=== PATIENT | male | born 1935 | race Caucasian/White ===

== ENCOUNTER 2017-06-28 09:20 | Observation (INO) | payer OTHER, MEDICARE ==
[2017-06-28 10:11] LABS: Glucose,Whole Blood 101 mg/dL (75-99)
[2017-06-28 10:19] LABS: Basophils % (A) 0 %; Eosinophils # (A) 0.2 k/uL (0-0.7); Eosinophils % (A) 2 %; HCT 40.3 % (39.0-53.0); HGB 14.2 gm/dL (13.0-17.5); Lymphocytes # (A) 2.5 k/uL (1.0-4.8); Lymphocytes % (A) 29 %; MCHC 35.2 g/dL (31.0-37.0); MCV 88.1 fL (80.0-100.0); Mean Platelet Volume 6.4; Monocytes # (A) 0.8 k/uL (0-1.0); Monocytes % (A) 9 %; Neutrophils # (A) 4.9 k/uL (1.3-7.7); Neutrophils % (A) 57 %; Platelet Count 316 k/uL (150-450); RBC 4.58 m/uL (4.30-5.90); WBC 8.7 k/uL (3.8-10.6)
[2017-06-28 10:30] LABS: Albumin 3.7 g/dL (3.5-5.0); Calcium 9.3 mg/dL (8.4-10.2); Potassium 3.4 mmol/L (3.5-5.1); Total Bilirubin 0.5 mg/dL (0.2-1.3); Total Protein 6.2 g/dL (6.3-8.2)
[2017-06-28 10:38] LABS: INR 1.1 (<1.2); Partial Thromboplastin Time 22.3 sec (22.0-30.0); Prothrombin Time 10.7 sec (9.0-12.0)
[2017-06-28 10:51] LABS: Creatine Kinase MB 1.4 ng/mL (0.0-2.4); Troponin I 0.013 ng/mL (0.000-0.034)
--- NOTE | 2017-06-28 10:56 | ED ---
General Adult HPI - General Chief complaint: Back Pain/Injury Stated complaint: Lower back pain, leg twitching Time Seen by Provider: 06/28/17 09:33 Source: patient, EMS, RN notes reviewed, old records reviewed Mode of arrival: EMS - History of Present Illness Initial comments: Patient 82-year-old male who presents emergency room today with a chief complaint of "shaking". Patient and family members at bedside providing history. They state that noticed that yesterday during the day his legs at random tremors. States the difficult time with ambulation due to shaking in his legs and his arms. States he usually walks with a walker. Patient also admits to increased lower back pain. Does admit to history. States he had a fall approximately one week ago getting into the bathtub when he slipped and did not fall the entire way was able to catch himself. States had a difficult time getting up after that time. States had increased pain on the left side posterior ribs over just the last 2 days. Patient denies any other complaints currently. Patient denies any recent fever, chills, shortness of breath, chest pain, abdominal pain, nausea or vomiting, numbness or tingling, dysuria or hematuria, headaches or visual changes, or any other complaints. - Related Data Home Medications Medication Instructions Recorded Confirmed Cetirizine HCl [Zyrtec] 10 mg PO DAILY 06/14/14 06/28/17 Citalopram Hydrobromide [CeleXA] 20 mg PO HS 06/14/14 06/28/17 Clopidogrel [Plavix] 75 mg PO QAM 06/14/14 06/28/17 Fenofibrate Nanocrystallized 145 mg PO W/SUPPER 06/14/14 06/28/17 [Tricor] Insulin Detemir [Levemir Flextouch] 35 units SQ HS 06/14/14 06/28/17 Vit A/Vit C/Vit E/Zinc/Copper 1 cap PO BID 06/14/14 06/28/17 [ICAPS SOFTGEL] Cholecalciferol [Vitamin D3] 1,000 unit PO DAILY 10/06/14 06/28/17 Aspirin EC [Ecotrin Low Dose] 81 mg PO W/SUPPER 06/28/17 06/28/17 Doxazosin [Cardura] 2 mg PO HS 06/28/17 06/28/17 Insulin Lispro [humaLOG Kwikpen] 26 unit SQ AC-TID 06/28/17 06/28/17 Losartan/Hydrochlorothiazide 1 tab PO HS 06/28/17 06/28/17 [Losartan-Hctz 100-25 mg Tab] Morphine Sulfate ER [Ms Contin] 15 mg PO TID 06/28/17 06/28/17 Rosuvastatin [Crestor] 20 mg PO W/SUPPER 06/28/17 06/28/17 amLODIPine [Norvasc] 10 mg PO DAILY 06/28/17 06/28/17 cloNIDine HCL [Catapres] 0.1 mg PO W/SUPPER 06/28/17 06/28/17 Allergies Allergy/AdvReac Type Severity Reaction Status Date / Time celecoxib [From Celebrex] Allergy Rash/Hives Verified 06/28/17 10:39 gabapentin [From Neurontin] Allergy Swelling Verified 06/28/17 10:39 levofloxacin [From Levaquin] Allergy Unknown Verified 06/28/17 10:39 sulfamethoxazole Allergy Unknown Verified 06/28/17 10:39 [From Bactrim] trimethoprim [From Bactrim] Allergy Unknown Verified 06/28/17 10:39 hydrocodone AdvReac Trouble Verified 06/28/17 10:39 Sleeping Review of Systems ROS Statement: Those systems with pertinent positive or pertinent negative responses have been documented in the HPI. ROS Other: All systems not noted in ROS Statement are negative. Past Medical History Past Medical History: Coronary Artery Disease (CAD), CVA/TIA, Hyperlipidemia, Hypertension Additional Past Medical History / Comment(s): CVA with right sided weakness History of Any Multi-Drug Resistant Organisms: None Reported Past Surgical History: Back Surgery, Heart Catheterization With Stent, Hernia Repair, Orthopedic Surgery Additional Past Surgical History / Comment(s): back surg x7, L knee, Yared. shoulders, nose surgery, hiatal hernia, stent 1997, CABG. Past Anesthesia/Blood Transfusion Reactions: No Reported Reaction Additional Past Anesthesia/Blood Transfusion Reaction / Comment(s): experienced stroke during last back surgery Date of Last Stent Placement:: june 1997 Past Psychological History: Anxiety Smoking Status: Never smoker Past Alcohol Use History: None Reported Past Drug Use History: None Reported - Past Family History Father Family Medical History: Coronary Artery Disease (CAD) General Exam - General Exam Comments Initial Comments: General: The patient is awake and alert, in no distress, and does not appear acutely ill. Eye: Pupils are equal, round and reactive to light, extra-ocular movements are intact. No nystagmus. There is normal conjunctiva bilaterally. No signs of icterus. Ears, nose, mouth and throat: There are moist mucous membranes and no oral lesions. Neck: The neck is supple, there is no tenderness or JVD. Cardiovascular: There is a regular rate and rhythm. No murmur, rub or gallop is appreciated. Respiratory: Lungs are clear to auscultation, respirations are non-labored, breath sounds are equal. No wheezes, stridor, rales, or rhonchi. Gastrointestinal: Soft, non-distended, non-tender abdomen without masses or organomegaly noted. There is no rebound or guarding present. No CVA tenderness. Musculoskeletal: Normal ROM, no tenderness. Strength 5/5. Sensation intact. Pulses equal bilaterally 2+. Neurological: A&O x 3. CN II-XII intact, There are no obvious motor or sensory deficits. Coordination appears grossly intact. Speech is normal. Skin: Skin is warm and dry and no rashes or lesions are noted. Psychiatric: Cooperative, appropriate mood & affect, normal judgment. Course Vital Signs 06/28/17 06/28/17 06/28/17 09:24 11:30 12:45 Temperature 98.7 F 98.8 F Pulse Rate 87 69 65 Respiratory 18 18 18 Rate Blood Pressure 121/65 124/60 138/63 O2 Sat by Pulse 94 L 93 L 94 L Oximetry Medical Decision Making - Medical Decision Making Patient reexamined at this time shows no signs of distress resting comfortably in the stretcher. Patient's x-rays and been reviewed and does show a fracture of the fifth rib on the left side. Remaining x-rays and CAT scan are unremarkable. Patient's labs been reviewed. Patient did take trazodone for 2 days beginning 3 days ago. Patient had some tremors sounds. Patient was ambulated here in the emergency room and will time standing up at bedside unable to ablate with walker patient will be admitted to the hospital. Patient family aware the plan states understanding. - Lab Data Result diagrams: 06/28/17 10:07 06/28/17 10:07 Lab Results 06/28/17 06/28/17 06/28/17 Range/Units 10:04 10:07 10:07 WBC (3.8-10.6) k/uL RBC (4.30-5.90) m/uL Hgb (13.0-17.5) gm/dL Hct (39.0-53.0) % MCV (80.0-100.0) fL MCH (25.0-35.0) pg MCHC (31.0-37.0) g/dL RDW (11.5-15.5) % Plt Count (150-450) k/uL Neutrophils % % Lymphocytes % % Monocytes % % Eosinophils % % Basophils % % Neutrophils # (1.3-7.7) k/uL Lymphocytes # (1.0-4.8) k/uL Monocytes # (0-1.0) k/uL Eosinophils # (0-0.7) k/uL Basophils # (0-0.2) k/uL PT (9.0-12.0) sec INR (<1.2) APTT (22.0-30.0) sec Sodium 141 (137-145) mmol/L Potassium 3.4 L (3.5-5.1) mmol/L Chloride 104 (98-107) mmol/L Carbon Dioxide 29 (22-30) mmol/L Anion Gap 8 mmol/L BUN 29 H (9-20) mg/dL Creatinine 1.20 (0.66-1.25) mg/dL Est GFR (CKD-EPI)AfAm 64 (>60 ml/min/1.73 sqM) Est GFR (CKD-EPI)NonAf 55 (>60 ml/min/1.73 sqM) Glucose 94 (74-99) mg/dL POC Glucose (mg/dL) 101 H (75-99) mg/dL POC Glu [employer] Demonstrator ID Karyna Granados Calcium 9.3 (8.4-10.2) mg/dL Total Bilirubin 0.5 (0.2-1.3) mg/dL AST 24 (17-59) U/L ALT 25 (21-72) U/L Alkaline Phosphatase 34 L (38-126) U/L Total Creatine Kinase 182 H (55-170) U/L CK-MB (CK-2) 1.4 (0.0-2.4) ng/mL CK-MB (CK-2) Rel Index 0.8 Troponin I 0.013 (0.000-0.034) ng/mL Total Protein 6.2 L (6.3-8.2) g/dL Albumin 3.7 (3.5-5.0) g/dL Amylase 68 (30-110) U/L Lipase 22 L (23-300) U/L Urine Color Urine Appearance (Clear) Urine pH (5.0-8.0) Ur Specific Orma (1.001-1.035) Urine Protein (Negative) Urine Glucose (UA) (Negative) Urine Ketones (Negative) Urine Blood (Negative) Urine Nitrite (Negative) Urine Bilirubin (Negative) Urine Urobilinogen (<2.0) mg/dL Ur Leukocyte Esterase (Negative) 06/28/17 06/28/17 06/28/17 Range/Units 10:07 10:07 11:00 WBC 8.7 (3.8-10.6) k/uL RBC 4.58 (4.30-5.90) m/uL Hgb 14.2 (13.0-17.5) gm/dL Hct 40.3 (39.0-53.0) % MCV 88.1 (80.0-100.0) fL MCH 31.0 (25.0-35.0) pg MCHC 35.2 (31.0-37.0) g/dL RDW 13.0 (11.5-15.5) % Plt Count 316 (150-450) k/uL Neutrophils % 57 % Lymphocytes % 29 % Monocytes % 9 % Eosinophils % 2 % Basophils % 0 % Neutrophils # 4.9 (1.3-7.7) k/uL Lymphocytes # 2.5 (1.0-4.8) k/uL Monocytes # 0.8 (0-1.0) k/uL Eosinophils # 0.2 (0-0.7) k/uL Basophils # 0.0 (0-0.2) k/uL PT 10.7 (9.0-12.0) sec INR 1.1 (<1.2) APTT 22.3 (22.0-30.0) sec Sodium (137-145) mmol/L Potassium (3.5-5.1) mmol/L Chloride (98-107) mmol/L Carbon Dioxide (22-30) mmol/L Anion Gap mmol/L BUN (9-20) mg/dL Creatinine (0.66-1.25) mg/dL Est GFR (CKD-EPI)AfAm (>60 ml/min/1.73 sqM) Est GFR (CKD-EPI)NonAf (>60 ml/min/1.73 sqM) Glucose (74-99) mg/dL POC Glucose (mg/dL) (75-99) mg/dL POC Glu Farm Demonstrator ID Calcium (8.4-10.2) mg/dL Total Bilirubin (0.2-1.3) mg/dL AST (17-59) U/L ALT (21-72) U/L Alkaline Phosphatase (38-126) U/L Total Creatine Kinase (55-170) U/L CK-MB (CK-2) (0.0-2.4) ng/mL CK-MB (CK-2) Rel Index Troponin I (0.000-0.034) ng/mL Total Protein (6.3-8.2) g/dL Albumin (3.5-5.0) g/dL Amylase (30-110) U/L Lipase (23-300) U/L Urine Color Yellow Urine Appearance Clear (Clear) Urine pH 7.0 (5.0-8.0) Ur Specific Orma 1.018 (1.001-1.035) Urine Protein Negative (Negative) Urine Glucose (UA) Negative (Negative) Urine Ketones Negative (Negative) Urine Blood Negative (Negative) Urine Nitrite Negative (Negative) Urine Bilirubin Negative (Negative) Urine Urobilinogen 4.0 (<2.0) mg/dL Ur Leukocyte Esterase Negative (Negative) Disposition Clinical Impression: Rib fracture, Tremor, Chronic back pain Disposition: ADMITTED IP TO THIS HOSP Condition: Stable Referrals: Alycia Cook DO [Primary Care Provider] - 1-2 days Time of Disposition: 13:42
--- NOTE | 2017-06-28 11:07 | XR ---
EXAMINATION TYPE: XR chest 2V DATE OF EXAM: 06/28/2017 COMPARISON: Prior chest x-ray 01/10/2016 HISTORY: Back pain, fall 2 days prior TECHNIQUE: Frontal and lateral views of the chest are obtained. FINDINGS: There is no focal air space opacity, pleural effusion, or pneumothorax seen. The cardiac silhouette size is stable. Patient is rotated. Posterior rib fracture at the sixth rib on the left w as present on prior exam and is healed. High riding shoulder may be indicative of chronic rotator cuf f tear. Patient is post median sternotomy. IMPRESSION: No acute cardiopulmonary process.
--- NOTE | 2017-06-28 11:08 | XR ---
Lumbar spine HISTORY: Pain, fall 3 views of the lumbar spine correlated to prior exam 10/30/2015, chest x-ray same date No interval change is evident. Postop changes, spinal curvature again seen. Lumbar vertebral bodies s how preserved height, stable alignment. Bone mineralization is unchanged. Flowing anterior osteophyte s along the vertebral bodies may be indicative of diffuse idiopathic skeletal hyperostosis. IMPRESSION: No acute fracture or subluxation.
--- NOTE | 2017-06-28 11:10 | XR ---
EXAMINATION TYPE: Left rib series DATE OF EXAM: 06/28/2017 COMPARISON: 01/10/2016 and chest radiograph same day HISTORY: 82-year-old male pain after fall 2 days ago TECHNIQUE: 4 views FINDINGS: Chronic healed fracture deformity sixth posterior rib. There a subtle cortical lucency seen along the fifth anterolateral rib on one image suspicious for a subtle nondisplaced fracture. IMPRESSION: Suspicion for a subtle nondisplaced fracture of the left fifth anterolateral rib. Correlate for focal pain here.
--- NOTE | 2017-06-28 11:10 | XR ---
Thoracic spine HISTORY: Pain, fall 4 views of the thoracic spine correlated to prior exam 03/18/2015 There is no significant interval change. There is a spinal curvature. Postop changes are again noted. Thoracic vertebral bodies show stable height, alignment, and bone mineralization. Flowing anterior o steophytes along the thoracic vertebral bodies compatible with underlying diffuse idiopathic skeletal hyperostosis. Disc spaces are preserved. IMPRESSION: No fracture or subluxation.
[2017-06-28 11:45] LABS: Appearance,Urine Clear (Clear); Bilirubin,Urine Negative (Negative); Blood,Urine Negative (Negative); Color,Urine Yellow; Glucose,Urine (UA) Negative (Negative); Ketones,Urine Negative (Negative); Leukocyte Esterase,Urine Negative (Negative); Nitrite,Urine Negative (Negative); Protein,Urine Negative (Negative); Specific Gravity,Urine 1.018 (1.001-1.035)
--- NOTE | 2017-06-28 12:37 | CT ---
EXAMINATION TYPE: CT brain wo con DATE OF EXAM: 06/28/2017 COMPARISON: 01/10/2016 HISTORY: Lower back pain, leg twitching CT DLP: 1153 mGycm Automated exposure control for dose reduction was used. FINDINGS: There is diffuse atrophy compatible severe degenerative change. The base of the skull is limited due to streak artifact from extensive dental artifact. Remaining portion of the visualized brain demonstr ates no acute intracranial hemorrhage or mass effect. Extensive periventricular low attenuation is nonspecific but most typical remote microvascular ischem ia. The calvarium is intact. Atherosclerotic change of the left vertebral artery. IMPRESSION: 1. DEGENERATIVE AND NONSPECIFIC WHITE MATTER CHANGES MOST TYPICAL REMOTE MICROVASCULAR ISCHEMIA. 2. NO ACUTE INTRACRANIAL HEMORRHAGE OR MASS EFFECT.
[2017-06-28] MEDS ORDERED: LORazepam 2 MG/ML INJ IV PRN (13:42)
[2017-06-28] MEDS ORDERED: NALOXONE 0.4 MG/ML 1 ML VIAL IV PRN (13:42)
[2017-06-28 13:57] LABS: Glucose,Whole Blood 120 mg/dL (75-99)
[2017-06-28 16:49] LABS: Glucose,Whole Blood 192 mg/dL (75-99)
[2017-06-28 17:24] VITALS: BMI 30.4
[2017-06-28] MEDS: MORPHINE SULFATE ER 15 MG TABLET PO SCH ×2 (17:38→23:16)
[2017-06-28] MEDS: ATORVASTATIN 40 MG TAB PO SCH (17:39)
[2017-06-28] MEDS: cloNIDine HCL 0.1 MG TAB PO SCH (17:39)
[2017-06-28] MEDS: ASPIRIN 81 MG PO SCH (17:39)
[2017-06-28] MEDS: INSULIN ASPART 100 UNIT/ML 1 ML 10 ML VIAL SQ SCH ×2 (17:47→23:16)
[2017-06-28 20:20] LABS: Glucose,Whole Blood 178 mg/dL (75-99)
[2017-06-28 21:16] LABS: Hemoglobin A1C 6.1 % (4.0-6.0)
[2017-06-28] MEDS: CITALOPRAM HYDROBROMIDE 20 MG TAB PO SCH (23:16)
--- NOTE | 2017-06-29 05:12 | HP ---
DOS: 06/28/17 HISTORY AND PHYSICAL CHIEF COMPLAINT: Weakness and tremors. HISTORY OF PRESENT ILLNESS: This 82-year-old gentleman with a past medical history of multiple medical problems including CAD, CABG, history of CVA, TIA, history of hypertension, hyperlipidemia, history of back surgery, history of CAD stent being followed by Dr. Cerrato in the outpatient setting was noted to have tremors by the family. The patient apparently had some dementia too. The tremors are random like reactions and shaking. The patient was usually walking with a walker. Patient also has increasing back pain. Patient also apparently had a fall about 1 week ago getting into the bathtub also and because of multiple complex medical issues, patient taken to [facility] and was admitted for further evaluation and treatment. Currently patient is confused. Patient received some Ativan. Unable to obtain a clear cut history. Most of the history is taken my discussion with staff and review of chart and discussion with the ER physician at this time. PAST MEDICAL HISTORY: CAD, CVA, TIA, hypertension, hyperlipidemia, history of CAD stent, history of back pain, history of fall, anxiety. MEDICATIONS: Prior to admission include home medications are: 1. Cardura 2 mg p.o. q.h.s. 2. Ecotrin 81 mg with supper. 3. Norvasc 10 mg p.o. daily. 4. Losartan 1 tab p.o. q.h.s. 5. Levemir 35 units subcu q.h.s. 6. Catapres 0.1 supper. 7. Humalog 26 units subcu a.c. t.i.d. 8. Tricor 140 mg supper. 9. Crestor 20 mg supper. 10.MS Contin 50 mg p.o. t.i.d. 11.Plavix 75 mg p.o. q.i.d. 12.I-Caps one cap p.o. b.i.d. 13.Vitamin D3 1000 daily. 14.Celexa 20 mg. ALLERGIES: CELEBREX, NEURONTIN, LEVAQUIN, BACTRIM, AND HYDROCODONE. FAMILY HISTORY: Of coronary artery disease in the family. SOCIAL HISTORY: No history of smoking. No history of alcohol intake. Per chart. REVIEW OF THE SYSTEMS: Could not be taken because of change in mental status. PHYSICAL EXAM: Pulse is 71, blood pressure 140/46, respiration 18, temperature 98 degrees, pulse ox 98% on 2 L. HEENT is conjunctivae normal. Oral mucosa moist. Neck is no jugular venous distention. No lymph nodes enlargement. Cardiovascular system: S1, S2 muffled. No S3, no S4. Respirations: Breath sounds diminished the bases. A few rhonchi and no crackles. ABDOMEN: Soft, nontender. No mass palpable. Legs no edema. No swelling. Central nervous system: Higher functions as mentioned earlier: Tone appears to be increasing diffuse tremors also present. Some parkinsonian features are present. Otherwise skin no ulcer, rash or bleeding. Lymphatics: No lymph nodes palpable in the neck, axillae or groin. Joints: No active deforming arthropathy. LAB: Investigations at this time shows CBC within normal limits, sodium 140, potassium 3.4, glucose 101, 120. ASSESSMENT: 1. Tremors and weakness and gait dysfunction. Rule out a acute transient ischemic attack or stroke. 2. Rule out parkinsonism. 3. Gait dysfunction. 4. Dementia. 5. Hypokalemia. 6. History of coronary artery disease, stent. 7. History of cerebrovascular accident, transient ischemic attack. 8. Hypertension. 9. Hyperlipidemia. 11.History of back surgery. 12.History of recent fall. 13.Gait dysfunction. 14.History of hernia surgery. 15.History of anxiety. RECOMMENDATIONS AND DISCUSSION: In this 82-year-old gentleman who presented with multiple complex medical issues , we will monitor the patient closely, continue the current medications, management and symptomatic treatment. The spine x-rays showed the lumbar and thoracic spine x- rays are showing no fracture, dislocation. I would also recommend a pelvic x-ray with hip and otherwise, PT/OT evaluation. Neurology consultation. The guarded prognosis because of multiple complex medical issues. Copy of dictation being forwarded to Dr. Cook who is the primary physician. See orders. DVT prophylaxis. Prognosis guarded. Further recommendations to follow. MMODL / IJN: [id number] / MTDD
[2017-06-29 07:43] LABS: Glucose,Whole Blood 177 mg/dL (75-99)
[2017-06-29] MEDS: PANTOPRAZOLE 40 MG TABLET PO SCH (08:03)
[2017-06-29] MEDS: CHOLECALCIFEROL 1,000 UNIT TAB PO SCH (08:04)
[2017-06-29] MEDS: LORATADINE 10 MG TAB PO SCH (08:05)
[2017-06-29] MEDS: HEPARIN SODIUM,PORCINE 5,000 UNIT/ML 1 ML VIAL SQ SCH ×2 (08:05→21:43)
[2017-06-29] MEDS: VIT A,C & E-LUTEIN-MINERALS 1 EACH TAB PO SCH ×2 (08:06→21:44)
[2017-06-29] MEDS: MORPHINE SULFATE ER 15 MG TABLET PO SCH ×3 (08:06→21:44)
[2017-06-29] MEDS: INSULIN ASPART 100 UNIT/ML 1 ML 10 ML VIAL SQ SCH ×7 (08:12→21:32)
--- NOTE | 2017-06-29 08:17 | XR ---
EXAMINATION TYPE: XR pelvis AP view DATE OF EXAM: 06/29/2017 COMPARISON: NONE HISTORY: 82-year-old male with fall and pain FINDINGS: Posterior and interbody fusion changes seen in the lower lumbar spine with corresponding laminectomy. Degenerative subarticular sclerosis at the SI joints. Mild degenerative change at the hips. There is excessive external rotation at the left hip obscuring the lower femoral neck. No displaced fracture is seen. Phlebolith left hemipelvis. Penile prosthesis. 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 IMPRESSION: Mild bilateral hip osteoarthrosis. Some exam limitations due to patient positioning. No displaced fra cture seen. Follow-up if the patient is newly nonweightbearing.
[2017-06-29] MEDS: CLOPIDOGREL 75 MG TAB PO SCH (08:46)
[2017-06-29] MEDS: amLODIPine 10 MG TAB PO SCH (08:46)
[2017-06-29 08:54] LABS: Basophils % (A) 0 %; Eosinophils # (A) 0.2 k/uL (0-0.7); Eosinophils % (A) 2 %; HCT 42.5 % (39.0-53.0); HGB 14.3 gm/dL (13.0-17.5); Lymphocytes # (A) 2.6 k/uL (1.0-4.8); Lymphocytes % (A) 30 %; MCH 30.4 pg (25.0-35.0); MCHC 33.8 g/dL (31.0-37.0); Mean Platelet Volume 6.8; Monocytes # (A) 0.7 k/uL (0-1.0); Monocytes % (A) 8 %; Neutrophils # (A) 4.8 k/uL (1.3-7.7); Neutrophils % (A) 57 %; Platelet Count 307 k/uL (150-450); RBC 4.71 m/uL (4.30-5.90); RDW 12.8 % (11.5-15.5); WBC 8.4 k/uL (3.8-10.6)
[2017-06-29 09:20] LABS: Albumin 3.8 g/dL (3.5-5.0); Calcium 9.2 mg/dL (8.4-10.2); Potassium 3.6 mmol/L (3.5-5.1); Total Bilirubin 0.7 mg/dL (0.2-1.3); Total Protein 6.3 g/dL (6.3-8.2)
[2017-06-29 12:10] LABS: Glucose,Whole Blood 181 mg/dL (75-99)
[2017-06-29] MEDS: ASPIRIN 81 MG PO SCH (16:27)
[2017-06-29] MEDS: ATORVASTATIN 40 MG TAB PO SCH (16:28)
[2017-06-29] MEDS: cloNIDine HCL 0.1 MG TAB PO SCH (16:28)
[2017-06-29] MEDS: FENOFIBRATE 160 MG TAB PO SCH (16:28)
[2017-06-29 17:21] LABS: Glucose,Whole Blood 232 mg/dL (75-99)
--- NOTE | 2017-06-29 19:56 | P.CNNES ---
History of Present Illness Consult date: 06/29/17 Reason for Consult: Patient admitted with generalized weakness and tremors. History of Present Illness: This patient is a 82-year-old right-handed white female who apparently recently has been noticed by his is having increasing tremors. Previously about a week ago he had taken a fall in the bathroom due to weakness. He had been having greater tremors mostly in his legs. They would come on and off at different times of the day. He was having greater difficulty ambulating from place to place at home. He does use a walker and his stated that he was having more difficulty even with the use of a walker to get from room to room at home. Patient does have a history of having had multiple back surgery over the years. According to his he is undergone 7 back surgeries with instrumentation to the lumbar spine. According to the patient all 7 back surgeries were done by Dr. Porter. According to the he was taking Xanax at low dose and this was discontinued about a week ago. There was some concern that he may have had some of the tremors due to withdrawal from Xanax. He was also placed on trazodone but only took 2 tablets for 2 consecutive days and discontinued this as well due to side effects. According to the she has noted tremors involving not only the legs but also the arms and upper body as well. She has not seen him go into any type of generalized seizure. He does not have any loss of consciousness with these spells. Due to the tremors there was also some thought as to whether he may have underlying Parkinson's disease. Patient denies any rigidity in his upper or lower extremities. He does not have a shuffling gait but does have some degree of gait instability due to multiple back surgeries. He does not experience any rest tremor. He denies any symptoms to suggest bradykinesia. Clinically he does not appear to be parkinsonian in features. He was brought into the emergency room yesterday for further evaluation. He was seen in the ER by Josue Messina yesterday evening. He was sent for computed tomography scan of the brain yesterday which revealed degenerative and nonspecific white matter changes. No acute intracranial hemorrhage or mass effect was noted. He also had multiple x-rays of the spine including thoracic and lumbar. No fracture subluxation was noted. X-ray of the hip was also performed which revealed mild bilateral hip osteoarthrosis. No displaced fracture was noted. As noted the patient has undergone multiple back surgeries over the years. There was no evidence of any disc herniation on his plain x-ray of the lumbar spine. His spine hardware all seems to be intact. The patient apparently had no previous symptoms of severe tremors prior to a week ago. He does use MS Contin for treatment of his back pain symptoms. He is also on Plavix 75 mg daily for secondary stroke prevention. He is a known diabetic and apparently his last hemoglobin A1c was in the range of 7.2. The patient was admitted to hospital for further evaluation. On further questioning he has some symptoms of deconditioning as he is not very active at home. We have recommended that he be fully evaluated from physical therapy and possibly be considered for a spent in subacute rehab at the time of discharge. His neurological examination does not reveal significant findings for parkinsonism or Parkinson's disease at this time. We would recommend aggressive outpatient physical therapy or subacute rehab which may help him increase his mobility. Neurology is now been consulted for further evaluation and recommendations. Review of Systems Constitutional: Denies chills, Denies fever Eyes: denies blurred vision, denies pain Ears, nose, mouth and throat: Denies headache, Denies sore throat Cardiovascular: Denies chest pain, Denies shortness of breath Respiratory: Denies cough Gastrointestinal: Denies abdominal pain, Denies diarrhea, Denies nausea, Denies vomiting Musculoskeletal: Denies myalgias Integumentary: Denies pruritus, Denies rash Neurological: Reports balance difficulties, Reports gait dysfunction, Reports hearing difficulties, Reports tremors, Denies numbness, Denies weakness Psychiatric: Denies anxiety, Denies depression Endocrine: Denies fatigue, Denies weight change Past Medical History Past Medical History: Coronary Artery Disease (CAD), CVA/TIA, Hyperlipidemia, Hypertension Additional Past Medical History / Comment(s): CVA with right sided weakness History of Any Multi-Drug Resistant Organisms: None Reported Past Surgical History: Back Surgery, Heart Catheterization With Stent, Hernia Repair, Orthopedic Surgery Additional Past Surgical History / Comment(s): back surg x7, L knee, Yared. shoulders, nose surgery, hiatal hernia, stent 1997, CABG. Past Anesthesia/Blood Transfusion Reactions: No Reported Reaction Additional Past Anesthesia/Blood Transfusion Reaction / Comment(s): experienced stroke during last back surgery Date of Last Stent Placement:: june 1997 Past Psychological History: Anxiety Additional Psychological History / Comment(s): xanax, Smoking Status: Never smoker Past Alcohol Use History: None Reported Past Drug Use History: None Reported - Past Family History Father Family Medical History: Coronary Artery Disease (CAD) Medications and Allergies Home Medications Medication Instructions Recorded Confirmed Type Cetirizine HCl [Zyrtec] 10 mg PO DAILY 06/14/14 06/28/17 History Citalopram Hydrobromide [CeleXA] 20 mg PO HS 06/14/14 06/28/17 History Clopidogrel [Plavix] 75 mg PO QAM 06/14/14 06/28/17 History Fenofibrate Nanocrystallized 145 mg PO W/SUPPER 06/14/14 06/28/17 History [Tricor] Insulin Detemir [Levemir Flextouch] 35 units SQ HS 06/14/14 06/28/17 History Vit A/Vit C/Vit E/Zinc/Copper 1 cap PO BID 06/14/14 06/28/17 History [ICAPS SOFTGEL] Cholecalciferol [Vitamin D3] 1,000 unit PO DAILY 10/06/14 06/28/17 History Aspirin EC [Ecotrin Low Dose] 81 mg PO W/SUPPER 06/28/17 06/28/17 History Doxazosin [Cardura] 2 mg PO HS 06/28/17 06/28/17 History Insulin Lispro [humaLOG Kwikpen] 26 unit SQ AC-TID 06/28/17 06/28/17 History Losartan/Hydrochlorothiazide 1 tab PO HS 06/28/17 06/28/17 History [Losartan-Hctz 100-25 mg Tab] Morphine Sulfate ER [Ms Contin] 15 mg PO TID 06/28/17 06/28/17 History Rosuvastatin [Crestor] 20 mg PO W/SUPPER 06/28/17 06/28/17 History amLODIPine [Norvasc] 10 mg PO DAILY 06/28/17 06/28/17 History cloNIDine HCL [Catapres] 0.1 mg PO W/SUPPER 06/28/17 06/28/17 History Allergies Allergy/AdvReac Type Severity Reaction Status Date / Time celecoxib [From Celebrex] Allergy Rash/Hives Verified 06/28/17 10:39 gabapentin [From Neurontin] Allergy Swelling Verified 06/28/17 10:39 levofloxacin [From Levaquin] Allergy Unknown Verified 06/28/17 10:39 sulfamethoxazole Allergy Unknown Verified 06/28/17 10:39 [From Bactrim] trimethoprim [From Bactrim] Allergy Unknown Verified 06/28/17 10:39 hydrocodone AdvReac Trouble Verified 06/28/17 10:39 Sleeping Physical Examination - Vital Signs Vital Signs: Vital Signs Temp Pulse Resp BP Pulse Ox 06/29/17 15:00 98 F 68 16 138/63 93 L 06/29/17 07:00 98.2 F 52 L 16 156/71 96 06/28/17 22:23 98.0 F 71 18 141/65 99 Intake and Output 06/29/17 06/29/17 06/29/17 06:59 14:59 22:59 Intake Total 110 Balance 110 Intake: Oral 110 Other: Voiding Method Diaper Diaper Bedside Commode Incontinent Diaper Incontinent # Voids 2 5 5 # Bowel Movements 2 3 3 Weight 90.718 kg Patient Weight 06/30/17 06:59 Weight 90.718 kg - Constitutional General appearance: average body habitus, cooperative - EENT EENT: PERRL, mucous membranes moist - Respiratory Respiratory: lungs clear, normal breath sounds - Cardiovascular Cardiovascular: regular rate, normal S1, normal S2 Extremities: no peripheral edema bilaterally - Gastrointestinal Gastrointestinal: normoactive bowel sounds - Integumentary Integumentary: normal - Neurologic Cranial nerve examination: PERRL, EOMI, VFF, V1/V2/V3 grossly intact, face symmetric, intact gag reflex, intact corneal reflex, normal palatal elevation Speech examination: intact Sensorimotor examination: intact Motor examination - right side: 4/5: biceps, triceps, wrist flexion, wrist extension, stroboroma operator, hip flexors, knee extensors, dorsiflexion, toe extension (EHL) , plantarflexion Motor examination - left side: 4/5: biceps, triceps, wrist flexion, wrist extension, stroboroma operator, hip flexors, knee extensors, dorsiflexion, toe extension (EHL) , plantarflexion Detailed sensory examination: intact Reflex and gait examination: intact Reflexes: 1+: ankle, bicep, knee, tricep - Musculoskeletal Musculoskeletal: no pain - Psychiatric Psychiatric: mood/affect appropriate, cooperative Results - Laboratory Findings CBC and BMP: 06/29/17 08:18 06/29/17 08:18 Abnormal Lab Findings: Abnormal Labs 06/28/17 06/28/17 06/28/17 10:04 10:07 10:07 Potassium 3.4 L BUN 29 H Glucose POC Glucose (mg/dL) 101 H Hemoglobin A1c Alkaline Phosphatase 34 L Total Creatine Kinase 182 H Total Protein 6.2 L Lipase 22 L 06/28/17 06/28/17 06/28/17 10:07 13:19 16:47 Potassium BUN Glucose POC Glucose (mg/dL) 120 H 192 H Hemoglobin A1c 6.1 H Alkaline Phosphatase Total Creatine Kinase Total Protein Lipase 06/28/17 06/29/17 06/29/17 20:08 07:35 08:18 Potassium BUN 26 H Glucose 180 H POC Glucose (mg/dL) 178 H 177 H Hemoglobin A1c Alkaline Phosphatase Total Creatine Kinase Total Protein Lipase 06/29/17 06/29/17 12:08 17:20 Potassium BUN Glucose POC Glucose (mg/dL) 181 H 232 H Hemoglobin A1c Alkaline Phosphatase Total Creatine Kinase Total Protein Lipase Assessment and Plan (1) Tremor Current Visit: Yes Status: Acute Code(s): R25.1 - TREMOR, UNSPECIFIED SNOMED Code(s): 70107017 (2) Withdrawal from benzodiazepine Current Visit: Yes Status: Acute Code(s): F13.239 - SEDATV/HYP/ANXIOLYTC DEPENDENCE W WITHDRAWAL, UNSP SNOMED Code(s): 930136419 (3) Chronic back pain Current Visit: Yes Status: Acute Code(s): M54.9 - DORSALGIA, UNSPECIFIED; G89.29 - OTHER CHRONIC PAIN SNOMED Code(s): 203355801 (4) Debility Current Visit: No Status: Acute Code(s): R53.81 - OTHER MALAISE SNOMED Code(s): 10459015 (5) Encephalopathy Current Visit: No Status: Acute Code(s): G93.40 - ENCEPHALOPATHY, UNSPECIFIED SNOMED Code(s): 31548702 Plan: This patient is a 82-year-old right-handed white male who was admitted to Hospital through the emergency room due to increase in tremors. According to the who provided the medical history for the patient the symptoms only began about a week ago. According to the he was taken off of Xanax recently and switched to trazodone. A few days after stopping the Xanax he began having full body tremors. There was concern for possibility of Parkinson' s disease given the tremor-type symptoms. Apparently he had no previous history of these types of tremors prior to 2 week ago. He was brought into the emergency room where he was further evaluated. He underwent a computed tomography scan of the brain which revealed no acute intracranial hemorrhage or mass effect. There was degenerative nonspecific white matter changes noted. He underwent a series of x-rays of the spine all of which came back normal with no evidence of fracture or subluxation. His neurological examination does not reveal evidence of parkinsonism or Parkinson's disease at this time. Most likely he may have had mild withdrawal symptoms from the Xanax. We would recommend physical therapy to evaluate and to increase his mobility with the use of his walker. He has a history of having had 7 back surgeries over the years. He does use a walker at home for ambulation. Some of his weakness may be due to general medical debility. Would recommend to consider inpatient rehab for this patient pending physical therapy's assessment as well. Doubt that he is having seizures but we will further evaluate with a routine EEG. We will continue close neurological follow-up for the patient during this admission. His overall prognosis remains guarded. Time with Patient: Greater than 30
[2017-06-29 20:43] LABS: Glucose,Whole Blood 281 mg/dL (75-99)
--- NOTE | 2017-06-29 20:52 | PN ---
PROGRESS NOTE DATE OF SERVICE: 06/29/2017 This 82-year-old gentleman admitted with weakness and tremors has some difficulty walking, also. The patient also has significant diffuse tremors and pain. After sedation and after pain medications, the patient is currently rather drowsy, unable to give a coherent history at this time. Past medical history reviewed. Review of systems could not be taken; the patient is sedated at this time. CURRENT MEDICATIONS: Current medications are reviewed and include: 1. Norvasc 10 mg p.o. daily. 2. Aspirin 81 mg p.o. daily. 3. Lipitor 40 mg with supper. 4. Vitamin D3 1000 daily. 5. Celexa 20 mg at bedtime. 6. Catapres 0.1 mg with supper. 7. Plavix 75 mg daily. 8. Cardura 2 mg at bedtime. 9. Lofibra. 10.Heparin subcutaneously b.i.d. 11.Levemir 35 units subcutaneously at bedtime. 12.Claritin 10 mg daily. 13.Ativan 0.5 mg at bedtime. 14.MS Contin 15 mg p.o. t.i.d. 15.Ivite. 16.Narcan. 17.Protonix. PHYSICAL EXAMINATION: Patient is drowsy. The pulse is 52, blood pressure 156/71, respiration 16, temperature 98.2, pulse ox 96% on room air. HEENT: Conjunctivae normal. Oral mucosa moist. NECK: No jugular venous distention. No carotid bruit. No lymph node enlargement. CARDIOVASCULAR SYSTEM: S1, S2 muffled. No S3. No S4. RESPIRATORY SYSTEM: Breath sounds diminished at the bases. Scattered rhonchi and crackles. ABDOMEN: Soft, nontender. No mass palpable. LEGS: No edema. No swelling. NERVOUS SYSTEM: Higher functions as mentioned earlier. Movements are noted in all 4 limbs and some tremors also noted. Full neurologic examination not possible at this time. SKIN: No ulcer, rash, bleeding. LYMPHATICS: No lymph node palpable in neck, axillae or groin. LABS: CBC within normal limits. Glucose 180. ASSESSMENT: 1. Tremors and weakness and gait dysfunction. Rule out acute transient ischemic attack or stroke. 2. Rule out acute parkinsonian syndrome. 3. Possible rib fractures. 4. Rule out degenerative joint disease of the back. 5. Gait dysfunction. 6. Dementia. 7. Hypokalemia. 8. History of coronary artery disease, stent. 9. History of cerebrovascular accident, transient ischemic attack. 10.Hypertension. 11.Hyperlipidemia. 12.History of back surgery. 13.Recent fall. 14.History of hernia surgery. 15.History of anxiety. RECOMMENDATIONS AND DISCUSSION: I recommend to continue current medications, continue symptomatic treatment. Otherwise at this time I would recommend closely follow with Neurology for further evaluation and consideration of any antiparkinsonian medications. Otherwise we will also consult closely with Orthopedic Surgery for the back pain. Rib fracture has been suspected. We will follow the patient closely. As mentioned, Neurology has been already consulted. Further recommendations to follow. MMODL / IJN: [id number] /
[2017-06-29] MEDS: CITALOPRAM HYDROBROMIDE 20 MG TAB PO SCH (21:43)
[2017-06-29] MEDS: INSULIN DETEMIR 100 UNIT/ML 10 ML VIAL SQ SCH (21:43)
[2017-06-29] MEDS: DOXAZOSIN 2 MG TAB PO SCH (21:43)
[2017-06-29] MEDS: LOSARTAN-HCTZ 50-12.5 MG 1 EACH TAB PO SCH (21:44)
[2017-06-30 06:48] LABS: Glucose,Whole Blood 171 mg/dL (75-99)
[2017-06-30 08:13] LABS: Basophils % (A) 0 %; Eosinophils # (A) 0.2 k/uL (0-0.7); Eosinophils % (A) 2 %; HCT 39.6 % (39.0-53.0); HGB 13.1 gm/dL (13.0-17.5); Lymphocytes # (A) 2.3 k/uL (1.0-4.8); Lymphocytes % (A) 35 %; MCH 29.6 pg (25.0-35.0); MCV 89.6 fL (80.0-100.0); Mean Platelet Volume 6.8; Monocytes # (A) 0.6 k/uL (0-1.0); Monocytes % (A) 8 %; Neutrophils # (A) 3.5 k/uL (1.3-7.7); Neutrophils % (A) 52 %; Platelet Count 273 k/uL (150-450); RBC 4.42 m/uL (4.30-5.90); RDW 12.7 % (11.5-15.5); WBC 6.7 k/uL (3.8-10.6)
[2017-06-30 08:29] LABS: Calcium 9.3 mg/dL (8.4-10.2); Potassium 3.6 mmol/L (3.5-5.1)
[2017-06-30] MEDS: VIT A,C & E-LUTEIN-MINERALS 1 EACH TAB PO SCH ×2 (09:10→21:07)
[2017-06-30] MEDS: LORATADINE 10 MG TAB PO SCH (09:10)
[2017-06-30] MEDS: CHOLECALCIFEROL 1,000 UNIT TAB PO SCH (09:10)
[2017-06-30] MEDS: amLODIPine 10 MG TAB PO SCH (09:10)
[2017-06-30] MEDS: PANTOPRAZOLE 40 MG TABLET PO SCH (09:10)
[2017-06-30] MEDS: CLOPIDOGREL 75 MG TAB PO SCH (09:10)
[2017-06-30] MEDS: MORPHINE SULFATE ER 15 MG TABLET PO SCH ×4 (09:11→21:09)
[2017-06-30] MEDS: INSULIN ASPART 100 UNIT/ML 1 ML 10 ML VIAL SQ SCH ×7 (09:11→21:07)
[2017-06-30] MEDS: HEPARIN SODIUM,PORCINE 5,000 UNIT/ML 1 ML VIAL SQ SCH ×2 (09:11→21:06)
--- NOTE | 2017-06-30 09:22 | P.CNOR ---
History of Present Illness - [facility] Consult date: 06/30/17 Consult reason: low back pain History of present illness: Patient is a pleasant 82 year old gentleman who has multiple medical issues in a long history of chronic low back pain. He presented to the emergency room 2 days ago in regards to increasing tremors difficulty ambulation and low back pain. He did not have any specific injury or trauma. He denies any headaches loss of consciousness. He says his back pain has been chronic for him and he has been through multiple surgeries approximately [address] Cao in [place] in the past. He did not have any new changes in his lower extremities in terms of weakness or sensation. He says he was having some increased tremors and was having difficulty with his mobilization due to this. He has been seen here with internal medicine as well as with neurology and I appreciate the neurology notes from Dr. Narvaez history evening. He feels his back pain flareup is improving since yesterday and is feeling more like his regular chronic pain today. And he is becoming more mobile and steady on his feet today. Review of Systems He denies any changes in his lower extremity. Denies any changes in bowel bladder function. He does have long standing history of chronic low back pain with 7 surgeries in the past with done with Dr. Cao. He does not have any acute changes in his low back but has occasional flareups in his back pain and was having some increased pain over the past 2 days which appears to be resolving this point. Past Medical History Past Medical History: Coronary Artery Disease (CAD), CVA/TIA, Hyperlipidemia, Hypertension Additional Past Medical History / Comment(s): CVA with right sided weakness History of Any Multi-Drug Resistant Organisms: None Reported Past Surgical History: Back Surgery, Heart Catheterization With Stent, Hernia Repair, Orthopedic Surgery Additional Past Surgical History / Comment(s): back surg x7, L knee, Yared. shoulders, nose surgery, hiatal hernia, stent 1997, CABG. Past Anesthesia/Blood Transfusion Reactions: No Reported Reaction Additional Past Anesthesia/Blood Transfusion Reaction / Comm: experienced stroke during last back surgery Date of Last Stent Placement:: june 1997 Past Psychological History: Anxiety Additional Psychological History / Comment(s): xanax, Smoking Status: Never smoker Past Alcohol Use History: None Reported Past Drug Use History: None Reported - Past Family History Father Family Medical History: Coronary Artery Disease (CAD) Medications and Allergies Home Medications Medication Instructions Recorded Confirmed Type Cetirizine HCl [Zyrtec] 10 mg PO DAILY 06/14/14 06/28/17 History Citalopram Hydrobromide [CeleXA] 20 mg PO HS 06/14/14 06/28/17 History Clopidogrel [Plavix] 75 mg PO QAM 06/14/14 06/28/17 History Fenofibrate Nanocrystallized 145 mg PO W/SUPPER 06/14/14 06/28/17 History [Tricor] Insulin Detemir [Levemir Flextouch] 35 units SQ HS 06/14/14 06/28/17 History Vit A/Vit C/Vit E/Zinc/Copper 1 cap PO BID 06/14/14 06/28/17 History [ICAPS SOFTGEL] Cholecalciferol [Vitamin D3] 1,000 unit PO DAILY 10/06/14 06/28/17 History Aspirin EC [Ecotrin Low Dose] 81 mg PO W/SUPPER 06/28/17 06/28/17 History Doxazosin [Cardura] 2 mg PO HS 06/28/17 06/28/17 History Insulin Lispro [humaLOG Kwikpen] 26 unit SQ AC-TID 06/28/17 06/28/17 History Losartan/Hydrochlorothiazide 1 tab PO HS 06/28/17 06/28/17 History [Losartan-Hctz 100-25 mg Tab] Morphine Sulfate ER [Ms Contin] 15 mg PO TID 06/28/17 06/28/17 History Rosuvastatin [Crestor] 20 mg PO W/SUPPER 06/28/17 06/28/17 History amLODIPine [Norvasc] 10 mg PO DAILY 06/28/17 06/28/17 History cloNIDine HCL [Catapres] 0.1 mg PO W/SUPPER 06/28/17 06/28/17 History Allergies Allergy/AdvReac Type Severity Reaction Status Date / Time celecoxib [From Celebrex] Allergy Rash/Hives Verified 06/28/17 10:39 gabapentin [From Neurontin] Allergy Swelling Verified 06/28/17 10:39 levofloxacin [From Levaquin] Allergy Unknown Verified 06/28/17 10:39 sulfamethoxazole Allergy Unknown Verified 06/28/17 10:39 [From Bactrim] trimethoprim [From Bactrim] Allergy Unknown Verified 06/28/17 10:39 hydrocodone AdvReac Trouble Verified 06/28/17 10:39 Sleeping Physical Examination Osteopathic Statement: *. No significant issues noted on an osteopathic structural exam other than those noted in the History and Physical/Consult. - L Spine: dermatomal strength & reflexes bilateral Strength: hip flexion: 5/5 (At his back he has well-healed incisions from his prior surgeries. There is no erythema there is no open wounds lacerations or abrasions. He has some global weakness in his bilateral lower extremities. His appropriate overall for him there is no focal loss. He has sustained dorsal to plantar flexion and EHL. There is no pain control x-ray rotation. At his back is nontender to palpation over the midline and no focal point tenderness.) Results - Labs Labs: Abnormal Lab Results - Last 24 Hours (Table) 06/29/17 06/29/17 06/29/17 Range/Units 08:18 12:08 17:20 BUN 26 H (9-20) mg/dL Glucose 180 H (74-99) mg/dL POC Glucose (mg/dL) 181 H 232 H (75-99) mg/dL 06/29/17 06/30/17 06/30/17 Range/Units 20:41 06:46 07:41 BUN 23 H (9-20) mg/dL Glucose 143 H (74-99) mg/dL POC Glucose (mg/dL) 281 H 171 H (75-99) mg/dL H & H 06/28/17 06/29/17 06/30/17 Range/Units 10:07 08:18 07:41 Hgb 14.2 14.3 13.1 (13.0-17.5) gm/dL Hct 40.3 42.5 39.6 (39.0-53.0) % Coagulation 06/28/17 Range/Units 10:07 INR 1.1 (<1.2) Result Diagrams: 06/30/17 07:41 06/30/17 07:41 - Diagnostic results Lumbar AP/lateral x-ray: report reviewed, image reviewed (Images of the thoracic and lumbar spine are reviewed. There is evidence of prior fusion at his lumbar spine with interbody fusion at L2-3 L3 4 L4 5 and L5-S1. There is anterior a left fusion at L4 5 and posterior pedicle screws L5-S1 with interbody graft at L2-3 and L3 4. There is no evidence of acute fracture or dislocation and lumbar spine. There is no acute fracture or dislocation at the thoracic spine. There are no acute changes at had the changes appear to be chronic.) Assessment and Plan Assessment: Acute exacerbation of low back pain with long history of chronic low back pain and multiple surgeries [address] Ca[address] Upper and lower body tremors which seem to be seizure in nature Chronic low back pain with acute exacerbation which appears to be resolving appropriately The patient does not have any new fractures or evidence of instability at his thoracic or lumbar spine. He has had multiple surgeries with Dr. Cao in the past and has chronic low back pain with this. He had acute exacerbation and has had some increasing tremors which seem to be resolving to some degree. His pain seems to be returning to its baseline and I would not plan any further imaging for lumbar spine or specific treatment for her lumbar spine at this point other than continued conservative care and his regular medication regimen. He has had multiple surgeries with Dr. Cao in the past and should continue evaluation and management for his lumbar spine with Dr. Cao as an outpatient. From an orthopedic spine standpoint is okay for him to be discharged home today with continued follow-up with Dr. Cao as needed. He is going to continue with management and follow up with neurology as outpatient and I think that is appropriate.
[2017-06-30 11:31] LABS: Glucose,Whole Blood 76 mg/dL (75-99)
[2017-06-30 13:06] LABS: Glucose,Whole Blood 78 mg/dL (75-99)
--- NOTE | 2017-06-30 16:34 | PN ---
PROGRESS NOTE DATE OF SERVICE: 06/30/2017 This 82-year-old gentleman who was admitted with tremors and weakness extremely complicated medical surgical history. The patient almost had 6 to 7 back surgeries, being followed by Dr. Porter in [place]. The patient presented with diffuse tremors and gait ataxia and as well as difficulty in ambulation. The patient also had change in mental status also. The patient is slightly more alert today with complaints of generalized weakness, complaints of back pain also. Neurology is following the patient closely. Benzodiazepine withdrawal is also considered a possibility. PAST MEDICAL HISTORY: Reviewed. REVIEW OF SYSTEMS: CARDIOVASCULAR: S1, S2. Respiratory: As mentioned earlier. GI: As mentioned earlier. : No dysuria. Nervous system: No numbness, weakness. CURRENT MEDICATIONS: Reviewed and include: 1. Norvasc 10 mg p.o. daily. 2. Aspirin 81 mg daily. 3. Lipitor 40 mg daily. 4. Vitamin D3 1000. 5. Celexa 20 mg daily. 6. Catapres 0.1 p.o. with supper. 7. Plavix 75 mg q.a.m. 8. Cardura 2 mg q.h.s. 9. Lofibra 160 mg supplements. 11.Heparin 5000 subcu b.i.d. 12.NovoLog scale. 13.Levemir 35 units subcu q.h.s. 14.Claritin daily. 15.Ativan 0.5 mg q.6h p.r.n. 16.MS Contin 15 mg p.o. t.i.d. 17.Narcan. 18.Protonix. PHYSICAL EXAM: Patient is alert, oriented x3. Pulse is 56, blood pressure 150/60, respirations 16, temp 97.9, pulse ox 94% on room air. HEENT is conjunctivae normal. Oral mucosa moist. Neck is no jugular venous distention. No carotid bruit. No lymph node enlargement. Cardiovascular: S1, S1 muffled. No S3, no S4. Respiratory: Breath sounds diminished in the bases. A few scattered rhonchi. No crackles. ABDOMEN: Soft, obese, nontender. No mass palpable. Legs: No edema and no swelling. NERVOUS SYSTEM: Higher functions as mentioned earlier. Moves all 4 limbs. Diffusely weak. Diffuse tremors also present. Gait ataxia present. Lymphatics: No lymph nodes palpable in the neck, axillae or groin. SKIN: No ulcer, rash or bleeding. Joints: No active deforming arthropathy. LABS: At this time CBC within normal limits and glucose 143. Other labs are noted. ASSESSMENT: 1. Tremors and weakness and gait dysfunction, possible acute transient ischemic attack. 2. Rule out benzodiazepine withdrawal. 3. Change in mental status acute metabolic encephalopathy multifactorial. 4. Acute Parkinson's syndrome unlikely per Neurology. 5. Possible rib fractures history. 6. Degenerative joint disease of the back. 7. Gait dysfunction. 8. Dementia. 9. Hypokalemia. 10.History of coronary artery disease/stent. 11.History of cerebrovascular accident/transient ischemic attack. 12.Hypertension. 13.Hyperlipidemia. 14.History of back surgery. 15.History of recent falls. 16.History of hernia surgery. 17.History of anxiety. RECOMMENDATIONS AND DISCUSSION: In this 82-year-old gentleman who presented with multiple complex medical issues , we will monitor the patient closely, continue the current medications, management and symptomatic treatment. Otherwise, at this time I recommend PT/OT evaluation. Symptomatic treatment for the pain. Increase ambulation. Possible ECF rehab. I would resume the trazodone as at home. Avoid benzodiazepines. The prognosis is extremely guarded which I discussed at length with the family. At this time it seems like the patient will require more than 2 nights of hospital inpatient stay for evaluation and treatment of the above mentioned medical problems to ensure patient safety especially at home. Discussed with the family. Understands and agrees. LONG / FERNANDO: [id number] / JAROCHO
[2017-06-30 17:00] LABS: Glucose,Whole Blood 267 mg/dL (75-99)
[2017-06-30] MEDS: cloNIDine HCL 0.1 MG TAB PO SCH (18:18)
[2017-06-30] MEDS: ASPIRIN 81 MG PO SCH (18:18)
[2017-06-30] MEDS: ATORVASTATIN 40 MG TAB PO SCH (18:18)
[2017-06-30] MEDS: FENOFIBRATE 160 MG TAB PO SCH (18:18)
[2017-06-30 20:41] LABS: Glucose,Whole Blood 150 mg/dL (75-99)
[2017-06-30] MEDS ORDERED: traZODone HCL 50 MG TAB PO SCH (21:00)
[2017-06-30] MEDS: INSULIN DETEMIR 100 UNIT/ML 10 ML VIAL SQ SCH (21:05)
[2017-06-30] MEDS: CITALOPRAM HYDROBROMIDE 20 MG TAB PO SCH (21:06)
[2017-06-30] MEDS: DOXAZOSIN 2 MG TAB PO SCH (21:06)
[2017-06-30] MEDS: LOSARTAN-HCTZ 50-12.5 MG 1 EACH TAB PO SCH (21:07)
--- NOTE | 2017-06-30 22:13 | P.PN ---
Subjective Progress Note Date: 06/30/17 This patient is a 82-year-old male who is being evaluated for question of tremors and parkinsonism. Patient was seen yesterday on neurological examination. He did not manifest findings to suggest underlying Parkinson's disease at this time. It was felt he may have had mild withdrawal syndrome to benzodiazepines. He is doing much better today and continues to be quite responsive. He was able to work with physical therapy. Patient was seen in consultation with Dr. Pastrana today regarding his 7 back surgeries. At this time no further surgical intervention is recommended. He is to follow-up with Dr. Cao in the outpatient clinic. Patient denies any tremors today in the extremities or in the legs. Would continue to increase activity with physical therapy. We will continue close neurological follow-up for the patient. Objective - Vital Signs Vital signs: Vital Signs Temp 97.9 F 06/30/17 15:00 Pulse 60 06/30/17 21:04 Resp 16 06/30/17 16:00 BP 123/57 06/30/17 21:04 Pulse Ox 97 06/30/17 15:00 Intake & Output 06/30/17 06/30/17 07/01/17 06:59 18:59 06:59 Output Total 300 308 Balance -300 -308 Output: Urine 300 300 Stool 8 Other: Voiding Method Bedside Commode Bedside Commode Diaper Diaper Incontinent Incontinent # Voids 1 3 - Exam Physical examination: PHYSICAL EXAMINATION: Patient is resting comfortably in bed. VITAL SIGNS: Blood pressure is [123/57]. Heart rate is [60]. Respiration is [16] . Temperature is [97.9]. HEENT: Head is atraumatic, neck is supple, there were no carotid bruits. CHEST: Lungs are clear to auscultation and percussion. CARDIAC: S1, S2 normal rate and rhythm. There is no murmur. ABDOMEN: Soft and nontender. Bowel sounds are present. EXTREMITIES: There is no pedal edema. Peripheral pulses are present. Neurological examination: Patient's neurological examination is unchanged from yesterday. - Labs CBC & Chem 7: 06/30/17 07:41 06/30/17 07:41 Labs: Abnormal Lab Results - Last 24 Hours (Table) 06/30/17 06/30/17 06/30/17 Range/Units 06:46 07:41 16:59 BUN 23 H (9-20) mg/dL Glucose 143 H (74-99) mg/dL POC Glucose (mg/dL) 171 H 267 H (75-99) mg/dL 06/30/17 Range/Units 20:30 BUN (9-20) mg/dL Glucose (74-99) mg/dL POC Glucose (mg/dL) 150 H (75-99) mg/dL Assessment and Plan (1) Tremor Current Visit: Yes Status: Acute Code(s): R25.1 - TREMOR, UNSPECIFIED SNOMED Code(s): 98349795 (2) Withdrawal from benzodiazepine Current Visit: Yes Status: Acute Code(s): F13.239 - SEDATV/HYP/ANXIOLYTC DEPENDENCE W WITHDRAWAL, UNSP SNOMED Code(s): 772869395 (3) Chronic back pain Current Visit: Yes Status: Acute Code(s): M54.9 - DORSALGIA, UNSPECIFIED; G89.29 - OTHER CHRONIC PAIN SNOMED Code(s): 439525057 (4) Debility Current Visit: No Status: Acute Code(s): R53.81 - OTHER MALAISE SNOMED Code(s): 73015196 (5) Encephalopathy Current Visit: No Status: Acute Code(s): G93.40 - ENCEPHALOPATHY, UNSPECIFIED SNOMED Code(s): 05019111 Plan: This patient is a 82-year-old right-handed white male who was admitted to Hospital through the emergency room due to increase in tremors. According to the who provided the medical history for the patient the symptoms only began about a week ago. According to the he was taken off of Xanax recently and switched to trazodone. A few days after stopping the Xanax he began having full body tremors. There was concern for possibility of Parkinson' s disease given the tremor-type symptoms. Apparently he had no previous history of these types of tremors prior to 2 week ago. He was brought into the emergency room where he was further evaluated. He underwent a computed tomography scan of the brain which revealed no acute intracranial hemorrhage or mass effect. There was degenerative nonspecific white matter changes noted. He underwent a series of x-rays of the spine all of which came back normal with no evidence of fracture or subluxation. His neurological examination does not reveal evidence of parkinsonism or Parkinson's disease at this time. Most likely he may have had mild withdrawal symptoms from the Xanax. We would recommend physical therapy to evaluate and to increase his mobility with the use of his walker. He has a history of having had 7 back surgeries over the years. He does use a walker at home for ambulation. Some of his weakness may be due to general medical debility. Would recommend to consider inpatient rehab for this patient pending physical therapy's assessment as well. Patient was seen today by Dr. Pastrana and his recommendations are as noted above. Doubt that he is having seizures but we will further evaluate with a routine EEG. We will review his EEG later today. We will continue close neurological follow-up for the patient during this admission. His overall prognosis remains guarded.
--- NOTE | 2017-06-30 23:23 | EEG ---
ELECTROENCEPHALOGRAM REPORT DATE OF EE06/30/2017 ELECTROENCEPHALOGRAPHIC EXAMINATION REPORT: INDICATION FOR EXAMINATION: This patient is an 82-year-old male being evaluated for tremors and parkinsonism. AGE: 82. EEG FINDINGS: A routine 21-channel awake digital EEG recording was accomplished utilizing the 10-20 international system with bipolar and referential montages. The background activity in the most alert resting state consists of a low to medium amplitude, poorly developed and poorly sustained 5-6 Hz activity over the posterior head regions. This posterior rhythm attenuates to eye opening. There is a small amount of low amplitude 18-20 Hz beta activity seen maximally over the anterior head regions. Muscle and movement artifact was observed on several occasions during the tracing. Hyperventilation was not performed. Photic stimulation at flash frequencies of 2-30 Hz produced a good symmetrical occipital driving response. No epileptiform discharges were seen. IMPRESSION: This EEG is moderately abnormal in a diffuse fashion due to slowing of the EEG background. The EEG failed to reveal any focal, lateralized, or epileptiform abnormalities. Clinical correlation is recommended. MMNEW / IJN: [id number] /
[2017-07-01 07:31] VITALS: BP 153/70; PULSE 56; RESP 17; TEMP 98.2
[2017-07-01 07:32] LABS: Glucose,Whole Blood 307 mg/dL (75-99)
[2017-07-01 07:51] LABS: Basophils % (A) 0 %; Eosinophils # (A) 0.1 k/uL (0-0.7); Eosinophils % (A) 1 %; HCT 40.7 % (39.0-53.0); HGB 14.3 gm/dL (13.0-17.5); Lymphocytes % (A) 29 %; MCH 31.4 pg (25.0-35.0); MCHC 35.1 g/dL (31.0-37.0); MCV 89.5 fL (80.0-100.0); Mean Platelet Volume 6.5; Monocytes # (A) 0.5 k/uL (0-1.0); Monocytes % (A) 7 %; Neutrophils # (A) 4.1 k/uL (1.3-7.7); Neutrophils % (A) 61 %; Platelet Count 305 k/uL (150-450); RBC 4.55 m/uL (4.30-5.90); RDW 12.7 % (11.5-15.5); WBC 6.8 k/uL (3.8-10.6)
[2017-07-01] MEDS: PANTOPRAZOLE 40 MG TABLET PO SCH (07:52)
[2017-07-01] MEDS: VIT A,C & E-LUTEIN-MINERALS 1 EACH TAB PO SCH (07:52)
[2017-07-01] MEDS: CLOPIDOGREL 75 MG TAB PO SCH (07:53)
[2017-07-01] MEDS: LORATADINE 10 MG TAB PO SCH (07:53)
[2017-07-01] MEDS: CHOLECALCIFEROL 1,000 UNIT TAB PO SCH (07:53)
[2017-07-01] MEDS: HEPARIN SODIUM,PORCINE 5,000 UNIT/ML 1 ML VIAL SQ SCH (07:53)
[2017-07-01] MEDS: INSULIN ASPART 100 UNIT/ML 1 ML 10 ML VIAL SQ SCH ×4 (07:53→12:10)
[2017-07-01] MEDS: MORPHINE SULFATE ER 15 MG TABLET PO SCH (07:54)
[2017-07-01] MEDS: amLODIPine 10 MG TAB PO SCH (07:55)
[2017-07-01 08:31] LABS: Calcium 9.5 mg/dL (8.4-10.2); Potassium 4.1 mmol/L (3.5-5.1)
[2017-07-01 12:02] LABS: Glucose,Whole Blood 113 mg/dL (75-99)
--- NOTE | 2017-07-01 19:56 | P.PN ---
Subjective Progress Note Date: 07/01/17 This patient is a 82-year-old male who is being evaluated for question of tremors and parkinsonism. Patient was seen yesterday on neurological examination. He did not manifest findings to suggest underlying Parkinson's disease at this time. It was felt he may have had mild withdrawal syndrome to benzodiazepines. He is doing much better today and continues to be quite responsive. He was able to work with physical therapy. Patient was seen in consultation with Dr. Pastrana today regarding his 7 back surgeries. At this time no further surgical intervention is recommended. He is to follow-up with Dr. Cao in the outpatient clinic. Patient denies any tremors today in the extremities or in the legs. Would continue to increase activity with physical therapy. The patient states he was able to get up and uses walker today with only minimal assistance from physical therapy. He does have a history of chronic low back pain and is undergone 7 surgeries. As noted by Dr. Pastrana the patient should follow-up with Dr. Cao for further management. We will continue close neurological follow-up for the patient. Objective - Vital Signs Vital signs: Vital Signs Temp 98.2 F 07/01/17 07:20 Pulse 56 L 07/01/17 07:20 Resp 17 07/01/17 07:20 BP 153/70 07/01/17 07:20 Pulse Ox 94 L 07/01/17 07:20 Intake & Output 06/30/17 07/01/17 07/01/17 18:59 06:59 18:59 Intake Total 960 500 Output Total 308 300 250 Balance -308 660 250 Weight 90.718 kg Intake: Oral 960 500 Output: Urine 300 300 250 Stool 8 Other: Voiding Method Bedside Commode Bedside Commode Bedside Commode Diaper Urinal Urinal Incontinent Diaper Diaper Incontinent Incontinent # Voids 3 2 1 - Exam Physical examination: PHYSICAL EXAMINATION: Patient is resting comfortably in bed. VITAL SIGNS: Blood pressure is [153/70]. Heart rate is [56]. Respiration is [17] . Temperature is [98.2]. HEENT: Head is atraumatic, neck is supple, there were no carotid bruits. CHEST: Lungs are clear to auscultation and percussion. CARDIAC: S1, S2 normal rate and rhythm. There is no murmur. ABDOMEN: Soft and nontender. Bowel sounds are present. EXTREMITIES: There is no pedal edema. Peripheral pulses are present. Neurological examination: Patient's neurological examination is unchanged from yesterday. - Labs CBC & Chem 7: 07/01/17 07:32 07/01/17 07:32 Labs: Abnormal Lab Results - Last 24 Hours (Table) 06/30/17 06/30/17 07/01/17 Range/Units 16:59 20:30 07:30 Carbon Dioxide (22-30) mmol/L Glucose (74-99) mg/dL POC Glucose (mg/dL) 267 H 150 H 307 H (75-99) mg/dL 07/01/17 07/01/17 Range/Units 07:32 11:57 Carbon Dioxide 32 H (22-30) mmol/L Glucose 300 H (74-99) mg/dL POC Glucose (mg/dL) 113 H (75-99) mg/dL Assessment and Plan (1) Tremor Status: Acute Code(s): R25.1 - TREMOR, UNSPECIFIED SNOMED Code(s): 37908796 (2) Withdrawal from benzodiazepine Status: Acute Code(s): F13.239 - SEDATV/HYP/ANXIOLYTC DEPENDENCE W WITHDRAWAL , UNSP SNOMED Code(s): 772053137 (3) Chronic back pain Status: Acute Code(s): M54.9 - DORSALGIA, UNSPECIFIED; G89.29 - OTHER CHRONIC PAIN SNOMED Code(s): 359161172 (4) Debility Status: Acute Code(s): R53.81 - OTHER MALAISE SNOMED Code(s): 83697826 (5) Encephalopathy Status: Acute Code(s): G93.40 - ENCEPHALOPATHY, UNSPECIFIED SNOMED Code(s): 37529430 Plan: This patient is a 82-year-old right-handed white male who was admitted to Hospital through the emergency room due to increase in tremors. According to the who provided the medical history for the patient the symptoms only began about a week ago. According to the he was taken off of Xanax recently and switched to trazodone. A few days after stopping the Xanax he began having full body tremors. There was concern for possibility of Parkinson' s disease given the tremor-type symptoms. Apparently he had no previous history of these types of tremors prior to 2 week ago. He was brought into the emergency room where he was further evaluated. He underwent a computed tomography scan of the brain which revealed no acute intracranial hemorrhage or mass effect. There was degenerative nonspecific white matter changes noted. He underwent a series of x-rays of the spine all of which came back normal with no evidence of fracture or subluxation. His neurological examination does not reveal evidence of parkinsonism or Parkinson's disease at this time. Most likely he may have had mild withdrawal symptoms from the Xanax. We would recommend physical therapy to evaluate and to increase his mobility with the use of his walker. He has a history of having had 7 back surgeries over the years. He does use a walker at home for ambulation. Some of his weakness may be due to general medical debility. Would recommend to consider inpatient rehab for this patient pending physical therapy's assessment as well. Patient was seen today by Dr. Pastrana and his recommendations are as noted above. patient should follow up with Dr. Whitfield who has performed his previous back surgeries. Patient is being considered for discharge home today. We will continue close neurological follow-up for the patient during this admission. His overall prognosis remains guarded.
== END 2017-07-01 16:55 | disposition home health service (06) ==
LOC: EC 09:20 → 5MS5E 14:26
PROVIDERS: ADMIT Hospitalist; ATTEND Hospitalist
DX: R25.1 Tremor, unspecified (principal); R53.1 Weakness; F13.239 Sedative, hypnotic or anxiolytic dependence with withdrawal, unspecified; G93.41 Metabolic encephalopathy; R26.0 Ataxic gait; R53.81 Other malaise; G89.29 Other chronic pain; M54.5 Low back pain; I69.351 Hemiplegia and hemiparesis following cerebral infarction affecting right dominant side; I25.10 Atherosclerotic heart disease of native coronary artery without angina pectoris; I10 Essential (primary) hypertension; E78.5 Hyperlipidemia, unspecified; E11.9 Type 2 diabetes mellitus without complications; F41.9 Anxiety disorder, unspecified; F03.90 Unspecified dementia, unspecified severity, without behavioral disturbance, psychotic disturbance, mood disturbance, and anxiety; E87.6 Hypokalemia; M16.0 Bilateral primary osteoarthritis of hip; M47.9 Spondylosis, unspecified; R07.81 Pleurodynia; Z98.1 Arthrodesis status; Z91.81 History of falling; Z87.81 Personal history of (healed) traumatic fracture; Z95.1 Presence of aortocoronary bypass graft; Z95.5 Presence of coronary angioplasty implant and graft; Z79.02 Long term (current) use of antithrombotics/antiplatelets; Z79.4 Long term (current) use of insulin; Z79.899 Other long term (current) drug therapy; Z79.82 Long term (current) use of aspirin; Z79.891 Long term (current) use of opiate analgesic; Z88.1 Allergy status to other antibiotic agents; Z88.2 Allergy status to sulfonamides; Z88.5 Allergy status to narcotic agent; Z88.8 Allergy status to other drugs, medicaments and biological substances; Z82.49 Family history of ischemic heart disease and other diseases of the circulatory system
CPT/HCPCS: 99285 ×2; 96372 ×3; 96374; 36415; 95816; 93005; 97116 ×2; 97162; 97535; 97166; 80053 ×2; 80048 ×2; 82150; 82550; 82553; 83690; 84484; 85025 ×4; 85610; 85730; 81003; 83036; 72072; 72100; 72170; 71100; 71046; 70450; G0378 ×4; J2060; J1644 ×3

== ENCOUNTER 2017-07-23 13:08 | Emergency (ER) | payer MEDICARE, OTHER ==
[2017-07-23 13:14] VITALS: BP 108/55; PULSE 73; RESP 20; TEMP 98.3
[2017-07-23 13:26] LABS: Appearance,Urine Clear (Clear); Bilirubin,Urine Negative (Negative); Blood,Urine Negative (Negative); Color,Urine Light Yellow; Glucose,Urine (UA) Negative (Negative); Ketones,Urine Negative (Negative); Leukocyte Esterase,Urine Negative (Negative); Nitrite,Urine Negative (Negative); Protein,Urine Negative (Negative); Specific Gravity,Urine 1.011 (1.001-1.035); Urobilinogen,Urine <2.0 mg/dL (<2.0)
--- NOTE | 2017-07-23 14:17 | ED ---
General Adult HPI - General Chief complaint: Abdominal Pain Stated complaint: UTI Time Seen by Provider: 07/23/17 13:29 Source: patient Mode of arrival: wheelchair Limitations: no limitations - History of Present Illness Initial comments: Is a 2-year-old male presents emergency department for dysuria and urgency. The patient states that it started last night. He states that it seemed like when he laid down he was having some leakage and urinary incontinence. When he got up to go to the restroom however he stated that he had difficulty going and had a weak stream and some dribbling. He also admits to feeling bloated and having decreased amount bowel movements. He did have a normal bowel movement last night however. Denies any nausea or vomiting. No abdominal pain. No fevers or chills. No other acute complaints. - Related Data Home Medications Medication Instructions Recorded Confirmed Cetirizine HCl [Zyrtec] 10 mg PO DAILY 06/14/14 07/23/17 Citalopram Hydrobromide [CeleXA] 20 mg PO HS 06/14/14 07/23/17 Clopidogrel [Plavix] 75 mg PO QAM 06/14/14 07/23/17 Fenofibrate Nanocrystallized 145 mg PO W/SUPPER 06/14/14 07/23/17 [Tricor] Insulin Detemir [Levemir Flextouch] 35 units SQ HS 06/14/14 07/23/17 Vit A/Vit C/Vit E/Zinc/Copper 1 cap PO BID 06/14/14 07/23/17 [ICAPS SOFTGEL] Cholecalciferol [Vitamin D3] 1,000 unit PO DAILY 10/06/14 07/23/17 Aspirin EC [Ecotrin Low Dose] 81 mg PO W/SUPPER 06/28/17 07/23/17 Doxazosin [Cardura] 2 mg PO HS 06/28/17 07/23/17 Insulin Lispro [humaLOG Kwikpen] 26 unit SQ AC-TID 06/28/17 07/23/17 Losartan/Hydrochlorothiazide 1 tab PO DAILY 06/28/17 07/23/17 [Losartan-Hctz 100-25 mg Tab] Morphine Sulfate ER [Ms Contin] 15 mg PO TID 06/28/17 07/23/17 Rosuvastatin [Crestor] 20 mg PO W/SUPPER 06/28/17 07/23/17 amLODIPine [Norvasc] 10 mg PO DAILY 06/28/17 07/23/17 cloNIDine HCL [Catapres] 0.1 mg PO W/SUPPER 06/28/17 07/23/17 Carboxymethylcellulose Sodium 1 drop BOTH EYES DAILY PRN 07/23/17 07/23/17 [Refresh Tears] Pantoprazole [Protonix] 40 mg PO DAILY 07/23/17 07/23/17 Polyethylene Glycol 3350 [Miralax] 17 gm PO DAILY PRN 07/23/17 07/23/17 Previous Rx's Medication Instructions Recorded traZODone HCL [Desyrel] 50 mg PO HS #30 tab 07/01/17 Allergies Allergy/AdvReac Type Severity Reaction Status Date / Time celecoxib [From Celebrex] Allergy Rash/Hives Verified 07/23/17 13:37 gabapentin [From Neurontin] Allergy Swelling Verified 07/23/17 13:37 levofloxacin [From Levaquin] Allergy Unknown Verified 07/23/17 13:13 sulfamethoxazole Allergy Unknown Verified 07/23/17 13:37 [From Bactrim] trimethoprim [From Bactrim] Allergy Unknown Verified 07/23/17 13:37 hydrocodone AdvReac Trouble Verified 07/23/17 13:37 Sleeping Review of Systems ROS Statement: Those systems with pertinent positive or pertinent negative responses have been documented in the HPI. ROS Other: All systems not noted in ROS Statement are negative. Past Medical History Past Medical History: Coronary Artery Disease (CAD), CVA/TIA, Hyperlipidemia, Hypertension Additional Past Medical History / Comment(s): CVA with right sided weakness History of Any Multi-Drug Resistant Organisms: None Reported Past Surgical History: Back Surgery, Heart Catheterization With Stent, Hernia Repair, Orthopedic Surgery Additional Past Surgical History / Comment(s): back surg x7, L knee, Yared. shoulders, nose surgery, hiatal hernia, stent 1997, CABG. Past Anesthesia/Blood Transfusion Reactions: No Reported Reaction Additional Past Anesthesia/Blood Transfusion Reaction / Comment(s): experienced stroke during last back surgery Date of Last Stent Placement:: june 1997 Past Psychological History: Anxiety Smoking Status: Never smoker Past Alcohol Use History: None Reported Past Drug Use History: None Reported - Past Family History Father Family Medical History: Coronary Artery Disease (CAD) General Exam - General Exam Comments Initial Comments: Constitutional: Awake alert Appears comfortable Head: Normocephalic atraumatic Eyes: no conjunctival injection No scleral icterus EOMI Neck: No JVD Supple Heart: Regular rate rhythm normal S1-S2 no murmurs Lungs: Clear to auscultation bilaterally No wheezing No rales Abdomen: Soft mild abdominal distention nontender, bladder scan for 33 mL Extremities: Non edematous DP pulses intact Radial pulses intact Neuro: A&Ox3 No focal neurologic deficits Psych: Appropriate mood and affect Limitations: no limitations Course Vital Signs 07/23/17 13:11 Temperature 98.3 F Pulse Rate 73 Respiratory 20 Rate Blood Pressure 108/55 O2 Sat by Pulse 97 Oximetry Medical Decision Making - Medical Decision Making Is an 82-year-old who came in for urinary frequency and difficulty with urination. Bladder scan did not show any retention. UA was negative. Abdominal x-ray was done at patient's request because of abdominal bloating. No obstruction. Was instructed to take MiraLAX. Follow-up with his primary doctor for further examination of prostate. May require urology evaluation if he continues to have issues. He can return if he has worsening or changing symptoms. All questions were answered. - Lab Data Lab Results 07/23/17 Range/Units 13:15 Urine Color Light Yellow Urine Appearance Clear (Clear) Urine pH 8.0 (5.0-8.0) Ur Specific [place] 1.011 (1.001-1.035) Urine Protein Negative (Negative) Urine Glucose (UA) Negative (Negative) Urine Ketones Negative (Negative) Urine Blood Negative (Negative) Urine Nitrite Negative (Negative) Urine Bilirubin Negative (Negative) Urine Urobilinogen <2.0 (<2.0) mg/dL Ur Leukocyte Esterase Negative (Negative) Disposition Clinical Impression: Urinary frequency Disposition: HOME SELF-CARE Condition: Stable Instructions: Benign Prostatic Hypertrophy (ED) Referrals: Alycia Cook DO [Primary Care Provider] - 1-2 days
--- NOTE | 2017-07-23 14:30 | XR ---
EXAMINATION TYPE: XR abdomen acute w cxr, 4 views DATE OF EXAM: 07/23/2017 COMPARISON: NONE HISTORY: Pain after fall 2 days TECHNIQUE: 4 views FINDINGS: The chest show sternal sutures and mediastinal clips. Cardiomediastinal silhouette is unre markable. Lungs are clear and the pleural spaces are negative. One shaft width displaced left postero lateral sixth rib fracture noted. The abdomen pelvic radiographs including 2 supine views and one upright view. There is no pneumoperit oneum. The bowel gas pattern is normal. No pneumatosis. The soft tissues and skeletal structures are negative for acute findings. IMPRESSION: 1. Chest: One shaft width displaced left posterolateral sixth rib fracture. 2. Abdomen and pelvis: Negative examination.
== END 2017-07-23 14:58 | disposition home or self-care (01) ==
LOC: EC 13:08
DX: R35.0 Frequency of micturition (principal); R30.0 Dysuria; R39.15 Urgency of urination; I25.10 Atherosclerotic heart disease of native coronary artery without angina pectoris; E78.5 Hyperlipidemia, unspecified; I10 Essential (primary) hypertension; F41.9 Anxiety disorder, unspecified; Z86.73 Personal history of transient ischemic attack (TIA), and cerebral infarction without residual deficits; Z79.01 Long term (current) use of anticoagulants; Z79.82 Long term (current) use of aspirin; Z79.4 Long term (current) use of insulin; Z79.891 Long term (current) use of opiate analgesic; Z79.899 Other long term (current) drug therapy; Z88.2 Allergy status to sulfonamides; Z88.1 Allergy status to other antibiotic agents; Z88.5 Allergy status to narcotic agent; Z88.8 Allergy status to other drugs, medicaments and biological substances
CPT/HCPCS: 74022; 81003; 87077; 87086; 87186; 99284

== ENCOUNTER 2017-08-10 12:11 | Emergency (ER) | payer MEDICARE, OTHER ==
[2017-08-10] MEDS ORDERED: SODIUM CHLORIDE 0.9% 500 ML IV STA (12:49)
--- NOTE | 2017-08-10 12:54 | ED ---
General Adult HPI - General Chief complaint: Recheck/Abnormal Lab/Rx Stated complaint: tremors Time Seen by Provider: 08/10/17 12:40 Source: patient, family, RN notes reviewed Mode of arrival: wheelchair Limitations: no limitations - History of Present Illness Initial comments: Patient's an 82-year-old male presenting to the emergency room today with chief complaint of a tremor. Seventh of both upper and lower some respiratory symptoms began again last night. He states he had symptoms similar to this one month ago he was admitted to the hospital. Patient states he was seen by neurology. He states the symptoms eventually did go away on their own. He states he was onset x-ray thought it may be due to medication change when he was switched to trazodone. Patient states that he was doing well until last night began having mild tremor to his legs and upper arms. Patient states that he continues to have these involuntary movements. He states it difficult time sleeping because of this last night. He denies any other complaints at this time. Patient denies any recent fever, chills, shortness of breath, chest pain, abdominal pain, nausea or vomiting, dysuria or hematuria, constipation or diarrhea, headaches or visual changes, or any other complaints. - Related Data Home Medications Medication Instructions Recorded Confirmed RX: Cetirizine HCl [Zyrtec] 10 mg PO DAILY 06/14/14 07/23/17 RX: Citalopram Hydrobromide 20 mg PO HS 06/14/14 07/23/17 [CeleXA] RX: Clopidogrel [Plavix] 75 mg PO QAM 06/14/14 07/23/17 RX: Fenofibrate Nanocrystallized 145 mg PO W/SUPPER 06/14/14 07/23/17 [Tricor] RX: Insulin Detemir [Levemir 35 units SQ HS 06/14/14 07/23/17 Flextouch] RX: Vit A/Vit C/Vit E/Zinc/Copper 1 cap PO BID 06/14/14 07/23/17 [ICAPS SOFTGEL] RX: Cholecalciferol [Vitamin D3] 1,000 unit PO DAILY 10/06/14 07/23/17 RX: Aspirin EC [Ecotrin Low Dose] 81 mg PO W/SUPPER 06/28/17 07/23/17 RX: Doxazosin [Cardura] 2 mg PO HS 06/28/17 07/23/17 RX: Insulin Lispro [humaLOG 26 unit SQ AC-TID 06/28/17 07/23/17 Kwikpen] RX: Losartan/Hydrochlorothiazide 1 tab PO DAILY 06/28/17 07/23/17 [Losartan-Hctz 100-25 mg Tab] RX: Morphine Sulfate ER [Ms Contin] 15 mg PO TID 06/28/17 07/23/17 RX: Rosuvastatin [Crestor] 20 mg PO W/SUPPER 06/28/17 07/23/17 RX: amLODIPine [Norvasc] 10 mg PO DAILY 06/28/17 07/23/17 RX: cloNIDine HCL [Catapres] 0.1 mg PO W/SUPPER 06/28/17 07/23/17 Carboxymethylcellulose Sodium 1 drop BOTH EYES DAILY PRN 07/23/17 07/23/17 [Refresh Tears] Polyethylene Glycol 3350 [Miralax] 17 gm PO DAILY PRN 07/23/17 07/23/17 RX: Pantoprazole [Protonix] 40 mg PO DAILY 07/23/17 07/23/17 Previous Rx's Medication Instructions Recorded RX: traZODone HCL [Desyrel] 50 mg PO HS #30 tab 07/01/17 ALPRAZolam [Xanax] 0.5 mg PO BID #10 tablet 08/10/17 Allergies Allergy/AdvReac Type Severity Reaction Status Date / Time celecoxib [From Celebrex] Allergy Rash/Hives Verified 08/10/17 12:20 gabapentin [From Neurontin] Allergy Swelling Verified 08/10/17 12:20 levofloxacin [From Levaquin] Allergy Unknown Verified 08/10/17 12:20 sulfamethoxazole Allergy Unknown Verified 08/10/17 12:20 [From Bactrim] trimethoprim [From Bactrim] Allergy Unknown Verified 08/10/17 12:20 hydrocodone AdvReac Trouble Verified 08/10/17 12:20 Sleeping Review of Systems ROS Statement: Those systems with pertinent positive or pertinent negative responses have been documented in the HPI. ROS Other: All systems not noted in ROS Statement are negative. Past Medical History Past Medical History: Coronary Artery Disease (CAD), CVA/TIA, Hyperlipidemia, Hypertension Additional Past Medical History / Comment(s): CVA with right sided weakness History of Any Multi-Drug Resistant Organisms: None Reported Past Surgical History: Back Surgery, Heart Catheterization With Stent, Hernia Repair, Orthopedic Surgery Additional Past Surgical History / Comment(s): back surg x7, L knee, Yared. shoulders, nose surgery, hiatal hernia, stent 1997, CABG. Past Anesthesia/Blood Transfusion Reactions: No Reported Reaction Additional Past Anesthesia/Blood Transfusion Reaction / Comment(s): experienced stroke during last back surgery Date of Last Stent Placement:: june 1997 Past Psychological History: Anxiety Smoking Status: Never smoker Past Alcohol Use History: None Reported Past Drug Use History: None Reported - Past Family History Father Family Medical History: Coronary Artery Disease (CAD) General Exam - General Exam Comments Initial Comments: General: The patient is awake and alert, in no distress, and does not appear acutely ill. Eye: Pupils are equal, round and reactive to light, extra-ocular movements are intact. No nystagmus. There is normal conjunctiva bilaterally. No signs of icterus. Ears, nose, mouth and throat: There are moist mucous membranes and no oral lesions. Neck: The neck is supple, there is no tenderness or JVD. Cardiovascular: There is a regular rate and rhythm. No murmur, rub or gallop is appreciated. Respiratory: Lungs are clear to auscultation, respirations are non-labored, breath sounds are equal. No wheezes, stridor, rales, or rhonchi. Gastrointestinal: Soft, non-distended, non-tender abdomen without masses or organomegaly noted. There is no rebound or guarding present. No CVA tenderness. Musculoskeletal: Normal ROM, no tenderness. Strength 5/5. Sensation intact. Pulses equal bilaterally 2+. Neurological: A&O x 3. CN II-XII intact, There are no obvious motor or sensory deficits. Coordination appears grossly intact. Speech is normal. Skin: Skin is warm and dry and no rashes or lesions are noted. Psychiatric: Cooperative, appropriate mood & affect, normal judgment. Limitations: no limitations Course Vital Signs 08/10/17 08/10/17 12:18 13:17 Temperature 98.9 F Pulse Rate 71 64 Respiratory 20 18 Rate Blood Pressure 140/63 138/63 O2 Sat by Pulse 96 93 L Oximetry Medical Decision Making - Medical Decision Making Case discussed in detail with attending physician Patient reexamined at this time shows no signs of distress resting comfortably. Patient labs been reviewed. Patient doing well at this time. Patient will be given a short prescription of Xanax to go home with for his symptoms. He is advised to follow -up with his neurologist. He is advised to return to emergency room symptoms increase or worsen. Patient family members at bedside state understanding and agreement with the plan. - Lab Data Result diagrams: 08/10/17 13:10 08/10/17 13:10 Lab Results 08/10/17 08/10/17 08/10/17 Range/Units 13:10 13:10 13:20 WBC 8.1 (3.8-10.6) k/uL RBC 4.67 (4.30-5.90) m/uL Hgb 14.3 (13.0-17.5) gm/dL Hct 41.8 (39.0-53.0) % MCV 89.4 (80.0-100.0) fL MCH 30.6 (25.0-35.0) pg MCHC 34.3 (31.0-37.0) g/dL RDW 13.2 (11.5-15.5) % Plt Count 315 (150-450) k/uL Neutrophils % 55 % Lymphocytes % 32 % Monocytes % 9 % Eosinophils % 2 % Basophils % 0 % Neutrophils # 4.4 (1.3-7.7) k/uL Lymphocytes # 2.6 (1.0-4.8) k/uL Monocytes # 0.7 (0-1.0) k/uL Eosinophils # 0.2 (0-0.7) k/uL Basophils # 0.0 (0-0.2) k/uL Sodium 140 (137-145) mmol/L Potassium 3.4 L (3.5-5.1) mmol/L Chloride 103 (98-107) mmol/L Carbon Dioxide 27 (22-30) mmol/L Anion Gap 10 mmol/L BUN 19 (9-20) mg/dL Creatinine 1.09 (0.66-1.25) mg/dL Est GFR (CKD-EPI)AfAm 72 (>60 ml/min/1.73 sqM) Est GFR (CKD-EPI)NonAf 62 (>60 ml/min/1.73 sqM) Glucose 131 H (74-99) mg/dL Calcium 9.3 (8.4-10.2) mg/dL Total Bilirubin 0.3 (0.2-1.3) mg/dL AST 18 (17-59) U/L ALT 23 (21-72) U/L Alkaline Phosphatase 41 (38-126) U/L Total Protein 5.9 L (6.3-8.2) g/dL Albumin 3.5 (3.5-5.0) g/dL Urine Color Yellow Urine Appearance Clear (Clear) Urine pH 5.5 (5.0-8.0) Ur Specific [place] 1.016 (1.001-1.035) Urine Protein Negative (Negative) Urine Glucose (UA) Trace H (Negative) Urine Ketones Negative (Negative) Urine Blood Negative (Negative) Urine Nitrite Negative (Negative) Urine Bilirubin Negative (Negative) Urine Urobilinogen <2.0 (<2.0) mg/dL Ur Leukocyte Esterase Negative (Negative) Disposition Clinical Impression: Tremor Disposition: HOME SELF-CARE Condition: Good Instructions: Tremors (ED) Additional Instructions: Please use medication as discussed. Please follow-up with neurologist, family doctor in the next 2 days of symptoms have not improved. Please return to emergency room if the symptoms increase or worsen or for any other concerns. Prescriptions: ALPRAZolam [Xanax] 0.5 mg PO BID #10 tablet Is patient prescribed a controlled substance at discharge?: Yes If prescribed controlled substance>3 days was MAPS reviewed?: Yes When asked, does pt state using other controlled substances?: Yes Referrals: Alycia Cook DO [Primary Care Provider] - 1-2 days Jose Franco MD [STAFF PHYSICIAN] - 1-2 days Time of Disposition: 14:52
[2017-08-10 13:25] LABS: Basophils % (A) 0 %; Eosinophils # (A) 0.2 k/uL (0-0.7); Eosinophils % (A) 2 %; HCT 41.8 % (39.0-53.0); HGB 14.3 gm/dL (13.0-17.5); Lymphocytes # (A) 2.6 k/uL (1.0-4.8); Lymphocytes % (A) 32 %; MCH 30.6 pg (25.0-35.0); MCHC 34.3 g/dL (31.0-37.0); MCV 89.4 fL (80.0-100.0); Mean Platelet Volume 6.8; Monocytes # (A) 0.7 k/uL (0-1.0); Monocytes % (A) 9 %; Neutrophils # (A) 4.4 k/uL (1.3-7.7); Neutrophils % (A) 55 %; Platelet Count 315 k/uL (150-450); RBC 4.67 m/uL (4.30-5.90); RDW 13.2 % (11.5-15.5); WBC 8.1 k/uL (3.8-10.6)
[2017-08-10 13:36] LABS: Albumin 3.5 g/dL (3.5-5.0); Calcium 9.3 mg/dL (8.4-10.2); Potassium 3.4 mmol/L (3.5-5.1); Total Bilirubin 0.3 mg/dL (0.2-1.3); Total Protein 5.9 g/dL (6.3-8.2)
[2017-08-10 13:40] LABS: Appearance,Urine Clear (Clear); Bilirubin,Urine Negative (Negative); Blood,Urine Negative (Negative); Color,Urine Yellow; Glucose,Urine (UA) Trace (Negative); Ketones,Urine Negative (Negative); Leukocyte Esterase,Urine Negative (Negative); Nitrite,Urine Negative (Negative); PH, Urine 5.5 (5.0-8.0); Protein,Urine Negative (Negative); Specific Gravity,Urine 1.016 (1.001-1.035); Urobilinogen,Urine <2.0 mg/dL (<2.0)
[2017-08-10 15:03] VITALS: BP 143/72; PULSE 59; RESP 16; TEMP 97.4
== END 2017-08-10 15:03 | disposition home or self-care (01) ==
LOC: EC 12:11
DX: R25.1 Tremor, unspecified (principal); I25.10 Atherosclerotic heart disease of native coronary artery without angina pectoris; E78.5 Hyperlipidemia, unspecified; I10 Essential (primary) hypertension; Z86.73 Personal history of transient ischemic attack (TIA), and cerebral infarction without residual deficits; Z95.5 Presence of coronary angioplasty implant and graft; Z95.1 Presence of aortocoronary bypass graft; Z79.02 Long term (current) use of antithrombotics/antiplatelets; Z79.4 Long term (current) use of insulin; Z79.82 Long term (current) use of aspirin; Z79.891 Long term (current) use of opiate analgesic; Z79.899 Other long term (current) drug therapy; Z88.6 Allergy status to analgesic agent; Z88.8 Allergy status to other drugs, medicaments and biological substances; Z88.1 Allergy status to other antibiotic agents; Z88.2 Allergy status to sulfonamides; Z88.5 Allergy status to narcotic agent
CPT/HCPCS: 36415; 80053; 81003; 85025; 87086; 96360; 99283

== ENCOUNTER 2017-10-21 06:13 | Emergency (ER) | payer MEDICARE, OTHER ==
--- NOTE | 2017-10-21 07:11 | XR ---
EXAMINATION TYPE: XR KUB DATE OF EXAM: 10/21/2017 CLINICAL DATA: 82-year-old male difficulty urinating, constipation, pain, PHH COMPARISON: 07/23/2017 FINDINGS: Lung bases are clear. Cholecystectomy clips. Surgical clips in the lower left hemithorax. Posterior lumbar fusion hardware. No evidence for free intraperitoneal air. No dilated small bowel or air-fluid levels. Scattered air and stool seen throughout the colon. There is moderate stool burden. No suspicious calcifications identified. IMPRESSION: Moderate stool burden. No evidence of bowel obstruction or free intraperitoneal air.
[2017-10-21] MEDS ORDERED: NA PHOS,M-B/NA PHOS,DI-BA 133 ML ENEMA RECTAL STA (07:15)
[2017-10-21] MEDS ORDERED: MAGNESIUM CITRATE 296 ML BOTTLE PO ONE (07:16)
--- NOTE | 2017-10-21 07:22 | ED ---
General Adult HPI <Pranav Lofton - Last Filed: 10/21/17 10:47> - General Source: patient, EMS, RN notes reviewed, old records reviewed Mode of arrival: EMS Limitations: physical limitation <Talon Hoang - Last Filed: 10/22/17 01:53> - General Chief complaint: Abdominal Pain Stated complaint: Male Time Seen by Provider: 10/21/17 06:31 - History of Present Illness Initial comments: 82-year-old male presenting for evaluation of constipation and abdominal distention. Patient states that he deals with constipation secondary to prescription morphine which she takes for chronic back pain. His last bowel movement was 4-5 days ago. Over the past 24 hours patient has had increasing difficulty urinating as well as passing stool. He complains of distention but no significant pain. No fever or chills. No chest pain or shortness of breath. Patient has taken MiraLAX, milk of magnesia, and Metamucil with no relief. (Talon Hoang) - Related Data Home Medications Medication Instructions Recorded Confirmed Cetirizine HCl [Zyrtec] 10 mg PO DAILY 06/14/14 10/21/17 Citalopram Hydrobromide [CeleXA] 20 mg PO HS 06/14/14 10/21/17 Clopidogrel [Plavix] 75 mg PO QAM 06/14/14 10/21/17 Fenofibrate Nanocrystallized 145 mg PO W/SUPPER 06/14/14 10/21/17 [Tricor] Insulin Detemir [Levemir Flextouch] 35 units SQ HS 06/14/14 10/21/17 Vit A/Vit C/Vit E/Zinc/Copper 1 cap PO BID 06/14/14 10/21/17 [ICAPS SOFTGEL] Cholecalciferol [Vitamin D3] 1,000 unit PO DAILY 10/06/14 10/21/17 Aspirin EC [Ecotrin Low Dose] 81 mg PO W/SUPPER 06/28/17 10/21/17 Insulin Lispro [humaLOG Kwikpen] 25 unit SQ AC-TID 06/28/17 10/21/17 Losartan/Hydrochlorothiazide 1 tab PO DAILY 06/28/17 10/21/17 [Losartan-Hctz 100-25 mg Tab] Morphine Sulfate ER [Ms Contin] 15 mg PO TID 06/28/17 10/21/17 Rosuvastatin [Crestor] 20 mg PO W/SUPPER 06/28/17 10/21/17 amLODIPine [Norvasc] 10 mg PO DAILY 06/28/17 10/21/17 Carboxymethylcellulose Sodium 1 drop BOTH EYES DAILY PRN 07/23/17 10/21/17 [Refresh Tears] Pantoprazole [Protonix] 40 mg PO DAILY 07/23/17 10/21/17 Polyethylene Glycol 3350 [Miralax] 17 gm PO DAILY PRN 07/23/17 10/21/17 ALPRAZolam [Xanax] 0.5 mg PO DAILY 10/21/17 10/21/17 Tamsulosin [Flomax] 0.4 mg PO DAILY 10/21/17 10/21/17 Allergies Allergy/AdvReac Type Severity Reaction Status Date / Time celecoxib [From Celebrex] Allergy Rash/Hives Verified 10/21/17 08:18 gabapentin [From Neurontin] Allergy Swelling Verified 10/21/17 08:18 levofloxacin [From Levaquin] Allergy Unknown Verified 10/21/17 08:18 sulfamethoxazole Allergy Unknown Verified 10/21/17 08:18 [From Bactrim] trimethoprim [From Bactrim] Allergy Unknown Verified 10/21/17 08:18 hydrocodone AdvReac Trouble Verified 10/21/17 08:18 Sleeping Review of Systems ROS Other: All systems not noted in ROS Statement are negative. <Pranav Loftno - Last Filed: 10/21/17 10:47> ROS Other: All systems not noted in ROS Statement are negative. <Talon Hoang - Last Filed: 10/22/17 01:53> ROS Statement: Those systems with pertinent positive or pertinent negative responses have been documented in the HPI. Past Medical History Past Medical History: Coronary Artery Disease (CAD), CVA/TIA, Hyperlipidemia, Hypertension Additional Past Medical History / Comment(s): CVA with right sided weakness History of Any Multi-Drug Resistant Organisms: None Reported Past Surgical History: Back Surgery, Heart Catheterization With Stent, Hernia Repair, Orthopedic Surgery Additional Past Surgical History / Comment(s): back surg x7, L knee, Yared. shoulders, nose surgery, hiatal hernia, stent 1998, CABG. Past Anesthesia/Blood Transfusion Reactions: No Reported Reaction Additional Past Anesthesia/Blood Transfusion Reaction / Comment(s): experienced stroke during last back surgery Date of Last Stent Placement:: june 1997 Past Psychological History: Anxiety Smoking Status: Never smoker Past Alcohol Use History: None Reported Past Drug Use History: None Reported - Past Family History Father Family Medical History: Coronary Artery Disease (CAD) <Talon Hoang - Last Filed: 10/22/17 01:53> General Exam Limitations: physical limitation General appearance: alert, in no apparent distress Head exam: Present: atraumatic, normocephalic Eye exam: Present: normal appearance, PERRL, EOMI ENT exam: Present: normal exam Neck exam: Present: normal inspection. Absent: tenderness, meningismus Respiratory exam: Present: normal lung sounds bilaterally. Absent: respiratory distress, wheezes Cardiovascular Exam: Present: regular rate, normal rhythm GI/Abdominal exam: Present: soft, distended. Absent: tenderness, guarding, rebound Extremities exam: Present: normal inspection, normal capillary refill. Absent: pedal edema Neurological exam: Present: alert, oriented X3 Psychiatric exam: Present: normal affect, normal mood Skin exam: Present: warm, dry, intact. Absent: cyanosis, diaphoretic <Talon Hoang - Last Filed: 10/22/17 01:53> Vital Signs 10/21/17 10/21/17 10/21/17 06:24 09:06 09:59 Temperature 98.9 F 98.2 F Pulse Rate 87 91 77 Respiratory 17 20 18 Rate Blood Pressure 144/68 133/64 128/60 O2 Sat by Pulse 95 95 91 L Oximetry Medical Decision Making <Pranav Lofton - Last Filed: 10/21/17 10:47> <Talon Hoang - Last Filed: 10/22/17 01:53> - Medical Decision Making Patient's KUB showed moderate constipation. Patient had multiple enemas in the ER with great results and the patient felt considerably better and wanted to be discharged home. (Pranav Lofton) - Lab Data Lab Results 10/21/17 10/21/17 Range/Units 09:08 09:40 POC Glucose (mg/dL) 255 H (75-99) mg/dL POC Glu [employer] ID Rodger Zarate Urine Color Yellow Urine Appearance Clear (Clear) Urine pH 6.0 (5.0-8.0) Ur Specific [place] 1.017 (1.001-1.035) Urine Protein Trace H (Negative) Urine Glucose (UA) 3+ H (Negative) Urine Ketones Negative (Negative) Urine Blood Moderate H (Negative) Urine Nitrite Negative (Negative) Urine Bilirubin Negative (Negative) Urine Urobilinogen 2.0 (<2.0) mg/dL Ur Leukocyte Esterase Trace H (Negative) Urine RBC 181 H (0-5) /hpf Urine WBC 7 H (0-5) /hpf Ur Squamous Epith Cells 1 (0-4) /hpf Urine Bacteria Rare H (None) /hpf Hyaline Casts 25 H (0-2) /lpf Urine Mucus Rare H (None) /hpf Disposition Time of Disposition: 10:47 <Pranav Lofton - Last Filed: 10/21/17 10:47> Is patient prescribed a controlled substance at d/c from ED?: No <Talon Hoang - Last Filed: 10/22/17 01:53> Clinical Impression: Constipation Disposition: HOME SELF-CARE Instructions: Constipation (ED), High Fiber Diet (ED) Referrals: Alycia Cook DO [Primary Care Provider] - 1-2 days
[2017-10-21 09:24] LABS: Glucose,Whole Blood 255 mg/dL (75-99)
[2017-10-21 10:00] VITALS: BP 128/60; PULSE 77; RESP 18; TEMP 98.2
[2017-10-21 10:04] LABS: Appearance,Urine Clear (Clear); Bacteria,Urine Rare /hpf; Bilirubin,Urine Negative (Negative); Blood,Urine Moderate (Negative); Color,Urine Yellow; Glucose,Urine (UA) 3+ (Negative); Hyaline Casts,Urine 25 /lpf (0-2); Ketones,Urine Negative (Negative); Leukocyte Esterase,Urine Trace (Negative); Mucus,Urine Rare /hpf; Nitrite,Urine Negative (Negative); Protein,Urine Trace (Negative); RBC,Urine 181 /hpf (0-5); Specific Gravity,Urine 1.017 (1.001-1.035); Squamous Epithelial Cell,Urine 1 /hpf (0-4); WBC,Urine 7 /hpf (0-5)
== END 2017-10-21 11:20 | disposition home or self-care (01) ==
LOC: EC 06:13
DX: K59.03 Drug induced constipation (principal); T40.2X5A Adverse effect of other opioids, initial encounter; R14.0 Abdominal distension (gaseous); G89.29 Other chronic pain; M54.9 Dorsalgia, unspecified; R39.198 Other difficulties with micturition; E78.5 Hyperlipidemia, unspecified; I10 Essential (primary) hypertension; I69.351 Hemiplegia and hemiparesis following cerebral infarction affecting right dominant side; I25.10 Atherosclerotic heart disease of native coronary artery without angina pectoris; F41.9 Anxiety disorder, unspecified; Z79.02 Long term (current) use of antithrombotics/antiplatelets; Z79.4 Long term (current) use of insulin; Z79.82 Long term (current) use of aspirin; Z79.891 Long term (current) use of opiate analgesic; Z79.899 Other long term (current) drug therapy; Z88.1 Allergy status to other antibiotic agents; Z88.5 Allergy status to narcotic agent; Z88.6 Allergy status to analgesic agent; Z88.8 Allergy status to other drugs, medicaments and biological substances; Z98.890 Other specified postprocedural states
CPT/HCPCS: 36415; 51798; 74018; 81001; 99285

== ENCOUNTER 2018-01-14 16:10 | Inpatient (IN) | payer MEDICARE, OTHER ==
[2018-01-14] MEDS ORDERED: SODIUM CHLORIDE 0.9% 1,000 ML IV STA ×2 (16:20)
--- NOTE | 2018-01-14 16:35 | ED ---
Altered Mental Status HPI - General Chief Complaint: Altered Mental Status Stated Complaint: Altered Mental Time Seen by Provider: 01/14/18 16:10 Source: EMS Mode of arrival: EMS Limitations: physical limitation - History of Present Illness Initial Comments: This 82-year-old male with a history of CAD, diabetes, left heel decubitus ulcer who is currently awake and alert oriented 2-3 who is brought in for evaluation of decreased level of consciousness a be oriented times one to self only no trauma no fevers chills nausea vomiting sweats reported no other modifying factors. He is being treated for his foot wound by a visiting nurse. He was found upon arrival here to have a elevated temperature. He is on morphine and benzodiazepine per paramedics. No other modifying factors reported at this time patient himself is a poor historian MD Complaint: altered mental status, confusion - Related Data Home Medications Medication Instructions Recorded Confirmed Cetirizine HCl [Zyrtec] 10 mg PO DAILY 06/14/14 01/14/18 Citalopram Hydrobromide [CeleXA] 20 mg PO HS 06/14/14 01/14/18 Clopidogrel [Plavix] 75 mg PO DAILY 06/14/14 01/14/18 Fenofibrate Nanocrystallized 145 mg PO W/SUPPER 06/14/14 01/14/18 [Tricor] Insulin Detemir [Levemir Flextouch] 35 units SQ HS 06/14/14 01/14/18 Vit A/Vit C/Vit E/Zinc/Copper 1 cap PO BID 06/14/14 01/14/18 [ICAPS SOFTGEL] Cholecalciferol [Vitamin D3] 1,000 unit PO DAILY 10/06/14 01/14/18 Aspirin EC [Ecotrin Low Dose] 81 mg PO W/SUPPER 06/28/17 01/14/18 Insulin Lispro [humaLOG Kwikpen] 30 unit SQ AC-TID 06/28/17 01/14/18 Rosuvastatin [Crestor] 20 mg PO HS 06/28/17 01/14/18 Carboxymethylcellulose Sodium 1 drop BOTH EYES BID PRN 07/23/17 01/14/18 [Refresh Tears] Pantoprazole [Protonix] 40 mg PO DAILY 07/23/17 01/14/18 Polyethylene Glycol 3350 [Miralax] 17 gm PO HS PRN 07/23/17 01/14/18 ALPRAZolam [Xanax] 0.5 mg PO HS 10/21/17 01/14/18 Tamsulosin [Flomax] 0.4 mg PO HS 10/21/17 01/14/18 Losartan/Hydrochlorothiazide 1 tab PO DAILY 01/14/18 01/14/18 [Losartan-Hctz 100-12.5 mg Tab] Morphine Sulfate ER [Ms Contin] 30 mg PO Q12HR PRN 01/14/18 01/14/18 amLODIPine [Norvasc] 5 mg PO DAILY 01/14/18 01/14/18 Allergies Allergy/AdvReac Type Severity Reaction Status Date / Time celecoxib [From Celebrex] Allergy Rash/Hives Verified 01/14/18 16:40 gabapentin [From Neurontin] Allergy Swelling Verified 01/14/18 16:40 levofloxacin [From Levaquin] Allergy Unknown Verified 01/14/18 16:40 sulfamethoxazole Allergy Unknown Verified 01/14/18 16:40 [From Bactrim] trimethoprim [From Bactrim] Allergy Unknown Verified 01/14/18 16:40 hydrocodone AdvReac Trouble Verified 01/14/18 16:40 Sleeping Review of Systems ROS Statement: Those systems with pertinent positive or pertinent negative responses have been documented in the HPI. ROS Other: All systems not noted in ROS Statement are negative. Limitations: ROS unobtainable due to patients medical condition Past Medical History Past Medical History: Coronary Artery Disease (CAD), CVA/TIA, Hyperlipidemia, Hypertension Additional Past Medical History / Comment(s): CVA with right sided weakness History of Any Multi-Drug Resistant Organisms: None Reported Past Surgical History: Back Surgery, Heart Catheterization With Stent, Hernia Repair, Orthopedic Surgery Additional Past Surgical History / Comment(s): back surg x7, L knee, Yared. shoulders, nose surgery, hiatal hernia, stent 1997, CABG. Past Anesthesia/Blood Transfusion Reactions: No Reported Reaction Additional Past Anesthesia/Blood Transfusion Reaction / Comment(s): experienced stroke during last back surgery Date of Last Stent Placement:: june 1997 Past Psychological History: Anxiety Smoking Status: Never smoker Past Alcohol Use History: None Reported Past Drug Use History: None Reported - Past Family History Father Family Medical History: Coronary Artery Disease (CAD) General Exam - General Exam Comments Initial Comments: This is a well-developed well-nourished awake alert somewhat lethargic male Limitations: physical limitation General appearance: alert, in no apparent distress Head exam: Present: atraumatic, normocephalic, normal inspection Eye exam: Present: normal appearance, PERRL, EOMI. Absent: scleral icterus, conjunctival injection, periorbital swelling ENT exam: Present: mucous membranes dry Neck exam: Present: normal inspection. Absent: tenderness, meningismus, lymphadenopathy Respiratory exam: Present: normal lung sounds bilaterally. Absent: respiratory distress, wheezes, rales, rhonchi, stridor Cardiovascular Exam: Present: regular rate, normal rhythm, normal heart sounds. Absent: systolic murmur, diastolic murmur, rubs, gallop, clicks GI/Abdominal exam: Present: soft, normal bowel sounds. Absent: distended, tenderness, guarding, rebound, rigid Extremities exam: Present: full ROM, normal capillary refill, other (A stage I to 2 pressure sores seen in the left heel no drainage no increased localized temperature). Absent: tenderness, pedal edema, joint swelling, calf tenderness Back exam: Present: normal inspection Neurological exam: Present: alert, oriented X3, CN II-XII intact Psychiatric exam: Present: normal affect, normal mood Skin exam: Present: warm, dry, intact, normal color. Absent: rash Course Vital Signs 01/14/18 01/14/18 16:12 17:09 Temperature 100.8 F H Pulse Rate 92 91 Respiratory 16 16 Rate Blood Pressure 142/68 160/72 O2 Sat by Pulse 97 99 Oximetry - Reevaluation(s) Reevaluation #1: 01/14/18 17:35 Reevaluation patient reveals he is a little more alert. I did discuss [employer] the patient family members patient will be admitted I did discuss the case with Dr. Hart Medical Decision Making - Medical Decision Making I again did discuss findings the patient family patient will be admitted for IV fluids and antibiotics. Also note there is a initial draft of the initial H&P was I was unable to deleted from the system this also is included - Lab Data Result diagrams: 01/14/18 16:24 01/14/18 16:24 Lab Results 01/14/18 01/14/18 01/14/18 Range/Units 16:24 16:24 16:24 WBC 18.1 H (3.8-10.6) k/uL RBC 4.96 (4.30-5.90) m/uL Hgb 15.0 (13.0-17.5) gm/dL Hct 46.3 (39.0-53.0) % MCV 93.4 (80.0-100.0) fL MCH 30.2 (25.0-35.0) pg MCHC 32.4 (31.0-37.0) g/dL RDW 13.3 (11.5-15.5) % Plt Count 288 (150-450) k/uL Neutrophils % 82 % Lymphocytes % 10 % Monocytes % 6 % Eosinophils % 1 % Basophils % 0 % Neutrophils # 14.8 H (1.3-7.7) k/uL Lymphocytes # 1.9 (1.0-4.8) k/uL Monocytes # 1.1 H (0-1.0) k/uL Eosinophils # 0.1 (0-0.7) k/uL Basophils # 0.0 (0-0.2) k/uL Sodium 137 (137-145) mmol/L Potassium 4.0 (3.5-5.1) mmol/L Chloride 102 (98-107) mmol/L Carbon Dioxide 25 (22-30) mmol/L Anion Gap 10 mmol/L BUN 18 (9-20) mg/dL Creatinine 1.18 (0.66-1.25) mg/dL Est GFR (CKD-EPI)AfAm 65 (>60 ml/min/1.73 sqM) Est GFR (CKD-EPI)NonAf 56 (>60 ml/min/1.73 sqM) Glucose 192 H (74-99) mg/dL Plasma Lactic Acid Stone (0.7-2.0) mmol/L Calcium 9.1 (8.4-10.2) mg/dL Magnesium 1.8 (1.6-2.3) mg/dL Total Bilirubin 0.8 (0.2-1.3) mg/dL AST 21 (17-59) U/L ALT 26 (21-72) U/L Alkaline Phosphatase 36 L (38-126) U/L Ammonia (<30) umol/L Total Creatine Kinase 63 (55-170) U/L CK-MB (CK-2) 1.3 (0.0-2.4) ng/mL CK-MB (CK-2) Rel Index 2.1 Total Protein 6.4 (6.3-8.2) g/dL Albumin 3.6 (3.5-5.0) g/dL Urine Color Urine Appearance (Clear) Urine pH (5.0-8.0) Ur Specific [place] (1.001-1.035) Urine Protein (Negative) Urine Glucose (UA) (Negative) Urine Ketones (Negative) Urine Blood (Negative) Urine Nitrite (Negative) Urine Bilirubin (Negative) Urine Urobilinogen (<2.0) mg/dL Ur Leukocyte Esterase (Negative) Urine RBC (0-5) /hpf Urine WBC (0-5) /hpf Urine Bacteria (None) /hpf Urine Mucus (None) /hpf 01/14/18 01/14/18 Range/Units 16:24 16:33 WBC (3.8-10.6) k/uL RBC (4.30-5.90) m/uL Hgb (13.0-17.5) gm/dL Hct (39.0-53.0) % MCV (80.0-100.0) fL MCH (25.0-35.0) pg MCHC (31.0-37.0) g/dL RDW (11.5-15.5) % Plt Count (150-450) k/uL Neutrophils % % Lymphocytes % % Monocytes % % Eosinophils % % Basophils % % Neutrophils # (1.3-7.7) k/uL Lymphocytes # (1.0-4.8) k/uL Monocytes # (0-1.0) k/uL Eosinophils # (0-0.7) k/uL Basophils # (0-0.2) k/uL Sodium (137-145) mmol/L Potassium (3.5-5.1) mmol/L Chloride (98-107) mmol/L Carbon Dioxide (22-30) mmol/L Anion Gap mmol/L BUN (9-20) mg/dL Creatinine (0.66-1.25) mg/dL Est GFR (CKD-EPI)AfAm (>60 ml/min/1.73 sqM) Est GFR (CKD-EPI)NonAf (>60 ml/min/1.73 sqM) Glucose (74-99) mg/dL Plasma Lactic Acid Stone 1.5 (0.7-2.0) mmol/L Calcium (8.4-10.2) mg/dL Magnesium (1.6-2.3) mg/dL Total Bilirubin (0.2-1.3) mg/dL AST (17-59) U/L ALT (21-72) U/L Alkaline Phosphatase (38-126) U/L Ammonia 13 (<30) umol/L Total Creatine Kinase (55-170) U/L CK-MB (CK-2) (0.0-2.4) ng/mL CK-MB (CK-2) Rel Index Total Protein (6.3-8.2) g/dL Albumin (3.5-5.0) g/dL Urine Color Yellow Urine Appearance Cloudy (Clear) Urine pH 6.5 (5.0-8.0) Ur Specific [place] 1.015 (1.001-1.035) Urine Protein Trace H (Negative) Urine Glucose (UA) 3+ H (Negative) Urine Ketones Negative (Negative) Urine Blood Negative (Negative) Urine Nitrite Positive (Negative) Urine Bilirubin Negative (Negative) Urine Urobilinogen 2.0 (<2.0) mg/dL Ur Leukocyte Esterase Large H (Negative) Urine RBC 1 (0-5) /hpf Urine WBC 19 H (0-5) /hpf Urine Bacteria Occasional H (None) /hpf Urine Mucus Rare H (None) /hpf - EKG Data -: EKG Interpreted by Me (Sinus rhythm pressure ventricular contractions rate was 92 HI interval 02/0) - Radiology Data Radiology results: report reviewed (I did review the imaging and reports small bilateral pleural effusions old sixth rib fracture on the left no other findings ), image reviewed Disposition Clinical Impression: Delirium due to general medical condition, Urinary tract infection, Dehydration Disposition: ADMITTED IP TO THIS [facility] Condition: Stable Referrals: Alycia Cook DO [Primary Care Provider] - 1-2 days
[2018-01-14 16:40] LABS: Basophils % (A) 0 %; Eosinophils # (A) 0.1 k/uL (0-0.7); Eosinophils % (A) 1 %; HCT 46.3 % (39.0-53.0); Lymphocytes # (A) 1.9 k/uL (1.0-4.8); Lymphocytes % (A) 10 %; MCH 30.2 pg (25.0-35.0); MCHC 32.4 g/dL (31.0-37.0); MCV 93.4 fL (80.0-100.0); Mean Platelet Volume 6.2; Monocytes # (A) 1.1 k/uL (0-1.0); Monocytes % (A) 6 %; Neutrophils # (A) 14.8 k/uL (1.3-7.7); Neutrophils % (A) 82 %; Platelet Count 288 k/uL (150-450); RBC 4.96 m/uL (4.30-5.90); RDW 13.3 % (11.5-15.5); WBC 18.1 k/uL (3.8-10.6)
--- NOTE | 2018-01-14 16:40 | ED ---
Altered Mental Status HPI - General Chief Complaint: Altered Mental Status Stated Complaint: Altered Mental Time Seen by Provider: 01/14/18 16:11 Source: patient, EMS, RN notes reviewed Mode of arrival: EMS Limitations: physical limitation - History of Present Illness Initial Comments: This is a 82-year-old male who was brought in for evaluation of decreased mental status that history diabetes heart disease a wound on his left heel is being treated at home he was lethargic and oh times one is normally a 2-3 with respect to be an alert and oriented. No trauma no nausea vomiting diarrhea no other symptoms he is found upon admission here to have an elevated temperature. No other modifying factors at this time MD Complaint: altered mental status, confusion - Related Data Home Medications Medication Instructions Recorded Confirmed Cetirizine HCl [Zyrtec] 10 mg PO DAILY 06/14/14 01/14/18 Citalopram Hydrobromide [CeleXA] 20 mg PO HS 06/14/14 01/14/18 Clopidogrel [Plavix] 75 mg PO DAILY 06/14/14 01/14/18 Fenofibrate Nanocrystallized 145 mg PO W/SUPPER 06/14/14 01/14/18 [Tricor] Insulin Detemir [Levemir Flextouch] 35 units SQ HS 06/14/14 01/14/18 Vit A/Vit C/Vit E/Zinc/Copper 1 cap PO BID 06/14/14 01/14/18 [ICAPS SOFTGEL] Cholecalciferol [Vitamin D3] 1,000 unit PO DAILY 10/06/14 01/14/18 Aspirin EC [Ecotrin Low Dose] 81 mg PO W/SUPPER 06/28/17 01/14/18 Insulin Lispro [humaLOG Kwikpen] 30 unit SQ AC-TID 06/28/17 01/14/18 Rosuvastatin [Crestor] 20 mg PO HS 06/28/17 01/14/18 Carboxymethylcellulose Sodium 1 drop BOTH EYES BID PRN 07/23/17 01/14/18 [Refresh Tears] Pantoprazole [Protonix] 40 mg PO DAILY 07/23/17 01/14/18 Polyethylene Glycol 3350 [Miralax] 17 gm PO HS PRN 07/23/17 01/14/18 ALPRAZolam [Xanax] 0.5 mg PO HS 10/21/17 01/14/18 Tamsulosin [Flomax] 0.4 mg PO HS 10/21/17 01/14/18 Losartan/Hydrochlorothiazide 1 tab PO DAILY 01/14/18 01/14/18 [Losartan-Hctz 100-12.5 mg Tab] Morphine Sulfate ER [Ms Contin] 30 mg PO Q12HR PRN 01/14/18 01/14/18 amLODIPine [Norvasc] 5 mg PO DAILY 01/14/18 01/14/18 Allergies Allergy/AdvReac Type Severity Reaction Status Date / Time celecoxib [From Celebrex] Allergy Rash/Hives Verified 01/14/18 16:40 gabapentin [From Neurontin] Allergy Swelling Verified 01/14/18 16:40 levofloxacin [From Levaquin] Allergy Unknown Verified 01/14/18 16:40 sulfamethoxazole Allergy Unknown Verified 01/14/18 16:40 [From Bactrim] trimethoprim [From Bactrim] Allergy Unknown Verified 01/14/18 16:40 hydrocodone AdvReac Trouble Verified 01/14/18 16:40 Sleeping Review of Systems ROS Statement: Those systems with pertinent positive or pertinent negative responses have been documented in the HPI. ROS Other: All systems not noted in ROS Statement are negative. Limitations: ROS unobtainable due to patients medical condition Past Medical History Past Medical History: Coronary Artery Disease (CAD), CVA/TIA, Hyperlipidemia, Hypertension Additional Past Medical History / Comment(s): CVA with right sided weakness History of Any Multi-Drug Resistant Organisms: None Reported Past Surgical History: Back Surgery, Heart Catheterization With Stent, Hernia Repair, Orthopedic Surgery Additional Past Surgical History / Comment(s): back surg x7, L knee, Yared. shoulders, nose surgery, hiatal hernia, stent 1997, CABG. Past Anesthesia/Blood Transfusion Reactions: No Reported Reaction Additional Past Anesthesia/Blood Transfusion Reaction / Comment(s): experienced stroke during last back surgery Date of Last Stent Placement:: june 1997 Past Psychological History: Anxiety Smoking Status: Never smoker Past Alcohol Use History: None Reported Past Drug Use History: None Reported - Past Family History Father Family Medical History: Coronary Artery Disease (CAD) General Exam - General Exam Comments Initial Comments: This a well-developed well-nourished awake alert male who is slightly lethargic Limitations: physical limitation General appearance: alert, in no apparent distress Head exam: Present: atraumatic, normocephalic, normal inspection Eye exam: Present: normal appearance, PERRL, EOMI. Absent: scleral icterus, conjunctival injection, periorbital swelling ENT exam: Present: mucous membranes dry Neck exam: Present: normal inspection. Absent: tenderness, meningismus, lymphadenopathy Respiratory exam: Present: normal lung sounds bilaterally. Absent: respiratory distress, wheezes, rales, rhonchi, stridor Cardiovascular Exam: Present: regular rate, normal rhythm, normal heart sounds. Absent: systolic murmur, diastolic murmur, rubs, gallop, clicks GI/Abdominal exam: Present: soft, normal bowel sounds. Absent: distended, tenderness, guarding, rebound, rigid Extremities exam: Present: full ROM, normal capillary refill, other (There is a decubitus ulcer seen in the left heel stage I to 2. No drainage no discharge no formed by seen). Absent: tenderness, pedal edema, joint swelling, calf tenderness Back exam: Present: normal inspection Neurological exam: Present: alert, oriented X3, CN II-XII intact Psychiatric exam: Present: normal affect, normal mood Skin exam: Present: warm, dry, intact. Absent: normal color, rash Course Vital Signs 01/14/18 01/14/18 16:12 17:09 Temperature 100.8 F H Pulse Rate 92 91 Respiratory 16 16 Rate Blood Pressure 142/68 160/72 O2 Sat by Pulse 97 99 Oximetry Medical Decision Making - Lab Data Result diagrams: 01/14/18 16:24 01/14/18 16:24 Lab Results 01/14/18 01/14/18 01/14/18 Range/Units 16:24 16:24 16:24 WBC 18.1 H (3.8-10.6) k/uL RBC 4.96 (4.30-5.90) m/uL Hgb 15.0 (13.0-17.5) gm/dL Hct 46.3 (39.0-53.0) % MCV 93.4 (80.0-100.0) fL MCH 30.2 (25.0-35.0) pg MCHC 32.4 (31.0-37.0) g/dL RDW 13.3 (11.5-15.5) % Plt Count 288 (150-450) k/uL Neutrophils % 82 % Lymphocytes % 10 % Monocytes % 6 % Eosinophils % 1 % Basophils % 0 % Neutrophils # 14.8 H (1.3-7.7) k/uL Lymphocytes # 1.9 (1.0-4.8) k/uL Monocytes # 1.1 H (0-1.0) k/uL Eosinophils # 0.1 (0-0.7) k/uL Basophils # 0.0 (0-0.2) k/uL Sodium 137 (137-145) mmol/L Potassium 4.0 (3.5-5.1) mmol/L Chloride 102 (98-107) mmol/L Carbon Dioxide 25 (22-30) mmol/L Anion Gap 10 mmol/L BUN 18 (9-20) mg/dL Creatinine 1.18 (0.66-1.25) mg/dL Est GFR (CKD-EPI)AfAm 65 (>60 ml/min/1.73 sqM) Est GFR (CKD-EPI)NonAf 56 (>60 ml/min/1.73 sqM) Glucose 192 H (74-99) mg/dL Plasma Lactic Acid Stone (0.7-2.0) mmol/L Calcium 9.1 (8.4-10.2) mg/dL Magnesium 1.8 (1.6-2.3) mg/dL Total Bilirubin 0.8 (0.2-1.3) mg/dL AST 21 (17-59) U/L ALT 26 (21-72) U/L Alkaline Phosphatase 36 L (38-126) U/L Ammonia (<30) umol/L Total Creatine Kinase 63 (55-170) U/L CK-MB (CK-2) 1.3 (0.0-2.4) ng/mL CK-MB (CK-2) Rel Index 2.1 Total Protein 6.4 (6.3-8.2) g/dL Albumin 3.6 (3.5-5.0) g/dL Urine Color Urine Appearance (Clear) Urine pH (5.0-8.0) Ur Specific [place] (1.001-1.035) Urine Protein (Negative) Urine Glucose (UA) (Negative) Urine Ketones (Negative) Urine Blood (Negative) Urine Nitrite (Negative) Urine Bilirubin (Negative) Urine Urobilinogen (<2.0) mg/dL Ur Leukocyte Esterase (Negative) Urine RBC (0-5) /hpf Urine WBC (0-5) /hpf Urine Bacteria (None) /hpf Urine Mucus (None) /hpf 01/14/18 01/14/18 Range/Units 16:24 16:33 WBC (3.8-10.6) k/uL RBC (4.30-5.90) m/uL Hgb (13.0-17.5) gm/dL Hct (39.0-53.0) % MCV (80.0-100.0) fL MCH (25.0-35.0) pg MCHC (31.0-37.0) g/dL RDW (11.5-15.5) % Plt Count (150-450) k/uL Neutrophils % % Lymphocytes % % Monocytes % % Eosinophils % % Basophils % % Neutrophils # (1.3-7.7) k/uL Lymphocytes # (1.0-4.8) k/uL Monocytes # (0-1.0) k/uL Eosinophils # (0-0.7) k/uL Basophils # (0-0.2) k/uL Sodium (137-145) mmol/L Potassium (3.5-5.1) mmol/L Chloride (98-107) mmol/L Carbon Dioxide (22-30) mmol/L Anion Gap mmol/L BUN (9-20) mg/dL Creatinine (0.66-1.25) mg/dL Est GFR (CKD-EPI)AfAm (>60 ml/min/1.73 sqM) Est GFR (CKD-EPI)NonAf (>60 ml/min/1.73 sqM) Glucose (74-99) mg/dL Plasma Lactic Acid Stone 1.5 (0.7-2.0) mmol/L Calcium (8.4-10.2) mg/dL Magnesium (1.6-2.3) mg/dL Total Bilirubin (0.2-1.3) mg/dL AST (17-59) U/L ALT (21-72) U/L Alkaline Phosphatase (38-126) U/L Ammonia 13 (<30) umol/L Total Creatine Kinase (55-170) U/L CK-MB (CK-2) (0.0-2.4) ng/mL CK-MB (CK-2) Rel Index Total Protein (6.3-8.2) g/dL Albumin (3.5-5.0) g/dL Urine Color Yellow Urine Appearance Cloudy (Clear) Urine pH 6.5 (5.0-8.0) Ur Specific [place] 1.015 (1.001-1.035) Urine Protein Trace H (Negative) Urine Glucose (UA) 3+ H (Negative) Urine Ketones Negative (Negative) Urine Blood Negative (Negative) Urine Nitrite Positive (Negative) Urine Bilirubin Negative (Negative) Urine Urobilinogen 2.0 (<2.0) mg/dL Ur Leukocyte Esterase Large H (Negative) Urine RBC 1 (0-5) /hpf Urine WBC 19 H (0-5) /hpf Urine Bacteria Occasional H (None) /hpf Urine Mucus Rare H (None) /hpf Disposition Clinical Impression: Delirium due to general medical condition, Urinary tract infection, Dehydration Disposition: ADMITTED IP TO THIS [facility] Condition: Stable Referrals: Alycia Cook DO [Primary Care Provider] - 1-2 days
[2018-01-14 16:47] LABS: Appearance,Urine Cloudy (Clear); Bacteria,Urine Occasional /hpf; Bilirubin,Urine Negative (Negative); Blood,Urine Negative (Negative); Color,Urine Yellow; Glucose,Urine (UA) 3+ (Negative); Ketones,Urine Negative (Negative); Leukocyte Esterase,Urine Large (Negative); Mucus,Urine Rare /hpf; Nitrite,Urine Positive (Negative); PH, Urine 6.5 (5.0-8.0); Protein,Urine Trace (Negative); RBC,Urine 1 /hpf (0-5); Specific Gravity,Urine 1.015 (1.001-1.035); WBC,Urine 19 /hpf (0-5)
--- NOTE | 2018-01-14 16:49 | XR ---
EXAMINATION TYPE: XR chest 2V DATE OF EXAM: 01/14/2018 COMPARISON: Chest radiograph 07/23/2017 HISTORY: Cough TECHNIQUE: Frontal and lateral views of the chest are obtained. FINDINGS: Small bilateral pleural effusions with associated bibasilar atelectasis. No pneumothorax o r focal consolidation. Sternotomy wires and postsurgical changes of the mediastinum are evident. Pierce te left sixth rib fracture is present. Limits evaluation of the upper abdomen is unremarkable. Verteb ral body heights are maintained. IMPRESSION: 1. Small bilateral pleural effusions. 2. Postsurgical changes. 3. Remote left sixth rib fracture.
[2018-01-14 16:55] LABS: Lactic Acid, Venous 1.5 mmol/L (0.7-2.0)
[2018-01-14 16:57] LABS: Albumin 3.6 g/dL (3.5-5.0); Calcium 9.1 mg/dL (8.4-10.2); Magnesium 1.8 mg/dL (1.6-2.3); Total Bilirubin 0.8 mg/dL (0.2-1.3); Total Protein 6.4 g/dL (6.3-8.2)
[2018-01-14 17:04] LABS: Creatine Kinase MB 1.3 ng/mL (0.0-2.4)
[2018-01-14] MEDS ORDERED: NALOXONE 0.4 MG/ML 1 ML VIAL IV PRN (17:38)
[2018-01-14] MEDS ORDERED: POLYETHYLENE GLYCOL 3350 17 GM POWD.PACK PO PRN (17:41)
[2018-01-14] MEDS ORDERED: ARTIFICIAL TEARS-HYPROMELLOSE DROPS 15 ML BTL BOTH EYES PRN (17:41)
[2018-01-14] MEDS ORDERED: MORPHINE SULFATE ER 30 MG TABLET PO PRN (17:41)
[2018-01-14] MEDS ORDERED: MORPHINE SULFATE 4 MG/ML SYRINGE IVP STA (17:54)
[2018-01-14 20:08] LABS: Glucose,Whole Blood 182 mg/dL (75-99)
[2018-01-14] MEDS: TAMSULOSIN 0.4 MG CAP.ER.24H PO SCH (20:38)
[2018-01-14] MEDS: ALPRAZolam 0.5 MG TAB PO SCH (20:38)
[2018-01-14] MEDS: CITALOPRAM HYDROBROMIDE 20 MG TAB PO SCH (20:38)
[2018-01-14] MEDS: ATORVASTATIN 40 MG TAB PO SCH (20:38)
[2018-01-14] MEDS: MORPHINE SULFATE ER 30 MG TABLET PO SCH (20:39)
[2018-01-14] MEDS: INSULIN DETEMIR 100 UNIT/ML 10 ML VIAL SQ SCH (21:46)
[2018-01-14] MEDS: INSULIN ASPART 100 UNIT/ML 1 ML 10 ML VIAL SQ SCH (21:46)
[2018-01-15] MEDS ORDERED: ACETAMINOPHEN TAB 325 MG TAB PO PRN (06:51)
[2018-01-15 07:44] LABS: Glucose,Whole Blood 205 mg/dL (75-99)
[2018-01-15] MEDS: MORPHINE SULFATE ER 30 MG TABLET PO SCH ×2 (08:22→20:15)
[2018-01-15] MEDS: CLOPIDOGREL 75 MG TAB PO SCH (08:22)
[2018-01-15] MEDS: INSULIN ASPART 100 UNIT/ML 1 ML 10 ML VIAL SQ SCH ×7 (08:22→21:13)
[2018-01-15] MEDS: CITALOPRAM HYDROBROMIDE 20 MG TAB PO SCH (08:23)
[2018-01-15] MEDS: LORATADINE 10 MG TAB PO SCH (08:23)
[2018-01-15] MEDS: PANTOPRAZOLE 40 MG TABLET PO SCH (08:23)
[2018-01-15] MEDS: amLODIPine 5 MG TAB PO SCH (08:23)
[2018-01-15] MEDS: LOSARTAN 50 MG TAB PO SCH (08:23)
[2018-01-15] MEDS: HYDROCHLOROTHIAZIDE 12.5 MG CAP PO SCH (08:24)
[2018-01-15 09:45] LABS: Basophils % (A) 0 %; Eosinophils # (A) 0.1 k/uL (0-0.7); Eosinophils % (A) 0 %; HCT 41.1 % (39.0-53.0); HGB 13.7 gm/dL (13.0-17.5); Lymphocytes # (A) 1.6 k/uL (1.0-4.8); Lymphocytes % (A) 9 %; MCHC 33.2 g/dL (31.0-37.0); MCV 90.3 fL (80.0-100.0); Mean Platelet Volume 6.4; Monocytes # (A) 0.7 k/uL (0-1.0); Monocytes % (A) 4 %; Neutrophils % (A) 86 %; Platelet Count 266 k/uL (150-450); RBC 4.56 m/uL (4.30-5.90); RDW 13.3 % (11.5-15.5); WBC 17.5 k/uL (3.8-10.6)
[2018-01-15 10:03] LABS: Calcium 8.8 mg/dL (8.4-10.2); Potassium 3.3 mmol/L (3.5-5.1)
[2018-01-15] MEDS ORDERED: Potassium Replacement Protocol 1 EACH MISC MISCELLANE PRN ×2 (10:40→15:37)
--- NOTE | 2018-01-15 10:46 | P.HPIM ---
History of Present Illness 82 years old male with past medical history of CVA/TIA with residual right hemiplegia, coronary artery disease is status post cardiac Stenting., hyperlipidemia, hypertension, insulin-dependent diabetes mellitus, possible dementia. Who presents because of altered mental status. Patient looks confused to time place and person when I saw him. Most of the information take it from the staff and medical records. However when asked the patient he did not complain from any pain or discomfort. However on examination he complained from suprapubic tenderness and he has looks like chronic left pressure ulcer which is superficial with nonblanching erythema In the emergency room patient had fever off 100.8. With a leukocytosis at 18.1 K. urinalysis was suggestive for infection. In the Emergency room, patient received ceftriaxone and IV fluids. And admitted to the general medical floor for further management. Review of Systems CONSTITUTIONAL: No fever, no malaise, no fatigue. HEENT: No recent visual problems or hearing problems. Denied any sore throat. CARDIOVASCULAR: No orthopnea, PND, no palpitations, no syncope. PULMONARY: No shortness of breath, no cough, no hemoptysis. GASTROINTESTINAL: No diarrhea, no nausea, no vomiting, no abdominal pain. Normoactive bowel sounds. NEUROLOGICAL: No headaches, no weakness, no numbness. HEMATOLOGICAL: Denies any bleeding or petechiae. GENITOURINARY: Denies any burning micturition, frequency, or urgency. MUSCULOSKELETAL/RHEUMATOLOGICAL: Denies any joint pain, swelling, or any muscle pain. ENDOCRINE: Denies any polyuria or polydipsia. . Past Medical History Past Medical History: Coronary Artery Disease (CAD), CVA/TIA, Hyperlipidemia, Hypertension Additional Past Medical History / Comment(s): CVA with right leg weakness History of Any Multi-Drug Resistant Organisms: None Reported Past Surgical History: Back Surgery, Heart Catheterization With Stent, Hernia Repair, Orthopedic Surgery Additional Past Surgical History / Comment(s): back surg x7, L knee, Yared. shoulders, nose surgery, hiatal hernia, stent 1997, CABG. Past Anesthesia/Blood Transfusion Reactions: No Reported Reaction Additional Past Anesthesia/Blood Transfusion Reaction / Comment(s): experienced stroke during last back surgery Date of Last Stent Placement:: june 1997 Past Psychological History: Anxiety Smoking Status: Never smoker Past Alcohol Use History: None Reported Past Drug Use History: None Reported - Past Family History Father Family Medical History: Coronary Artery Disease (CAD) Medications and Allergies Home Medications Medication Instructions Recorded Confirmed Type Cetirizine HCl [Zyrtec] 10 mg PO DAILY 06/14/14 01/14/18 History Citalopram Hydrobromide [CeleXA] 20 mg PO HS 06/14/14 01/14/18 History Clopidogrel [Plavix] 75 mg PO DAILY 06/14/14 01/14/18 History Fenofibrate Nanocrystallized 145 mg PO W/SUPPER 06/14/14 01/14/18 History [Tricor] Insulin Detemir [Levemir Flextouch] 35 units SQ HS 06/14/14 01/14/18 History Vit A/Vit C/Vit E/Zinc/Copper 1 cap PO BID 06/14/14 01/14/18 History [ICAPS SOFTGEL] Cholecalciferol [Vitamin D3] 1,000 unit PO DAILY 10/06/14 01/14/18 History Aspirin EC [Ecotrin Low Dose] 81 mg PO W/SUPPER 06/28/17 01/14/18 History Insulin Lispro [humaLOG Kwikpen] 30 unit SQ AC-TID 06/28/17 01/14/18 History Rosuvastatin [Crestor] 20 mg PO HS 06/28/17 01/14/18 History Carboxymethylcellulose Sodium 1 drop BOTH EYES BID PRN 07/23/17 01/14/18 History [Refresh Tears] Pantoprazole [Protonix] 40 mg PO DAILY 07/23/17 01/14/18 History Polyethylene Glycol 3350 [Miralax] 17 gm PO HS PRN 07/23/17 01/14/18 History ALPRAZolam [Xanax] 0.5 mg PO HS 10/21/17 01/14/18 History Tamsulosin [Flomax] 0.4 mg PO HS 10/21/17 01/14/18 History Losartan/Hydrochlorothiazide 1 tab PO DAILY 01/14/18 01/14/18 History [Losartan-Hctz 100-12.5 mg Tab] Morphine Sulfate ER [Ms Contin] 30 mg PO Q12HR PRN 01/14/18 01/14/18 History amLODIPine [Norvasc] 5 mg PO DAILY 01/14/18 01/14/18 History Allergies Allergy/AdvReac Type Severity Reaction Status Date / Time celecoxib [From Celebrex] Allergy Rash/Hives Verified 01/14/18 16:40 gabapentin [From Neurontin] Allergy Swelling Verified 01/14/18 16:40 levofloxacin [From Levaquin] Allergy Unknown Verified 01/14/18 16:40 sulfamethoxazole Allergy Unknown Verified 01/14/18 16:40 [From Bactrim] trimethoprim [From Bactrim] Allergy Unknown Verified 01/14/18 16:40 hydrocodone AdvReac Trouble Verified 01/14/18 16:40 Sleeping Physical Exam Vitals: Vital Signs Temp Pulse Pulse Resp BP BP BP 01/15/18 06:30 99.8 F H 69 20 169/63 01/14/18 23:45 99.4 F 73 20 150/65 01/14/18 18:40 99.9 F H 71 16 133/63 01/14/18 18:04 99.4 F 74 18 165/69 01/14/18 17:09 91 16 160/72 01/14/18 16:12 100.8 F H 92 16 142/68 Pulse Ox 01/15/18 06:30 96 01/14/18 23:45 98 01/14/18 18:40 98 01/14/18 18:04 97 01/14/18 17:09 99 01/14/18 16:12 97 Intake and Output 01/14/18 01/15/18 01/15/18 22:59 06:59 14:59 Intake Total 200 100 Balance 200 100 Intake: Oral 200 100 Other: Voiding Method Urinal Diaper Incontinent # Voids 1 2 Weight 88.451 kg GENERAL: The patient is alert and oriented x3, not in any acute distress. Well developed, well nourished. HEENT: Pupils are round and equally reacting to light. EOMI. No scleral icterus. No conjunctival pallor. Normocephalic, atraumatic. No pharyngeal erythema. No thyromegaly. CARDIOVASCULAR: S1 and S2 present. No murmurs, rubs, or gallops. PULMONARY: Chest is clear to auscultation, no wheezing or crackles. ABDOMEN: Soft, nontender, nondistended, normoactive bowel sounds. No palpable organomegaly. MUSCULOSKELETAL: No joint swelling or deformity. EXTREMITIES: No cyanosis, clubbing, or pedal edema. NEUROLOGICAL: Gross neurological examination did not reveal any focal deficits. SKIN: No rashes Results CBC & Chem 7: 01/15/18 09:30 01/15/18 09:30 Labs: Abnormal Lab Results - Last 24 Hours (Table) 01/14/18 01/14/18 01/14/18 Range/Units 16:24 16:24 16:33 WBC 18.1 H (3.8-10.6) k/uL Neutrophils # 14.8 H (1.3-7.7) k/uL Monocytes # 1.1 H (0-1.0) k/uL Potassium (3.5-5.1) mmol/L Glucose 192 H (74-99) mg/dL POC Glucose (mg/dL) (75-99) mg/dL Alkaline Phosphatase 36 L (38-126) U/L Urine Protein Trace H (Negative) Urine Glucose (UA) 3+ H (Negative) Ur Leukocyte Esterase Large H (Negative) Urine WBC 19 H (0-5) /hpf Urine Bacteria Occasional H (None) /hpf Urine Mucus Rare H (None) /hpf 01/14/1818 01/15/18 Range/Units 20:04 07:16 09:30 WBC 17.5 H (3.8-10.6) k/uL Neutrophils # 15.0 H (1.3-7.7) k/uL Monocytes # (0-1.0) k/uL Potassium (3.5-5.1) mmol/L Glucose (74-99) mg/dL POC Glucose (mg/dL) 182 H 205 H (75-99) mg/dL Alkaline Phosphatase (38-126) U/L Urine Protein (Negative) Urine Glucose (UA) (Negative) Ur Leukocyte Esterase (Negative) Urine WBC (0-5) /hpf Urine Bacteria (None) /hpf Urine Mucus (None) /hpf 01/15/18 Range/Units 09:30 WBC (3.8-10.6) k/uL Neutrophils # (1.3-7.7) k/uL Monocytes # (0-1.0) k/uL Potassium 3.3 L (3.5-5.1) mmol/L Glucose 149 H (74-99) mg/dL POC Glucose (mg/dL) (75-99) mg/dL Alkaline Phosphatase (38-126) U/L Urine Protein (Negative) Urine Glucose (UA) (Negative) Ur Leukocyte Esterase (Negative) Urine WBC (0-5) /hpf Urine Bacteria (None) /hpf Urine Mucus (None) /hpf Thrombosis Risk Factor Assmnt - Choose All That Apply Any of the Below Risk Factors Present?: Yes Each Factor Represents 1 point: Obesity (BMI >25) Other Risk Factors: Yes Each Risk Factor Represents 3 Points: Age 75 years or older Other congenital or acquired thrombophilia - If yes, enter type in comment: No Thrombosis Risk Factor Assessment Total Risk Factor Score: 4 Thrombosis Risk Factor Assessment Level: Moderate Risk Assessment and Plan Assessment: Systemic inflammatory response with leukocytosis, fever Sepsis secondary to UTI, present on admission Metabolic encephalopathy secondary to above Possible dementia Left heel pressure ulcer, present on admission CVA/TIA with residual right hemiplegia History of coronary artery disease is status post cardiac Stenting hyperlipidemia hypertension insulin-dependent diabetes mellitus Plan: This is a pleasant 52 years old male comes with sepsis secondary to foot infection. Continue with antibiotics. Continue with fluid management. Resume home medications. Continue symptomatic treatment. Will call infectious disease consult. Monitor lytes and vitals. Check x-ray of the left foot. CT of the head Continue with insulin Pain management. Follow-up culture results when sent. Continue with IV fluids Follow-up hemoglobin A1c DVT and GI prophylaxis. Further recommendation based on the clinical course of the patient DVT prophylaxis: Subcutaneous heparin GI prophylaxis: Protonix PT/OT: Pending Prognosis guarded
[2018-01-15] MEDS: SODIUM CHLORIDE 0.9% 1,000 ML IV SCH ×2 (11:28→23:16)
[2018-01-15] MEDS: POTASSIUM CHLORIDE ER 20 MEQ TAB.ER PO SCH ×2 (11:28→17:00)
--- NOTE | 2018-01-15 11:29 | XR ---
EXAMINATION TYPE: XR ankle complete LT , 3 VIEWS DATE OF EXAM ORDERED: 01/15/2018 HISTORY: pressure ulcer. COMPARISON: None. FINDINGS: There has been previous vascular surgery performed. There is vascular calcification presen t. No fracture, dislocation or bony destructive lesion is seen. IMPRESSION: NO ACUTE OSSEOUS LESION.
--- NOTE | 2018-01-15 11:45 | P.CRDCN ---
History of Present Illness Consult date: 01/15/18 History of present illness: A 82-year-old gentleman with history of a previous ischemic heart disease and bypass surgery, hyperlipidemia, hypertension and also previous CVA who was admitted to the hospital now with complaints of altered mental status. Patient was also having fevers. He was diagnosed to have UTI. Routine blood work showed mildly elevated troponin. We're asked to see the patient for further evaluation. According to the . Patient did not complain of any chest pain. He has chronic mild shortness of breath. At the time of my exam she patient is alert. Doesn't appear to be in acute distress. His EKG did not reveal any acute changes. We will get another troponin value to see if is it present. As long as patient is clinically stable, no further cardiac workup at this time. Continue treatment for UTI Review of Systems Not obtained Past Medical History Past Medical History: Coronary Artery Disease (CAD), CVA/TIA, Hyperlipidemia, Hypertension Additional Past Medical History / Comment(s): CVA with right leg weakness History of Any Multi-Drug Resistant Organisms: None Reported Past Surgical History: Back Surgery, Heart Catheterization With Stent, Hernia Repair, Orthopedic Surgery Additional Past Surgical History / Comment(s): back surg x7, L knee, Yared. shoulders, nose surgery, hiatal hernia, stent 1997, CABG. Past Anesthesia/Blood Transfusion Reactions: No Reported Reaction Additional Past Anesthesia/Blood Transfusion Reaction / Comment(s): experienced stroke during last back surgery Date of Last Stent Placement:: june 1997 Past Psychological History: Anxiety Smoking Status: Never smoker Past Alcohol Use History: None Reported Past Drug Use History: None Reported - Past Family History Father Family Medical History: Coronary Artery Disease (CAD) Medications and Allergies Home Medications Medication Instructions Recorded Confirmed Type Cetirizine HCl [Zyrtec] 10 mg PO DAILY 06/14/14 01/14/18 History Citalopram Hydrobromide [CeleXA] 20 mg PO HS 06/14/14 01/14/18 History Clopidogrel [Plavix] 75 mg PO DAILY 06/14/14 01/14/18 History Fenofibrate Nanocrystallized 145 mg PO W/SUPPER 06/14/14 01/14/18 History [Tricor] Insulin Detemir [Levemir Flextouch] 35 units SQ HS 06/14/14 01/14/18 History Vit A/Vit C/Vit E/Zinc/Copper 1 cap PO BID 06/14/14 01/14/18 History [ICAPS SOFTGEL] Cholecalciferol [Vitamin D3] 1,000 unit PO DAILY 10/06/14 01/14/18 History Aspirin EC [Ecotrin Low Dose] 81 mg PO W/SUPPER 06/28/17 01/14/18 History Insulin Lispro [humaLOG Kwikpen] 30 unit SQ AC-TID 06/28/17 01/14/18 History Rosuvastatin [Crestor] 20 mg PO HS 06/28/17 01/14/18 History Carboxymethylcellulose Sodium 1 drop BOTH EYES BID PRN 07/23/17 01/14/18 History [Refresh Tears] Pantoprazole [Protonix] 40 mg PO DAILY 07/23/17 01/14/18 History Polyethylene Glycol 3350 [Miralax] 17 gm PO HS PRN 07/23/17 01/14/18 History ALPRAZolam [Xanax] 0.5 mg PO HS 10/21/17 01/14/18 History Tamsulosin [Flomax] 0.4 mg PO HS 10/21/17 01/14/18 History Losartan/Hydrochlorothiazide 1 tab PO DAILY 01/14/18 01/14/18 History [Losartan-Hctz 100-12.5 mg Tab] Morphine Sulfate ER [Ms Contin] 30 mg PO Q12HR PRN 01/14/18 01/14/18 History amLODIPine [Norvasc] 5 mg PO DAILY 01/14/18 01/14/18 History Allergies Allergy/AdvReac Type Severity Reaction Status Date / Time celecoxib [From Celebrex] Allergy Rash/Hives Verified 01/14/18 16:40 gabapentin [From Neurontin] Allergy Swelling Verified 01/14/18 16:40 levofloxacin [From Levaquin] Allergy Unknown Verified 01/14/18 16:40 sulfamethoxazole Allergy Unknown Verified 01/14/18 16:40 [From Bactrim] trimethoprim [From Bactrim] Allergy Unknown Verified 01/14/18 16:40 hydrocodone AdvReac Trouble Verified 01/14/18 16:40 Sleeping Physical Exam Vitals: Vital Signs Temp Pulse Pulse Resp BP BP BP 01/15/18 06:30 99.8 F H 69 20 169/63 01/14/18 23:45 99.4 F 73 20 150/65 01/14/18 18:40 99.9 F H 71 16 133/63 01/14/18 18:04 99.4 F 74 18 165/69 01/14/18 17:09 91 16 160/72 01/14/18 16:12 100.8 F H 92 16 142/68 Pulse Ox 01/15/18 06:30 96 01/14/18 23:45 98 01/14/18 18:40 98 01/14/18 18:04 97 01/14/18 17:09 99 01/14/18 16:12 97 Intake and Output 01/14/18 01/15/18 01/15/18 22:59 06:59 14:59 Intake Total 200 100 Balance 200 100 Intake: Oral 200 100 Other: Voiding Method Urinal Diaper Incontinent # Voids 1 2 Weight 88.451 kg GENERAL EXAM: Patient is alert doesn't appear to be in any acute distress HEENT: Normocephalic. Normal reaction of pupils, equal size, normal range of extraocular motion. No erythema or exudates in the throat. NECK: No masses, no nuchal rigidity. CHEST: No chest wall deformity. LUNGS: Equal air entry with no crackles or wheeze. HEART: S1 and S2 normal with no audible mumurs or gallops. Regular rhythm, femorals equal on both sides.. ABDOMEN: No hepatosplenomegaly, normal bowel sounds, no guarding or rigidity. SKIN: No rashes CENTRAL NERVOUS SYSTEM: No focal deficits. EXTREMITIES: No cyanosis, clubbing or edema. Results 01/15/18 09:30 01/15/18 09:30 Cardiac Enzymes 01/14/18 01/14/18 01/15/18 Range/Units 16:24 16:24 09:30 AST 21 (17-59) U/L CK-MB (CK-2) 1.3 (0.0-2.4) ng/mL Troponin I 0.044 H* (0.000-0.034) ng/mL CBC 01/14/18 01/15/18 Range/Units 16:24 09:30 WBC 18.1 H 17.5 H (3.8-10.6) k/uL RBC 4.96 4.56 (4.30-5.90) m/uL Hgb 15.0 13.7 (13.0-17.5) gm/dL Hct 46.3 41.1 (39.0-53.0) % Plt Count 288 266 (150-450) k/uL Comprehensive Metabolic Panel 01/14/18 01/15/18 Range/Units 16:24 09:30 Sodium 137 140 (137-145) mmol/L Potassium 4.0 3.3 L (3.5-5.1) mmol/L Chloride 102 106 (98-107) mmol/L Carbon Dioxide 25 29 (22-30) mmol/L BUN 18 15 (9-20) mg/dL Creatinine 1.18 0.94 (0.66-1.25) mg/dL Glucose 192 H 149 H (74-99) mg/dL Calcium 9.1 8.8 (8.4-10.2) mg/dL AST 21 (17-59) U/L ALT 26 (21-72) U/L Alkaline Phosphatase 36 L (38-126) U/L Total Protein 6.4 (6.3-8.2) g/dL Albumin 3.6 (3.5-5.0) g/dL Current Medications Generic Name Dose Route Start Last Admin Trade Name Freq PRN Reason Stop Dose Admin Acetaminophen 650 mg 01/15/18 06:51 Tylenol Tab PO Q6HR PRN Fever and/ or Pain Alprazolam 0.5 mg 01/14/18 21:00 01/14/18 20:38 Xanax PO 0.5 mg HS EVELYN Administration Amlodipine Besylate 5 mg 01/15/18 09:00 01/15/18 08:23 Norvasc PO 5 mg DAILY EVELYN Administration Artificial Tears 1 drops 01/14/18 17:41 Artificial Tear Drops BOTH EYES BID PRN Dry Eye(s) Aspirin 81 mg 01/15/18 17:30 Aspirin PO W/SUPPER EVELYN Atorvastatin Calcium 40 mg 01/14/18 21:00 01/14/18 20:38 Lipitor PO 40 mg HS EVELYN Administration Citalopram Hydrobromide 20 mg 01/14/18 21:00 01/15/18 08:23 Celexa PO 20 mg HS EVELYN Administration Clopidogrel Bisulfate 75 mg 01/15/18 09:00 01/15/18 08:22 Plavix PO 75 mg DAILY EVELYN Administration Fenofibrate 160 mg 01/15/18 17:30 Lofibra PO W/SUPPER EVELYN Heparin Sodium (Porcine) 5,000 unit 01/15/18 21:00 Heparin SQ Q12HR EVELYN Hydrochlorothiazide 12.5 mg 01/15/18 09:00 01/15/18 08:24 Hydrodiuril PO 12.5 mg DAILY EVELYN Administration Ceftriaxone Sodium 1,000 mg/ 50 mls @ 100 mls/hr 01/15/18 10:45 01/15/18 11: 27 Sodium Chloride IVPB 100 mls/hr Q24HR EVELYN Administration Sodium Chloride 1,000 mls @ 75 mls/hr 01/15/18 10:45 01/15/18 11:28 Saline 0.9% IV 75 mls/hr .[id number] EVELYN Administration Insulin Aspart 30 unit 01/15/18 07:30 01/15/18 08:22 Novolog SQ 30 unit AC-TID EVELYN Administration Insulin Aspart 0 unit 01/14/18 21:00 01/15/18 08:23 Novolog SQ 2 unit ACHS EVELYN Administration Protocol Insulin Detemir 35 unit 01/14/18 21:00 01/14/18 21:46 Levemir SQ 35 unit HS EVELYN Administration Loratadine 10 mg 01/15/18 09:00 01/15/18 08:23 Claritin PO 10 mg DAILY EVELYN Administration Losartan Potassium 100 mg 01/15/18 09:00 01/15/18 08:23 Cozaar PO 100 mg DAILY EVELYN Administration Miscellaneous Information 1 each 01/15/18 10:40 Potassium Per Protocol MISCELLANE DAILY PRN Per Protocol Protocol Morphine Sulfate 30 mg 01/14/18 21:00 01/15/18 08:22 Ms Contin PO 30 mg Q12HR EVELYN Administration Naloxone HCl 0.2 mg 01/14/18 17:38 Narcan IV Q2M PRN Opioid Reversal Pantoprazole Sodium 40 mg 01/15/18 07:30 01/15/18 08:23 Protonix PO 40 mg [id number] EVELYN Administration Polyethylene Glycol 17 gm 01/14/18 17:41 Miralax PO HS PRN Constipation Potassium Chloride 20 meq 01/15/18 11:00 01/15/18 11:28 K-Dur 20 PO 01/15/18 12:01 20 meq Q1HR EVELYN Administration Protocol Tamsulosin HCl 0.4 mg 01/14/18 21:00 01/14/18 20:38 Flomax PO 0.4 mg HS EVELYN Administration Intake and Output 01/14/18 01/15/18 01/15/18 22:59 06:59 14:59 Intake Total 200 100 Balance 200 100 Intake: Oral 200 100 Other: Voiding Method Urinal Diaper Incontinent # Voids 1 2 Weight 88.451 kg 01/15/18 09:30 01/15/18 09:30 EKG Interpretations (text) Sinus rhythm Assessment and Plan (1) Elevated troponin Current Visit: Yes Status: Acute Code(s): R74.8 - ABNORMAL LEVELS OF OTHER SERUM ENZYMES SNOMED Code(s): 781313749 (2) Delirium due to general medical condition Current Visit: Yes Status: Acute Code(s): F05 - DELIRIUM DUE TO KNOWN PHYSIOLOGICAL CONDITION SNOMED Code(s): 0230685 (3) Urinary tract infection Current Visit: Yes Status: Acute Code(s): N39.0 - URINARY TRACT INFECTION, SITE NOT SPECIFIED SNOMED Code(s): 21514096 (4) Hx of CABG Current Visit: No Status: Acute Code(s): Z95.1 - PRESENCE OF AORTOCORONARY BYPASS GRAFT SNOMED Code(s): 253707158 (5) Hyperlipidemia Current Visit: No Status: Acute Code(s): E78.5 - HYPERLIPIDEMIA, UNSPECIFIED SNOMED Code(s): 77643050 (6) Left acute arterial ischemic stroke, MCA (middle cerebral artery) Current Visit: No Status: Acute Code(s): I63.512 - CEREB INFRC D/T UNSP OCCLS OR STENOS OF LEFT MID CEREB ART SNOMED Code(s): 674065664 Plan: Continue current management. I'll obtain another troponin value. He doesn't show any significant trend suggestive of unstable angina, no further cardiac workup at this time. Thank you
[2018-01-15 12:11] LABS: Glucose,Whole Blood 87 mg/dL (75-99)
--- NOTE | 2018-01-15 12:54 | P.CNPUL ---
History of Present Illness Consult date: 01/15/18 Requesting physician: Jamal E Sheet Reason for consult: other Chief complaint: Altered mental status, fever History of present illness: This is a 82-year-old white male patient with past medical history of CVA/TIA with the right hemiplegia, artery disease with prior stenting, hypertension, hyperlipidemia, insulin-dependent diabetes mellitus, anxiety, chronic pain syndrome, general medical debility, chronic left heel ulcer, who is a poor historian, with the possibility of underlying dementia, who was brought to the emergency department via ambulance, on 01/14/2018 at 1600 for evaluation of altered mental status, fevers at home. Patient was noted to be more lethargic than usual. No other symptoms, no trauma, no nausea, vomiting or diarrhea. Per family patient is normally alert and oriented 2. In the emergency department patient was noted to be febrile with a temp of 100.8F, heart rate was within normal range, non-tachycardic, nonhypotensive. Initial chest x-ray showed small bilateral pleural effusions, and a remote left sixth rib fracture. EKG showed sinus rhythm, evidence of inferior and anterior infarct of undetermined age. She blood work showed leukocytosis, WBC of 18.1, hemoglobin is 15.0, electrolytes and renal profile were normal, asthma lactic acid is within normal limits at 1.5, troponin was slightly elevated at 0.044, and proBNP is within normal limits at 1540. Urinalysis was positive for leuks, white blood cells, and bacteria. This morning preliminary blood cultures showed gram-positive cocci. Patient was seen in evaluation, he is awake, and alert, he only verbalizes minimally, but he is able to follow command. Does not seem to be in any distress. Was given a liter bolus of 0.9 normal saline in the emergency department, and his maintenance IV fluids were ordered at 75 ML per hour. Repeat lactic acid this morning remains within normal range at 1.5 , potassium is 3.3, white count is 17.5. Patient has low-grade fevers with the T-max of 99.8F. His respirations are even and nonlabored, lung sounds are diminished, with minimal rales at posterior bases. She is in sinus rhythm. No peripheral edema, there is a superficial ulcer on his left heel, and the wound bed is clean dry, and pink, without any evidence of slough. Review of Systems All systems: negative Constitutional: Denies chills, Denies fever Eyes: denies blurred vision, denies pain Ears, nose, mouth and throat: Denies headache, Denies sore throat Cardiovascular: Denies chest pain, Denies shortness of breath Respiratory: Denies cough Gastrointestinal: Denies abdominal pain, Denies diarrhea, Denies nausea, Denies vomiting Musculoskeletal: Denies myalgias Integumentary: Denies pruritus, Denies rash Neurological: Reports balance difficulties, Reports gait dysfunction, Denies numbness, Denies weakness Psychiatric: Denies anxiety, Denies depression Endocrine: Denies fatigue, Denies weight change Past Medical History Past Medical History: Coronary Artery Disease (CAD), CVA/TIA, Hyperlipidemia, Hypertension Additional Past Medical History / Comment(s): CVA with right leg weakness History of Any Multi-Drug Resistant Organisms: None Reported Past Surgical History: Back Surgery, Heart Catheterization With Stent, Hernia Repair, Orthopedic Surgery Additional Past Surgical History / Comment(s): back surg x7, L knee, Yared. shoulders, nose surgery, hiatal hernia, stent 1997, CABG. Past Anesthesia/Blood Transfusion Reactions: No Reported Reaction Additional Past Anesthesia/Blood Transfusion Reaction / Comment(s): experienced stroke during last back surgery Date of Last Stent Placement:: june 1997 Past Psychological History: Anxiety Smoking Status: Never smoker Past Alcohol Use History: None Reported Past Drug Use History: None Reported - Past Family History Father Family Medical History: Coronary Artery Disease (CAD) Medications and Allergies Home Medications Medication Instructions Recorded Confirmed Type Cetirizine HCl [Zyrtec] 10 mg PO DAILY 06/14/14 01/14/18 History Citalopram Hydrobromide [CeleXA] 20 mg PO HS 06/14/14 01/14/18 History Clopidogrel [Plavix] 75 mg PO DAILY 06/14/14 01/14/18 History Fenofibrate Nanocrystallized 145 mg PO W/SUPPER 06/14/14 01/14/18 History [Tricor] Insulin Detemir [Levemir Flextouch] 35 units SQ HS 06/14/14 01/14/18 History Vit A/Vit C/Vit E/Zinc/Copper 1 cap PO BID 06/14/14 01/14/18 History [ICAPS SOFTGEL] Cholecalciferol [Vitamin D3] 1,000 unit PO DAILY 10/06/14 01/14/18 History Aspirin EC [Ecotrin Low Dose] 81 mg PO W/SUPPER 06/28/17 01/14/18 History Insulin Lispro [humaLOG Kwikpen] 30 unit SQ AC-TID 06/28/17 01/14/18 History Rosuvastatin [Crestor] 20 mg PO HS 06/28/17 01/14/18 History Carboxymethylcellulose Sodium 1 drop BOTH EYES BID PRN 07/23/17 01/14/18 History [Refresh Tears] Pantoprazole [Protonix] 40 mg PO DAILY 07/23/17 01/14/18 History Polyethylene Glycol 3350 [Miralax] 17 gm PO HS PRN 07/23/17 01/14/18 History ALPRAZolam [Xanax] 0.5 mg PO HS 10/21/17 01/14/18 History Tamsulosin [Flomax] 0.4 mg PO HS 10/21/17 01/14/18 History Losartan/Hydrochlorothiazide 1 tab PO DAILY 01/14/18 01/14/18 History [Losartan-Hctz 100-12.5 mg Tab] Morphine Sulfate ER [Ms Contin] 30 mg PO Q12HR PRN 01/14/18 01/14/18 History amLODIPine [Norvasc] 5 mg PO DAILY 01/14/18 01/14/18 History Allergies Allergy/AdvReac Type Severity Reaction Status Date / Time celecoxib [From Celebrex] Allergy Rash/Hives Verified 01/14/18 16:40 gabapentin [From Neurontin] Allergy Swelling Verified 01/14/18 16:40 levofloxacin [From Levaquin] Allergy Unknown Verified 01/14/18 16:40 sulfamethoxazole Allergy Unknown Verified 01/14/18 16:40 [From Bactrim] trimethoprim [From Bactrim] Allergy Unknown Verified 01/14/18 16:40 hydrocodone AdvReac Trouble Verified 01/14/18 16:40 Sleeping Physical Exam Vitals: Vital Signs Temp Pulse Pulse Resp BP BP BP 01/15/18 06:30 99.8 F H 69 20 169/63 01/14/18 23:45 99.4 F 73 20 150/65 01/14/18 18:40 99.9 F H 71 16 133/63 01/14/18 18:04 99.4 F 74 18 165/69 01/14/18 17:09 91 16 160/72 01/14/18 16:12 100.8 F H 92 16 142/68 Pulse Ox 01/15/18 06:30 96 01/14/18 23:45 98 01/14/18 18:40 98 01/14/18 18:04 97 01/14/18 17:09 99 01/14/18 16:12 97 Intake and Output 01/14/18 01/15/18 01/15/18 22:59 06:59 14:59 Intake Total 200 100 Output Total 200 Balance 200 100 -200 Intake: Oral 200 100 Output: Urine 200 Other: Voiding Method Urinal Diaper Incontinent # Voids 1 2 1 # Bowel Movements 1 Weight 88.451 kg GENERAL EXAM: Alert, minimally verbal, 82-year-old white male with right-sided weakness comfortable in no apparent distress. HEAD: Normocephalic/atraumatic. EYES: Normal reaction of pupils, equal size. Conjunctiva pink, sclera white. NOSE: Clear with pink turbinates. THROAT: No erythema or exudates. NECK: No masses, no JVD, no thyroid enlargement, no adenopathy. CHEST: No chest wall deformity. Symmetrical expansion. LUNGS: Diminished breath sounds bilaterally, with minimal crackles at the posterior bases CVS: Regular rate and rhythm, normal S1 and S2, no gallops, no murmurs, no rubs ABDOMEN: Soft, nontender. No hepatosplenomegaly, normal bowel sounds, no guarding or rigidity. EXTREMITIES: No clubbing, no edema, no cyanosis, 2+ pulses and upper and lower extremities. He has a superficial ulcer on his left heel, wound bed is pink, without slough MUSCULOSKELETAL: Muscle strength and tone normal. SPINE: No scoliosis or deformity SKIN: No rashes CENTRAL NERVOUS SYSTEM: Alert and oriented -1. Right-sided weakness noted, she verbalizes minimally, but is able to follow command PSYCHIATRIC: Unable to assess, he only provides limited amount of verbal responses Results - Laboratory Findings CBC and BMP: 01/15/18 09:30 01/15/18 09:30 Abnormal lab findings: Abnormal Labs 01/14/18 01/14/18 01/14/18 16:24 16:24 16:33 WBC 18.1 H Neutrophils # 14.8 H Monocytes # 1.1 H Potassium Glucose 192 H POC Glucose (mg/dL) Alkaline Phosphatase 36 L Troponin I Urine Protein Trace H Urine Glucose (UA) 3+ H Ur Leukocyte Esterase Large H Urine WBC 19 H Urine Bacteria Occasional H Urine Mucus Rare H 01/14/18 01/15/18 01/15/18 20:04 07:16 09:30 WBC 17.5 H Neutrophils # 15.0 H Monocytes # Potassium Glucose POC Glucose (mg/dL) 182 H 205 H Alkaline Phosphatase Troponin I Urine Protein Urine Glucose (UA) Ur Leukocyte Esterase Urine WBC Urine Bacteria Urine Mucus 01/15/18 01/15/18 09:30 09:30 WBC Neutrophils # Monocytes # Potassium 3.3 L Glucose 149 H POC Glucose (mg/dL) Alkaline Phosphatase Troponin I 0.044 H* Urine Protein Urine Glucose (UA) Ur Leukocyte Esterase Urine WBC Urine Bacteria Urine Mucus - Diagnostic Findings Chest x-ray: report reviewed, image reviewed Additional studies: EKGreviewed Assessment and Plan Plan: Assessment: #1. Altered mentation, leukocytosis, febrile illness likely related to sepsis, the source of which could be related to an underlying urinary tract infection, or the left heel wound #2. Positive blood cultures for gram-positive cocci, I'll culture is pending #3. Acute urinary tract infection, urine culture is pending #4. Chronic left heel ulcer #5. Leukocytosis #6. Positive troponin, could be related to sepsis, rule out cardiac etiology, cardiology has been consulted #7. History of coronary artery disease with previous bypass grafting #8. History of CVA with residual right-sided weakness #9. Hypertension, hyperlipidemia #10. Insulin-dependent diabetes mellitus #11. medical debility #12. Small bilateral pleural effusions Plan: Continue current medical treatment, antibiotics per ID service recommendations, obtain culture of the left heel wound, urine culture is pending. The fluids have been cut back to KVO, maintain aspiration precautions. GI and DVT prophylaxis. We'll continue to follow I performed a history & physical examination of the patient and discussed their management with my nurse practitioner, Marianne Bean. I reviewed the nurse practitioner's note and agree with the documented findings and plan of care. Lung sounds are diminished, with bibasilar crackles. The findings and the impression was discussed with the patient. I attest to the documentation by the nurse practitioner. Time with Patient: Greater than 30
--- NOTE | 2018-01-15 14:04 | CT ---
EXAMINATION TYPE: CT brain wo con DATE OF EXAM: 01/15/2018 COMPARISON: Previous study dated 06/28/2017 HISTORY: Confusion CT DLP: 1046 mGycm Automated exposure control for dose reduction was used. FINDINGS: There are generalized changes of sulcal prominence and ventriculomegaly, compatible with atrophic cher nge. There is diffuse periventricular white matter lucency, compatible with small vessel ischemic cher nge. There is no acute focal lesion, mass effect or midline shift identified. I do not see evidence o f intracranial blood. Visualized portions of the paranasal sinuses and mastoids are clear. The bony calvarium is intact. IMPRESSION: 1. NO ACUTE INTRACRANIAL ABNORMALITY. 2. DEGENERATIVE CHANGE.
[2018-01-15] MEDS ORDERED: DEXTROSE 50%-WATER 50 ML SYRINGE IVP STA (16:55)
[2018-01-15 17:00] LABS: Glucose,Whole Blood 52 mg/dL (75-99)
[2018-01-15 17:21] LABS: Glucose,Whole Blood 156 mg/dL (75-99)
[2018-01-15] MEDS: FENOFIBRATE 160 MG TAB PO SCH (17:38)
[2018-01-15] MEDS: ASPIRIN 81 MG PO SCH (17:38)
[2018-01-15] MEDS: ATORVASTATIN 40 MG TAB PO SCH (20:15)
[2018-01-15] MEDS: TAMSULOSIN 0.4 MG CAP.ER.24H PO SCH (20:15)
[2018-01-15] MEDS: ALPRAZolam 0.5 MG TAB PO SCH (20:15)
[2018-01-15] MEDS: HEPARIN SODIUM,PORCINE 5,000 UNIT/ML 1 ML VIAL SQ SCH (20:17)
[2018-01-15 20:41] LABS: Glucose,Whole Blood 193 mg/dL (75-99)
[2018-01-15] MEDS: INSULIN DETEMIR 100 UNIT/ML 10 ML VIAL SQ SCH (21:12)
[2018-01-16 07:49] LABS: Glucose,Whole Blood 136 mg/dL (75-99)
[2018-01-16] MEDS: LOSARTAN 50 MG TAB PO SCH (08:19)
[2018-01-16] MEDS: HYDROCHLOROTHIAZIDE 12.5 MG CAP PO SCH (08:19)
[2018-01-16] MEDS: PANTOPRAZOLE 40 MG TABLET PO SCH (08:19)
[2018-01-16] MEDS: LORATADINE 10 MG TAB PO SCH (08:19)
[2018-01-16] MEDS: amLODIPine 5 MG TAB PO SCH (08:19)
[2018-01-16] MEDS: HEPARIN SODIUM,PORCINE 5,000 UNIT/ML 1 ML VIAL SQ SCH ×2 (08:19→21:39)
[2018-01-16] MEDS: MORPHINE SULFATE ER 30 MG TABLET PO SCH ×2 (08:19→21:40)
[2018-01-16] MEDS: CLOPIDOGREL 75 MG TAB PO SCH (08:19)
[2018-01-16] MEDS: INSULIN ASPART 100 UNIT/ML 1 ML 10 ML VIAL SQ SCH ×7 (08:20→20:58)
[2018-01-16 08:27] LABS: Anion Gap 4 mmol/L; Blood Urea Nitrogen 12 mg/dL (9-20); Calcium 8.9 mg/dL (8.4-10.2); Carbon Dioxide 27 mmol/L (22-30); Chloride 107 mmol/L (98-107); Glucose 141 mg/dL (74-99); Sodium 138 mmol/L (137-145)
[2018-01-16 08:32] LABS: Basophils % (A) 0 %; Eosinophils # (A) 0.1 k/uL (0-0.7); Eosinophils % (A) 1 %; HCT 39.2 % (39.0-53.0); HGB 12.6 gm/dL (13.0-17.5); Lymphocytes # (A) 1.6 k/uL (1.0-4.8); Lymphocytes % (A) 12 %; MCH 29.9 pg (25.0-35.0); MCHC 32.2 g/dL (31.0-37.0); MCV 92.9 fL (80.0-100.0); Mean Platelet Volume 6.6; Monocytes # (A) 0.7 k/uL (0-1.0); Monocytes % (A) 5 %; Neutrophils # (A) 11.1 k/uL (1.3-7.7); Neutrophils % (A) 81 %; Platelet Count 259 k/uL (150-450); RBC 4.22 m/uL (4.30-5.90); RDW 13.4 % (11.5-15.5); WBC 13.8 k/uL (3.8-10.6)
[2018-01-16 11:38] LABS: Glucose,Whole Blood 112 mg/dL (75-99)
--- NOTE | 2018-01-16 12:51 | P.PN ---
Subjective Progress Note Date: 01/16/18 Principal diagnosis: Altered mental status, fever, sepsis This is a 82-year-old white male patient with past medical history of CVA/TIA with the right hemiplegia, artery disease with prior stenting, hypertension, hyperlipidemia, insulin-dependent diabetes mellitus, anxiety, chronic pain syndrome, general medical debility, chronic left heel ulcer, who is a poor historian, with the possibility of underlying dementia, who was brought to the emergency department via ambulance, on 01/14/2018 at 1600 for evaluation of altered mental status, fevers at home. Patient was noted to be more lethargic than usual. No other symptoms, no trauma, no nausea, vomiting or diarrhea. Per family patient is normally alert and oriented 2. In the emergency department patient was noted to be febrile with a temp of 100.8F, heart rate was within normal range, non-tachycardic, nonhypotensive. Initial chest x-ray showed small bilateral pleural effusions, and a remote left sixth rib fracture. EKG showed sinus rhythm, evidence of inferior and anterior infarct of undetermined age. She blood work showed leukocytosis, WBC of 18.1, hemoglobin is 15.0, electrolytes and renal profile were normal, asthma lactic acid is within normal limits at 1.5, troponin was slightly elevated at 0.044, and proBNP is within normal limits at 1540. Urinalysis was positive for leuks, white blood cells, and bacteria. This morning preliminary blood cultures showed gram-positive cocci. Patient was seen in evaluation, he is awake, and alert, he only verbalizes minimally, but he is able to follow command. Does not seem to be in any distress. Was given a liter bolus of 0.9 normal saline in the emergency department, and his maintenance IV fluids were ordered at 75 ML per hour. Repeat lactic acid this morning remains within normal range at 1.5 , potassium is 3.3, white count is 17.5. Patient has low-grade fevers with the T-max of 99.8F. His respirations are even and nonlabored, lung sounds are diminished, with minimal rales at posterior bases. She is in sinus rhythm. No peripheral edema, there is a superficial ulcer on his left heel, and the wound bed is clean dry, and pink, without any evidence of slough. On 01/16/2018 patient seen in follow-up on medical surgical floor. Much more awake, and conversant, his responding appropriately, he is oriented to place, and person. Pulse ox on 2 L per nasal cannula is 95%, T-max in the last 24 hours was 100.6F which was yesterday at 1400. Blood culture is positive for coagulase negative staph urine culture is pending. No chest pain, no shortness of breath, brain CT showed no acute intracranial abnormality. Days labs showed WBC of 13.8, hemoglobin 12.6, leukocytosis is improving, trending down, electrolytes and renal profile are all within normal limits. Objective - Vital Signs Vital signs: Vital Signs Temp 97.2 F L 01/16/18 07:00 Pulse 65 01/16/18 07:00 Resp 16 01/16/18 07:00 BP 142/65 01/16/18 07:00 Pulse Ox 95 01/16/18 07:00 Intake & Output 01/15/18 01/16/18 01/16/18 18:59 06:59 18:59 Intake Total 118 Output Total 200 200 Balance -82 -200 Intake: Oral 118 Output: Urine 200 200 Other: Voiding Method Urinal Diaper Incontinent # Voids 3 4 # Bowel Movements 0 - Exam GENERAL EXAM: Alert, pleasant, upbeat 82-year-old white male with right-sided weakness comfortable in no apparent distress. Much more awake, and interactive on today's exam. HEAD: Normocephalic/atraumatic. EYES: Normal reaction of pupils, equal size. Conjunctiva pink, sclera white. NOSE: Clear with pink turbinates. THROAT: No erythema or exudates. NECK: No masses, no JVD, no thyroid enlargement, no adenopathy. CHEST: No chest wall deformity. Symmetrical expansion. LUNGS: Diminished breath sounds bilaterally, with minimal crackles at the posterior bases CVS: Regular rate and rhythm, normal S1 and S2, no gallops, no murmurs, no rubs ABDOMEN: Soft, nontender. No hepatosplenomegaly, normal bowel sounds, no guarding or rigidity. EXTREMITIES: No clubbing, no edema, no cyanosis, 2+ pulses and upper and lower extremities. He has a superficial ulcer on his left heel, wound bed is pink, without slough MUSCULOSKELETAL: Muscle strength and tone normal. SPINE: No scoliosis or deformity SKIN: No rashes CENTRAL NERVOUS SYSTEM: Alert and oriented -2. Right-sided weakness noted. - Labs CBC & Chem 7: 01/16/18 07:28 01/16/18 07:28 Labs: Abnormal Lab Results - Last 24 Hours (Table) 01/15/18 01/15/18 01/15/18 Range/Units 14:48 14:48 16:46 WBC (3.8-10.6) k/uL RBC (4.30-5.90) m/uL Hgb (13.0-17.5) gm/dL Neutrophils # (1.3-7.7) k/uL Potassium 3.4 L (3.5-5.1) mmol/L Glucose (74-99) mg/dL POC Glucose (mg/dL) 52 L (75-99) mg/dL Troponin I 0.039 H* (0.000-0.034) ng/mL 01/15/18 01/15/18 01/16/18 Range/Units 17:18 20:39 07:28 WBC 13.8 H (3.8-10.6) k/uL RBC 4.22 L (4.30-5.90) m/uL Hgb 12.6 L (13.0-17.5) gm/dL Neutrophils # 11.1 H (1.3-7.7) k/uL Potassium (3.5-5.1) mmol/L Glucose (74-99) mg/dL POC Glucose (mg/dL) 156 H 193 H (75-99) mg/dL Troponin I (0.000-0.034) ng/mL 01/16/18 01/16/18 01/16/18 Range/Units 07:28 07:39 11:36 WBC (3.8-10.6) k/uL RBC (4.30-5.90) m/uL Hgb (13.0-17.5) gm/dL Neutrophils # (1.3-7.7) k/uL Potassium (3.5-5.1) mmol/L Glucose 141 H (74-99) mg/dL POC Glucose (mg/dL) 136 H 112 H (75-99) mg/dL Troponin I (0.000-0.034) ng/mL Microbiology - Last 24 Hours (Table) 01/14/18 16:24 Blood Culture Gram Stain - Preliminary Blood Blood Culture - Preliminary Coagulase Negative Staph 01/14/18 16:33 Urine Culture - Preliminary Urine,Voided 01/14/18 16:24 Blood Culture - Final Blood Assessment and Plan Plan: Assessment: #1. Altered mentation, leukocytosis, febrile illness likely related to sepsis, the source of which could be related to an underlying urinary tract infection, or the left heel wound #2. Positive blood cultures for gram-positive cocci, final culture was positive for coagulase-negative staph. #3. Acute urinary tract infection, urine culture is pending #4. Chronic left heel ulcer #5. Leukocytosis #6. Positive troponin, could be related to sepsis, rule out cardiac etiology, cardiology has been consulted #7. History of coronary artery disease with previous bypass grafting #8. History of CVA with residual right-sided weakness #9. Hypertension, hyperlipidemia #10. Insulin-dependent diabetes mellitus #11. medical debility #12. Small bilateral pleural effusions Plan: Patient is much more awake, and conversant today. Vital signs are stable, no ongoing fever. Awaiting formal report on the urine culture, blood cultures were positive for coagulase-negative staph, continue current in medical coverage. No shortness, no chest pain. I performed a history & physical examination of the patient and discussed their management with my nurse practitioner, Marianne Bean. I reviewed the nurse practitioner's note and agree with the documented findings and plan of care. Lung sounds are diminished, with bibasilar crackles. The findings and the impression was discussed with the patient. I attest to the documentation by the nurse practitioner. Time with Patient: Less than 30
--- NOTE | 2018-01-16 13:41 | P.PN ---
Subjective 82 years old male with past medical history of CVA/TIA with residual right hemiplegia, coronary artery disease is status post cardiac Stenting., hyperlipidemia, hypertension, insulin-dependent diabetes mellitus, possible dementia. Who presents because of altered mental status. Patient looks confused to time place and person when I saw him. Most of the information take it from the staff and medical records. However when asked the patient he did not complain from any pain or discomfort. However on examination he complained from suprapubic tenderness and he has looks like chronic left pressure ulcer which is superficial with nonblanching erythema In the emergency room patient had fever off 100.8. With a leukocytosis at 18.1 K. urinalysis was suggestive for infection. In the Emergency room, patient received ceftriaxone and IV fluids. And admitted to the general medical floor for further management. 01/16/2018 Patient is oriented to place he knows in [facility], however his disoriented to place and person. Patient looks holding logic conversation. He had fever yesterday of 100.6. Infectious disease are consulted. Patient is still on antibiotics Objective - Vital Signs Vital signs: Vital Signs Temp 97.2 F L 01/16/18 07:00 Pulse 65 01/16/18 07:00 Resp 16 01/16/18 07:00 BP 142/65 01/16/18 07:00 Pulse Ox 95 01/16/18 07:00 Intake & Output 01/15/18 01/16/18 01/16/18 18:59 06:59 18:59 Intake Total 118 Output Total 200 200 Balance -82 -200 Intake: Oral 118 Output: Urine 200 200 Other: Voiding Method Urinal Diaper Incontinent # Voids 3 4 # Bowel Movements 0 - Exam GENERAL: The patient is alert and oriented x3, not in any acute distress. Well developed, well nourished. HEENT: Pupils are round and equally reacting to light. EOMI. No scleral icterus. No conjunctival pallor. Normocephalic, atraumatic. No pharyngeal erythema. No thyromegaly. CARDIOVASCULAR: S1 and S2 present. No murmurs, rubs, or gallops. PULMONARY: Chest is clear to auscultation, no wheezing or crackles. ABDOMEN: Soft, nontender, nondistended, normoactive bowel sounds. No palpable organomegaly. MUSCULOSKELETAL: No joint swelling or deformity. EXTREMITIES: No cyanosis, clubbing, or pedal edema. NEUROLOGICAL: Gross neurological examination did not reveal any focal deficits. SKIN: No rashes - Labs CBC & Chem 7: 01/16/18 07:28 01/16/18 07:28 Labs: Abnormal Lab Results - Last 24 Hours (Table) 01/15/18 01/15/18 01/15/18 Range/Units 14:48 14:48 16:46 WBC (3.8-10.6) k/uL RBC (4.30-5.90) m/uL Hgb (13.0-17.5) gm/dL Neutrophils # (1.3-7.7) k/uL Potassium 3.4 L (3.5-5.1) mmol/L Glucose (74-99) mg/dL POC Glucose (mg/dL) 52 L (75-99) mg/dL Troponin I 0.039 H* (0.000-0.034) ng/mL 01/15/18 01/15/18 01/16/18 Range/Units 17:18 20:39 07:28 WBC 13.8 H (3.8-10.6) k/uL RBC 4.22 L (4.30-5.90) m/uL Hgb 12.6 L (13.0-17.5) gm/dL Neutrophils # 11.1 H (1.3-7.7) k/uL Potassium (3.5-5.1) mmol/L Glucose (74-99) mg/dL POC Glucose (mg/dL) 156 H 193 H (75-99) mg/dL Troponin I (0.000-0.034) ng/mL 01/16/18 01/16/18 01/16/18 Range/Units 07:28 07:39 11:36 WBC (3.8-10.6) k/uL RBC (4.30-5.90) m/uL Hgb (13.0-17.5) gm/dL Neutrophils # (1.3-7.7) k/uL Potassium (3.5-5.1) mmol/L Glucose 141 H (74-99) mg/dL POC Glucose (mg/dL) 136 H 112 H (75-99) mg/dL Troponin I (0.000-0.034) ng/mL Microbiology - Last 24 Hours (Table) 01/14/18 16:24 Blood Culture Gram Stain - Preliminary Blood Blood Culture - Preliminary Coagulase Negative Staph 01/14/18 16:33 Urine Culture - Preliminary Urine,Voided 01/14/18 16:24 Blood Culture - Final Blood Assessment and Plan Assessment: Systemic inflammatory response with leukocytosis, fever Sepsis secondary to UTI, present on admission Metabolic encephalopathy secondary to above Possible dementia Left heel pressure ulcer, present on admission CVA/TIA with residual right hemiplegia History of coronary artery disease is status post cardiac Stenting hyperlipidemia hypertension insulin-dependent diabetes mellitus Plan: This is a pleasant 52 years old male comes with sepsis secondary to foot infection. Continue with antibiotics. Continue with fluid management. Resume home medications. Continue symptomatic treatment. Will call infectious disease consult. Monitor lytes and vitals. Check x-ray of the left foot. CT of the head Continue with insulin Pain management. Follow-up culture results when sent. Continue with IV fluids Follow-up hemoglobin A1c DVT and GI prophylaxis. Further recommendation based on the clinical course of the patient DVT prophylaxis: Subcutaneous heparin GI prophylaxis: Protonix PT/OT: Pending Prognosis guarded
[2018-01-16 14:12] VITALS: BMI 29.6
[2018-01-16] MEDS: SODIUM CHLORIDE 0.9% 1,000 ML IV SCH (15:26)
[2018-01-16] MEDS ORDERED: ALPRAZolam 0.5 MG TAB PO PRN (15:52)
[2018-01-16] MEDS: FENOFIBRATE 160 MG TAB PO SCH (16:18)
[2018-01-16] MEDS: ASPIRIN 81 MG PO SCH (16:18)
[2018-01-16 17:18] LABS: Glucose,Whole Blood 119 mg/dL (75-99)
[2018-01-16 20:47] LABS: Glucose,Whole Blood 134 mg/dL (75-99)
[2018-01-16] MEDS: ATORVASTATIN 40 MG TAB PO SCH (21:40)
[2018-01-16] MEDS: ALPRAZolam 0.5 MG TAB PO SCH (21:40)
[2018-01-16] MEDS: CITALOPRAM HYDROBROMIDE 20 MG TAB PO SCH (21:41)
[2018-01-16] MEDS: TAMSULOSIN 0.4 MG CAP.ER.24H PO SCH (21:41)
[2018-01-16] MEDS: INSULIN DETEMIR 100 UNIT/ML 10 ML VIAL SQ SCH (21:41)
--- NOTE | 2018-01-16 23:28 | P.CONS ---
History of Present Illness - Reason for Consult Consult date: 01/16/18 - History of Present Illness 82-year-old male presents from extended care with some altered mental status there was concerns to underlying infection. The patient has a long- standing history of multiple medical problems that include stroke, dementia, coronary disease and debility. There is a noted history of prior urinary tract infections. The patient is not able to give any significant history. Review of Systems ROS unobtainable: due to mental status Past Medical History Past Medical History: Coronary Artery Disease (CAD), CVA/TIA, Hyperlipidemia, Hypertension Additional Past Medical History / Comment(s): CVA with right leg weakness History of Any Multi-Drug Resistant Organisms: None Reported Past Surgical History: Back Surgery, Heart Catheterization With Stent, Hernia Repair, Orthopedic Surgery Additional Past Surgical History / Comment(s): back surg x7, L knee, Yared. shoulders, nose surgery, hiatal hernia, stent 1997, CABG. Past Anesthesia/Blood Transfusion Reactions: No Reported Reaction Additional Past Anesthesia/Blood Transfusion Reaction / Comm: experienced stroke during last back surgery Date of Last Stent Placement:: june 1997 Past Psychological History: Anxiety Smoking Status: Never smoker Past Alcohol Use History: None Reported Past Drug Use History: None Reported - Past Family History Father Family Medical History: Coronary Artery Disease (CAD) Medications and Allergies Home Medications and Allergies Comment(s): Current Medications Acetaminophen (Tylenol Tab) 650 mg PO Q6HR PRN PRN Reason: Fever and/ or Pain Last Admin: 01/15/18 13:48 Dose: 650 mg Alprazolam (Xanax) 0.5 mg PO [facility] Last Admin: 01/16/18 21:40 Dose: 0.5 mg Alprazolam (Xanax) 0.5 mg PO ONCE PRN PRN Reason: Anxiety Last Admin: 01/16/18 16:18 Dose: 0.5 mg Amlodipine Besylate (Norvasc) 5 mg PO DAILY [facility] Last Admin: 01/16/18 08:19 Dose: 5 mg Artificial Tears (Artificial Tear Drops) 1 drops BOTH EYES BID PRN PRN Reason: Dry Eye(s) Aspirin (Aspirin) 81 mg PO W/SUPPER [facility] Last Admin: 01/16/18 16:18 Dose: 81 mg Atorvastatin Calcium (Lipitor) 40 mg PO [facility] Last Admin: 01/16/18 21:40 Dose: 40 mg Citalopram Hydrobromide (Celexa) 20 mg PO HS [facility] Last Admin: 01/16/18 21:41 Dose: 20 mg Clopidogrel Bisulfate (Plavix) 75 mg PO DAILY [facility] Last Admin: 01/16/18 08:19 Dose: 75 mg Fenofibrate (Lofibra) 160 mg PO W/SUPPER [facility] Last Admin: 01/16/18 16:18 Dose: 160 mg Heparin Sodium (Porcine) (Heparin) 5,000 unit SQ Q12HR [facility] Last Admin: 01/16/18 21:39 Dose: 5,000 unit Hydrochlorothiazide (Hydrodiuril) 12.5 mg PO DAILY [facility] Last Admin: 01/16/18 08:19 Dose: 12.5 mg Ceftriaxone Sodium 1,000 mg/ (Sodium Chloride) 50 mls @ 100 mls/hr IVPB Q24HR [facility] Last Admin: 01/16/18 08:20 Dose: 100 mls/hr Sodium Chloride (Saline 0.9%) 1,000 mls @ 50 mls/hr IV .Q20H [facility] Last Admin: 01/16/18 15:26 Dose: 50 mls/hr Insulin Aspart (Novolog) 0 unit SQ ACHS [facility]; Protocol Last Admin: 01/16/18 20:58 Dose: Not Given Insulin Aspart (Novolog) 20 unit SQ AC-TID [facility] Last Admin: 01/16/18 18:19 Dose: 20 unit Insulin Detemir (Levemir) 35 unit SQ HS [facility] Last Admin: 01/16/18 21:41 Dose: 35 unit Loratadine (Claritin) 10 mg PO DAILY [facility] Last Admin: 01/16/18 08:19 Dose: 10 mg Losartan Potassium (Cozaar) 100 mg PO DAILY [facility] Last Admin: 01/16/18 08:19 Dose: 100 mg Miscellaneous Information (Potassium Per Protocol) 1 each MISCELLANE DAILY PRN ; Protocol PRN Reason: Per Protocol Miscellaneous Information (Potassium Per Protocol) 1 each MISCELLANE DAILY PRN ; Protocol PRN Reason: Per Protocol Morphine Sulfate (Ms Contin) 30 mg PO Q12HR [facility] Last Admin: 01/16/18 21:40 Dose: Not Given Naloxone HCl (Narcan) 0.2 mg IV Q2M PRN PRN Reason: Opioid Reversal Pantoprazole Sodium (Protonix) 40 mg PO AC-BRKFST [facility] Last Admin: 01/16/18 08:19 Dose: 40 mg Polyethylene Glycol (Miralax) 17 gm PO HS PRN PRN Reason: Constipation Tamsulosin HCl (Flomax) 0.4 mg PO HS [facility] Last Admin: 01/16/18 21:41 Dose: 0.4 mg Home Medications Medication Instructions Recorded Confirmed Type Cetirizine HCl [Zyrtec] 10 mg PO DAILY 06/14/14 01/14/18 History Citalopram Hydrobromide [CeleXA] 20 mg PO HS 06/14/14 01/14/18 History Clopidogrel [Plavix] 75 mg PO DAILY 06/14/14 01/14/18 History Fenofibrate Nanocrystallized 145 mg PO W/SUPPER 06/14/14 01/14/18 History [Tricor] Insulin Detemir [Levemir Flextouch] 35 units SQ HS 06/14/14 01/14/18 History Vit A/Vit C/Vit E/Zinc/Copper 1 cap PO BID 06/14/14 01/14/18 History [ICAPS SOFTGEL] Cholecalciferol [Vitamin D3] 1,000 unit PO DAILY 10/06/14 01/14/18 History Aspirin EC [Ecotrin Low Dose] 81 mg PO W/SUPPER 06/28/17 01/14/18 History Insulin Lispro [humaLOG Kwikpen] 30 unit SQ AC-TID 06/28/17 01/14/18 History Rosuvastatin [Crestor] 20 mg PO HS 06/28/17 01/14/18 History Carboxymethylcellulose Sodium 1 drop BOTH EYES BID PRN 07/23/17 01/14/18 History [Refresh Tears] Pantoprazole [Protonix] 40 mg PO DAILY 07/23/17 01/14/18 History Polyethylene Glycol 3350 [Miralax] 17 gm PO HS PRN 07/23/17 01/14/18 History ALPRAZolam [Xanax] 0.5 mg PO HS 10/21/17 01/14/18 History Tamsulosin [Flomax] 0.4 mg PO HS 10/21/17 01/14/18 History Losartan/Hydrochlorothiazide 1 tab PO DAILY 01/14/18 01/14/18 History [Losartan-Hctz 100-12.5 mg Tab] Morphine Sulfate ER [Ms Contin] 30 mg PO Q12HR PRN 01/14/18 01/14/18 History amLODIPine [Norvasc] 5 mg PO DAILY 01/14/18 01/14/18 History Allergies Allergy/AdvReac Type Severity Reaction Status Date / Time celecoxib [From Celebrex] Allergy Rash/Hives Verified 01/14/18 16:40 gabapentin [From Neurontin] Allergy Swelling Verified 01/14/18 16:40 levofloxacin [From Levaquin] Allergy Unknown Verified 01/14/18 16:40 sulfamethoxazole Allergy Unknown Verified 01/14/18 16:40 [From Bactrim] trimethoprim [From Bactrim] Allergy Unknown Verified 01/14/18 16:40 hydrocodone AdvReac Trouble Verified 01/14/18 16:40 Sleeping Physical Exam Vitals: Vital Signs Temp Pulse Resp BP Pulse Ox 01/16/18 15:00 97.8 F 95 18 139/65 95 01/16/18 07:00 97.2 F L 65 16 142/65 95 Intake and Output 01/16/18 01/16/18 01/17/18 14:59 22:59 06:59 Other: # Voids 4 # Bowel Movements 1 Weight 88.451 kg .HEENT: Anicteric conjunctiva are pink and moist nasal mucosa grossly intact without significant lesions, there is no thrush. Neck: The neck is supple without significant lymphadenopathy or thyromegaly. Lungs: Good bilateral air entry without significant crackles or wheezing. There is no significant bronchial sounds. There is no egophony or dullness. Heart: Regular rate and rhythm with an audible S1-S2, no S3 no S4. There is no significant murmur click or rub, PMI was nondisplaced. Abdomen: Positive bowel sounds soft and nontender without palpable masses or organomegaly. There was no guarding or rebound. Extremities: The upper extremities have excellent pulses they are symmetric, no significant petechiae or telangiectasia. No splinter hemorrhages were noted. The lower extremities are free from significant edema. The peripheral pulses were 2+ and symmetric. Neuro: Patient is awake and arousable poor historian not following commands Results Results: Laboratory Results WBC 13.8 k/uL (3.8-10.6) H 01/16/18 07:28 RBC 4.22 m/uL (4.30-5.90) L 01/16/18 07:28 Hgb 12.6 gm/dL (13.0-17.5) L 01/16/18 07:28 Hct 39.2 % (39.0-53.0) 01/16/18 07:28 MCV 92.9 fL (80.0-100.0) 01/16/18 07:28 MCH 29.9 pg (25.0-35.0) 01/16/18 07: MCHC 32.2 g/dL (31.0-37.0) 01/16/18 07:28 RDW 13.4 % (11.5-15.5) 01/16/18 07:28 Plt Count 259 k/uL (150-450) 01/16/18 07:28 Neutrophils % 81 % 01/16/18 07:28 Lymphocytes % 12 % 01/16/18 07:28 Monocytes % 5 % 01/16/18 07:28 Eosinophils % 1 % 01/16/18 07:28 Basophils % 0 % 01/16/18 07:28 Neutrophils # 11.1 k/uL (1.3-7.7) H 01/16/18 07:28 Lymphocytes # 1.6 k/uL (1.0-4.8) 01/16/18 07:28 Monocytes # 0.7 k/uL (0-1.0) 01/16/18 07:28 Eosinophils # 0.1 k/uL (0-0.7) 01/16/18 07:28 Basophils # 0.0 k/uL (0-0.2) 01/16/18 07:28 Sodium 138 mmol/L (137-145) 01/16/18 07:28 Potassium 4.0 mmol/L (3.5-5.1) 01/16/18 07:28 Chloride 107 mmol/L (98-107) 01/16/18 07:28 Carbon Dioxide 27 mmol/L (22-30) 01/16/18 07:28 Anion Gap 4 mmol/L 01/16/18 07:28 BUN 12 mg/dL (9-20) 01/16/18 07:28 Creatinine 0.86 mg/dL (0.66-1.25) 01/16/18 07:28 Est GFR (CKD-EPI)AfAm >90 (>60 ml/min/1.73 sqM) 01/16/18 07:28 Est GFR (CKD-EPI)NonAf 80 (>60 ml/min/1.73 sqM) 01/16/18 07:28 Glucose 141 mg/dL (74-99) H 01/16/18 07:28 POC Glucose (mg/dL) 134 mg/dL (75-99) H 01/16/18 20:45 POC Glu Chief Meter Reader ID Roselyn Messina 01/16/18 20:[address] Glu mg/dL 126 01/14/18 16:24 Hemoglobin A1c 6.0 % (4.0-6.0) 01/14/18 16:24 Plasma Lactic Acid Stone 1.5 mmol/L (0.7-2.0) 01/15/18 09:30 Calcium 8.9 mg/dL (8.4-10.2) 01/16/18 07:28 Magnesium 1.8 mg/dL (1.6-2.3) 01/14/18 16:24 Total Bilirubin 0.8 mg/dL (0.2-1.3) 01/14/18 16:24 AST 21 U/L (17-59) 01/14/18 16:24 ALT 26 U/L (21-72) 01/14/18 16:24 Alkaline Phosphatase 36 U/L (38-126) L 01/14/18 16:24 Ammonia 13 umol/L (<30) 01/14/18 16:24 Total Creatine Kinase 63 U/L (55-170) 01/14/18 16:24 CK-MB (CK-2) 1.3 ng/mL (0.0-2.4) 01/14/18 16:24 CK-MB (CK-2) Rel Index 2.1 01/14/18 16:24 Troponin I 0.039 ng/mL (0.000-0.034) H* 01/15/18 14:48 NT-Pro-B Natriuret Pep 1540 pg/mL 01/15/18 09:30 Total Protein 6.4 g/dL (6.3-8.2) 01/14/18 16:24 Albumin 3.6 g/dL (3.5-5.0) 01/14/18 16:24 Urine Color Yellow 01/14/18 16:33 Urine Appearance Cloudy (Clear) 01/14/18 16:33 Urine pH 6.5 (5.0-8.0) 01/14/18 16:[address] 1.015 (1.001-1.035) 01/14/18 16:33 Urine Protein Trace (Negative) H 01/14/18 16:33 Urine Glucose (UA) 3+ (Negative) H 01/14/18 16:33 Urine Ketones Negative (Negative) 01/14/18 16:33 Urine Blood Negative (Negative) 01/14/18 16:33 Urine Nitrite Positive (Negative) 01/14/18 16:33 Urine Bilirubin Negative (Negative) 01/14/18 16:33 Urine Urobilinogen 2.0 mg/dL (<2.0) 01/14/18 16:33 Ur Leukocyte Esterase Large (Negative) H 01/14/18 16:33 Urine RBC 1 /hpf (0-5) 01/14/18 16:33 Urine WBC 19 /hpf (0-5) H 01/14/18 16:33 Urine Bacteria Occasional /hpf (None) H 01/14/18 16:33 Urine Mucus Rare /hpf (None) H 01/14/18 16:33 CBC & Chem 7: 01/16/18 07:28 01/16/18 07:28 Labs: Abnormal Lab Results - Last 24 Hours (Table) 01/16/18 01/16/18 01/16/18 Range/Units 07:28 07:28 07:39 WBC 13.8 H (3.8-10.6) k/uL RBC 4.22 L (4.30-5.90) m/uL Hgb 12.6 L (13.0-17.5) gm/dL Neutrophils # 11.1 H (1.3-7.7) k/uL Glucose 141 H (74-99) mg/dL POC Glucose (mg/dL) 136 H (75-99) mg/dL 01/16/18 01/16/18 01/16/18 Range/Units 11:36 17:11 20:45 WBC (3.8-10.6) k/uL RBC (4.30-5.90) m/uL Hgb (13.0-17.5) gm/dL Neutrophils # (1.3-7.7) k/uL Glucose (74-99) mg/dL POC Glucose (mg/dL) 112 H 119 H 134 H (75-99) mg/dL Microbiology - Last 24 Hours (Table) 01/14/18 16:24 Blood Culture Gram Stain - Final Blood Blood Culture - Final Staphylococcus epidermidis 01/14/18 16:33 Urine Culture - Preliminary Urine,Voided Gram Neg Bacilli Assessment and Plan (1) Urinary tract infection Current Visit: Yes Status: Acute Code(s): N39.0 - URINARY TRACT INFECTION, SITE NOT SPECIFIED SNOMED Code(s): 19600294 (2) Altered mental status Narrative/Plan: 82-year-old presents to hospital with altered mental status. Was found to have evidence of a urinary tract infection the patient is a been initiated to fluid resuscitation and antibiotic therapy. With evidence of a possible cultured the infectious diseases consultation was requested. The patient has a history of E. coli urinary tract infections and Rocephin has been added vancomycin also and is until the cultures of the blood are available. The patient is comfortable continue maneuvers to have adequate protein intake and that he is comfortable and he is concerned about his bills. Antibiotic therapy continues for now with Rocephin and vancomycin therapy until the blood culture has been finalized. Continue supportive care before his transfer back to [facility]. Current Visit: Yes Status: Acute Code(s): R41.82 - ALTERED MENTAL STATUS, UNSPECIFIED SNOMED Code(s): 634635659
[2018-01-17 02:34] LABS: Glucose,Whole Blood 128 mg/dL (75-99)
[2018-01-17] MEDS: SODIUM CHLORIDE 0.9% 1,000 ML IV SCH (05:48)
[2018-01-17 07:26] LABS: Glucose,Whole Blood 116 mg/dL (75-99)
[2018-01-17] MEDS: INSULIN ASPART 100 UNIT/ML 1 ML 10 ML VIAL SQ SCH ×4 (08:01→12:57)
[2018-01-17] MEDS: MORPHINE SULFATE ER 30 MG TABLET PO SCH (08:04)
[2018-01-17] MEDS: HEPARIN SODIUM,PORCINE 5,000 UNIT/ML 1 ML VIAL SQ SCH (08:05)
[2018-01-17] MEDS: CLOPIDOGREL 75 MG TAB PO SCH (08:05)
[2018-01-17] MEDS: amLODIPine 5 MG TAB PO SCH (08:05)
[2018-01-17] MEDS: PANTOPRAZOLE 40 MG TABLET PO SCH (08:05)
[2018-01-17] MEDS: HYDROCHLOROTHIAZIDE 12.5 MG CAP PO SCH (08:05)
[2018-01-17] MEDS: LORATADINE 10 MG TAB PO SCH (08:05)
[2018-01-17] MEDS: LOSARTAN 50 MG TAB PO SCH (08:05)
[2018-01-17 09:18] LABS: Basophils % (A) 0 %; Eosinophils # (A) 0.1 k/uL (0-0.7); Eosinophils % (A) 2 %; HCT 42.1 % (39.0-53.0); HGB 13.5 gm/dL (13.0-17.5); Lymphocytes # (A) 2.2 k/uL (1.0-4.8); Lymphocytes % (A) 26 %; MCH 29.8 pg (25.0-35.0); MCHC 32.1 g/dL (31.0-37.0); MCV 92.9 fL (80.0-100.0); Mean Platelet Volume 6.8; Monocytes # (A) 0.6 k/uL (0-1.0); Monocytes % (A) 8 %; Neutrophils # (A) 5.1 k/uL (1.3-7.7); Neutrophils % (A) 62 %; Platelet Count 294 k/uL (150-450); RBC 4.54 m/uL (4.30-5.90); RDW 13.3 % (11.5-15.5); WBC 8.3 k/uL (3.8-10.6)
[2018-01-17 09:26] LABS: Anion Gap 7 mmol/L; Blood Urea Nitrogen 11 mg/dL (9-20); Calcium 9.1 mg/dL (8.4-10.2); Carbon Dioxide 26 mmol/L (22-30); Chloride 108 mmol/L (98-107); Glucose 106 mg/dL (74-99); Potassium 3.8 mmol/L (3.5-5.1); Sodium 141 mmol/L (137-145)
--- NOTE | 2018-01-17 11:10 | P.PN ---
Subjective Progress Note Date: 01/17/18 Principal diagnosis: Altered mental status, fever, sepsis This is a 82-year-old white male patient with past medical history of CVA/TIA with the right hemiplegia, artery disease with prior stenting, hypertension, hyperlipidemia, insulin-dependent diabetes mellitus, anxiety, chronic pain syndrome, general medical debility, chronic left heel ulcer, who is a poor historian, with the possibility of underlying dementia, who was brought to the emergency department via ambulance, on 01/14/2018 at 1600 for evaluation of altered mental status, fevers at home. Patient was noted to be more lethargic than usual. No other symptoms, no trauma, no nausea, vomiting or diarrhea. Per family patient is normally alert and oriented 2. In the emergency department patient was noted to be febrile with a temp of 100.8F, heart rate was within normal range, non-tachycardic, nonhypotensive. Initial chest x-ray showed small bilateral pleural effusions, and a remote left sixth rib fracture. EKG showed sinus rhythm, evidence of inferior and anterior infarct of undetermined age. She blood work showed leukocytosis, WBC of 18.1, hemoglobin is 15.0, electrolytes and renal profile were normal, asthma lactic acid is within normal limits at 1.5, troponin was slightly elevated at 0.044, and proBNP is within normal limits at 1540. Urinalysis was positive for leuks, white blood cells, and bacteria. This morning preliminary blood cultures showed gram-positive cocci. Patient was seen in evaluation, he is awake, and alert, he only verbalizes minimally, but he is able to follow command. Does not seem to be in any distress. Was given a liter bolus of 0.9 normal saline in the emergency department, and his maintenance IV fluids were ordered at 75 ML per hour. Repeat lactic acid this morning remains within normal range at 1.5 , potassium is 3.3, white count is 17.5. Patient has low-grade fevers with the T-max of 99.8F. His respirations are even and nonlabored, lung sounds are diminished, with minimal rales at posterior bases. She is in sinus rhythm. No peripheral edema, there is a superficial ulcer on his left heel, and the wound bed is clean dry, and pink, without any evidence of slough. On 01/16/2018 patient seen in follow-up on medical surgical floor. Much more awake, and conversant, his responding appropriately, he is oriented to place, and person. Pulse ox on 2 L per nasal cannula is 95%, T-max in the last 24 hours was 100.6F which was yesterday at 1400. Blood culture is positive for coagulase negative staph urine culture is pending. No chest pain, no shortness of breath, brain CT showed no acute intracranial abnormality. Days labs showed WBC of 13.8, hemoglobin 12.6, leukocytosis is improving, trending down, electrolytes and renal profile are all within normal limits. On 01/17/2018 patient seen in follow-up on medical surgical floor. He is awake and alert, oriented 3. He is back to baseline. No acute complaints, he is on room air, denies any shortness of breath, no chest pain, room air pulse ox is 96 %, afebrile. Lung sounds are clear to auscultation. Urine culture was positive for E. coli, and blood cultures were positive for staph epidermidis. No ongoing fevers, he continues on antibiotic coverage in the form of Rocephin and vancomycin, ID service is following. Continue Supportive care, from pulmonary perspective patient is stable. Objective - Vital Signs Vital signs: Vital Signs Temp 98.4 F 01/17/18 05:53 Pulse 68 01/17/18 05:53 Resp 14 01/17/18 05:53 BP 141/63 01/17/18 05:53 Pulse Ox 96 01/17/18 05:53 Intake & Output 01/16/18 01/17/18 01/17/18 18:59 06:59 18:59 Weight 88.451 kg Other: Voiding Method Urinal Urinal Diaper Diaper Incontinent Incontinent # Voids 4 3 # Bowel Movements 1 - Exam GENERAL EXAM: Alert, pleasant, upbeat 82-year-old white male with right-sided weakness comfortable in no apparent distress. Much more awake, and interactive on today's exam. HEAD: Normocephalic/atraumatic. EYES: Normal reaction of pupils, equal size. Conjunctiva pink, sclera white. NOSE: Clear with pink turbinates. THROAT: No erythema or exudates. NECK: No masses, no JVD, no thyroid enlargement, no adenopathy. CHEST: No chest wall deformity. Symmetrical expansion. LUNGS: Diminished breath sounds bilaterally, with minimal crackles at the posterior bases CVS: Regular rate and rhythm, normal S1 and S2, no gallops, no murmurs, no rubs ABDOMEN: Soft, nontender. No hepatosplenomegaly, normal bowel sounds, no guarding or rigidity. EXTREMITIES: No clubbing, no edema, no cyanosis, 2+ pulses and upper and lower extremities. He has a superficial ulcer on his left heel, wound bed is pink, without slough MUSCULOSKELETAL: Muscle strength and tone normal. SPINE: No scoliosis or deformity SKIN: No rashes CENTRAL NERVOUS SYSTEM: Alert and oriented -2. Right-sided weakness noted. - Labs CBC & Chem 7: 01/17/18 08:24 01/17/18 08:24 Labs: Abnormal Lab Results - Last 24 Hours (Table) 01/16/18 01/16/18 01/16/18 Range/Units 11:36 17:11 20:45 Chloride (98-107) mmol/L Glucose (74-99) mg/dL POC Glucose (mg/dL) 112 H 119 H 134 H (75-99) mg/dL 01/17/18 01/17/18 01/17/18 Range/Units 02:32 07:23 08:24 Chloride 108 H (98-107) mmol/L Glucose 106 H (74-99) mg/dL POC Glucose (mg/dL) 128 H 116 H (75-99) mg/dL Microbiology - Last 24 Hours (Table) 01/14/18 16:33 Urine Culture - Final Urine,Voided Escherichia coli 01/14/18 16:24 Blood Culture Gram Stain - Final Blood Blood Culture - Final Staphylococcus epidermidis Assessment and Plan Plan: Assessment: #1. Altered mentation, leukocytosis, febrile illness likely related to sepsis, the source of which could be related to an underlying urinary tract infection, or the left heel wound. #2. Positive blood cultures for gram-positive cocci, final culture was positive for staph epidermidis #3. Acute urinary tract infection, cultures positive for E. coli #4. Chronic left heel ulcer #5. Leukocytosis #6. Positive troponin, could be related to sepsis, rule out cardiac etiology, cardiology has been consulted #7. History of coronary artery disease with previous bypass grafting #8. History of CVA with residual right-sided weakness #9. Hypertension, hyperlipidemia #10. Insulin-dependent diabetes mellitus #11. medical debility #12. Small bilateral pleural effusions Plan: Patient remains stable, his mentation is back to baseline, no ongoing fevers, no acute complaints. ID service is managing the IV antibiotics, used pulmonary or could look care issues at this time, we will follow with the patient on as- needed basis. I performed a history & physical examination of the patient and discussed their management with my nurse practitioner, Marianne Bean. I reviewed the nurse practitioner's note and agree with the documented findings and plan of care. Lung sounds are diminished, with bibasilar crackles. The findings and the impression was discussed with the patient. I attest to the documentation by the nurse practitioner. Time with Patient: Less than 30
--- NOTE | 2018-01-17 11:28 | P.PN ---
Subjective 82 years old male with past medical history of CVA/TIA with residual right hemiplegia, coronary artery disease is status post cardiac Stenting., hyperlipidemia, hypertension, insulin-dependent diabetes mellitus, possible dementia. Who presents because of altered mental status. Patient looks confused to time place and person when I saw him. Most of the information take it from the staff and medical records. However when asked the patient he did not complain from any pain or discomfort. However on examination he complained from suprapubic tenderness and he has looks like chronic left pressure ulcer which is superficial with nonblanching erythema In the emergency room patient had fever off 100.8. With a leukocytosis at 18.1 K. urinalysis was suggestive for infection. In the Emergency room, patient received ceftriaxone and IV fluids. And admitted to the general medical floor for further management. 01/16/2018 Patient is oriented to place he knows in [facility], however his disoriented to place and person. Patient looks holding logic conversation. He had fever yesterday of 100.6. Infectious disease are consulted. Patient is still on antibiotics 01/17/2018 Bedside clinical evaluation looks the same. Patient is awake and oriented to place only not to person at times. No new complaints. No chest pain or dyspnea. No change in urine or bowel habits. No fever. Last fever was on at 2 PM with 100.6. His leukocytosis is resolved today from 13.8 K to 8.3 BMP was unremarkable and sugar controlled. UC: E coli susceptible to many antibiotics. Blood culture is positive for staph epidermidis which was susceptible to tetracycline. We will add doxycycline pending further recommendation from the infectious disease team Objective - Vital Signs Vital signs: Vital Signs Temp 98.4 F 01/17/18 05:53 Pulse 68 01/17/18 05:53 Resp 14 01/17/18 05:53 BP 141/63 01/17/18 05:53 Pulse Ox 96 01/17/18 05:53 Intake & Output 01/16/18 01/17/18 01/17/18 18:59 06:59 18:59 Weight 88.451 kg Other: Voiding Method Urinal Urinal Diaper Diaper Incontinent Incontinent # Voids 4 3 # Bowel Movements 1 - Exam GENERAL: The patient is alert and oriented x3, not in any acute distress. Well developed, well nourished. HEENT: Pupils are round and equally reacting to light. EOMI. No scleral icterus. No conjunctival pallor. Normocephalic, atraumatic. No pharyngeal erythema. No thyromegaly. CARDIOVASCULAR: S1 and S2 present. No murmurs, rubs, or gallops. PULMONARY: Chest is clear to auscultation, no wheezing or crackles. ABDOMEN: Soft, nontender, nondistended, normoactive bowel sounds. No palpable organomegaly. MUSCULOSKELETAL: No joint swelling or deformity. EXTREMITIES: No cyanosis, clubbing, or pedal edema. NEUROLOGICAL: Gross neurological examination did not reveal any focal deficits. SKIN: No rashes - Labs CBC & Chem 7: 01/17/18 08:24 01/17/18 08:24 Labs: Abnormal Lab Results - Last 24 Hours (Table) 01/16/18 01/16/18 01/16/18 Range/Units 11:36 17:11 20:45 Chloride (98-107) mmol/L Glucose (74-99) mg/dL POC Glucose (mg/dL) 112 H 119 H 134 H (75-99) mg/dL 01/17/18 01/17/18 01/17/18 Range/Units 02:32 07:23 08:24 Chloride 108 H (98-107) mmol/L Glucose 106 H (74-99) mg/dL POC Glucose (mg/dL) 128 H 116 H (75-99) mg/dL Microbiology - Last 24 Hours (Table) 01/14/18 16:33 Urine Culture - Final Urine,Voided Escherichia coli 01/14/18 16:24 Blood Culture Gram Stain - Final Blood Blood Culture - Final Staphylococcus epidermidis Assessment and Plan Assessment: Systemic inflammatory response with leukocytosis, fever Sepsis secondary to UTI, present on admission, UC: E coli Staph epidermidis bacteremia/septicemia Metabolic encephalopathy secondary to above Possible dementia Left heel pressure ulcer, present on admission CVA/TIA with residual right hemiplegia History of coronary artery disease is status post cardiac Stenting hyperlipidemia hypertension insulin-dependent diabetes mellitus Plan: This is a pleasant 52 years old male comes with sepsis secondary to foot infection. Continue with antibiotics. Continue with fluid management. Resume home medications. Continue symptomatic treatment. Will call infectious disease consult. Monitor lytes and vitals. Check x-ray of the left foot. CT of the head Continue with insulin Pain management. Follow-up culture results when sent. Continue with IV fluids Follow-up hemoglobin A1c DVT and GI prophylaxis. Further recommendation based on the clinical course of the patient DVT prophylaxis: Subcutaneous heparin GI prophylaxis: Protonix PT/OT: Pending Prognosis guarded
[2018-01-17] MEDS ORDERED: DOXYCYCLINE 100 MG in SODIUM CHLORIDE 0.9% 100 ML IVPB SCH (11:30)
[2018-01-17 13:15] LABS: Glucose,Whole Blood 169 mg/dL (75-99)
--- NOTE | 2018-01-17 15:24 | P.DS ---
Providers Date of admission: 01/14/18 17:38 Attending physician: Eagle Hart Consults: 01/15/18 10:54 Consult Physician Routine Consulting Provider: Anais Denise Consult Reason/Comments: elevated troponin Do you want consulting provider notified?: Yes 01/15/18 11:06 Consult Physician Routine Consulting Provider: Yonas Morris Consult Reason/Comments: positive blood cultures Do you want consulting provider notified?: Yes Primary care physician: Alycia Cook [facility] Course: 82 years old male with past medical history of CVA/TIA with residual right hemiplegia, coronary artery disease is status post cardiac Stenting., hyperlipidemia, hypertension, insulin-dependent diabetes mellitus, possible dementia. Who presents because of altered mental status. Patient looks confused to time place and person when I saw him. Most of the information take it from the staff and medical records. However when asked the patient he did not complain from any pain or discomfort. However on examination he complained from suprapubic tenderness and he has looks like chronic left heel pressure ulcer which is superficial with nonblanching erythema In the emergency room patient had fever off 100.8. With a leukocytosis at 18.1 K. urinalysis was suggestive for infection. patient received ceftriaxone and IV fluids. UC came back positive with E.Coli sensitive for many abx. also pt has positive blood culture with staph epidermidis , pt has been evaluated by ID team. pt mental status came back to baseline. Patient has fever subsided over the last 2 days. With blood cell count came back to normal at 8.3K on the day of discharge his suprapubic tenderness has been resolving. Patient has been cleared by ID team for discharge on Ceftin for 7 more days and prescription was provided by them. Because of comorbidities and advanced age with possible elements of dementia patient is going to be discharged to subacute rehab for further strengthening for his generalized weakness. Problems and management plan was discussed with the patient and he verbalized understanding and acceptance. Patient was found stable and can be discharged home however he needs follow-up as an outpatient physical exam Gen.: Patient alert awake and oriented X1, NOT IN DISTRESS CVS: s1-s2, RRR, no murmur CHEST:bilateral CTA, no wheezing or crepitation Abdomen: Soft, no tenderness, no distention, positive bowel sounds Extremities: No leg edema or induration Time spent more than 55 minutes Patient Condition at Discharge: Good Plan - Discharge Summary Discharge Rx Participant: No New Discharge Prescriptions: New Cefuroxime Axetil [Ceftin] 500 mg PO BID 7 Days #14 tab Acetaminophen Tab [Tylenol] 650 mg PO Q6HR PRN tab PRN Reason: Fever And/ Or Pain Insulin Aspart [NovoLOG (formulary)] 20 unit SQ AC-TID vial Continue Insulin Detemir [Levemir Flextouch] 35 units SQ HS Cetirizine HCl [Zyrtec] 10 mg PO DAILY Vit A/Vit C/Vit E/Zinc/Copper [ICAPS SOFTGEL] 1 cap PO BID Citalopram Hydrobromide [CeleXA] 20 mg PO HS Clopidogrel [Plavix] 75 mg PO DAILY Fenofibrate Nanocrystallized [Tricor] 145 mg PO W/SUPPER Cholecalciferol [Vitamin D3] 1,000 unit PO DAILY Rosuvastatin [Crestor] 20 mg PO HS Aspirin EC [Ecotrin Low Dose] 81 mg PO W/SUPPER Polyethylene Glycol 3350 [Miralax] 17 gm PO HS PRN PRN Reason: Constipation Carboxymethylcellulose Sodium [Refresh Tears] 1 drop BOTH EYES BID PRN PRN Reason: Dry Eye(S) Pantoprazole [Protonix] 40 mg PO DAILY Tamsulosin [Flomax] 0.4 mg PO HS ALPRAZolam [Xanax] 0.5 mg PO HS amLODIPine [Norvasc] 5 mg PO DAILY Morphine Sulfate ER [Ms Contin] 30 mg PO Q12HR PRN PRN Reason: Pain Losartan/Hydrochlorothiazide [Losartan-Hctz 100-12.5 mg Tab] 1 tab PO DAILY Discontinued Insulin Lispro [humaLOG Kwikpen] 30 unit SQ AC-TID Discharge Medication List Cetirizine HCl [Zyrtec] 10 mg PO DAILY 06/14/14 [History] Citalopram Hydrobromide [CeleXA] 20 mg PO HS 06/14/14 [History] Clopidogrel [Plavix] 75 mg PO DAILY 06/14/14 [History] Fenofibrate Nanocrystallized [Tricor] 145 mg PO W/SUPPER 06/14/14 [History] Insulin Detemir [Levemir Flextouch] 35 units SQ HS 06/14/14 [History] Vit A/Vit C/Vit E/Zinc/Copper [ICAPS SOFTGEL] 1 cap PO BID 06/14/14 [History] Cholecalciferol [Vitamin D3] 1,000 unit PO DAILY 10/06/14 [History] Aspirin EC [Ecotrin Low Dose] 81 mg PO W/SUPPER 06/28/17 [History] Rosuvastatin [Crestor] 20 mg PO HS 06/28/17 [History] Carboxymethylcellulose Sodium [Refresh Tears] 1 drop BOTH EYES BID PRN 07/23/17 [History] Pantoprazole [Protonix] 40 mg PO DAILY 07/23/17 [History] Polyethylene Glycol 3350 [Miralax] 17 gm PO HS PRN 07/23/17 [History] ALPRAZolam [Xanax] 0.5 mg PO HS 10/21/17 [History] Tamsulosin [Flomax] 0.4 mg PO HS 10/21/17 [History] Losartan/Hydrochlorothiazide [Losartan-Hctz 100-12.5 mg Tab] 1 tab PO DAILY [History] Morphine Sulfate ER [Ms Contin] 30 mg PO Q12HR PRN 01/14/18 [History] amLODIPine [Norvasc] 5 mg PO DAILY 01/14/18 [History] Acetaminophen Tab [Tylenol] 650 mg PO Q6HR PRN tab 01/17/18 [Rx] Cefuroxime Axetil [Ceftin] 500 mg PO BID 7 Days #14 tab 01/17/18 [Rx] Insulin Aspart [NovoLOG (formulary)] 20 unit SQ AC-TID vial 01/17/18 [Rx] Follow up Appointment(s)/Referral(s): Alycia Cook DO [Primary Care Provider] - 1-2 days Patient Instructions/Handouts: Dehydration (DC), Urinary Tract Infection in Men (DC), Acute Delirium (DC) Activity/Diet/Wound Care/Special Instructions: Residential Home care- resumption of care- [phone]. Home care will call you to set up a schedule. If yo u do not hear from them or have questions; please contact agency.
[2018-01-17 15:41] VITALS: BP 133/68; PULSE 69; RESP 16; TEMP 98.6
== END 2018-01-17 16:53 | DRG 871 ==
LOC: EC 16:10 → 4MS4W 17:38
PROVIDERS: ADMIT Internal Medicine; ATTEND Internal Medicine
DX: A41.1 Sepsis due to other specified staphylococcus (principal); G93.41 Metabolic encephalopathy; I69.351 Hemiplegia and hemiparesis following cerebral infarction affecting right dominant side; N39.0 Urinary tract infection, site not specified; F05 Delirium due to known physiological condition; J90 Pleural effusion, not elsewhere classified; E11.621 Type 2 diabetes mellitus with foot ulcer; E86.0 Dehydration; L89.622 Pressure ulcer of left heel, stage 2; F03.90 Unspecified dementia, unspecified severity, without behavioral disturbance, psychotic disturbance, mood disturbance, and anxiety; R40.2362 Coma scale, best motor response, obeys commands, at arrival to emergency department; R40.2142 Coma scale, eyes open, spontaneous, at arrival to emergency department; R40.2242 Coma scale, best verbal response, confused conversation, at arrival to emergency department; I10 Essential (primary) hypertension; L08.9 Local infection of the skin and subcutaneous tissue, unspecified; G89.4 Chronic pain syndrome; B96.20 Unspecified Escherichia coli [E. coli] as the cause of diseases classified elsewhere; E78.5 Hyperlipidemia, unspecified; I25.10 Atherosclerotic heart disease of native coronary artery without angina pectoris; R77.9 Abnormality of plasma protein, unspecified; F41.9 Anxiety disorder, unspecified; Z79.02 Long term (current) use of antithrombotics/antiplatelets; Z79.82 Long term (current) use of aspirin; Z79.4 Long term (current) use of insulin; Z79.899 Other long term (current) drug therapy; Z95.1 Presence of aortocoronary bypass graft; Z95.5 Presence of coronary angioplasty implant and graft; Z88.1 Allergy status to other antibiotic agents; Z88.5 Allergy status to narcotic agent; Z88.2 Allergy status to sulfonamides; Z88.8 Allergy status to other drugs, medicaments and biological substances; Z82.49 Family history of ischemic heart disease and other diseases of the circulatory system; Z87.440 Personal history of urinary (tract) infections
CPT/HCPCS: 36415; 70450; 71046; 80048; 80053; 81001; 82140; 82550; 82553; 83036; 83605; 83735; 83880; 84132; 84484; 85025; 87040; 87077; 87086; 87186; 93005; 96360; 96361; 96365; 96375; 99285

== ENCOUNTER 2018-02-17 19:25 | Inpatient (IN) | payer MEDICARE, OTHER ==
[2018-02-17] MEDS ORDERED: SODIUM CHLORIDE 0.9% 1,000 ML IV ONE (19:56)
--- NOTE | 2018-02-17 20:03 | ED ---
Altered Mental Status HPI - General Chief Complaint: Altered Mental Status Stated Complaint: Altered Mental Status Time Seen by Provider: 02/17/18 19:44 Source: patient, EMS Mode of arrival: EMS - History of Present Illness Initial Comments: Patient is an 82 year old male who presents with a CC of AMS. his accompanies him to the ED today and states that last month he was hospitalized with a UTI and subsequent sepsis. patient was discharged to a detention and is now at home. his states that he has been confused and combative since coming home. she states that he has not been himself lately. the patient denies any complaints except chronic back pain, but he is noted to be very verbally abusive toward his and he does not want her to be with him in the exam room. the states this is not like him. no further complaints today. - Related Data Home Medications Medication Instructions Recorded Confirmed Cetirizine HCl [Zyrtec] 10 mg PO DAILY 06/14/14 02/17/18 Citalopram Hydrobromide [CeleXA] 20 mg PO HS 06/14/14 02/17/18 Clopidogrel [Plavix] 75 mg PO DAILY 06/14/14 02/17/18 Fenofibrate Nanocrystallized 145 mg PO AC-SUPPER 06/14/14 02/17/18 [Tricor] Insulin Detemir [Levemir Flextouch] 35 units SQ HS 06/14/14 02/17/18 Vit A/Vit C/Vit E/Zinc/Copper 1 cap PO BID 06/14/14 02/17/18 [ICAPS SOFTGEL] Cholecalciferol [Vitamin D3] 1,000 unit PO DAILY 10/06/14 02/17/18 Aspirin EC [Ecotrin Low Dose] 81 mg PO AC-SUPPER 06/28/17 02/17/18 Rosuvastatin [Crestor] 20 mg PO HS 06/28/17 02/17/18 Carboxymethylcellulose Sodium 1 drop BOTH EYES BID 07/23/17 02/17/18 [Refresh Tears] Pantoprazole [Protonix] 40 mg PO AC-SUPPER 07/23/17 02/17/18 Polyethylene Glycol 3350 [Miralax] 17 gm PO HS 07/23/17 02/17/18 ALPRAZolam [Xanax] 0.5 mg PO HS 10/21/17 02/17/18 Tamsulosin [Flomax] 0.8 mg PO HS 10/21/17 02/17/18 Losartan/Hydrochlorothiazide 1 tab PO AC-SUPPER 01/14/18 02/17/18 [Losartan-Hctz 100-12.5 mg Tab] Morphine Sulfate ER [Ms Contin] 30 mg PO Q12H 01/14/18 02/17/18 Insulin Lispro [humaLOG Kwikpen] 30 unit SQ AC-BRKFST 02/17/18 02/17/18 Insulin Lispro [humaLOG Kwikpen] 35 unit SQ AC-SUPPER 02/17/18 02/17/18 Allergies Allergy/AdvReac Type Severity Reaction Status Date / Time celecoxib [From Celebrex] Allergy Rash/Hives Verified 02/17/18 19:34 gabapentin [From Neurontin] Allergy Swelling Verified 02/17/18 19:34 levofloxacin [From Levaquin] Allergy Unknown Verified 02/17/18 19:34 sulfamethoxazole Allergy Unknown Verified 02/17/18 19:34 [From Bactrim] trimethoprim [From Bactrim] Allergy Unknown Verified 02/17/18 19:34 hydrocodone AdvReac Trouble Verified 02/17/18 19:34 Sleeping Review of Systems ROS Statement: Those systems with pertinent positive or pertinent negative responses have been documented in the HPI. ROS Other: All systems not noted in ROS Statement are negative. Past Medical History Past Medical History: Coronary Artery Disease (CAD), CVA/TIA, Hyperlipidemia, Hypertension Additional Past Medical History / Comment(s): CVA with right leg weakness History of Any Multi-Drug Resistant Organisms: None Reported Past Surgical History: Back Surgery, Heart Catheterization With Stent, Hernia Repair, Orthopedic Surgery Additional Past Surgical History / Comment(s): back surg x7, L knee, Yared. shoulders, nose surgery, hiatal hernia, stent 1997, CABG. Past Anesthesia/Blood Transfusion Reactions: No Reported Reaction Additional Past Anesthesia/Blood Transfusion Reaction / Comment(s): experienced stroke during last back surgery Date of Last Stent Placement:: june 1997 Past Psychological History: Anxiety Smoking Status: Never smoker Past Alcohol Use History: None Reported Past Drug Use History: None Reported - Past Family History Father Family Medical History: Coronary Artery Disease (CAD) General Exam Limitations: no limitations General appearance: alert, in no apparent distress Head exam: Present: atraumatic, normocephalic Eye exam: Present: normal appearance, PERRL ENT exam: Present: normal exam Neck exam: Present: normal inspection Respiratory exam: Present: normal lung sounds bilaterally. Absent: respiratory distress Cardiovascular Exam: Present: regular rate, normal rhythm GI/Abdominal exam: Present: soft, distended. Absent: tenderness, guarding Rectal exam: Present: deferred Extremities exam: Present: normal inspection Back exam: Present: normal inspection Neurological exam: Present: alert Psychiatric exam: Present: normal affect, normal mood Skin exam: Present: warm, dry, intact Course Vital Signs 02/17/18 19:26 Temperature 98.1 F Pulse Rate 80 Respiratory 13 Rate Blood Pressure 180/83 O2 Sat by Pulse 100 Oximetry Medical Decision Making - Medical Decision Making Patient presents with a chief complaint altered mental status. His is in the waiting room, history was given mostly for his and D LYLA. She states that patient is recently returned home from a nursing facility after a urinary tract infection and hospitalization for sepsis. She states that the patient has been combative and confused. The patient is noted to be verbally abusive toward his and is now on the exam room. The patient denies any complaints except for chronic back pain. He performed in 1936 shows normal sinus rhythm with left axis deviation. Ventricular 70 bpm. Segments appear to be Within normal limits. There are no acute signs of ischemia. 10:53PM lab evaluation of this patient is unremarkable. no evidence of acute infection. on re-evaluation, the patient is aggitated, verbally combative and does not appear to be comprehending the questions asked of him. he is AO x 1-2 and gets offended very easily with questioning. patient states that the limehouse worker are here, and there are no police present in the ED. case discussed with Dr. Cruz who accepts admission with psychiatric consult. patient given ativan for agitation. patient likely has an aspect of dimentia, deconditioning from previous admission and sun downing. - Lab Data Result diagrams: 02/17/18 19:45 02/17/18 19:45 Lab Results 02/17/18 02/17/18 02/17/18 Range/Units 19:45 19:45 19:45 WBC 9.7 (3.8-10.6) k/uL RBC 4.74 (4.30-5.90) m/uL Hgb 14.5 (13.0-17.5) gm/dL Hct 43.7 (39.0-53.0) % MCV 92.2 (80.0-100.0) fL MCH 30.6 (25.0-35.0) pg MCHC 33.2 (31.0-37.0) g/dL RDW 14.2 (11.5-15.5) % Plt Count 362 (150-450) k/uL Neutrophils % 81 % Lymphocytes % 11 % Monocytes % 6 % Eosinophils % 0 % Basophils % 0 % Neutrophils # 7.9 H (1.3-7.7) k/uL Lymphocytes # 1.1 (1.0-4.8) k/uL Monocytes # 0.5 (0-1.0) k/uL Eosinophils # 0.0 (0-0.7) k/uL Basophils # 0.0 (0-0.2) k/uL PT 10.7 (9.0-12.0) sec INR 1.1 (<1.2) APTT 23.0 (22.0-30.0) sec Sodium 138 (137-145) mmol/L Potassium 3.8 (3.5-5.1) mmol/L Chloride 102 (98-107) mmol/L Carbon Dioxide 27 (22-30) mmol/L Anion Gap 9 mmol/L BUN 21 H (9-20) mg/dL Creatinine 1.15 (0.66-1.25) mg/dL Est GFR (CKD-EPI)AfAm 68 (>60 ml/min/1.73 sqM) Est GFR (CKD-EPI)NonAf 59 (>60 ml/min/1.73 sqM) Glucose 99 (74-99) mg/dL POC Glucose (mg/dL) (75-99) mg/dL POC Glu Blocker And Sewer ID Calcium 9.6 (8.4-10.2) mg/dL Total Bilirubin 0.6 (0.2-1.3) mg/dL AST 27 (17-59) U/L ALT 30 (21-72) U/L Alkaline Phosphatase 44 (38-126) U/L Troponin I (0.000-0.034) ng/mL Total Protein 6.8 (6.3-8.2) g/dL Albumin 3.8 (3.5-5.0) g/dL Urine Color Urine Appearance (Clear) Urine pH (5.0-8.0) Ur Specific [place] (1.001-1.035) Urine Protein (Negative) Urine Glucose (UA) (Negative) Urine Ketones (Negative) Urine Blood (Negative) Urine Nitrite (Negative) Urine Bilirubin (Negative) Urine Urobilinogen (<2.0) mg/dL Ur Leukocyte Esterase (Negative) 02/17/18 02/17/18 02/17/18 Range/Units 19:45 21:15 Unknown WBC (3.8-10.6) k/uL RBC (4.30-5.90) m/uL Hgb (13.0-17.5) gm/dL Hct (39.0-53.0) % MCV (80.0-100.0) fL MCH (25.0-35.0) pg MCHC (31.0-37.0) g/dL RDW (11.5-15.5) % Plt Count (150-450) k/uL Neutrophils % % Lymphocytes % % Monocytes % % Eosinophils % % Basophils % % Neutrophils # (1.3-7.7) k/uL Lymphocytes # (1.0-4.8) k/uL Monocytes # (0-1.0) k/uL Eosinophils # (0-0.7) k/uL Basophils # (0-0.2) k/uL PT (9.0-12.0) sec INR (<1.2) APTT (22.0-30.0) sec Sodium (137-145) mmol/L Potassium (3.5-5.1) mmol/L Chloride (98-107) mmol/L Carbon Dioxide (22-30) mmol/L Anion Gap mmol/L BUN (9-20) mg/dL Creatinine (0.66-1.25) mg/dL Est GFR (CKD-EPI)AfAm (>60 ml/min/1.73 sqM) Est GFR (CKD-EPI)NonAf (>60 ml/min/1.73 sqM) Glucose (74-99) mg/dL POC Glucose (mg/dL) 117 H (75-99) mg/dL POC Glu Blocker And Sewer ID David Maharaj Calcium (8.4-10.2) mg/dL Total Bilirubin (0.2-1.3) mg/dL AST (17-59) U/L ALT (21-72) U/L Alkaline Phosphatase (38-126) U/L Troponin I 0.020 (0.000-0.034) ng/mL Total Protein (6.3-8.2) g/dL Albumin (3.5-5.0) g/dL Urine Color Yellow Urine Appearance Clear (Clear) Urine pH 6.5 (5.0-8.0) Ur Specific [place] 1.016 (1.001-1.035) Urine Protein Trace H (Negative) Urine Glucose (UA) Negative (Negative) Urine Ketones Negative (Negative) Urine Blood Negative (Negative) Urine Nitrite Negative (Negative) Urine Bilirubin Negative (Negative) Urine Urobilinogen 2.0 (<2.0) mg/dL Ur Leukocyte Esterase Negative (Negative) Disposition Clinical Impression: Dementia, Agitation, Mental status alteration Disposition: ADMITTED IP TO THIS [facility] Condition: Good Referrals: Alycia Cook DO [Primary Care Provider] - 1-2 days Decision to Admit Reason: Admit from EC - Out of Hospital Transfer - Req. Specs Out of Hospital Transfer - Requested Specifics: Other Non-Acute
[2018-02-17 20:25] LABS: Basophils % (A) 0 %; Eosinophils % (A) 0 %; HCT 43.7 % (39.0-53.0); HGB 14.5 gm/dL (13.0-17.5); Lymphocytes # (A) 1.1 k/uL (1.0-4.8); Lymphocytes % (A) 11 %; MCH 30.6 pg (25.0-35.0); MCHC 33.2 g/dL (31.0-37.0); MCV 92.2 fL (80.0-100.0); Mean Platelet Volume 6.6; Monocytes # (A) 0.5 k/uL (0-1.0); Monocytes % (A) 6 %; Neutrophils # (A) 7.9 k/uL (1.3-7.7); Neutrophils % (A) 81 %; Platelet Count 362 k/uL (150-450); RBC 4.74 m/uL (4.30-5.90); RDW 14.2 % (11.5-15.5); WBC 9.7 k/uL (3.8-10.6)
[2018-02-17 20:37] LABS: INR 1.1 (<1.2); Prothrombin Time 10.7 sec (9.0-12.0)
[2018-02-17 20:41] LABS: Albumin 3.8 g/dL (3.5-5.0); Calcium 9.6 mg/dL (8.4-10.2); Potassium 3.8 mmol/L (3.5-5.1); Total Bilirubin 0.6 mg/dL (0.2-1.3); Total Protein 6.8 g/dL (6.3-8.2)
[2018-02-17 21:16] LABS: Glucose,Whole Blood 117 mg/dL (75-99)
[2018-02-17 21:33] LABS: Appearance,Urine Clear (Clear); Bilirubin,Urine Negative (Negative); Blood,Urine Negative (Negative); Color,Urine Yellow; Glucose,Urine (UA) Negative (Negative); Ketones,Urine Negative (Negative); Leukocyte Esterase,Urine Negative (Negative); Nitrite,Urine Negative (Negative); PH, Urine 6.5 (5.0-8.0); Protein,Urine Trace (Negative); Specific Gravity,Urine 1.016 (1.001-1.035)
--- NOTE | 2018-02-17 21:37 | XR ---
EXAMINATION TYPE: XR chest 2V DATE OF EXAM: 02/17/2018 COMPARISON: 01/14/2018 HISTORY: Altered mental status TECHNIQUE: Frontal and lateral views of the chest are obtained. FINDINGS: There is no heart failure nor confluent pneumonic infiltrate. Costophrenic angles are tima r. There is poor inspiration. There are sternal wires. IMPRESSION: No active cardiopulmonary disease. No change.
--- NOTE | 2018-02-17 22:04 | CT ---
EXAMINATION TYPE: CT brain wo con DATE OF EXAM: 02/17/2018 COMPARISON: 01/15/2018 HISTORY: ams CT DLP: 967.8 mGycm Automated exposure control for dose reduction was used. FINDINGS: There is cerebral cortical atrophy. There is no mass effect nor midline shift. There is no sign of in tracranial hemorrhage. The calvarium is intact. There is mild hypodensity in the periventricular whit e matter. IMPRESSION: CEREBRAL ATROPHY AND CHRONIC SMALL VESSEL ISCHEMIA. NO ACUTE INTRACRANIAL ABNORMALITY. NO CHANGE.
[2018-02-17] MEDS ORDERED: LORazepam 1 MG TAB PO STA (22:21)
[2018-02-17] MEDS ORDERED: NALOXONE 0.4 MG/ML 1 ML VIAL IV PRN (22:56)
[2018-02-18] MEDS ORDERED: risperiDONE 0.25 MG TAB PO PRN (04:08)
[2018-02-18] MEDS: MORPHINE SULFATE ER 30 MG TABLET PO SCH ×2 (04:53→20:56)
[2018-02-18 07:55] LABS: Basophils % (A) 0 %; Eosinophils % (A) 0 %; HCT 41.9 % (39.0-53.0); HGB 13.4 gm/dL (13.0-17.5); Lymphocytes # (A) 1.5 k/uL (1.0-4.8); Lymphocytes % (A) 19 %; MCH 29.8 pg (25.0-35.0); Mean Platelet Volume 6.5; Monocytes # (A) 0.5 k/uL (0-1.0); Monocytes % (A) 7 %; Neutrophils # (A) 5.6 k/uL (1.3-7.7); Neutrophils % (A) 73 %; Platelet Count 334 k/uL (150-450); RBC 4.51 m/uL (4.30-5.90); RDW 14.1 % (11.5-15.5); WBC 7.7 k/uL (3.8-10.6)
[2018-02-18 08:18] LABS: Calcium 9.2 mg/dL (8.4-10.2); Potassium 3.7 mmol/L (3.5-5.1)
[2018-02-18] MEDS: INSULIN ASPART 100 UNIT/ML 1 ML 10 ML VIAL SQ SCH ×4 (10:46→20:55)
[2018-02-18 12:27] LABS: Hemoglobin A1C 5.8 % (4.0-6.0)
[2018-02-18 13:12] LABS: Glucose,Whole Blood 215 mg/dL (75-99)
[2018-02-18] MEDS ORDERED: POLYETHYLENE GLYCOL 3350 17 GM POWD.PACK PO PRN (17:33)
[2018-02-18 18:00] LABS: Glucose,Whole Blood 190 mg/dL (75-99)
--- NOTE | 2018-02-18 18:50 | P.HPIM ---
History of Present Illness H&P Date: 02/18/18 Chief Complaint: Aggressive behavior Patient is a 82-year-old male with a known history of coronary artery disease and stent placement, CVA/TIA with leg weakness, hypertension, diabetes, hyperlipidemia was brought to the hospital by his due to aggressiveness and combative at home. Patient is a poor historian and is paranoid about hitting someone. History was taken from the medical records and ER note and from the family. Patient's accompanies him to the ED last night and states that last month he was hospitalized with a UTI and subsequent sepsis. patient was discharged to a longterm and is now at home. his states that he has been confused and combative since coming home. she states that he has not been himself lately. the patient denies any complaints except chronic back pain, but he is noted to be very verbally abusive toward his and he does not want her to be with him in the exam room. the states this is not like him. no further complaints. Patient denied any chest pain or shortness of breath. No fever no chills. No abdominal pain nausea or vomiting. CT head showed cerebral atrophy and chronic small bowel ischemia. No acute intracranial abnormality. No change. Chest x-ray showed no acute cardiopulmonary process. EKG showed normal sinus rhythm. UA negative No electrolyte abnormalities. Review of Systems Complete review of systems could not be obtained from the patient Past Medical History Past Medical History: Coronary Artery Disease (CAD), CVA/TIA, Diabetes Mellitus , Hyperlipidemia, Hypertension Additional Past Medical History / Comment(s): CVA with right leg weakness History of Any Multi-Drug Resistant Organisms: None Reported Past Surgical History: Back Surgery, Heart Catheterization With Stent, Hernia Repair, Orthopedic Surgery Additional Past Surgical History / Comment(s): back surg x7, L knee, Yared. shoulders, nose surgery, hiatal hernia, stent 1997, CABG. Past Anesthesia/Blood Transfusion Reactions: No Reported Reaction Additional Past Anesthesia/Blood Transfusion Reaction / Comment(s): experienced stroke during last back surgery Date of Last Stent Placement:: june 1997 Past Psychological History: Anxiety Additional Psychological History / Comment(s): xanax, Smoking Status: Never smoker Past Alcohol Use History: None Reported Past Drug Use History: None Reported - Past Family History Father Family Medical History: Coronary Artery Disease (CAD) Medications and Allergies Home Medications Medication Instructions Recorded Confirmed Type Cetirizine HCl [Zyrtec] 10 mg PO DAILY 06/14/14 02/17/18 History Citalopram Hydrobromide [CeleXA] 20 mg PO HS 06/14/14 02/17/18 History Clopidogrel [Plavix] 75 mg PO DAILY 06/14/14 02/17/18 History Fenofibrate Nanocrystallized 145 mg PO AC-SUPPER 06/14/14 02/17/18 History [Tricor] Insulin Detemir [Levemir Flextouch] 35 units SQ HS 06/14/14 02/17/18 History Vit A/Vit C/Vit E/Zinc/Copper 1 cap PO BID 06/14/14 02/17/18 History [ICAPS SOFTGEL] Cholecalciferol [Vitamin D3] 1,000 unit PO DAILY 10/06/14 02/17/18 History Aspirin EC [Ecotrin Low Dose] 81 mg PO AC-SUPPER 06/28/17 02/17/18 History Rosuvastatin [Crestor] 20 mg PO HS 06/28/17 02/17/18 History Carboxymethylcellulose Sodium 1 drop BOTH EYES BID 07/23/17 02/17/18 History [Refresh Tears] Pantoprazole [Protonix] 40 mg PO AC-SUPPER 07/23/17 02/17/18 History Polyethylene Glycol 3350 [Miralax] 17 gm PO HS 07/23/17 02/17/18 History ALPRAZolam [Xanax] 0.5 mg PO HS 10/21/17 02/17/18 History Tamsulosin [Flomax] 0.8 mg PO HS 10/21/17 02/17/18 History Losartan/Hydrochlorothiazide 1 tab PO AC-SUPPER 01/14/18 02/17/18 History [Losartan-Hctz 100-12.5 mg Tab] Morphine Sulfate ER [Ms Contin] 30 mg PO Q12H 01/14/18 02/17/18 History Insulin Lispro [humaLOG Kwikpen] 30 unit SQ AC-BRKFST 02/17/18 02/17/18 History Insulin Lispro [humaLOG Kwikpen] 35 unit SQ AC-SUPPER 02/17/18 02/17/18 History Allergies Allergy/AdvReac Type Severity Reaction Status Date / Time celecoxib [From Celebrex] Allergy Rash/Hives Verified 02/17/18 19:34 gabapentin [From Neurontin] Allergy Swelling Verified 02/17/18 19:34 levofloxacin [From Levaquin] Allergy Unknown Verified 02/17/18 19:34 sulfamethoxazole Allergy Unknown Verified 02/17/18 19:34 [From Bactrim] trimethoprim [From Bactrim] Allergy Unknown Verified 02/17/18 19:34 hydrocodone AdvReac Trouble Verified 02/17/18 19:34 Sleeping Physical Exam Vitals: Vital Signs Temp Pulse Pulse Resp BP BP Pulse Ox 02/18/18 03:58 18 02/17/18 23:54 97.6 F 70 18 145/83 98 02/17/18 22:52 86 16 170/90 98 02/17/18 19:26 98.1 F 80 13 180/83 100 Intake and Output 02/17/18 02/18/18 02/18/18 22:59 06:59 14:59 Intake Total 180 Output Total 200 Balance -20 Intake: Oral 180 Output: Urine 200 Other: Voiding Method Incontinent # Voids 1 Weight 77.111 kg PHYSICAL EXAMINATION: Patient is lying in the bed comfortably, no acute distress, awake alert and oriented but confused.. HEENT: Normocephalic. Neck is supple. Pupils reactive. Nostrils clear. Oral cavity is moist. Ears reveal no drainage. Neck reveals no JVD, carotid bruits, or thyromegaly. CHEST EXAMINATION: Trachea is central. Symmetrical expansion. Lung jordan clear to auscultation and percussion. CARDIAC: Normal S1, S2 with no gallops. No murmurs ABDOMEN: Soft. Bowel sounds normal. No organomegaly. No abdominal bruits. Extremities: reveal no edema. No clubbing or cyanosis Neurologically awake, alert, confused and paranoid with well-coordinated movements. No focal deficits noted Skin: No rash or skin lesions. Psychiatric: Not cooperative. Paranoid Musculoskeletal: No joint swelling or deformity. Normal range of motion. Results CBC & Chem 7: 02/18/18 06:52 02/18/18 06:52 Labs: Abnormal Lab Results - Last 24 Hours (Table) 02/17/18 02/17/18 02/17/18 Range/Units 19:45 19:45 21:15 Neutrophils # 7.9 H (1.3-7.7) k/uL BUN 21 H (9-20) mg/dL Glucose (74-99) mg/dL POC Glucose (mg/dL) 117 H (75-99) mg/dL Urine Protein (Negative) 02/17/18 02/18/18 Range/Units Unknown 06:52 Neutrophils # (1.3-7.7) k/uL BUN (9-20) mg/dL Glucose 191 H (74-99) mg/dL POC Glucose (mg/dL) (75-99) mg/dL Urine Protein Trace H (Negative) Microbiology - Last 24 Hours (Table) 02/17/18 Unknown Urine Culture - Preliminary Urine,Voided Thrombosis Risk Factor Assmnt - DVT/VTE Prophylaxis DVT/VTE Prophylaxis: Pharmacologic Prophylaxis ordered - Choose All That Apply Any of the Below Risk Factors Present?: Yes Other Risk Factors: Yes Each Risk Factor Represents 3 Points: Age 75 years or older Thrombosis Risk Factor Assessment Total Risk Factor Score: 3 Thrombosis Risk Factor Assessment Level: Moderate Risk Assessment and Plan Assessment: Acute psychosis with paranoid ideation Possible dementia and behavioral changes Recent urinary tract infection and rehab. 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 Patient will be continued on home medications including pain medications in the form of long-acting morphine and insulin dosing. Continue the home medications and psychiatry was consulted for further evaluation. Sitter at bedside. Further recommendations based on the clinical course. Will discuss with with the family at bedside when available. Time with Patient: Greater than 30
[2018-02-18] MEDS: LOSARTAN 50 MG TAB PO SCH (19:09)
[2018-02-18] MEDS: FENOFIBRATE 160 MG TAB PO SCH (19:10)
[2018-02-18] MEDS ORDERED: hydrALAZINE HCL 25 MG TAB PO SCH (20:15)
[2018-02-18 20:29] LABS: Glucose,Whole Blood 243 mg/dL (75-99)
[2018-02-18] MEDS: CITALOPRAM HYDROBROMIDE 20 MG TAB PO SCH (20:54)
[2018-02-18] MEDS: ALPRAZolam 0.5 MG TAB PO SCH (20:54)
[2018-02-18] MEDS: ATORVASTATIN 40 MG TAB PO SCH (20:54)
[2018-02-18] MEDS: INSULIN DETEMIR 100 UNIT/ML 10 ML VIAL SQ SCH (20:55)
[2018-02-18] MEDS: ARTIFICIAL TEARS-HYPROMELLOSE DROPS 15 ML BTL BOTH EYES SCH (20:55)
[2018-02-18] MEDS: TAMSULOSIN 0.4 MG CAP.ER.24H PO SCH (22:31)
[2018-02-18] MEDS: VIT A,C & E-LUTEIN-MINERALS 1 EACH TAB PO SCH (22:57)
[2018-02-19] MEDS: MORPHINE SULFATE ER 30 MG TABLET PO SCH ×2 (03:40→23:23)
[2018-02-19] MEDS: INSULIN ASPART 100 UNIT/ML 1 ML 10 ML VIAL SQ SCH ×6 (07:39→21:13)
[2018-02-19 07:44] LABS: Glucose,Whole Blood 97 mg/dL (75-99)
[2018-02-19] MEDS ORDERED: hydrOXYzine HCL 25 MG TAB PO SCH (09:00)
[2018-02-19] MEDS ORDERED: hydrALAZINE HCL 25 MG TAB PO STA (09:33)
[2018-02-19] MEDS: VIT A,C & E-LUTEIN-MINERALS 1 EACH TAB PO SCH ×2 (10:38→22:55)
[2018-02-19] MEDS: CHOLECALCIFEROL 1,000 UNIT TAB PO SCH (10:39)
[2018-02-19] MEDS: CLOPIDOGREL 75 MG TAB PO SCH (10:39)
[2018-02-19] MEDS: ARTIFICIAL TEARS-HYPROMELLOSE DROPS 15 ML BTL BOTH EYES SCH ×2 (10:40→21:12)
[2018-02-19 12:41] LABS: Glucose,Whole Blood 272 mg/dL (75-99)
[2018-02-19 14:12] LABS: Glucose,Whole Blood 339 mg/dL (75-99)
[2018-02-19] MEDS ORDERED: INSULIN ASPART 100 UNIT/ML 1 ML 10 ML VIAL SQ ONE (14:15)
--- NOTE | 2018-02-19 14:27 | P.CN ---
Psychiatric Consult - . Consult date: 02/19/18 Consult:: 02/19/18 14:25 Identifying Information Patient was admitted to medicine with Altered mental status. Psychiatry was consulted to evaluate the patient . Chief complaint Patient does not know why he is in the hospital. History of presenting illness Patient was sitting comfortably in the chair next to his bed. He knows he is in [facility]. Patient was able to identify his daughter and his grandson who were in the room with him. Patient was unable to tell his age but was able to tell his date of as 31. He was unable to tell the date, month or the season. 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 He stated he likes watching foot ball game. His grandson states he also likes [employer] race but patient had difficulty repeating [place]. Per patients daughter patient was very coherent and not confused a week ago when she visited him at home. Per patients daughter patient gets home health care and visits by a nurse and social services counselor. According to the daughter patients pain medication mscontin dose has been doubled recently and believes that patient might have received more xanax than prescribed with in the last few days as patient was not making sense and becoming more vocal . Per daughter patients confusion might be more of medication induced than anything else. Patient stated sometimes him and his doesnt get along well but denies getting physically aggressive with her. He says he likes to do what he likes and she likes to do what she likes. Per patients daughter, patients Radha is concerned about patients safety and does not want him to be walking around due to fear of falls and likes him to stay medicated. Patients daughter says patient gets celexa and xanax from his primary care physician. Patient denies history of depression and denies current suicidal or homicidal ideations. He says he likes k[employer]ie [place] raw hamburger. He denies auditory or visual hallucinations. Per hospital staff patient hasnt been physically aggressive but does get verbally nasty at times. Per staff patient gets confused and incoherent at times and at other times he is more coherent and pleasant. Per medical records patients states that he has been confused and combative since coming home two weeks ago. Past psychiatric history Denies psychiatric hospitalizations. He gets celexa and xanax from primary care physician. Substance use history Patient denies use of illicit drugs. Legal problems Unknown Family psychiatric treatment history unknown Medical history Per medical records last month he was hospitalized with a UTI and subsequent sepsis. patient was discharged to a skilled nursing and has been home since two weeks. Coronary Artery Disease , CVA/TIA, Hyperlipidemia, Hypertension Mental status exam 82 year old male, dressed in hospital gown, appeared his stated age. The patient is alert and oriented to self and place only. Not in apparent distress. Speech is slow, low in volume and rate. He struggles to find words to explain. His thought process is delayed. No abnormal movements noted. Mood is "okay" and affect is reactive. Denies suicidal or homicidal ideations. Diagnosis Cognitive disorder NOS Altered mental status and confusion could be related to excessive use of pain medications and xanax. Plan 82 -year-old male admitted through emergency department with altered mental status. Obtain collateral information from No psychiatric interventions required at this time. Once the patient is more coherent and less confused psychiatry can be consulted again if needed. Thank you for allowing us to participate in the care of this interesting patient. 02/19/18 14:28
[2018-02-19 17:47] LABS: Glucose,Whole Blood 137 mg/dL (75-99)
[2018-02-19] MEDS: ASPIRIN 81 MG PO SCH (18:04)
[2018-02-19] MEDS: LOSARTAN-HCTZ 50-12.5 MG 1 EACH TAB PO SCH (18:04)
[2018-02-19] MEDS: FENOFIBRATE 160 MG TAB PO SCH (18:04)
[2018-02-19] MEDS: PANTOPRAZOLE 40 MG TABLET PO SCH (18:04)
[2018-02-19] MEDS: LOSARTAN 50 MG TAB PO SCH (18:04)
[2018-02-19 20:24] LABS: Glucose,Whole Blood 114 mg/dL (75-99)
[2018-02-19] MEDS: CITALOPRAM HYDROBROMIDE 20 MG TAB PO SCH (21:12)
[2018-02-19] MEDS: ATORVASTATIN 40 MG TAB PO SCH (21:12)
[2018-02-19] MEDS: INSULIN DETEMIR 100 UNIT/ML 10 ML VIAL SQ SCH (21:13)
[2018-02-19] MEDS: hydrALAZINE HCL 25 MG TAB PO SCH (21:13)
[2018-02-19] MEDS: TAMSULOSIN 0.4 MG CAP.ER.24H PO SCH (21:21)
--- NOTE | 2018-02-19 22:04 | P.PN ---
Subjective Progress Note Date: 02/19/18 Principal diagnosis: Acute psychosis with paranoid ideation Cognitive disorder Patient is a 82-year-old male with a known history of coronary artery disease and stent placement, CVA/TIA with leg weakness, hypertension, diabetes, hyperlipidemia was brought to the hospital by his due to aggressiveness and combative at home. Patient is a poor historian and is paranoid about hitting someone. History was taken from the medical records and ER note and from the family. Patient's accompanies him to the ED last night and states that last month he was hospitalized with a UTI and subsequent sepsis. patient was discharged to a longterm and is now at home. his states that he has been confused and combative since coming home. she states that he has not been himself lately. the patient denies any complaints except chronic back pain, but he is noted to be very verbally abusive toward his and he does not want her to be with him in the exam room. the states this is not like him. no further complaints. Patient denied any chest pain or shortness of breath. No fever no chills. No abdominal pain nausea or vomiting. CT head showed cerebral atrophy and chronic small bowel ischemia. No acute intracranial abnormality. No change. Chest x-ray showed no acute cardiopulmonary process. EKG showed normal sinus rhythm. UA negative No electrolyte abnormalities. 02/19/2018 Patient is still confused but less paranoid than yesterday. Acute confusion could be secondary to narcotic pain medications. Oxycodone dose has been decreased to twice daily compared to 3 times daily at home. Xanax and Restoril were discontinued. Patient was seen by psychiatric and recommended to reconsult once confusion improves. No fever no chills. Denied any chest pain or shortness of breath. Discussed with family members at bedside in detail. Current medications reviewed Objective - Vital Signs Vital signs: Vital Signs Temp 98.6 F 02/19/18 07:20 Pulse 70 02/19/18 07:20 Resp 16 02/19/18 07:20 BP 173/79 02/19/18 07:20 Pulse Ox 94 L 02/19/18 07:20 Intake & Output 02/18/18 02/19/18 02/19/18 18:59 06:59 18:59 Intake Total 298 800 Output Total 200 800 700 Balance 98 -800 100 Intake: Oral 298 800 Output: Urine 200 800 700 Other: Voiding Method Incontinent # Voids 1 3 # Bowel Movements 1 - Exam PHYSICAL EXAMINATION: Patient is lying in the bed comfortably, no acute distress, awake alert and oriented but confused.. HEENT: Normocephalic. Neck is supple. Pupils reactive. Nostrils clear. Oral cavity is moist. Ears reveal no drainage. Neck reveals no JVD, carotid bruits, or thyromegaly. CHEST EXAMINATION: Trachea is central. Symmetrical expansion. Lung jordan clear to auscultation and percussion. CARDIAC: Normal S1, S2 with no gallops. No murmurs ABDOMEN: Soft. Bowel sounds normal. No organomegaly. No abdominal bruits. Extremities: reveal no edema. No clubbing or cyanosis Neurologically awake, alert, oriented x2-3 with well-coordinated movements. No focal deficits noted Skin: No rash or skin lesions. Psychiatric: Coperative. Nonsuicidal Musculoskeletal: No joint swelling or deformity. Normal range of motion. - Labs CBC & Chem 7: 02/18/18 06:52 02/18/18 06:52 Labs: Abnormal Lab Results - Last 24 Hours (Table) 02/18/18 02/18/18 02/19/18 Range/Units 17:45 20:18 12:28 POC Glucose (mg/dL) 190 H 243 H 272 H (75-99) mg/dL 02/19/18 Range/Units 14:00 POC Glucose (mg/dL) 339 H (75-99) mg/dL Microbiology - Last 24 Hours (Table) 02/17/18 Unknown Urine Culture - Final Urine,Voided Assessment and Plan Assessment: Acute psychosis with paranoid ideation. Possible dementia and behavioral changes No cortical pain medication use/withdrawal Recent urinary tract infection and rehab. 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 Patient will be continued on home medications including pain medications in the form of long-acting morphine and insulin dosing. Continue with morphine 30 mg every 12. Continue the home medications and psychiatry was consulted for further evaluation. Sitter at bedside. Further recommendations based on the clinical course. Discussed with with the family at bedside when available.
[2018-02-19] MEDS: ALPRAZolam 0.5 MG TAB PO SCH (23:20)
[2018-02-20] MEDS: MORPHINE SULFATE ER 30 MG TABLET PO SCH ×4 (06:20→20:37)
[2018-02-20 07:13] LABS: Glucose,Whole Blood 169 mg/dL (75-99)
[2018-02-20] MEDS: INSULIN ASPART 100 UNIT/ML 1 ML 10 ML VIAL SQ SCH ×6 (09:06→20:41)
[2018-02-20] MEDS: hydrALAZINE HCL 25 MG TAB PO SCH ×2 (09:36→20:38)
[2018-02-20] MEDS: CHOLECALCIFEROL 1,000 UNIT TAB PO SCH (09:36)
[2018-02-20] MEDS: VIT A,C & E-LUTEIN-MINERALS 1 EACH TAB PO SCH ×2 (09:36→21:15)
[2018-02-20] MEDS: CLOPIDOGREL 75 MG TAB PO SCH (09:36)
[2018-02-20 11:17] LABS: Glucose,Whole Blood 124 mg/dL (75-99)
[2018-02-20] MEDS: ARTIFICIAL TEARS-HYPROMELLOSE DROPS 15 ML BTL BOTH EYES SCH ×2 (17:03→21:15)
[2018-02-20 17:13] LABS: Glucose,Whole Blood 292 mg/dL (75-99)
[2018-02-20] MEDS: FENOFIBRATE 160 MG TAB PO SCH (18:03)
[2018-02-20] MEDS: LOSARTAN 50 MG TAB PO SCH (18:03)
[2018-02-20] MEDS: ASPIRIN 81 MG PO SCH (18:03)
[2018-02-20] MEDS: LOSARTAN-HCTZ 50-12.5 MG 1 EACH TAB PO SCH (18:03)
[2018-02-20] MEDS: PANTOPRAZOLE 40 MG TABLET PO SCH (18:03)
[2018-02-20] MEDS: ALPRAZolam 0.5 MG TAB PO SCH (20:37)
[2018-02-20] MEDS: ATORVASTATIN 40 MG TAB PO SCH (20:38)
[2018-02-20] MEDS: CITALOPRAM HYDROBROMIDE 20 MG TAB PO SCH (20:38)
[2018-02-20] MEDS: TAMSULOSIN 0.4 MG CAP.ER.24H PO SCH (20:38)
[2018-02-20 20:39] LABS: Glucose,Whole Blood 97 mg/dL (75-99)
[2018-02-20] MEDS: INSULIN DETEMIR 100 UNIT/ML 10 ML VIAL SQ SCH (21:15)
--- NOTE | 2018-02-20 23:25 | P.PN ---
Subjective Progress Note Date: 02/20/18 Principal diagnosis: Acute psychosis with paranoid ideation Cognitive disorder Patient is a 82-year-old male with a known history of coronary artery disease and stent placement, CVA/TIA with leg weakness, hypertension, diabetes, hyperlipidemia was brought to the hospital by his due to aggressiveness and combative at home. Patient is a poor historian and is paranoid about hitting someone. History was taken from the medical records and ER note and from the family. Patient's accompanies him to the ED last night and states that last month he was hospitalized with a UTI and subsequent sepsis. patient was discharged to a alf and is now at home. his states that he has been confused and combative since coming home. she states that he has not been himself lately. the patient denies any complaints except chronic back pain, but he is noted to be very verbally abusive toward his and he does not want her to be with him in the exam room. the states this is not like him. no further complaints. Patient denied any chest pain or shortness of breath. No fever no chills. No abdominal pain nausea or vomiting. CT head showed cerebral atrophy and chronic small bowel ischemia. No acute intracranial abnormality. No change. Chest x-ray showed no acute cardiopulmonary process. EKG showed normal sinus rhythm. UA negative No electrolyte abnormalities. 02/19/2018 Patient is still confused but less paranoid than yesterday. Acute confusion could be secondary to narcotic pain medications. Oxycodone dose has been decreased to twice daily compared to 3 times daily at home. Xanax and Restoril were discontinued. Patient was seen by psychiatric and recommended to reconsult once confusion improves. No fever no chills. Denied any chest pain or shortness of breath. Discussed with family members at bedside in detail. 02/20/2018 Patient is still confused today. Much more oriented otherwise. No complaints of chest pain or shortness of breath. No fever no chills. No other acute overnight issues. [facility] is following for rehab placement. Current medications reviewed Objective - Vital Signs Vital signs: Vital Signs Temp 98.5 F 02/20/18 15:00 Pulse 62 02/20/18 15:00 Resp 18 02/20/18 15:00 BP 188/67 02/20/18 15:00 Pulse Ox 97 10/29/18 15:00 Intake & Output 02/19/18 02/20/18 02/20/18 18:59 06:59 18:59 Intake Total 1060 200 Output Total 700 Balance 360 200 Intake: Oral 1060 200 Output: Urine 700 Other: Voiding Method Incontinent Incontinent # Voids 3 2 2 # Bowel Movements 1 1 - Exam PHYSICAL EXAMINATION: Patient is lying in the bed comfortably, no acute distress, awake alert and oriented but confused.. HEENT: Normocephalic. Neck is supple. Pupils reactive. Nostrils clear. Oral cavity is moist. Ears reveal no drainage. Neck reveals no JVD, carotid bruits, or thyromegaly. CHEST EXAMINATION: Trachea is central. Symmetrical expansion. Lung jordan clear to auscultation and percussion. CARDIAC: Normal S1, S2 with no gallops. No murmurs ABDOMEN: Soft. Bowel sounds normal. No organomegaly. No abdominal bruits. Extremities: reveal no edema. No clubbing or cyanosis Neurologically awake, alert, oriented x2-3 with well-coordinated movements. No focal deficits noted Skin: No rash or skin lesions. Psychiatric: Coperative. Nonsuicidal Musculoskeletal: No joint swelling or deformity. Normal range of motion. - Labs CBC & Chem 7: 02/18/18 06:52 02/18/18 06:52 Labs: Abnormal Lab Results - Last 24 Hours (Table) 02/19/18 02/19/18 02/20/18 Range/Units 17:35 20:12 07:02 POC Glucose (mg/dL) 137 H 114 H 169 H (75-99) mg/dL 02/20/18 Range/Units 11:06 POC Glucose (mg/dL) 124 H (75-99) mg/dL Assessment and Plan Assessment: Acute psychosis with paranoid ideation. Possible dementia and behavioral changes No cortical pain medication use/withdrawal Recent urinary tract infection and rehab. 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 Patient will be continued on home medications including pain medications in the form of long-acting morphine and insulin dosing. Continue with morphine 30 mg every 12. Continue the home medications and psychiatry was consulted for further evaluation. Sitter at bedside. Further recommendations based on the clinical course. Discussed with with the family at bedside when available.
[2018-02-21 07:03] LABS: Glucose,Whole Blood 123 mg/dL (75-99)
[2018-02-21] MEDS: INSULIN ASPART 100 UNIT/ML 1 ML 10 ML VIAL SQ SCH ×6 (07:05→20:08)
[2018-02-21] MEDS: hydrALAZINE HCL 25 MG TAB PO SCH ×2 (08:02→20:07)
[2018-02-21] MEDS: MORPHINE SULFATE ER 30 MG TABLET PO SCH (08:02)
[2018-02-21] MEDS: CLOPIDOGREL 75 MG TAB PO SCH (08:02)
[2018-02-21] MEDS: CHOLECALCIFEROL 1,000 UNIT TAB PO SCH (08:03)
[2018-02-21] MEDS: VIT A,C & E-LUTEIN-MINERALS 1 EACH TAB PO SCH ×2 (08:03→20:08)
[2018-02-21] MEDS: ARTIFICIAL TEARS-HYPROMELLOSE DROPS 15 ML BTL BOTH EYES SCH ×2 (08:03→20:07)
[2018-02-21 11:21] LABS: Glucose,Whole Blood 131 mg/dL (75-99)
[2018-02-21] MEDS ORDERED: ALPRAZolam 0.5 MG TAB PO PRN (11:46)
--- NOTE | 2018-02-21 15:13 | P.PN ---
Subjective Progress Note Date: 02/21/18 Progress note being dictated for Dr. Hart. Acute psychosis with paranoid ideation Cognitive disorder Interval history:Patient is a 82-year-old male with a known history of coronary artery disease and stent placement, CVA/TIA with leg weakness, hypertension, diabetes, hyperlipidemia was brought to the hospital by his due to aggressiveness and combative at home. Patient is a poor historian and is paranoid about hitting someone. History was taken from the medical records and ER note and from the family. Patient's accompanies him to the ED last night and states that last month he was hospitalized with a UTI and subsequent sepsis. patient was [facility] a jail and is now at home. his states that he has been confused and combative since coming home. she states that he has not been himself lately. the patient denies any complaints except chronic back pain, but he is noted to be very verbally abusive toward his and he does not want her to be with him in the exam room. the states this is not like him. no further complaints. Patient denied any chest pain or shortness of breath. No fever no chills. No abdominal pain nausea or vomiting. CT head showed cerebral atrophy and chronic small bowel ischemia. No acute intracranial abnormality. No change. Chest x-ray showed no acute cardiopulmonary process. EKG showed normal sinus rhythm. UA negative No electrolyte abnormalities. 02/19/2018 Patient is still confused but less paranoid than yesterday. Acute confusion could be secondary to narcotic pain medications. Oxycodone dose has been decreased to twice daily compared to 3 times daily at home. Xanax and Restoril were discontinued. Patient was seen by psychiatric and recommended to reconsult once confusion improves. No fever no chills. Denied any chest pain or shortness of breath. Discussed with family members at bedside in detail. 02/20/2018 Patient is still confused today. Much more oriented otherwise. No complaints of chest pain or shortness of breath. No fever no chills. No other acute overnight issues. [facility] is following for rehab placement. Current medications reviewed 02/21/2018 evaluated by psychiatry with recommendations noted. Arousable, but sleepy this morning .Requires a 2 person assist. PT/OT. Potential subacute rehab discussed with family at bedside. Denies chest pain, palpitations or increased shortness of breath. Objective - Vital Signs Vital signs: Vital Signs Temp 98.4 F 02/21/18 09:11 Pulse 53 L 02/21/18 09:11 Resp 18 02/21/18 09:11 BP 172/63 02/21/18 09:11 Pulse Ox 95 02/21/18 09:11 Intake & Output 02/20/18 02/21/18 02/21/18 18:59 06:59 18:59 Intake Total 350 Balance 350 Intake: Oral 350 Other: Voiding Method Incontinent Incontinent Incontinent # Voids 2 1 # Bowel Movements 1 - Exam PHYSICAL EXAMINATION: Patient is lying in the bed comfortably, no acute distress, sleepy, arousable .oriented but confused.. HEENT: Normocephalic. Neck is supple. Pupils reactive. Nostrils clear. Oral cavity is moist. Ears reveal no drainage. Neck reveals no JVD, carotid bruits, or thyromegaly. CHEST EXAMINATION: Trachea is central. Symmetrical expansion. Lung jordan clear to auscultation and percussion. CARDIAC: Normal S1, S2 with no gallops. No murmurs ABDOMEN: Soft. Bowel sounds normal. No organomegaly. No abdominal bruits. Extremities: reveal no edema. No clubbing or cyanosis Neurologically awake, alert, oriented x2 with well-coordinated movements. No focal deficits noted Skin: No rash or skin lesions. Psychiatric: Coperative. Nonsuicidal Musculoskeletal: No joint swelling or deformity. Normal range of motion. - Labs CBC & Chem 7: 02/18/18 06:52 02/18/18 06:52 Labs: Abnormal Lab Results - Last 24 Hours (Table) 02/20/18 02/21/18 02/21/18 Range/Units 17:01 06:52 11:10 POC Glucose (mg/dL) 292 H 123 H 131 H (75-99) mg/dL Assessment and Plan Assessment: Acute psychosis with paranoid ideation. Possible dementia and behavioral changes No cortical pain medication use/withdrawal Recent urinary tract infection and rehab. 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 Xanax changed to when necessary. Scheduled Morphine dose decreased , given patient's sleepy. PT/OT. Potential subacute rehab at discharge. Further recommendations to follow. Prognosis guarded given multiple complex medical issues. The impression and plan of care has been dictated as directed. : I performed a history and examination of this patient, discussed the same with the dictator. I agree with the dictator's note ,documented as a scribe. Any additional findings or plans will be noted.
[2018-02-21 16:00] LABS: Basophils % (A) 0 %; Eosinophils # (A) 0.1 k/uL (0-0.7); Eosinophils % (A) 2 %; HCT 43.9 % (39.0-53.0); Lymphocytes # (A) 2.1 k/uL (1.0-4.8); Lymphocytes % (A) 30 %; MCH 30.1 pg (25.0-35.0); MCHC 31.8 g/dL (31.0-37.0); MCV 94.5 fL (80.0-100.0); Mean Platelet Volume 6.7; Monocytes # (A) 0.5 k/uL (0-1.0); Monocytes % (A) 7 %; Neutrophils % (A) 59 %; Platelet Count 330 k/uL (150-450); RBC 4.64 m/uL (4.30-5.90); RDW 14.4 % (11.5-15.5); WBC 6.9 k/uL (3.8-10.6)
[2018-02-21 16:18] LABS: Calcium 9.5 mg/dL (8.4-10.2); Potassium 4.1 mmol/L (3.5-5.1)
[2018-02-21 17:10] LABS: Glucose,Whole Blood 283 mg/dL (75-99)
[2018-02-21] MEDS: FENOFIBRATE 160 MG TAB PO SCH (17:38)
[2018-02-21] MEDS: PANTOPRAZOLE 40 MG TABLET PO SCH (17:38)
[2018-02-21] MEDS: LOSARTAN 50 MG TAB PO SCH (17:39)
[2018-02-21] MEDS: ASPIRIN 81 MG PO SCH (17:39)
[2018-02-21] MEDS: LOSARTAN-HCTZ 50-12.5 MG 1 EACH TAB PO SCH (17:39)
[2018-02-21] MEDS: ATORVASTATIN 40 MG TAB PO SCH (20:07)
[2018-02-21] MEDS: CITALOPRAM HYDROBROMIDE 20 MG TAB PO SCH (20:07)
[2018-02-21] MEDS: MORPHINE SULFATE ER 15 MG TABLET PO SCH (20:07)
[2018-02-21] MEDS: TAMSULOSIN 0.4 MG CAP.ER.24H PO SCH (20:07)
[2018-02-21 20:08] LABS: Glucose,Whole Blood 120 mg/dL (75-99)
[2018-02-21] MEDS: INSULIN DETEMIR 100 UNIT/ML 10 ML VIAL SQ SCH (21:15)
[2018-02-21 22:10] LABS: Glucose,Whole Blood 44 mg/dL (75-99)
[2018-02-21 22:19] LABS: Glucose,Whole Blood 50 mg/dL (75-99)
[2018-02-21 22:37] LABS: Glucose,Whole Blood 58 mg/dL (75-99)
[2018-02-21 23:00] LABS: Glucose,Whole Blood 83 mg/dL (75-99)
[2018-02-22 07:13] LABS: Glucose,Whole Blood 189 mg/dL (75-99)
[2018-02-22] MEDS: INSULIN ASPART 100 UNIT/ML 1 ML 10 ML VIAL SQ SCH ×3 (08:37→12:23)
[2018-02-22] MEDS: ARTIFICIAL TEARS-HYPROMELLOSE DROPS 15 ML BTL BOTH EYES SCH (08:42)
[2018-02-22] MEDS: VIT A,C & E-LUTEIN-MINERALS 1 EACH TAB PO SCH (08:42)
[2018-02-22] MEDS: CLOPIDOGREL 75 MG TAB PO SCH (08:43)
[2018-02-22] MEDS: CHOLECALCIFEROL 1,000 UNIT TAB PO SCH (08:43)
[2018-02-22] MEDS: MORPHINE SULFATE ER 15 MG TABLET PO SCH (08:43)
[2018-02-22] MEDS: hydrALAZINE HCL 25 MG TAB PO SCH (08:44)
[2018-02-22 11:46] LABS: Glucose,Whole Blood 222 mg/dL (75-99)
[2018-02-22 15:34] VITALS: BP 163/66; PULSE 63; RESP 18; TEMP 99.2
[2018-02-22] MEDS ORDERED: INSULIN DETEMIR 100 UNIT/ML 10 ML VIAL SQ SCH (21:00)
--- NOTE | 2018-02-23 17:16 | P.DS ---
Providers Date of admission: 02/19/18 14:40 Expected date of discharge: 02/23/18 Attending physician: Eagle Hart Consults: 02/17/18 22:58 Consult Physician Routine Consulting Provider: Gilberto Faustin Consult Reason/Comments: ams, possible dimentia, sundowning Do you want consulting provider notified?: Already Contacted Primary care physician: Alycia Cook Hospital Course: Final diagnoses Acute psychosis with paranoid ideation. Possible dementia and behavioral changes No cortical pain medication use/withdrawal Recent urinary tract infection and rehab. 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 Patient is a poor historian and is paranoid about hitting someone. History was taken from the medical records and ER note and from the family. Patient's accompanies him to the ED last night and states that last month he was hospitalized with a UTI and subsequent sepsis. patient was discharged to a senior living and is now at home. his states that he has been confused and combative since coming home. she states that he has not been himself lately. the patient denies any complaints except chronic back pain, but he is noted to be very verbally abusive toward his and he does not want her to be with him in the exam room. the states this is not like him. no further complaints. Patient denied any chest pain or shortness of breath. No fever no chills. No abdominal pain nausea or vomiting. CT head showed cerebral atrophy and chronic small bowel ischemia. No acute intracranial abnormality. No change. Chest x-ray showed no acute cardiopulmonary process. EKG showed normal sinus rhythm. UA negative No electrolyte abnormalities. Meds adjusted, including Xanax changed to when necessary, MS Contin dose decreased and also changed to when necessary. Evaluated by psychiatry. Diabetic meds further adjusted. Significant clinical improvement. Subacute rehab recommended that patient and significant other declined at this time. Patient is being discharged home with in a stable condition with guarded prognosis. EXAMINATION: Patient is sitting up in chair, alert and oriented X2, no acute distress. CHEST EXAMINATION: Trachea is central. Symmetrical expansion. Lung jordan clear to auscultation and percussion. CARDIAC: Normal S1, S2 with no gallops. No murmurs ABDOMEN: Soft. Bowel sounds normal. No organomegaly. No abdominal bruits. Neurologically awake, alert, oriented x2 with well-coordinated movements. No focal deficits noted The impression and plan of care has been dictated as directed. : I performed a history and examination of this patient, discussed the same with the dictator. I agree with the dictator's note ,documented as a scribe. Any additional findings or plans will be noted. Time taken: 35 minutes Patient Condition at Discharge: Stable Plan - Discharge Summary New Discharge Prescriptions: New Insulin Detemir [Levemir] 25 unit SQ HS #1 syr INSULIN LISPRO (HumaLOG) [humaLOG] 0 unit SQ ACHS #1 vial Morphine Sulfate ER [Ms Contin] 15 mg PO 0900,2100 3 Days #6 tablet Continue Insulin Detemir [Levemir Flextouch] 35 units SQ HS Cetirizine HCl [Zyrtec] 10 mg PO DAILY Vit A/Vit C/Vit E/Zinc/Copper [ICAPS SOFTGEL] 1 cap PO BID Citalopram Hydrobromide [CeleXA] 20 mg PO HS Clopidogrel [Plavix] 75 mg PO DAILY Fenofibrate Nanocrystallized [Tricor] 145 mg PO AC-SUPPER Cholecalciferol [Vitamin D3] 1,000 unit PO DAILY Rosuvastatin [Crestor] 20 mg PO HS Aspirin EC [Ecotrin Low Dose] 81 mg PO AC-SUPPER Polyethylene Glycol 3350 [Miralax] 17 gm PO HS Carboxymethylcellulose Sodium [Refresh Tears] 1 drop BOTH EYES BID Pantoprazole [Protonix] 40 mg PO AC-SUPPER Tamsulosin [Flomax] 0.8 mg PO HS ALPRAZolam [Xanax] 0.5 mg PO HS Losartan/Hydrochlorothiazide [Losartan-Hctz 100-12.5 mg Tab] 1 tab PO AC- SUPPER Changed Morphine Sulfate ER [Ms Contin] 15 mg PO Q12H #0 Discontinued Insulin Lispro [humaLOG Kwikpen] 35 unit SQ AC-SUPPER Insulin Lispro [humaLOG Kwikpen] 30 unit SQ AC-BRKFST Discharge Medication List Cetirizine HCl [Zyrtec] 10 mg PO DAILY 06/14/14 [History] Citalopram Hydrobromide [CeleXA] 20 mg PO HS 06/14/14 [History] Clopidogrel [Plavix] 75 mg PO DAILY 06/14/14 [History] Fenofibrate Nanocrystallized [Tricor] 145 mg PO AC-SUPPER 06/14/14 [History] Insulin Detemir [Levemir Flextouch] 35 units SQ HS 06/14/14 [History] Vit A/Vit C/Vit E/Zinc/Copper [ICAPS SOFTGEL] 1 cap PO BID 06/14/14 [History] Cholecalciferol [Vitamin D3] 1,000 unit PO DAILY 10/06/14 [History] Aspirin EC [Ecotrin Low Dose] 81 mg PO AC-SUPPER 06/28/17 [History] Rosuvastatin [Crestor] 20 mg PO HS 06/28/17 [History] Carboxymethylcellulose Sodium [Refresh Tears] 1 drop BOTH EYES BID 07/23/17 [ History] Pantoprazole [Protonix] 40 mg PO AC-SUPPER 07/23/17 [History] Polyethylene Glycol 3350 [Miralax] 17 gm PO HS 07/23/17 [History] ALPRAZolam [Xanax] 0.5 mg PO HS 10/21/17 [History] Tamsulosin [Flomax] 0.8 mg PO HS 10/21/17 [History] Losartan/Hydrochlorothiazide [Losartan-Hctz 100-12.5 mg Tab] 1 tab PO AC-SUPPER 01/14/18 [History] INSULIN LISPRO (HumaLOG) [humaLOG] 0 unit SQ ACHS #1 vial 02/22/18 [Rx] Insulin Detemir [Levemir] 25 unit SQ HS #1 syr 02/22/18 [Rx] Morphine Sulfate ER [Ms Contin] 15 mg PO 0900,2100 3 Days #6 tablet 02/22/18 [Rx ] Morphine Sulfate ER [Ms Contin] 15 mg PO Q12H #0 02/22/18 [Rx] Follow up Appointment(s)/Referral(s): Melody Rogers [NON-STAFF] - Joyce,Alycia, DO [Primary Care Provider] - 3 Days Activity/Diet/Wound Care/Special Instructions: Maintain Log of accu cheks achs, take to F/U with PCP for further rec. Diet: COnsist. Carb Activity: lilmited till F/U Discharge Disposition: HOME WITH HOME HEALTH SERVICES
--- NOTE | 2018-02-24 09:15 | CDI ---
Documentation Clarification Form Date: 02/24/18 From: Vale Krause Phone: If questions, call Nancy Guzmán @ Admit Date: 02/19/2018 2:40:00 PM Patient Name: Omer Thorpe Visit Number: [id number] Discharge Date:02/22/18 ATTENTION: The Clinical Documentation Specialists (CDI) and [facility] Coding Staff appreciate your assistance in clarifying documentation. Please respond to the clarification below the line at the bottom and electronically sign. The CDI & [facility] Coding staff will review the response and follow-up if needed. Please note: Queries are made part of the Legal Health Record. If you have any questions, please contact the author of this message via ITS. Eagle Payne MD Patient was admitted with ams and combative behavior. Final discharge diagnoses include acute psychosis with paranoid ideation, possible dementia and behavioral changes and No cortical pain medication use/withdrawal . Psych consult noted ams and confusion could be related to excessive use of pain medications and Xanax. At discharge, Meds adjusted, including Xanax changed to when necessary, MS Contin dose decreased and also changed to when necessary. In your professional opinion, was the patient's acute psychosis and ams likely or possibly related to dementia with behavioral changes only related also to overuse of Xanax or MS Contin related in part to adverse effect of Xanax or MS Contin related to withdrawal from Xanax or MS Contin Other, please specify Unable to determine related also to overuse of Xanax or MS Contin MTDD
== END 2018-02-22 16:22 | disposition home health service (06) | DRG 918 ==
LOC: EC 19:25 → 4SSUR 22:56 → OBSVTOIN 02-19 14:40 → 4SSUR 02-20 13:47
PROVIDERS: ADMIT Internal Medicine; ATTEND Internal Medicine
DX: T42.4X1A Poisoning by benzodiazepines, accidental (unintentional), initial encounter (principal); F03.91 Unspecified dementia, unspecified severity, with behavioral disturbance; F23 Brief psychotic disorder; T40.2X1A Poisoning by other opioids, accidental (unintentional), initial encounter; Z95.1 Presence of aortocoronary bypass graft; I25.10 Atherosclerotic heart disease of native coronary artery without angina pectoris; Z95.5 Presence of coronary angioplasty implant and graft; G89.29 Other chronic pain; M54.9 Dorsalgia, unspecified; I10 Essential (primary) hypertension; E78.5 Hyperlipidemia, unspecified; Z79.4 Long term (current) use of insulin; E11.9 Type 2 diabetes mellitus without complications; F41.9 Anxiety disorder, unspecified; I69.341 Monoplegia of lower limb following cerebral infarction affecting right dominant side; Z79.02 Long term (current) use of antithrombotics/antiplatelets; Z82.49 Family history of ischemic heart disease and other diseases of the circulatory system; Z79.01 Long term (current) use of anticoagulants; Z79.82 Long term (current) use of aspirin; Z79.899 Other long term (current) drug therapy; Z88.1 Allergy status to other antibiotic agents; Z88.5 Allergy status to narcotic agent; Z88.2 Allergy status to sulfonamides; Z88.8 Allergy status to other drugs, medicaments and biological substances; Z79.891 Long term (current) use of opiate analgesic
CPT/HCPCS: 36415; 70450; 71046; 80048; 80053; 81003; 83036; 84484; 85025; 85610; 85730; 87086; 93005; 96360; 99285

== ENCOUNTER 2018-03-03 19:02 | Inpatient (IN) | payer MEDICARE, OTHER ==
[2018-03-03 21:14] LABS: Basophils % (A) 0 %; Eosinophils % (A) 0 %; HCT 48.5 % (39.0-53.0); HGB 15.6 gm/dL (13.0-17.5); Lymphocytes # (A) 1.8 k/uL (1.0-4.8); Lymphocytes % (A) 16 %; MCH 30.1 pg (25.0-35.0); MCHC 32.2 g/dL (31.0-37.0); MCV 93.5 fL (80.0-100.0); Mean Platelet Volume 6.3; Monocytes # (A) 0.6 k/uL (0-1.0); Monocytes % (A) 6 %; Neutrophils # (A) 8.6 k/uL (1.3-7.7); Neutrophils % (A) 76 %; Platelet Count 326 k/uL (150-450); RBC 5.18 m/uL (4.30-5.90); RDW 14.3 % (11.5-15.5); WBC 11.3 k/uL (3.8-10.6)
--- NOTE | 2018-03-03 21:14 | ED ---
General Adult HPI - General Chief complaint: Psychiatric Symptoms Stated complaint: Agitation Time Seen by Provider: 03/03/18 19:03 Source: patient, family, EMS, RN notes reviewed Mode of arrival: ambulatory Limitations: no limitations - History of Present Illness Initial comments: Patient is an 82-year-old male presenting to the emergency department with family for agitation. Patient does have dementia and admits to feeling confused. Patient is a poor historian. Patient denies any complaints otherwise at this time. Nephew is present with patient who provides majority of history. He states patient does have these episodes where he becomes more demented than normal and more agitated. Patient has been previously admitted to the hospital and then slowly improves. He believes symptoms are related to patient's chronic morphine use. - Related Data Home Medications Medication Instructions Recorded Confirmed Cetirizine HCl [Zyrtec] 10 mg PO DAILY 06/14/14 03/03/18 Citalopram Hydrobromide [CeleXA] 20 mg PO HS 06/14/14 03/03/18 Clopidogrel [Plavix] 75 mg PO DAILY 06/14/14 03/03/18 Fenofibrate Nanocrystallized 145 mg PO AC-SUPPER 06/14/14 03/03/18 [Tricor] Vit A/Vit C/Vit E/Zinc/Copper 1 cap PO BID 06/14/14 03/03/18 [ICAPS SOFTGEL] Cholecalciferol [Vitamin D3] 1,000 unit PO DAILY 10/06/14 03/03/18 Aspirin EC [Ecotrin Low Dose] 81 mg PO AC-SUPPER 06/28/17 03/03/18 Rosuvastatin [Crestor] 20 mg PO HS 06/28/17 03/03/18 Carboxymethylcellulose Sodium 1 drop BOTH EYES BID 07/23/17 03/03/18 [Refresh Tears] Pantoprazole [Protonix] 40 mg PO AC-SUPPER 07/23/17 03/03/18 Polyethylene Glycol 3350 [Miralax] 17 gm PO HS 07/23/17 03/03/18 Tamsulosin [Flomax] 0.8 mg PO HS 10/21/17 03/03/18 Donepezil [Aricept] 10 mg PO HS 03/03/18 03/03/18 INSULIN LISPRO (HumaLOG) [humaLOG] See Protocol SQ ACHS 03/03/18 03/03/18 Losartan/Hydrochlorothiazide 1 tab PO DAILY 03/03/18 03/03/18 [Losartan-Hctz 100-25 mg Tab] Morphine Sulfate ER [Ms Contin] 15 mg PO BID@0900,2100 03/03/18 03/03/18 Previous Rx's Medication Instructions Recorded Insulin Detemir [Levemir] 25 unit SQ HS #1 syr 02/22/18 Allergies Allergy/AdvReac Type Severity Reaction Status Date / Time celecoxib [From Celebrex] Allergy Rash/Hives Verified 03/03/18 19:34 gabapentin [From Neurontin] Allergy Swelling Verified 03/03/18 19:34 levofloxacin [From Levaquin] Allergy Unknown Verified 03/03/18 19:34 sulfamethoxazole Allergy Unknown Verified 03/03/18 19:34 [From Bactrim] trimethoprim [From Bactrim] Allergy Unknown Verified 03/03/18 19:34 hydrocodone AdvReac Trouble Verified 03/03/18 19:34 Sleeping Review of Systems ROS Statement: Those systems with pertinent positive or pertinent negative responses have been documented in the HPI. ROS Other: All systems not noted in ROS Statement are negative. Constitutional: Denies: fever Eyes: Denies: eye pain ENT: Denies: ear pain Respiratory: Denies: cough Cardiovascular: Denies: chest pain Endocrine: Denies: fatigue Gastrointestinal: Denies: abdominal pain Genitourinary: Denies: dysuria Musculoskeletal: Denies: back pain Skin: Denies: rash Neurological: Reports: confusion. Denies: headache, weakness Past Medical History Past Medical History: Coronary Artery Disease (CAD), CVA/TIA, Diabetes Mellitus , Hyperlipidemia, Hypertension Additional Past Medical History / Comment(s): CVA with right leg weakness History of Any Multi-Drug Resistant Organisms: None Reported Past Surgical History: Back Surgery, Heart Catheterization With Stent, Hernia Repair, Orthopedic Surgery Additional Past Surgical History / Comment(s): back surg x7, L knee, Yared. shoulders, nose surgery, hiatal hernia, stent 1997, CABG. Past Anesthesia/Blood Transfusion Reactions: No Reported Reaction Additional Past Anesthesia/Blood Transfusion Reaction / Comment(s): experienced stroke during last back surgery Date of Last Stent Placement:: june 1997 Past Psychological History: Anxiety Smoking Status: Never smoker Past Alcohol Use History: None Reported Past Drug Use History: None Reported - Past Family History Father Family Medical History: Coronary Artery Disease (CAD) General Exam Limitations: no limitations General appearance: alert, in no apparent distress Head exam: Present: atraumatic Eye exam: Present: normal appearance, PERRL, EOMI ENT exam: Present: normal oropharynx Neck exam: Present: normal inspection Respiratory exam: Present: normal lung sounds bilaterally Cardiovascular Exam: Present: regular rate, normal rhythm GI/Abdominal exam: Present: soft. Absent: tenderness Extremities exam: Present: normal inspection Neurological exam: Present: alert, CN II-XII intact. Absent: motor sensory deficit Expanded Neurological exam: Present: protecting the airway Patient oriented to: Present: person, place. Absent: time Speech: Present: fluid speech Cranial nerves: EOM's Intact: Normal Motor strength exam: RUE: 5, LUE: 5, RLE: 5, LLE: 5 Eye Response: (4) open spontaneously Motor Response: (6) obeys commands Verbal Response: (4) confused conversation Psychiatric exam: Present: normal affect, normal mood Skin exam: Present: normal color Course Vital Signs 03/03/18 19:08 Temperature 97.9 F Pulse Rate 62 Respiratory 18 Rate Blood Pressure 167/87 O2 Sat by Pulse 98 Oximetry EKG Findings - EKG Comments: EKG Findings:: Sinus rhythm at 80. PVC present. MI 178. QRS 84. QT 422. QTC 46. Left axis. Inferior Q waves. Poor R-wave progression. No acute ST change. Medical Decision Making - Medical Decision Making Patient reevaluated and unchanged. Patient has had several head CTs done recently with similar symptoms. Family updated on results. Family is not comfortable with discharge home and states patient was too aggressive and family is unable take care of him home. They do feel patient will need placement. Case was discussed with practitioner Shaila, who will admit for Dr. harman, who is covering for Dr. Lau - Lab Data Result diagrams: 03/03/18 20:40 03/03/18 20:40 Lab Results 03/03/18 03/03/18 03/03/18 Range/Units 20:40 20:40 20:40 WBC 11.3 H (3.8-10.6) k/uL RBC 5.18 (4.30-5.90) m/uL Hgb 15.6 (13.0-17.5) gm/dL Hct 48.5 (39.0-53.0) % MCV 93.5 (80.0-100.0) fL MCH 30.1 (25.0-35.0) pg MCHC 32.2 (31.0-37.0) g/dL RDW 14.3 (11.5-15.5) % Plt Count 326 (150-450) k/uL Neutrophils % 76 % Lymphocytes % 16 % Monocytes % 6 % Eosinophils % 0 % Basophils % 0 % Neutrophils # 8.6 H (1.3-7.7) k/uL Lymphocytes # 1.8 (1.0-4.8) k/uL Monocytes # 0.6 (0-1.0) k/uL Eosinophils # 0.0 (0-0.7) k/uL Basophils # 0.0 (0-0.2) k/uL Sodium 137 (137-145) mmol/L Potassium 3.7 (3.5-5.1) mmol/L Chloride 104 (98-107) mmol/L Carbon Dioxide 26 (22-30) mmol/L Anion Gap 7 mmol/L BUN 15 (9-20) mg/dL Creatinine 0.98 (0.66-1.25) mg/dL Est GFR (CKD-EPI)AfAm 82 (>60 ml/min/1.73 sqM) Est GFR (CKD-EPI)NonAf 71 (>60 ml/min/1.73 sqM) Glucose 225 H (74-99) mg/dL Calcium 9.7 (8.4-10.2) mg/dL Total Bilirubin 0.9 (0.2-1.3) mg/dL AST 24 (17-59) U/L ALT 30 (21-72) U/L Alkaline Phosphatase 48 (38-126) U/L Total Creatine Kinase (55-170) U/L Total Protein 6.7 (6.3-8.2) g/dL Albumin 3.8 (3.5-5.0) g/dL Urine Color Yellow Urine Appearance Clear (Clear) Urine pH 6.5 (5.0-8.0) Ur Specific [place] 1.021 (1.001-1.035) Urine Protein Trace H (Negative) Urine Glucose (UA) 4+ H (Negative) Urine Ketones Negative (Negative) Urine Blood Negative (Negative) Urine Nitrite Negative (Negative) Urine Bilirubin Negative (Negative) Urine Urobilinogen <2.0 (<2.0) mg/dL Ur Leukocyte Esterase Negative (Negative) 03/03/18 Range/Units 20:40 WBC (3.8-10.6) k/uL RBC (4.30-5.90) m/uL Hgb (13.0-17.5) gm/dL Hct (39.0-53.0) % MCV (80.0-100.0) fL MCH (25.0-35.0) pg MCHC (31.0-37.0) g/dL RDW (11.5-15.5) % Plt Count (150-450) k/uL Neutrophils % % Lymphocytes % % Monocytes % % Eosinophils % % Basophils % % Neutrophils # (1.3-7.7) k/uL Lymphocytes # (1.0-4.8) k/uL Monocytes # (0-1.0) k/uL Eosinophils # (0-0.7) k/uL Basophils # (0-0.2) k/uL Sodium (137-145) mmol/L Potassium (3.5-5.1) mmol/L Chloride (98-107) mmol/L Carbon Dioxide (22-30) mmol/L Anion Gap mmol/L BUN (9-20) mg/dL Creatinine (0.66-1.25) mg/dL Est GFR (CKD-EPI)AfAm (>60 ml/min/1.73 sqM) Est GFR (CKD-EPI)NonAf (>60 ml/min/1.73 sqM) Glucose (74-99) mg/dL Calcium (8.4-10.2) mg/dL Total Bilirubin (0.2-1.3) mg/dL AST (17-59) U/L ALT (21-72) U/L Alkaline Phosphatase (38-126) U/L Total Creatine Kinase 94 (55-170) U/L Total Protein (6.3-8.2) g/dL Albumin (3.5-5.0) g/dL Urine Color Urine Appearance (Clear) Urine pH (5.0-8.0) Ur Specific [place] (1.001-1.035) Urine Protein (Negative) Urine Glucose (UA) (Negative) Urine Ketones (Negative) Urine Blood (Negative) Urine Nitrite (Negative) Urine Bilirubin (Negative) Urine Urobilinogen (<2.0) mg/dL Ur Leukocyte Esterase (Negative) - Radiology Data Radiology results: image reviewed (Chest x-ray shows no acute process) Disposition Clinical Impression: Altered mental status Disposition: ADMITTED IP TO THIS HOSP Is patient prescribed a controlled substance at d/c from ED?: No Referrals: Alycia Lau DO [Primary Care Provider] - 1-2 days Decision Time: 22:04
[2018-03-03 21:22] LABS: Albumin 3.8 g/dL (3.5-5.0); Calcium 9.7 mg/dL (8.4-10.2); Potassium 3.7 mmol/L (3.5-5.1); Total Bilirubin 0.9 mg/dL (0.2-1.3); Total Protein 6.7 g/dL (6.3-8.2)
[2018-03-03 21:28] LABS: Appearance,Urine Clear (Clear); Bilirubin,Urine Negative (Negative); Blood,Urine Negative (Negative); Color,Urine Yellow; Glucose,Urine (UA) 4+ (Negative); Ketones,Urine Negative (Negative); Leukocyte Esterase,Urine Negative (Negative); Nitrite,Urine Negative (Negative); PH, Urine 6.5 (5.0-8.0); Protein,Urine Trace (Negative); Specific Gravity,Urine 1.021 (1.001-1.035); Urobilinogen,Urine <2.0 mg/dL (<2.0)
--- NOTE | 2018-03-03 21:36 | XR ---
EXAMINATION TYPE: XR chest 2V DATE OF EXAM: 03/03/2018 COMPARISON: 02/17/2018 HISTORY: Confusion TECHNIQUE: Frontal and lateral views of the chest are obtained. FINDINGS: Heart and mediastinum are within normal limits. There are sternal wires. Lungs are clear. There is no heart failure. Diaphragm is normal. Bony thorax is intact. IMPRESSION: No cardiopulmonary disease. No change.
[2018-03-03 21:39] LABS: Creatine Kinase MB 1.4 ng/mL (0.0-2.4)
[2018-03-03] MEDS ORDERED: LORazepam 2 MG/ML INJ IV STA (21:48)
[2018-03-03 22:01] LABS: Troponin I 0.051 ng/mL (0.000-0.034)
[2018-03-03] MEDS ORDERED: NALOXONE 0.4 MG/ML 1 ML VIAL IV PRN (22:04)
[2018-03-03] MEDS ORDERED: LORazepam 2 MG/ML INJ IV PRN (22:04)
[2018-03-03] MEDS ORDERED: TEMAZEPAM 15 MG CAP PO PRN (22:04)
[2018-03-03] MEDS: SODIUM CHLORIDE 0.9% 1,000 ML IV SCH (22:56)
[2018-03-04] MEDS: HYDROCHLOROTHIAZIDE 25 MG TAB PO SCH ×2 (00:18→10:23)
[2018-03-04 07:14] LABS: Glucose,Whole Blood 281 mg/dL (75-99)
[2018-03-04 07:48] LABS: HCT 45.7 % (39.0-53.0); HGB 14.5 gm/dL (13.0-17.5); MCH 30.3 pg (25.0-35.0); MCHC 31.7 g/dL (31.0-37.0); MCV 95.4 fL (80.0-100.0); Mean Platelet Volume 6.3; Platelet Count 268 k/uL (150-450); RBC 4.79 m/uL (4.30-5.90); RDW 14.3 % (11.5-15.5); WBC 9.8 k/uL (3.8-10.6)
[2018-03-04 07:57] LABS: Albumin 3.8 g/dL (3.5-5.0); Calcium 9.5 mg/dL (8.4-10.2); Potassium 3.8 mmol/L (3.5-5.1); Total Protein 6.6 g/dL (6.3-8.2)
[2018-03-04] MEDS ORDERED: HALOPERIDOL 1 MG TAB PO PRN (11:09)
[2018-03-04 11:51] LABS: Glucose,Whole Blood 226 mg/dL (75-99)
--- NOTE | 2018-03-04 13:29 | P.HPIM ---
History of Present Illness 82-year-old male with advanced dementia normally alert oriented times only to himself came in because he is quite a bit agitated patient was given morphine by his which made him more agitated apparently. All the workup is negative for infection is essentially within normal limits chest x-ray did not show any pneumonic process patient doesn't have any fevers no leukocytosis. Her is not available at this time. His CODE STATUS presently is full all discussed with the regarding his CODE STATUS. Patient is unable to provide any history to me because he received morphine and the is barely arousable at this time. Patient also can protect his airway. Has mildly elevated troponin does have some old ST-T wave changes cardiology was consulted. Patient did not complain of chest pain before he came in here. Review of Systems Unable to obtain Past Medical History Past Medical History: Coronary Artery Disease (CAD), CVA/TIA, Diabetes Mellitus , Hyperlipidemia, Hypertension Additional Past Medical History / Comment(s): CVA with right leg weakness History of Any Multi-Drug Resistant Organisms: None Reported Past Surgical History: Back Surgery, Heart Catheterization With Stent, Hernia Repair, Orthopedic Surgery Additional Past Surgical History / Comment(s): back surg x7, L knee, Yared. shoulders, nose surgery, hiatal hernia, stent 1997, CABG. Past Anesthesia/Blood Transfusion Reactions: No Reported Reaction Additional Past Anesthesia/Blood Transfusion Reaction / Comment(s): experienced stroke during last back surgery Date of Last Stent Placement:: june 1997 Past Psychological History: Anxiety Additional Psychological History / Comment(s): xanax, Smoking Status: Never smoker Past Alcohol Use History: None Reported Past Drug Use History: None Reported - Past Family History Father Family Medical History: Coronary Artery Disease (CAD) Medications and Allergies Home Medications Medication Instructions Recorded Confirmed Type Cetirizine HCl [Zyrtec] 10 mg PO DAILY 06/14/14 03/03/18 History Citalopram Hydrobromide [CeleXA] 20 mg PO HS 06/14/14 03/03/18 History Clopidogrel [Plavix] 75 mg PO DAILY 06/14/14 03/03/18 History Fenofibrate Nanocrystallized 145 mg PO AC-SUPPER 06/14/14 03/03/18 History [Tricor] Vit A/Vit C/Vit E/Zinc/Copper 1 cap PO BID 06/14/14 03/03/18 History [ICAPS SOFTGEL] Cholecalciferol [Vitamin D3] 1,000 unit PO DAILY 10/06/14 03/03/18 History Aspirin EC [Ecotrin Low Dose] 81 mg PO AC-SUPPER 06/28/17 03/03/18 History Rosuvastatin [Crestor] 20 mg PO HS 06/28/17 03/03/18 History Carboxymethylcellulose Sodium 1 drop BOTH EYES BID 07/23/17 03/03/18 History [Refresh Tears] Pantoprazole [Protonix] 40 mg PO AC-SUPPER 07/23/17 03/03/18 History Polyethylene Glycol 3350 [Miralax] 17 gm PO HS 07/23/17 03/03/18 History Tamsulosin [Flomax] 0.8 mg PO HS 10/21/17 03/03/18 History Insulin Detemir [Levemir] 25 unit SQ HS #1 syr 02/22/18 03/03/18 Rx Donepezil [Aricept] 10 mg PO HS 03/03/18 03/03/18 History INSULIN LISPRO (HumaLOG) [humaLOG] See Protocol SQ ACHS 03/03/18 03/03/18 History Losartan/Hydrochlorothiazide 1 tab PO DAILY 03/03/18 03/03/18 History [Losartan-Hctz 100-25 mg Tab] Morphine Sulfate ER [Ms Contin] 15 mg PO BID@0900,2100 03/03/18 03/03/18 History Allergies Allergy/AdvReac Type Severity Reaction Status Date / Time celecoxib [From Celebrex] Allergy Rash/Hives Verified 03/03/18 19:34 gabapentin [From Neurontin] Allergy Swelling Verified 03/03/18 19:34 levofloxacin [From Levaquin] Allergy Unknown Verified 03/03/18 19:34 sulfamethoxazole Allergy Unknown Verified 03/03/18 19:34 [From Bactrim] trimethoprim [From Bactrim] Allergy Unknown Verified 03/03/18 19:34 hydrocodone AdvReac Trouble Verified 03/03/18 19:34 Sleeping Physical Exam Vitals: Vital Signs Temp Pulse Pulse Resp BP BP Pulse Ox 03/04/18 05:00 97.9 F 74 16 175/67 96 03/04/18 00:13 98.6 F 87 16 186/83 94 L 03/03/18 22:57 98.4 F 84 18 182/87 96 03/03/18 19:08 97.9 F 62 18 167/87 98 Intake and Output 03/03/18 03/04/18 03/04/18 22:59 06:59 14:59 Intake Total 160 Balance 160 Intake: Intake, IV Titration 160 Amount Sodium Chloride 0.9% 1, 160 000 ml @ 20 mls/hr IV . Q24H [facility] Rx#:[id number] Other: # Voids 2 # Bowel Movements 1 Weight 90.718 kg 78.5 kg PHYSICAL EXAMINATION: GENERAL: The patient unable to provide any history to me HEENT: Pupils are round and equally reacting to light. EOMI. No scleral icterus. No conjunctival pallor. Normocephalic, atraumatic. No pharyngeal erythema. No thyromegaly. CARDIOVASCULAR: S1 and S2 present. No murmurs, rubs, or gallops. PULMONARY: Chest is clear to auscultation, no wheezing or crackles. ABDOMEN: Soft, nontender, nondistended, normoactive bowel sounds. No palpable organomegaly. MUSCULOSKELETAL: No joint swelling or deformity. EXTREMITIES: No cyanosis, clubbing, or pedal edema. NEUROLOGICAL: moving All 4 limbs SKIN: No rashes. Results CBC & Chem 7: 03/04/18 06:58 03/04/18 06:58 Labs: Abnormal Lab Results - Last 24 Hours (Table) 03/03/18 03/03/18 03/03/18 Range/Units 20:40 20:40 20:40 WBC 11.3 H (3.8-10.6) k/uL Neutrophils # 8.6 H (1.3-7.7) k/uL Glucose 225 H (74-99) mg/dL POC Glucose (mg/dL) (75-99) mg/dL Troponin I (0.000-0.034) ng/mL Urine Protein Trace H (Negative) Urine Glucose (UA) 4+ H (Negative) 03/03/18 03/04/18 03/04/18 Range/Units 20:40 03:46 06:58 WBC (3.8-10.6) k/uL Neutrophils # (1.3-7.7) k/uL Glucose 285 H (74-99) mg/dL POC Glucose (mg/dL) (75-99) mg/dL Troponin I 0.051 H* 0.078 H* (0.000-0.034) ng/mL Urine Protein (Negative) Urine Glucose (UA) (Negative) 03/04/18 03/04/18 03/04/18 Range/Units 06:58 07:12 11:47 WBC (3.8-10.6) k/uL Neutrophils # (1.3-7.7) k/uL Glucose (74-99) mg/dL POC Glucose (mg/dL) 281 H 226 H (75-99) mg/dL Troponin I 0.076 H* (0.000-0.034) ng/mL Urine Protein (Negative) Urine Glucose (UA) (Negative) Thrombosis Risk Factor Assmnt - Choose All That Apply Each Factor Represents 1 point: Obesity (BMI >25) Other Risk Factors: No Each Risk Factor Represents 3 Points: Age 75 years or older Other congenital or acquired thrombophilia - If yes, enter type in comment: No Thrombosis Risk Factor Assessment Total Risk Factor Score: 4 Thrombosis Risk Factor Assessment Level: Moderate Risk Assessment and Plan Plan: -Agitations: 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 Opiates are not recommended at this age particularly when someone has dementia opiates will be discontinued Ativan will be discontinued as an outpatient we'll use Haldol and Seroquel an as-needed basis for his agitation episodes. Patient has advancing dementia with periods of agitation. -Dementia: Advanced, probably Alzheimer's or vascular dementia. Patient had a documented behavioral changes in the past with his dementia. Patient will need placement to subacute rehabilitation or prison PT and OT will be consulted. Avoid benzos, barbiturates, opiates and anticollagen medications Coronary artery disease with bypass grafting in the past patient does have mildly elevated troponin negative noncardiac cardiology will evaluate the patient Hypertension: Resume his home medications -Hyperlipidemia next and-type 2 diabetes mellitus patient will be resumed on his home regimen -History of CVA in the past with some residual right leg weakness CODE STATUS:yet to be discussed with the family
[2018-03-04] MEDS: INSULIN ASPART 100 UNIT/ML 1 ML 10 ML VIAL SQ SCH ×3 (13:34→20:33)
[2018-03-04] MEDS: LISINOPRIL 10 MG TAB PO SCH (16:44)
[2018-03-04] MEDS: PANTOPRAZOLE 40 MG TABLET PO SCH (16:45)
[2018-03-04] MEDS: ASPIRIN 81 MG PO SCH (16:45)
[2018-03-04 17:17] LABS: Glucose,Whole Blood 220 mg/dL (75-99)
[2018-03-04 19:56] LABS: Glucose,Whole Blood 248 mg/dL (75-99)
[2018-03-04] MEDS: ATORVASTATIN 40 MG TAB PO SCH (20:20)
[2018-03-04] MEDS: DONEPEZIL 10 MG TAB PO SCH (20:20)
[2018-03-04] MEDS: CITALOPRAM HYDROBROMIDE 20 MG TAB PO SCH (20:22)
[2018-03-04] MEDS: TAMSULOSIN 0.4 MG CAP.ER.24H PO SCH (20:24)
[2018-03-04] MEDS: POLYETHYLENE GLYCOL 3350 17 GM POWD.PACK PO SCH (20:26)
[2018-03-04] MEDS: hydrALAZINE HCL 20 MG/ML 1 ML VIAL IVP PRN (22:19)
[2018-03-05] MEDS: hydrALAZINE HCL 20 MG/ML 1 ML VIAL IVP PRN (03:27)
--- NOTE | 2018-03-05 03:41 | P.CNNES ---
History of Present Illness Consult date: 03/04/18 Reason for Consult: Patient with history of dementia admitted for agitation and confusion. History of Present Illness: This patient is a 82-year-old right-handed white male who was brought into the emergency room at [facility] on 03/03/2018 for evaluation of agitation and increase dementia symptoms. Apparently the patient lives at home with his and she noted a significant worsening in the patient's condition and decided to bring him to the emergency room for further evaluation. Patient has a history of advanced dementia which has not been further characterized other than possible Alzheimer's type dementia. When questioned why he is in the hospital the patient is unable to give any clear history other than he was not feeling well and possibly may have taken an excessive amount of pain medicine. Patient states he does take morphine at home due to history of severe multiple back surgeries over the years. Patient states he is undergone 17 back surgeries performed by Dr. Porter in [place] as well as in [place] over the past several years. The patient states he has been prescribed MS Contin for management of his back pain and does take 2 pills a day. Apparently review of his medication list does reveal 15 mg of MS Contin twice a day. He also has been treated for underlying dementia and is been taking Aricept 10 mg daily. Patient states he is in moderate degree of pain throughout the day due to his multiple back surgeries. This is his main reason for using MS Contin. Apparently his may have given him extra dose of MS Contin causing him to become more agitated and confused. For these reasons he was brought into the emergency room and was further evaluated in the ER by Dr. Beyer. The patient did not undergo any neuro imaging in the ER at this time as he had recently had a computed tomography scan of the brain performed on 02/17/2018. This CAT scan report indicated cerebral atrophy and chronic small vessel ischemia. No acute intracranial abnormality was noted. As noted Dr. Beyer did not reorder a CAT scan in the emergency room today. Patient has been showing increasing symptoms of worsening dementia. According to the patient he has been having difficulty walking due to his chronic low back pain secondary to multiple back surgeries. He is confined to home and does use a walker at times to get up to ambulate at home but has not had any recent falls. He is undergone cardiac catheterization in the past with stent placement. Review of his medical history indicated that he may have suffered a stroke with right-sided weakness in the past. According to the nursing staff the patient was very agitated this morning on admission. This evening he seems to be much more calm and able to follow directions as per the nursing staff. He is being treated for underlying diabetes mellitus and his blood sugars are under good control. The patient is now admitted and neurology has been consulted for further evaluation and recommendations. Review of Systems Constitutional: Denies chills, Denies fever Eyes: denies blurred vision, denies pain Ears, nose, mouth and throat: Denies headache, Denies sore throat Cardiovascular: Denies chest pain, Denies shortness of breath Respiratory: Denies cough Gastrointestinal: Denies abdominal pain, Denies diarrhea, Denies nausea, Denies vomiting Musculoskeletal: Denies myalgias Integumentary: Denies pruritus, Denies rash Neurological: Reports change in mentation, Reports confusion, Reports memory loss, Reports paresthesias, Reports tingling, Denies numbness, Denies weakness Psychiatric: Reports confusion, Reports disorientation, Reports irritability, Reports memory loss, Reports mood swings, Reports sleep disturbances, Denies anxiety, Denies depression Endocrine: Denies fatigue, Denies weight change Past Medical History Past Medical History: Coronary Artery Disease (CAD), CVA/TIA, Diabetes Mellitus , Hyperlipidemia, Hypertension Additional Past Medical History / Comment(s): CVA with right leg weakness History of Any Multi-Drug Resistant Organisms: None Reported Past Surgical History: Back Surgery, Heart Catheterization With Stent, Hernia Repair, Orthopedic Surgery Additional Past Surgical History / Comment(s): back surg x7, L knee, Yared. shoulders, nose surgery, hiatal hernia, stent 1997, CABG. Past Anesthesia/Blood Transfusion Reactions: No Reported Reaction Additional Past Anesthesia/Blood Transfusion Reaction / Comment(s): experienced stroke during last back surgery Date of Last Stent Placement:: june 1997 Past Psychological History: Anxiety Additional Psychological History / Comment(s): xanax, Smoking Status: Never smoker Past Alcohol Use History: None Reported Past Drug Use History: None Reported - Past Family History Father Family Medical History: Coronary Artery Disease (CAD) Medications and Allergies Home Medications Medication Instructions Recorded Confirmed Type Cetirizine HCl [Zyrtec] 10 mg PO DAILY 06/14/14 03/03/18 History Citalopram Hydrobromide [CeleXA] 20 mg PO HS 06/14/14 03/03/18 History Clopidogrel [Plavix] 75 mg PO DAILY 06/14/14 03/03/18 History Fenofibrate Nanocrystallized 145 mg PO AC-SUPPER 06/14/14 03/03/18 History [Tricor] Vit A/Vit C/Vit E/Zinc/Copper 1 cap PO BID 06/14/14 03/03/18 History [ICAPS SOFTGEL] Cholecalciferol [Vitamin D3] 1,000 unit PO DAILY 10/06/14 03/03/18 History Aspirin EC [Ecotrin Low Dose] 81 mg PO AC-SUPPER 06/28/17 03/03/18 History Rosuvastatin [Crestor] 20 mg PO HS 06/28/17 03/03/18 History Carboxymethylcellulose Sodium 1 drop BOTH EYES BID 07/23/17 03/03/18 History [Refresh Tears] Pantoprazole [Protonix] 40 mg PO AC-SUPPER 07/23/17 03/03/18 History Polyethylene Glycol 3350 [Miralax] 17 gm PO HS 07/23/17 03/03/18 History Tamsulosin [Flomax] 0.8 mg PO HS 10/21/17 03/03/18 History Insulin Detemir [Levemir] 25 unit SQ HS #1 syr 02/22/18 03/03/18 Rx Donepezil [Aricept] 10 mg PO HS 03/03/18 03/03/18 History INSULIN LISPRO (HumaLOG) [humaLOG] See Protocol SQ ACHS 03/03/18 03/03/18 History Losartan/Hydrochlorothiazide 1 tab PO DAILY 03/03/18 03/03/18 History [Losartan-Hctz 100-25 mg Tab] Morphine Sulfate ER [Ms Contin] 15 mg PO BID@0900,2100 03/03/18 03/03/18 History Allergies Allergy/AdvReac Type Severity Reaction Status Date / Time celecoxib [From Celebrex] Allergy Rash/Hives Verified 03/03/18 19:34 gabapentin [From Neurontin] Allergy Swelling Verified 03/03/18 19:34 levofloxacin [From Levaquin] Allergy Unknown Verified 03/03/18 19:34 sulfamethoxazole Allergy Unknown Verified 03/03/18 19:34 [From Bactrim] trimethoprim [From Bactrim] Allergy Unknown Verified 03/03/18 19:34 hydrocodone AdvReac Trouble Verified 03/03/18 19:34 Sleeping Physical Examination - Vital Signs Vital Signs: Vital Signs Temp Pulse Pulse Resp BP BP Pulse Ox 03/04/18 05:00 97.9 F 74 16 175/67 96 03/04/18 00:13 98.6 F 87 16 186/83 94 L 03/03/18 22:57 98.4 F 84 18 182/87 96 03/03/18 19:08 97.9 F 62 18 167/87 98 Intake and Output 03/03/18 03/04/18 03/04/18 22:59 06:59 14:59 Intake Total 160 Balance 160 Intake: Intake, IV Titration 160 Amount Sodium Chloride 0.9% 1, 160 000 ml @ 20 mls/hr IV . Q24H [facility] Rx#:[id number] Other: # Voids 2 # Bowel Movements 1 Weight 90.718 kg 78.5 kg - Constitutional General appearance: average body habitus, cooperative - EENT EENT: PERRL, mucous membranes moist - Respiratory Respiratory: lungs clear, normal breath sounds - Cardiovascular Cardiovascular: regular rate, normal S1, normal S2 Extremities: no peripheral edema bilaterally - Gastrointestinal Gastrointestinal: normoactive bowel sounds - Integumentary Integumentary: normal - Neurologic Cranial nerve examination: PERRL, EOMI, V1/V2/V3 grossly intact, face symmetric , intact shoulder shrug, intact gag reflex, intact corneal reflex, normal palatal elevation Speech examination: intact Sensorimotor examination: intact Motor examination - right side: 4/5: biceps, triceps, wrist flexion, wrist extension, recreation technician, hip flexors, knee extensors, dorsiflexion, toe extension (EHL) , plantarflexion Motor examination - left side: 4/5: biceps, triceps, wrist flexion, wrist extension, recreation technician, hip flexors, knee extensors, dorsiflexion, toe extension (EHL) , plantarflexion Detailed sensory examination: intact Reflex and gait examination: intact Reflexes: 1+: ankle, bicep, knee, tricep - Musculoskeletal Musculoskeletal: no pain - Psychiatric Psychiatric: mood/affect appropriate, cooperative Results - Laboratory Findings CBC and BMP: 03/04/18 06:58 03/04/18 06:58 Abnormal Lab Findings: Abnormal Labs 03/03/18 03/03/1803/03/18 20:40 20:40 20:40 WBC 11.3 H Neutrophils # 8.6 H Glucose 225 H POC Glucose (mg/dL) Troponin I Urine Protein Trace H Urine Glucose (UA) 4+ H 03/03/18 03/04/18 03/04/18 20:40 03:46 06:58 WBC Neutrophils # Glucose 285 H POC Glucose (mg/dL) Troponin I 0.051 H* 0.078 H* Urine Protein Urine Glucose (UA) 03/04/18 03/04/18 03/04/18 06:58 07:12 11:47 WBC Neutrophils # Glucose POC Glucose (mg/dL) 281 H 226 H Troponin I 0.076 H* Urine Protein Urine Glucose (UA) Assessment and Plan (1) Frontotemporal dementia with behavioral disturbance Current Visit: Yes Status: Acute Code(s): G31.09 - OTHER FRONTOTEMPORAL DEMENTIA; F02.81 - DEMENTIA IN OTH DISEASES CLASSD ELSWHR W BEHAVIORAL DISTURB SNOMED Code(s): 704969999 (2) Acute metabolic encephalopathy Current Visit: Yes Status: Acute Code(s): G93.41 - METABOLIC ENCEPHALOPATHY SNOMED Code(s): 76734637 (3) Delirium due to general medical condition Current Visit: No Status: Acute Code(s): F05 - DELIRIUM DUE TO KNOWN PHYSIOLOGICAL CONDITION SNOMED Code(s): 8009436 (4) Chronic back pain Current Visit: Yes Status: Acute Code(s): M54.9 - DORSALGIA, UNSPECIFIED; G89.29 - OTHER CHRONIC PAIN SNOMED Code(s): 748177283 Plan: This patient is a 82-year-old right-handed white male who was admitted to the [facility] on 03/03/2018 with symptoms of worsening dementia and agitation at home. Apparently he has been residing at home with his and had developed symptoms of worsening dementia as well as agitation. apparently has been giving him his medications as he suffers from chronic low back pain. He is undergone at least 17 back surgeries over the years and suffers from chronic intractable back pain. He has been using MS Contin twice a day at home for treatment. thinks he may have been given an extra MS Contin accidentally which caused him to become very agitated. For this reason EMS was called to the home and he was brought into the hospital for further evaluation. He was seen in the emergency room and the [facility] by Dr. Beyer. He was noted to be very confused and disoriented in the ER. Neuro imaging was not performed in the ER by Dr. Beyer at this time. Apparently the patient had undergone a computed tomography scan on 02/17/2018 which revealed cerebral atrophy and chronic small vessel ischemia. No evidence of acute intra-cranial abnormality was noted. Review of his CAT scan films reveals evidence of significant frontotemporal atrophy. This raises the possibility of possible underlying behavioral variant for frontotemporal dementia. We would recommend a psychiatry consultation for this patient for their further assessment of this possibility for this patient. Apparently he is already taking Seroquel and should continue on the same. The patient does seem to be pleasantly cooperative today for his neurological exam. According to the nursing staff however he was out of control this morning. They really almost required restraints to hold him down in his room earlier this morning. We would recommend a MRI of the brain for this patient for further assessment as well. We will also obtain routine EEG. There is no specific treatment for frontotemporal dementia and we will need to wait to see how he does during this admission. We will get a physical therapy consultation for the patient as well as he has history of chronic low back pain and multiple back surgeries. Apparently he had been using Aricept in the past which has not been of much benefit in terms of his advancing dementia. We will continue close neurological follow-up of this patient. His overall prognosis at this time remains very guarded. Time with Patient: Greater than 30
[2018-03-05 07:13] LABS: Glucose,Whole Blood 271 mg/dL (75-99)
[2018-03-05] MEDS: SODIUM CHLORIDE 0.9% 1,000 ML IV SCH ×2 (08:52→21:48)
[2018-03-05] MEDS: INSULIN ASPART 100 UNIT/ML 1 ML 10 ML VIAL SQ SCH ×4 (09:01→21:20)
[2018-03-05] MEDS: LISINOPRIL 10 MG TAB PO SCH (09:07)
[2018-03-05] MEDS: HYDROCHLOROTHIAZIDE 25 MG TAB PO SCH (09:07)
[2018-03-05 12:02] LABS: Glucose,Whole Blood 314 mg/dL (75-99)
[2018-03-05] MEDS: ACETAMINOPHEN TAB 500 MG TAB PO PRN ×2 (14:59→23:13)
[2018-03-05] MEDS: LOPERAMIDE 2 MG CAP PO PRN (14:59)
--- NOTE | 2018-03-05 15:12 | P.PN ---
Subjective Patient is admitted as secondary to agitation episodes from toxic encephalopathy from opiates. Which were discontinued patient is having the diarrhea because of the long-term opiates that were discontinued. We will use the Imodium for that. Patient was evaluated by neurology. Patient has advancing dementia will require placement. We'll make him and patient today. Patient is much better awake alert oriented 1-2 today I had extensive at length discussion with the daughter and . And discussed that we have to avoid anticholinergics, opiates benzodiazepines, barbiturates and patient's frequency of agitation episodes are expected to worsen with worsening of his dementia and avoid any medication that make him more agitated like above- mentioned ones. We will use Seroquel on as-needed basis for agitation which is expected to get worse particularly at nighttime. Constitutional: Denied any fatigue denied any fever. Cardio vascular: denied any chest pain, palpitations Gastrointestinal denied any nausea vomiting Pulmonary: Denied any shortness of breath cough Neurologic denied any new focal deficits All inpatient medications were reviewed and appropriate changes in these medications as dictated in the interval history and assessment and plan. Objective - Vital Signs Vital signs: Vital Signs Temp 98.4 F 03/05/18 05:00 Pulse 97 03/05/18 09:04 Resp 20 03/05/18 05:00 BP 116/63 03/05/18 09:04 Pulse Ox 97 03/05/18 05:00 Intake & Output 03/04/18 03/05/18 03/05/18 18:59 06:59 18:59 Intake Total 160 610 Balance 160 610 Intake: Intake, IV Titration 160 320 Amount Sodium Chloride 0.9% 1, 160 320 000 ml @ 20 mls/hr IV . Q24H [facility] Rx#:[id number] Oral 290 Other: Voiding Method Urinal Diaper Incontinent # Voids 1 1 # Bowel Movements 1 1 3 - Exam PHYSICAL EXAMINATION: GENERAL: The patient is alert and oriented x1-2, not in any acute distress. Well developed, well nourished. HEENT: Pupils are round and equally reacting to light. EOMI. No scleral icterus. No conjunctival pallor. Normocephalic, atraumatic. No pharyngeal erythema. No thyromegaly. CARDIOVASCULAR: S1 and S2 present. No murmurs, rubs, or gallops. PULMONARY: Chest is clear to auscultation, no wheezing or crackles. ABDOMEN: Soft, nontender, nondistended, normoactive bowel sounds. No palpable organomegaly. MUSCULOSKELETAL: No joint swelling or deformity. EXTREMITIES: No cyanosis, clubbing, or pedal edema. NEUROLOGICAL: Gross neurological examination did not reveal any focal deficits. SKIN: No rashes. - Labs CBC & Chem 7: 03/04/18 06:58 03/04/18 06:58 Labs: Abnormal Lab Results - Last 24 Hours (Table) 03/04/18 03/04/18 03/05/18 Range/Units 17:15 19:53 07:11 POC Glucose (mg/dL) 220 H 248 H 271 H (75-99) mg/dL 03/05/18 Range/Units 12:00 POC Glucose (mg/dL) 314 H (75-99) mg/dL Assessment and Plan Plan: -Agitations: 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 Opiates are not recommended at this age particularly when someone has dementia opiates will be discontinued Ativan will be discontinued as an outpatient we'll use Haldol and Seroquel an as-needed basis for his agitation episodes. Patient has advancing dementia with periods of agitation. -Dementia: Advanced, probably Alzheimer's or vascular dementia. Patient had a documented behavioral changes in the past with his dementia. Patient will need placement to subacute rehabilitation or intermediate PT and OT will be consulted. Avoid benzos, barbiturates, opiates and anticollagen medications Coronary artery disease with bypass grafting in the past patient does have mildly elevated troponin negative noncardiac cardiology will evaluate the patient Hypertension: Resumed his home medications -Hyperlipidemia next and-type 2 diabetes mellitus patient will be resumed on his home regimen -History of CVA in the past with some residual right leg weakness CODE STATUS:yet to be discussed with the family
[2018-03-05 17:50] LABS: Glucose,Whole Blood 276 mg/dL (75-99)
[2018-03-05] MEDS: PANTOPRAZOLE 40 MG TABLET PO SCH (18:09)
[2018-03-05] MEDS: ASPIRIN 81 MG PO SCH (18:09)
[2018-03-05 19:58] LABS: Glucose,Whole Blood 254 mg/dL (75-99)
[2018-03-05] MEDS: POLYETHYLENE GLYCOL 3350 17 GM POWD.PACK PO SCH (20:32)
[2018-03-05] MEDS ORDERED: amLODIPine 5 MG TAB PO STA (20:54)
[2018-03-05] MEDS: ATORVASTATIN 40 MG TAB PO SCH (21:17)
[2018-03-05] MEDS: CITALOPRAM HYDROBROMIDE 20 MG TAB PO SCH (21:17)
[2018-03-05] MEDS: TAMSULOSIN 0.4 MG CAP.ER.24H PO SCH (21:17)
[2018-03-05] MEDS: DONEPEZIL 10 MG TAB PO SCH (21:17)
[2018-03-06] MEDS: QUEtiapine 25 MG TAB PO PRN ×2 (00:13→20:44)
--- NOTE | 2018-03-06 06:15 | CONS ---
CONSULTATION Mr. Thorpe is an 82-year-old gentleman who is seen for cardiac evaluation. The history was obtained from the patient's as well as from the chart and old records reviewed. The patient has a known history of coronary artery disease with a prior history of coronary artery bypass surgery, hypertension, hyperlipidemia, and a prior history of a stroke. The patient primarily was brought to the emergency room with change in the mental status and has been agitated. The patient has a history of chronic opiate use and he has been having some problem with agitations because of the withdrawals . Patient denies according to the , he has not been having any significant chest pain. PAST MEDICAL HISTORY: Includes history of a stent in 1997, history of CABG. . HOME MEDICATIONS: Flomax, Crestor 20 mg daily, Miralax, Lexapro, Protonix, Levemir, Tricor, Aricept and Plavix, Celexa, vitamin D3, and Zyrtec and baby aspirin. PHYSICAL EXAMINATION: At present reveal an 82-year-old gentleman who appears to be confused. The patient's blood pressure is 123/69 mmHg. Patient is afebrile. HEENT examination is negative. Neck is supple. There is no increase in jugular venous pressure. Both the carotid pulses are felt. There is no bruit. Chest is symmetrical. Heart: The PMI isn't felt. First and second heart sounds are normal. There is no evidence of any murmur. Lungs are clear to auscultation and percussion. Abdomen is soft. Liver and spleen are not enlarged. Extremities: Peripheral pulsations are 1+. EKG shows normal sinus rhythm without any acute ischemic changes. The patient had 3 sets of troponin which are minimally elevated without any significant rise and fall. FINAL IMPRESSION: This patient is primarily admitted with the symptoms of agitations. The patient has a history of stable coronary artery disease. The patient did not complain of any chest pain during this admission. An EKG does not show any ischemic changes. The patient has predominantly flat troponin and is not suggestive of acute coronary syndrome. Patient's troponin was elevated during the previous admission also. Overall picture is not suggestive of acute coronary syndrome. We will continue symptomatic medical treatment. MMODL / IJN: [id number] /
[2018-03-06 06:52] LABS: Glucose,Whole Blood 229 mg/dL (75-99)
[2018-03-06] MEDS: INSULIN ASPART 100 UNIT/ML 1 ML 10 ML VIAL SQ SCH ×4 (07:55→22:55)
[2018-03-06] MEDS: LISINOPRIL 10 MG TAB PO SCH (07:56)
--- NOTE | 2018-03-06 10:50 | ECHOF ---
Referral Reason:elevated trop MEASUREMENTS -------- HEIGHT: 172.7 cm WEIGHT: 78.5 kg BP: 156/70 RVIDd: 3.8 cm (< 3.3) IVSd: 1.4 cm (0.6 - 1.1) LVIDd: 4.4 cm (3.9 - 5.3) LVPWd: 1.5 cm (0.6 - 1.1) IVSs: 1.8 cm LVIDs: 3.0 cm LVPWs: 1.6 cm LA Diam: 3.7 cm (2.7 - 3.8) LAESV Index (A-L): 20.44 ml/m Ao Diam: 3.5 cm (2.0 - 3.7) AV Cusp: 2.2 cm (1.5 - 2.6) MV EXCURSION: 20.651 mm (> 18.000) MV EF SLOPE: 68 mm/s (70 - 150) EPSS: 0.4 cm MV E Natalio: 0.68 m/s MV DecT: 321 ms MV A Natalio: 1.00 m/s MV E/A Ratio: 0.68 RAP: 5.00 mmHg RVSP: 37.98 mmHg FINDINGS -------- Sinus rhythm. This was a technically adequate study. The left ventricular size is normal. There is moderate concentric left ventricular hypertrophy. O verall left ventricular systolic function is normal with, an EF between 55 - 60 %. The right ventricle is mild to moderately enlarged. Normal LA size by volume 22+/-6 ml/m2. The right atrium is normal in size. There is mild aortic valve sclerosis. Mild mitral annular calcification present. Mild tricuspid regurgitation present. There is mild pulmonary hypertension. The right ventricular systolic pressure, as measured by Doppler, is 37.98mmHg. There is no pulmonic regurgitation present. The aortic root size is normal. Normal inferior vena cava with normal inspiratory collapse consistent with estimated right atrial pre ssure of 5 mmHg. There is no pericardial effusion. CONCLUSIONS -------- 1. Sinus rhythm. 2. This was a technically adequate study. 3. The left ventricular size is normal. 4. There is moderate concentric left ventricular hypertrophy. 5. Overall left ventricular systolic function is normal with, an EF between 55 - 60 %. 6. The right ventricle is mild to moderately enlarged. 7. Normal LA size by volume 22+/-6 ml/m2. 8. The right atrium is normal in size. 9. There is mild aortic valve sclerosis. 10. Mild mitral annular calcification present. 11. Mild tricuspid regurgitation present. 12. There is mild pulmonary hypertension. 13. The right ventricular systolic pressure, as measured by Doppler, is 37.98mmHg. 14. There is no pulmonic regurgitation present. 15. The aortic root size is normal. 16. Normal inferior vena cava with normal inspiratory collapse consistent with estimated right atrial pressure of 5 mmHg. 17. There is no pericardial effusion. LENS GRINDER AND POLISHER: Kathrin Garcia RDCS
[2018-03-06 11:28] LABS: Glucose,Whole Blood 244 mg/dL (75-99)
[2018-03-06] MEDS: ACETAMINOPHEN TAB 500 MG TAB PO PRN ×2 (12:17→17:59)
--- NOTE | 2018-03-06 16:52 | P.PN ---
Subjective Progress Note Date: 03/06/18 Progress note being dictated for Dr. Kerr Interval history:Patient is admitted as secondary to agitation episodes from toxic encephalopathy from opiates. Which were discontinued patient is having the diarrhea because of the long-term opiates that were discontinued. We will use the Imodium for that. Patient was evaluated by neurology. Patient has advancing dementia will require placement. We'll make him and patient today. Patient is much better awake alert oriented 1-2 today I had extensive at length discussion with the daughter and . And discussed that we have to avoid anticholinergics, opiates benzodiazepines, barbiturates and patient's frequency of agitation episodes are expected to worsen with worsening of his dementia and avoid any medication that make him more agitated like above- mentioned ones. We will use Seroquel on as-needed basis for agitation which is expected to get worse particularly at nighttime. Constitutional: Denied any fatigue denied any fever. Cardio vascular: denied any chest pain, palpitations Gastrointestinal denied any nausea vomiting Pulmonary: Denied any shortness of breath cough Neurologic denied any new focal deficits All inpatient medications were reviewed and appropriate changes in these medications as dictated in the interval history and assessment and plan. 03/06/2018 sitting up in chair, visiting her family. Good diet intake, no nausea vomiting or diarrhea. Increased blood pressure during the night, received a single dose of Norvasc. Systolic blood pressures currently in the 150s. MRI of brain pending. Echo completed, results pending. Denies any lightheadedness dizziness or focal deficits. Denies chest pain, palpitations or increasing shortness of breath. Denies pain. Objective - Vital Signs Vital signs: Vital Signs Temp 98.1 F 03/06/18 12:59 Pulse 97 03/06/18 12:59 Resp 15 03/06/18 12:59 BP 146/69 03/06/18 12:59 Pulse Ox 96 03/06/18 12:59 Intake & Output 03/05/18 03/06/18 03/06/18 18:59 06:59 18:59 Intake Total 400 Balance 400 Intake: Intake, IV Titration 160 Amount Sodium Chloride 0.9% 1, 160 000 ml @ 20 mls/hr IV . Q24H [facility] Rx#:[id number] Oral 240 Other: Voiding Method Urinal Urinal Urinal Diaper Diaper Diaper Incontinent Incontinent Incontinent # Voids 2 1 # Bowel Movements 3 - Exam GENERAL: The patient is alert and oriented x1-2, not in any acute distress. Well developed, well nourished. HEENT: Pupils are round and equally reacting to light. EOMI. No scleral icterus. No conjunctival pallor. Normocephalic, atraumatic. No pharyngeal erythema. No thyromegaly. CARDIOVASCULAR: S1 and S2 present. No murmurs, rubs, or gallops. PULMONARY: Chest is clear to auscultation, no wheezing or crackles. ABDOMEN: Soft, nontender, nondistended, normoactive bowel sounds. No palpable organomegaly. MUSCULOSKELETAL: No joint swelling or deformity. EXTREMITIES: No cyanosis, clubbing, or pedal edema. NEUROLOGICAL: Gross neurological examination did not reveal any focal deficits. SKIN: No rashes. - Labs CBC & Chem 7: 03/04/18 06:58 03/04/18 06:58 Labs: Abnormal Lab Results - Last 24 Hours (Table) 03/05/18 03/05/18 03/06/18 Range/Units 17:48 19:56 06:51 POC Glucose (mg/dL) 276 H 254 H 229 H (75-99) mg/dL 03/06/18 Range/Units 11:27 POC Glucose (mg/dL) 244 H (75-99) mg/dL Assessment and Plan Assessment: -Agitations: Secondary to toxic encephalopathy from excess opiate use in a patient with advancing dementia. -Dementia: Advanced, probably Alzheimer's or vascular dementia. Coronary artery disease with bypass grafting in the past patient does have mildly elevated troponins; not suggestive of acute coronary syndrome as per cardiology evaluation. 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 Evaluated by a PT with subacute rehab recommended at discharge. Social work assisting with discharge planning, preauthorization pending. Opiates and benzos discontinued. Haldol and Seroquel use for agitation. The impression and plan of care has been dictated as directed. : I performed a history and examination of this patient, discussed the same with the dictator. I agree with the dictator's note ,documented as a scribe. Any additional findings or plans will be noted.
[2018-03-06 16:58] LABS: Glucose,Whole Blood 333 mg/dL (75-99)
--- NOTE | 2018-03-06 16:58 | MR ---
MR brain without contrast HISTORY: Advanced dementia Multiplanar multisequence imaging through the brain. Fast brain protocol used due to patient's condit ion. Correlation CT brain 02/17/2018, MR brain dated 01/12/2016 There is no restricted diffusion. Cortical atrophy is likely age-related. Periventricular confluent h yperintensity present on inversion recovery and T2-weighted sequences, scattered areas in the deep wh ite matter again noted similar to prior exam, pericallosal and subcortical white matter signal change s also present on inversion recovery and T2-weighted sequences. There is no hemorrhage or hydrocephal us evident. There are normal vascular flow voids. Orbits show symmetric appearance. Corpus callosum, pituitary, cervical medullary junction, cerebellopontine angles are stable. Some inflammatory change noted in the mastoid air cells on the left. Inflammatory change also noted in the ethmoid air cells. IMPRESSION: Age-related changes of atrophy and probable chronic small vessel ischemia.
[2018-03-06] MEDS: PANTOPRAZOLE 40 MG TABLET PO SCH (18:02)
[2018-03-06] MEDS: ASPIRIN 81 MG PO SCH (18:02)
[2018-03-06 20:05] LABS: Glucose,Whole Blood 287 mg/dL (75-99)
[2018-03-06] MEDS: SODIUM CHLORIDE 0.9% 1,000 ML IV SCH (20:43)
[2018-03-06] MEDS: POLYETHYLENE GLYCOL 3350 17 GM POWD.PACK PO SCH (20:44)
[2018-03-06] MEDS: ATORVASTATIN 40 MG TAB PO SCH (20:44)
[2018-03-06] MEDS: TAMSULOSIN 0.4 MG CAP.ER.24H PO SCH (20:45)
[2018-03-06] MEDS: DONEPEZIL 10 MG TAB PO SCH (20:45)
[2018-03-06] MEDS: CITALOPRAM HYDROBROMIDE 20 MG TAB PO SCH (20:45)
[2018-03-06] MEDS: HALOPERIDOL 0.5 MG TAB PO PRN (23:38)
--- NOTE | 2018-03-06 23:51 | P.PN ---
Subjective Progress Note Date: 03/06/18 This patient is a 82-year-old right-handed white male who was seen in neurology consultation yesterday for worsening symptoms of dementia and agitation. Patient was admitted to [facility] on 03/03/2018 for further assessment. Yesterday the patient appeared to be quite pleasant and answered all questions. Apparently on admission he was very agitated and required restraints. He does have behavioral problems related to his underlying dementia. Patient has a history of chronic low back pain and is undergone 17 back surgeries by his neurosurgeon Dr. Porter in [place]. He has been using MS Contin for pain management and it was felt he may have had excessive opiates causing his change in mental status and agitation. Patient underwent computed tomography scan of the brain which was reviewed and reveals evidence of significant frontotemporal cortical atrophy. Given his behavioral changes this suggest possibility of frontotemporal dementia behavioral variant as a cause of his current symptoms. We have recommended patient undergo MRI of the brain and EEG tomorrow which will be reviewed. Patient was able to complete his MRI of the brain today. Results of the MRI indicate age-related changes of atrophy and probable chronic small vessel ischemia. There was no evidence of any acute stroke or severe ventriculomegaly. We reviewed the results of this MRI today with the patient. He feels very much relieved. He is awaiting possible discharge home tomorrow as per the nursing staff. We will continue close neurological follow-up with the patient. Further recommendations will be given pending these test results. His overall prognosis at this time remains guarded. Objective - Vital Signs Vital signs: Vital Signs Temp 98.1 F 03/06/18 12:59 Pulse 97 03/06/18 12:59 Resp 15 03/06/18 12:59 BP 146/69 03/06/18 12:59 Pulse Ox 96 03/06/18 12:59 Intake & Output 03/06/18 03/06/18 03/07/18 06:59 18:59 06:59 Intake Total 400 Balance 400 Intake: Intake, IV Titration 160 Amount Sodium Chloride 0.9% 1, 160 000 ml @ 20 mls/hr IV . Q24H [facility] Rx#:[id number] Oral 240 Other: Voiding Method Urinal Urinal Diaper Diaper Incontinent Incontinent # Voids 2 1 - Exam Physical examination: PHYSICAL EXAMINATION: Patient is resting comfortably in bed. VITAL SIGNS: Blood pressure is [123/60]. Heart rate is [70]. Respiration is [16] . Temperature is [97.1]. HEENT: Head is atraumatic, neck is supple, there were no carotid bruits. CHEST: Lungs are clear to auscultation and percussion. CARDIAC: S1, S2 normal rate and rhythm. There is no murmur. ABDOMEN: Soft and nontender. Bowel sounds are present. EXTREMITIES: There is no pedal edema. Peripheral pulses are present. Neurological examination: Patient's neurological examination is unchanged from yesterday. - Labs CBC & Chem 7: 03/04/18 06:58 03/04/18 06:58 Labs: Abnormal Lab Results - Last 24 Hours (Table) 03/06/18 03/06/18 03/06/18 Range/Units 06:51 11:27 16:56 POC Glucose (mg/dL) 229 H 244 H 333 H (75-99) mg/dL 03/06/18 Range/Units 20:00 POC Glucose (mg/dL) 287 H (75-99) mg/dL Assessment and Plan (1) Frontotemporal dementia with behavioral disturbance Current Visit: Yes Status: Acute Code(s): G31.09 - OTHER FRONTOTEMPORAL DEMENTIA; F02.81 - DEMENTIA IN OTH DISEASES CLASSD ELSWHR W BEHAVIORAL DISTURB SNOMED Code(s): 331115767 (2) Acute metabolic encephalopathy Current Visit: Yes Status: Acute Code(s): G93.41 - METABOLIC ENCEPHALOPATHY SNOMED Code(s): 04253905 (3) Delirium due to general medical condition Current Visit: No Status: Acute Code(s): F05 - DELIRIUM DUE TO KNOWN PHYSIOLOGICAL CONDITION SNOMED Code(s): 2573117 (4) Chronic back pain Current Visit: Yes Status: Acute Code(s): M54.9 - DORSALGIA, UNSPECIFIED; G89.29 - OTHER CHRONIC PAIN SNOMED Code(s): 327010427 Plan: This patient is a 82-year-old right-handed white male who was admitted to the [facility] on 03/03/2018 with symptoms of worsening dementia and agitation at home. Apparently he has been residing at home with his and had developed symptoms of worsening dementia as well as agitation. apparently has been giving him his medications as he suffers from chronic low back pain. He is undergone at least 17 back surgeries over the years and suffers from chronic intractable back pain. He has been using MS Contin twice a day at home for treatment. thinks he may have been given an extra MS Contin accidentally which caused him to become very agitated. For this reason EMS was called to the home and he was brought into the hospital for further evaluation. He was seen in the emergency room and the [facility] by Dr. Beyer. He was noted to be very confused and disoriented in the ER. Neuro imaging was not performed in the ER by Dr. Beyer at this time. Apparently the patient had undergone a computed tomography scan on 02/17/2018 which revealed cerebral atrophy and chronic small vessel ischemia. No evidence of acute intra-cranial abnormality was noted. Review of his CAT scan films reveals evidence of significant frontotemporal atrophy. This raises the possibility of possible underlying behavioral variant for frontotemporal dementia. We would recommend a psychiatry consultation for this patient for their further assessment of this possibility for this patient. Apparently he is already taking Seroquel and should continue on the same. The patient does seem to be pleasantly cooperative today for his neurological exam. According to the nursing staff however he was out of control this morning. They really almost required restraints to hold him down in his room earlier this morning. We would recommend a MRI of the brain for this patient for further assessment as well. We will also obtain routine EEG. There is no specific treatment for frontotemporal dementia and we will need to wait to see how he does during this admission. We will get a physical therapy consultation for the patient as well as he has history of chronic low back pain and multiple back surgeries. Apparently he had been using Aricept in the past which has not been of much benefit in terms of his advancing dementia. His MRI of the brain was completed today and fails to reveal any evidence of acute stroke. There has been noticeable improvement in his overall mental status and behavior. We reviewed the results of the MRI today with the patient. There is no evidence of acute stroke or hemorrhage. We will continue close neurological follow-up of this patient. His overall prognosis at this time remains very guarded.
[2018-03-06 23:54] LABS: Appearance,Urine Clear (Clear); Bilirubin,Urine Negative (Negative); Blood,Urine Negative (Negative); Color,Urine Yellow; Glucose,Urine (UA) 4+ (Negative); Ketones,Urine Negative (Negative); Leukocyte Esterase,Urine Negative (Negative); Nitrite,Urine Negative (Negative); PH, Urine 5.5 (5.0-8.0); Protein,Urine Negative (Negative); Specific Gravity,Urine 1.016 (1.001-1.035); Urobilinogen,Urine <2.0 mg/dL (<2.0)
[2018-03-07 07:04] LABS: Glucose,Whole Blood 205 mg/dL (75-99)
[2018-03-07] MEDS: INSULIN ASPART 100 UNIT/ML 1 ML 10 ML VIAL SQ SCH ×4 (07:58→22:00)
[2018-03-07] MEDS: ACETAMINOPHEN TAB 500 MG TAB PO PRN (08:00)
[2018-03-07] MEDS: LISINOPRIL 10 MG TAB PO SCH (08:00)
[2018-03-07 11:15] LABS: Glucose,Whole Blood 265 mg/dL (75-99)
[2018-03-07 16:47] LABS: Glucose,Whole Blood 241 mg/dL (75-99)
[2018-03-07] MEDS: PANTOPRAZOLE 40 MG TABLET PO SCH (17:43)
[2018-03-07] MEDS: ASPIRIN 81 MG PO SCH (17:43)
[2018-03-07 20:07] LABS: Glucose,Whole Blood 259 mg/dL (75-99)
--- NOTE | 2018-03-07 20:49 | EEG ---
ELECTROENCEPHALOGRAM REPORT DATE OF EE03/07/2018. REFERRING PHYSICIAN: Dr. Goddard. CONSULTING INTERPRETING PHYSICIAN: Dr. Jose Franco ELECTROENCEPHALOGRAPHIC EXAMINATION REPORT: INDICATION FOR EXAMINATION: This patient is an 82-year-old male with history of advanced dementia. The patient admitted with increasing confusion and agitation. AGE: 82. EEG FINDINGS: A routine 21 channel awake digital EEG recording was accomplished utilizing the 10-20 international system with bipolar and referential montages. The background activity in the most alert resting state consists of a low to medium amplitude, fairly well developed and well sustained 6 Hz activity over the posterior head regions. This posterior rhythm attenuates to eye opening. There is a small amount of low amplitude 18-20 Hz beta activity seen maximally over the anterior head regions. Muscle and movement artifact was observed on a few occasions during the tracing. Hyperventilation was not performed. Photic stimulation at flash frequencies of 2-30 Hz produced a good symmetrical occipital driving response. No epileptiform discharges were seen. IMPRESSION: This EEG is moderately abnormal in a diffuse fashion due to slowing of the EEG background. The EEG failed to reveal any focal, lateralized, or epileptiform abnormalities. Clinical correlation is recommended. MMODL / IJN: [id number] /
--- NOTE | 2018-03-07 21:54 | P.PN ---
Subjective Progress Note Date: 03/07/18 This patient is a 82-year-old right-handed white male who was seen in neurology consultation for worsening symptoms of dementia and agitation. Patient was admitted to [facility] on 03/03/2018 for further assessment. Yesterday the patient appeared to be quite pleasant and answered all questions. Apparently on admission he was very agitated and required restraints. He does have behavioral problems related to his underlying dementia. Patient has a history of chronic low back pain and is undergone 17 back surgeries by his neurosurgeon Dr. Porter in [place]. He has been using MS Contin for pain management and it was felt he may have had excessive opiates causing his change in mental status and agitation. Patient underwent computed tomography scan of the brain which was reviewed and reveals evidence of significant frontotemporal cortical atrophy. Given his behavioral changes this suggest possibility of frontotemporal dementia behavioral variant as a cause of his current symptoms. We have recommended patient undergo MRI of the brain and EEG tomorrow which will be reviewed. Patient was able to complete his MRI of the brain today. Results of the MRI indicate age-related changes of atrophy and probable chronic small vessel ischemia. There was no evidence of any acute stroke or severe ventriculomegaly. We reviewed the results of this MRI today with the patient. He feels very much relieved knowing these test results. He was concerned whether he may have suffered a small stroke. We reassured him the results of the MRI do not indicate such. Apparently the patient was able to sit up in chair earlier today. He has not had any new symptoms or shortness of breath or chest pain. Overall neurologically the patient remains very pleasant. He is able to answer simple questions. His overall prognosis at this time remains guarded. He is awaiting possible discharge home tomorrow as per the nursing staff. We will continue close neurological follow-up with the patient. Further recommendations will be given pending these test results. His overall prognosis at this time remains guarded. Objective - Vital Signs Vital signs: Vital Signs Temp 98.6 F 03/07/18 11:33 Pulse 55 L 03/07/18 11:33 Resp 16 03/07/18 11:33 BP 181/74 03/07/18 11:33 Pulse Ox 92 L 03/07/18 05:00 Intake & Output 03/06/18 03/07/18 03/07/18 18:59 06:59 18:59 Intake Total 1350 160 Balance 1350 160 Weight 78.5 kg Intake: Intake, IV Titration 160 160 Amount Sodium Chloride 0.9% 1, 160 160 000 ml @ 20 mls/hr IV . Q24H [facility] Rx#:[id number] Oral 1190 Other: Voiding Method Urinal Urinal Urinal Diaper Diaper Diaper Incontinent Incontinent Incontinent # Voids 1 3 3 # Bowel Movements 1 - Exam Physical examination: PHYSICAL EXAMINATION: Patient is resting comfortably in bed. VITAL SIGNS: Blood pressure is [181/74]. Heart rate is [55]. Respiration is [16] . Temperature is [98.6]. HEENT: Head is atraumatic, neck is supple, there were no carotid bruits. CHEST: Lungs are clear to auscultation and percussion. CARDIAC: S1, S2 normal rate and rhythm. There is no murmur. ABDOMEN: Soft and nontender. Bowel sounds are present. EXTREMITIES: There is no pedal edema. Peripheral pulses are present. Neurological examination: Patient's neurological examination is unchanged from yesterday. Patient is resting comfortably in bed and does not appear to be agitated or confused this evening. He continues to make good progress in terms of his overall mental status. - Labs CBC & Chem 7: 03/04/18 06:58 03/04/18 06:58 Labs: Abnormal Lab Results - Last 24 Hours (Table) 03/06/18 03/06/18 03/07/18 Range/Units 20:00 21:56 07:02 POC Glucose (mg/dL) 287 H 205 H (75-99) mg/dL Urine Glucose (UA) 4+ H (Negative) 03/07/18 03/07/18 Range/Units 11:13 16:46 POC Glucose (mg/dL) 265 H 241 H (75-99) mg/dL Urine Glucose (UA) (Negative) Assessment and Plan (1) Frontotemporal dementia with behavioral disturbance Current Visit: Yes Status: Acute Code(s): G31.09 - OTHER FRONTOTEMPORAL DEMENTIA; F02.81 - DEMENTIA IN OTH DISEASES CLASSD ELSWHR W BEHAVIORAL DISTURB SNOMED Code(s): 043108622 (2) Acute metabolic encephalopathy Current Visit: Yes Status: Acute Code(s): G93.41 - METABOLIC ENCEPHALOPATHY SNOMED Code(s): 06584822 (3) Delirium due to general medical condition Current Visit: No Status: Acute Code(s): F05 - DELIRIUM DUE TO KNOWN PHYSIOLOGICAL CONDITION SNOMED Code(s): 8251357 (4) Chronic back pain Current Visit: Yes Status: Acute Code(s): M54.9 - DORSALGIA, UNSPECIFIED; G89.29 - OTHER CHRONIC PAIN SNOMED Code(s): 533964917 Plan: This patient is a 82-year-old right-handed white male who was admitted to the [facility] on 03/03/2018 with symptoms of worsening dementia and agitation at home. Apparently he has been residing at home with his and had developed symptoms of worsening dementia as well as agitation. apparently has been giving him his medications as he suffers from chronic low back pain. He is undergone at least 17 back surgeries over the years and suffers from chronic intractable back pain. He has been using MS Contin twice a day at home for treatment. thinks he may have been given an extra MS Contin accidentally which caused him to become very agitated. For this reason EMS was called to the home and he was brought into the hospital for further evaluation. He was seen in the emergency room and the [facility] by Dr. Beyer. He was noted to be very confused and disoriented in the ER. Neuro imaging was not performed in the ER by Dr. Beyer at this time. Apparently the patient had undergone a computed tomography scan on 02/17/2018 which revealed cerebral atrophy and chronic small vessel ischemia. No evidence of acute intra-cranial abnormality was noted. Review of his CAT scan films reveals evidence of significant frontotemporal atrophy. This raises the possibility of possible underlying behavioral variant for frontotemporal dementia. We would recommend a psychiatry consultation for this patient for their further assessment of this possibility for this patient. Apparently he is already taking Seroquel and should continue on the same. The patient does seem to be pleasantly cooperative today for his neurological exam. According to the nursing staff however he was out of control this morning. They really almost required restraints to hold him down in his room earlier this morning. We would recommend a MRI of the brain for this patient for further assessment as well. We will also obtain routine EEG. There is no specific treatment for frontotemporal dementia and we will need to wait to see how he does during this admission. We will get a physical therapy consultation for the patient as well as he has history of chronic low back pain and multiple back surgeries. Apparently he had been using Aricept in the past which has not been of much benefit in terms of his advancing dementia. His MRI of the brain was completed yesterday and fails to reveal any evidence of acute stroke. There has been noticeable improvement in his overall mental status and behavior. We reviewed the results of the MRI today with the patient. There is no evidence of acute stroke or hemorrhage. The patient was very happy and relieved that he had not suffered an acute stroke. We have recommended he should follow our stroke recommendation for prophylaxis. We will continue close neurological follow-up of this patient. We will await further recommendations from the social media coordinator for discharge planning. His overall prognosis at this time remains very guarded.
[2018-03-07] MEDS: ATORVASTATIN 40 MG TAB PO SCH (21:58)
[2018-03-07] MEDS: TAMSULOSIN 0.4 MG CAP.ER.24H PO SCH (21:58)
[2018-03-07] MEDS: POLYETHYLENE GLYCOL 3350 17 GM POWD.PACK PO SCH (21:59)
[2018-03-07] MEDS: CITALOPRAM HYDROBROMIDE 20 MG TAB PO SCH (21:59)
[2018-03-07] MEDS: DONEPEZIL 10 MG TAB PO SCH (21:59)
[2018-03-08] MEDS ORDERED: amLODIPine 5 MG TAB PO STA ×2 (04:57→20:38)
[2018-03-08] MEDS: SODIUM CHLORIDE 0.9% 1,000 ML IV SCH (05:35)
[2018-03-08 07:00] LABS: Glucose,Whole Blood 228 mg/dL (75-99)
[2018-03-08] MEDS: ACETAMINOPHEN TAB 500 MG TAB PO PRN ×2 (08:29→20:23)
[2018-03-08] MEDS: LISINOPRIL 10 MG TAB PO SCH (08:29)
[2018-03-08] MEDS: INSULIN ASPART 100 UNIT/ML 1 ML 10 ML VIAL SQ SCH ×5 (08:31→20:29)
[2018-03-08] MEDS: HALOPERIDOL 0.5 MG TAB PO PRN ×2 (10:18→16:44)
[2018-03-08 11:23] LABS: Glucose,Whole Blood 340 mg/dL (75-99)
[2018-03-08] MEDS ORDERED: INSULIN ASPART 100 UNIT/ML 1 ML 10 ML VIAL SQ ONE ×2 (11:29→14:22)
[2018-03-08 14:18] LABS: Glucose,Whole Blood 305 mg/dL (75-99)
[2018-03-08] MEDS ORDERED: QUEtiapine 25 MG TAB PO STA (16:37)
[2018-03-08 16:43] LABS: Glucose,Whole Blood 195 mg/dL (75-99)
[2018-03-08] MEDS: ASPIRIN 81 MG PO SCH (16:45)
[2018-03-08] MEDS: PANTOPRAZOLE 40 MG TABLET PO SCH (16:45)
[2018-03-08 17:03] LABS: Glucose,Whole Blood 177 mg/dL (75-99)
[2018-03-08] MEDS: POLYETHYLENE GLYCOL 3350 17 GM POWD.PACK PO SCH (20:12)
[2018-03-08 20:14] LABS: Glucose,Whole Blood 184 mg/dL (75-99)
[2018-03-08] MEDS: QUEtiapine 25 MG TAB PO SCH (20:23)
[2018-03-08] MEDS: DONEPEZIL 10 MG TAB PO SCH (20:23)
[2018-03-08] MEDS: ATORVASTATIN 40 MG TAB PO SCH (20:23)
[2018-03-08] MEDS: TAMSULOSIN 0.4 MG CAP.ER.24H PO SCH (20:24)
[2018-03-08] MEDS: CITALOPRAM HYDROBROMIDE 20 MG TAB PO SCH (20:24)
--- NOTE | 2018-03-09 00:12 | P.PN ---
Subjective Progress Note Date: 03/07/18 Progress note being dictated for Dr. Kerr Interval history:Patient is admitted as secondary to agitation episodes from toxic encephalopathy from opiates. Which were discontinued patient is having the diarrhea because of the long-term opiates that were discontinued. We will use the Imodium for that. Patient was evaluated by neurology. Patient has advancing dementia will require placement. We'll make him and patient today. Patient is much better awake alert oriented 1-2 today I had extensive at length discussion with the daughter and . And discussed that we have to avoid anticholinergics, opiates benzodiazepines, barbiturates and patient's frequency of agitation episodes are expected to worsen with worsening of his dementia and avoid any medication that make him more agitated like above- mentioned ones. We will use Seroquel on as-needed basis for agitation which is expected to get worse particularly at nighttime. Constitutional: Denied any fatigue denied any fever. Cardio vascular: denied any chest pain, palpitations Gastrointestinal denied any nausea vomiting Pulmonary: Denied any shortness of breath cough Neurologic denied any new focal deficits All inpatient medications were reviewed and appropriate changes in these medications as dictated in the interval history and assessment and plan. 03/06/2018 sitting up in chair, visiting her family. Good diet intake, no nausea vomiting or diarrhea. Increased blood pressure during the night, received a single dose of Norvasc. Systolic blood pressures currently in the 150s. MRI of brain pending. Echo completed, results pending. Denies any lightheadedness dizziness or focal deficits. Denies chest pain, palpitations or increasing shortness of breath. Denies pain. 03/07/2018 EEG completed, Echo reporting normal LV function. Brain MRI reporting age-related changes of atrophy, chronic small vessel ischemia without evidence of acute stroke. Sitting up in chair, good diet intake with no nausea or vomiting. Denies chest pain, palpitations or increasing shortness of breath. Opioids discontinued, denies pain. Agitation controlled on Seroquel and prn Haldol. Objective - Vital Signs Vital signs: Vital Signs Temp 98.6 F 03/07/18 11:33 Pulse 55 L 03/07/18 11:33 Resp 16 03/07/18 11:33 BP 181/74 03/07/18 11:33 Pulse Ox 92 L 03/07/18 05:00 Intake & Output 11/04/1103/07/18 03/07/18 18:59 06:59 18:59 Intake Total 1350 160 Balance 1350 160 Weight 78.5 kg Intake: Intake, IV Titration 160 160 Amount Sodium Chloride 0.9% 1, 160 160 000 ml @ 20 mls/hr IV . Q24H [facility] Rx#:[id number] Oral 1190 Other: Voiding Method Urinal Urinal Urinal Diaper Diaper Diaper Incontinent Incontinent Incontinent # Voids 1 3 3 # Bowel Movements 1 - Exam GENERAL: The patient is alert and oriented x2, no acute distress. Well developed , well nourished. HEENT: Pupils are round and equally reacting to light. EOMI. No scleral icterus. No conjunctival pallor. Normocephalic, atraumatic. No pharyngeal erythema. No thyromegaly. CARDIOVASCULAR: S1 and S2 present. No murmurs, rubs, or gallops. PULMONARY: Chest is clear to auscultation, no wheezing or crackles. ABDOMEN: Soft, nontender, nondistended, normoactive bowel sounds. No palpable organomegaly. MUSCULOSKELETAL: No joint swelling or deformity. EXTREMITIES: No cyanosis, clubbing, or pedal edema. NEUROLOGICAL: Gross neurological examination did not reveal any focal deficits. SKIN: No rashes. - Labs CBC & Chem 7: 03/04/18 06:58 03/04/18 06:58 Labs: Abnormal Lab Results - Last 24 Hours (Table) 03/06/18 03/06/18 03/06/18 Range/Units 16:56 20:00 21:56 POC Glucose (mg/dL) 333 H 287 H (75-99) mg/dL Urine Glucose (UA) 4+ H (Negative) 03/07/18 03/07/18 Range/Units 07:02 11:13 POC Glucose (mg/dL) 205 H 265 H (75-99) mg/dL Urine Glucose (UA) (Negative) Assessment and Plan Assessment: -Agitations: Secondary to toxic encephalopathy from excess opiate use in a patient with advancing dementia. -Dementia: Advanced, probably Alzheimer's or vascular dementia. Coronary artery disease with history of CABG. mildly elevated troponins; not suggestive of acute coronary syndrome as per cardiology evaluation. 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 Increase ambulation as tolerated. Noticeable improvement in behavior with discontinuation of benzos, opioids-maintained on Seroquel, prn oral haldol. Discharge planning in progress for subacute rehab. Pending cert. The impression and plan of care has been dictated as directed. : I performed a history and examination of this patient, discussed the same with the dictator. I agree with the dictator's note ,documented as a scribe. Any additional findings or plans will be noted.
--- NOTE | 2018-03-09 00:18 | P.PN ---
Subjective Progress Note Date: 03/08/18 Progress note being dictated for Dr. Kerr Interval history:Patient is admitted as secondary to agitation episodes from toxic encephalopathy from opiates. Which were discontinued patient is having the diarrhea because of the long-term opiates that were discontinued. We will use the Imodium for that. Patient was evaluated by neurology. Patient has advancing dementia will require placement. We'll make him and patient today. Patient is much better awake alert oriented 1-2 today I had extensive at length discussion with the daughter and . And discussed that we have to avoid anticholinergics, opiates benzodiazepines, barbiturates and patient's frequency of agitation episodes are expected to worsen with worsening of his dementia and avoid any medication that make him more agitated like above- mentioned ones. We will use Seroquel on as-needed basis for agitation which is expected to get worse particularly at nighttime. Constitutional: Denied any fatigue denied any fever. Cardio vascular: denied any chest pain, palpitations Gastrointestinal denied any nausea vomiting Pulmonary: Denied any shortness of breath cough Neurologic denied any new focal deficits All inpatient medications were reviewed and appropriate changes in these medications as dictated in the interval history and assessment and plan. 03/06/2018 sitting up in chair, visiting her family. Good diet intake, no nausea vomiting or diarrhea. Increased blood pressure during the night, received a single dose of Norvasc. Systolic blood pressures currently in the 150s. MRI of brain pending. Echo completed, results pending. Denies any lightheadedness dizziness or focal deficits. Denies chest pain, palpitations or increasing shortness of breath. Denies pain. 03/07/2018 EEG completed, Echo reporting normal LV function. Brain MRI reporting age-related changes of atrophy, chronic small vessel ischemia without evidence of acute stroke. Sitting up in chair, good diet intake with no nausea or vomiting. Denies chest pain, palpitations or increasing shortness of breath. Opioids discontinued, denies pain. Agitation controlled on Seroquel and prn Haldol. 03/08/2018 sitting up in chair, good breakfast intake, eager for discharge. Apparently patient does not recall that he would be going to subacute rehab and became very upset with his /family. Hypertensive. Denies chest pain, palpitations or increasing shortness of breath. Objective - Vital Signs Vital signs: Vital Signs Temp 97.7 F 03/08/18 20:15 Pulse 62 03/08/18 20:15 Resp 18 03/08/18 20:15 BP 194/80 03/08/18 20:15 Pulse Ox 98 03/08/18 20:15 Intake & Output 03/08/18 03/08/18 03/09/18 06:59 18:59 06:59 Intake Total 720 120 Balance 720 120 Intake: Oral 720 120 Other: Voiding Method Urinal Urinal Diaper Diaper Incontinent Incontinent # Voids 4 3 1 # Bowel Movements 1 - Exam GENERAL: The patient is alert and oriented x2, no acute distress. Well developed , well nourished. HEENT: Pupils are round and equally reacting to light. EOMI. No scleral icterus. No conjunctival pallor. Normocephalic, atraumatic. CARDIOVASCULAR: S1 and S2 present. No murmurs, rubs, or gallops. PULMONARY: Chest is clear to auscultation, no wheezing or crackles. ABDOMEN: Soft, nontender, nondistended, normoactive bowel sounds. No palpable organomegaly. MUSCULOSKELETAL: No joint swelling or deformity. EXTREMITIES: No cyanosis, clubbing, or pedal edema. NEUROLOGICAL: Gross neurological examination did not reveal any focal deficits. - Labs CBC & Chem 7: 03/04/18 06:58 03/04/18 06:58 Labs: Abnormal Lab Results - Last 24 Hours (Table) 03/08/18 03/08/18 03/08/18 Range/Units 06:58 11:22 14:16 POC Glucose (mg/dL) 228 H 340 H 305 H (75-99) mg/dL 03/08/18 03/08/18 03/08/18 Range/Units 16:42 17:01 20:13 POC Glucose (mg/dL) 195 H 177 H 184 H (75-99) mg/dL Assessment and Plan Assessment: -Agitations: Secondary to toxic encephalopathy from excess opiate use in a patient with advancing dementia. -Dementia: Advanced, probably Alzheimer's or vascular dementia. Coronary artery disease with history of CABG. mildly elevated troponins; not suggestive of acute coronary syndrome as per cardiology evaluation. 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 Seroquel scheduled, prn oral haldol. Discharge planning in progress for subacute rehab. Pending cert. The impression and plan of care has been dictated as directed. : I performed a history and examination of this patient, discussed the same with the dictator. I agree with the dictator's note ,documented as a scribe. Any additional findings or plans will be noted.
[2018-03-09] MEDS: SODIUM CHLORIDE 0.9% 1,000 ML IV SCH ×2 (00:25→21:00)
[2018-03-09] MEDS: HALOPERIDOL 0.5 MG TAB PO PRN ×3 (04:44→21:04)
[2018-03-09] MEDS: ACETAMINOPHEN TAB 500 MG TAB PO PRN ×3 (04:44→21:04)
[2018-03-09 04:47] LABS: Glucose,Whole Blood 196 mg/dL (75-99)
[2018-03-09 07:02] LABS: Glucose,Whole Blood 311 mg/dL (75-99)
--- NOTE | 2018-03-09 07:40 | P.PN ---
Subjective Progress Note Date: 03/08/18 This patient is a 82-year-old right-handed white male who was seen in neurology consultation for worsening symptoms of dementia and agitation. Patient was admitted to [facility] on 03/03/2018 for further assessment. Yesterday the patient appeared to be quite pleasant and answered all questions. Apparently on admission he was very agitated and required restraints. He does have behavioral problems related to his underlying dementia. Patient has a history of chronic low back pain and is undergone 17 back surgeries by his neurosurgeon Dr. Porter in [place]. He has been using MS Contin for pain management and it was felt he may have had excessive opiates causing his change in mental status and agitation. Patient underwent computed tomography scan of the brain which was reviewed and reveals evidence of significant frontotemporal cortical atrophy. Given his behavioral changes this suggest possibility of frontotemporal dementia behavioral variant as a cause of his current symptoms. We have recommended patient undergo MRI of the brain and EEG tomorrow which will be reviewed. Patient was able to complete his MRI of the brain today. Results of the MRI indicate age-related changes of atrophy and probable chronic small vessel ischemia. There was no evidence of any acute stroke or severe ventriculomegaly. We reviewed the results of this MRI today with the patient. He feels very much relieved knowing these test results. He was concerned whether he may have suffered a small stroke. We reassured him the results of the MRI do not indicate such. Apparently the patient was able to sit up in chair earlier today. He has not had any new symptoms or shortness of breath or chest pain. Overall neurologically the patient remains very pleasant yesterday. This evening however the patient showed increased agitation and aggression to the nursing staff. He became very agitated when he was told he will be going to subacute rehabilitation at the time of discharge. Apparently he was very angry with his and family are making this decision. We have recommended a psychiatry consultation for this patient for further assessment and recommendations regarding behavioral management. He is able to answer simple questions. His overall prognosis at this time remains guarded. He is awaiting possible discharge either to subacute rehab or nursing facility. We will continue close neurological follow-up with the patient. Further recommendations will be given pending these test results. His overall prognosis at this time remains guarded. Objective - Vital Signs Vital signs: Vital Signs Temp 97.4 F L 03/08/18 16:41 Pulse 78 03/08/18 16:45 Resp 20 03/08/18 16:45 BP 170/77 03/08/18 16:41 Pulse Ox 99 03/08/18 16:41 Intake & Output 03/07/18 03/08/18 03/08/18 18:59 06:59 18:59 Intake Total 160 Balance 160 Intake: Intake, IV Titration 160 Amount Sodium Chloride 0.9% 1, 160 000 ml @ 20 mls/hr IV . Q24H [facility] Rx#:[id number] Other: Voiding Method Urinal Urinal Urinal Diaper Diaper Diaper Incontinent Incontinent Incontinent # Voids 3 4 # Bowel Movements 1 1 - Exam Physical examination: PHYSICAL EXAMINATION: Patient is resting comfortably in bed. VITAL SIGNS: Blood pressure is [170/77]. Heart rate is [78]. Respiration is [20] . Temperature is [97.4]. HEENT: Head is atraumatic, neck is supple, there were no carotid bruits. CHEST: Lungs are clear to auscultation and percussion. CARDIAC: S1, S2 normal rate and rhythm. There is no murmur. ABDOMEN: Soft and nontender. Bowel sounds are present. EXTREMITIES: There is no pedal edema. Peripheral pulses are present. Neurological examination: Patient's neurological examination is unchanged from yesterday. Patient is resting comfortably in bed and does not appear to be agitated or confused this evening. He continues to make good progress in terms of his overall mental status. - Labs CBC & Chem 7: 03/04/18 06:58 03/04/18 06:58 Labs: Abnormal Lab Results - Last 24 Hours (Table) 03/07/18 03/08/18 03/08/18 Range/Units 20:06 06:58 11:22 POC Glucose (mg/dL) 259 H 228 H 340 H (75-99) mg/dL 03/08/18 03/08/18 03/08/18 Range/Units 14:16 16:42 17:01 POC Glucose (mg/dL) 305 H 195 H 177 H (75-99) mg/dL Assessment and Plan (1) Frontotemporal dementia with behavioral disturbance Current Visit: Yes Status: Acute Code(s): G31.09 - OTHER FRONTOTEMPORAL DEMENTIA; F02.81 - DEMENTIA IN OTH DISEASES CLASSD ELSWHR W BEHAVIORAL DISTURB SNOMED Code(s): 259074195 (2) Acute metabolic encephalopathy Current Visit: Yes Status: Acute Code(s): G93.41 - METABOLIC ENCEPHALOPATHY SNOMED Code(s): 67797798 (3) Delirium due to general medical condition Current Visit: No Status: Acute Code(s): F05 - DELIRIUM DUE TO KNOWN PHYSIOLOGICAL CONDITION SNOMED Code(s): 9670437 (4) Chronic back pain Current Visit: Yes Status: Acute Code(s): M54.9 - DORSALGIA, UNSPECIFIED; G89.29 - OTHER CHRONIC PAIN SNOMED Code(s): 499568493 Plan: This patient is a 82-year-old right-handed white male who was admitted to the [facility] on 03/03/2018 with symptoms of worsening dementia and agitation at home. Apparently he has been residing at home with his and had developed symptoms of worsening dementia as well as agitation. apparently has been giving him his medications as he suffers from chronic low back pain. He is undergone at least 17 back surgeries over the years and suffers from chronic intractable back pain. He has been using MS Contin twice a day at home for treatment. thinks he may have been given an extra MS Contin accidentally which caused him to become very agitated. For this reason EMS was called to the home and he was brought into the hospital for further evaluation. He was seen in the emergency room and the [facility] by Dr. Beyer. He was noted to be very confused and disoriented in the ER. Neuro imaging was not performed in the ER by Dr. Beyer at this time. Apparently the patient had undergone a computed tomography scan on 02/17/2018 which revealed cerebral atrophy and chronic small vessel ischemia. No evidence of acute intra-cranial abnormality was noted. Review of his CAT scan films reveals evidence of significant frontotemporal atrophy. This raises the possibility of possible underlying behavioral variant for frontotemporal dementia. We would recommend a psychiatry consultation for this patient for their further assessment of this possibility for this patient. Apparently he is already taking Seroquel and should continue on the same. The patient does seem to be pleasantly cooperative today for his neurological exam. According to the nursing staff however he was out of control this morning. They really almost required restraints to hold him down in his room earlier this morning. We would recommend a MRI of the brain for this patient for further assessment as well. We will also obtain routine EEG. There is no specific treatment for frontotemporal dementia and we will need to wait to see how he does during this admission. We will get a physical therapy consultation for the patient as well as he has history of chronic low back pain and multiple back surgeries. Apparently he had been using Aricept in the past which has not been of much benefit in terms of his advancing dementia. His MRI of the brain was completed yesterday and fails to reveal any evidence of acute stroke. There has been noticeable improvement in his overall mental status and behavior. We reviewed the results of the MRI today with the patient. There is no evidence of acute stroke or hemorrhage. The patient was very happy and relieved that he had not suffered an acute stroke. We have recommended he should follow our stroke recommendation for prophylaxis. The patient was noted to be very agitated today when he was informed that he may be going to a subacute rehab or [facility]. According to the nursing staff he became agitated and combative. We recommend the patient to have a psychiatry consultation for further evaluation and adjustment of his medications. We will continue close neurological follow- up of this patient. We will await further recommendations from the social worker clinical for discharge planning. His overall prognosis at this time remains very guarded.
--- NOTE | 2018-03-09 07:41 | P.PN ---
Subjective Progress Note Date: 03/05/18 This patient is a 82-year-old right-handed white male who was seen in neurology consultation yesterday for worsening symptoms of dementia and agitation. Patient was admitted to [facility] on 03/03/2018 for further assessment. Yesterday the patient appeared to be quite pleasant and answered all questions. Apparently on admission he was very agitated and required restraints. He does have behavioral problems related to his underlying dementia. Patient has a history of chronic low back pain and is undergone 17 back surgeries by his neurosurgeon Dr. Porter in [place]. He has been using MS Contin for pain management and it was felt he may have had excessive opiates causing his change in mental status and agitation. Patient underwent computed tomography scan of the brain which was reviewed and reveals evidence of significant frontotemporal cortical atrophy. Given his behavioral changes this suggest possibility of frontotemporal dementia behavioral variant as a cause of his current symptoms. We have recommended patient undergo MRI of the brain and EEG tomorrow which will be reviewed. We will continue close neurological follow -up with the patient. Further recommendations will be given pending these test results. Patient does seem to be more alert and awake today. We will continue current workup for him in terms of his agitation and underlying dementia. Once again he does have neuroimaging studies consistent with frontotemporal dementia. His overall prognosis at this time remains guarded. Objective - Vital Signs Vital signs: Vital Signs Temp 97.1 F L 03/05/18 13:00 Pulse 70 03/05/18 13:00 Resp 16 03/05/18 13:00 BP 123/60 03/05/18 13:00 Pulse Ox 95 03/05/18 13:00 Intake & Output 03/05/18 03/05/18 03/06/18 06:59 18:59 06:59 Intake Total 610 Balance 610 Intake: Intake, IV Titration 320 Amount Sodium Chloride 0.9% 1, 320 000 ml @ 20 mls/hr IV . Q24H [facility] Rx#:[id number] Oral 290 Other: Voiding Method Urinal Diaper Incontinent # Voids 1 # Bowel Movements 1 3 - Exam Physical examination: PHYSICAL EXAMINATION: Patient is resting comfortably in bed. VITAL SIGNS: Blood pressure is [123/60]. Heart rate is [70]. Respiration is [16] . Temperature is [97.1]. HEENT: Head is atraumatic, neck is supple, there were no carotid bruits. CHEST: Lungs are clear to auscultation and percussion. CARDIAC: S1, S2 normal rate and rhythm. There is no murmur. ABDOMEN: Soft and nontender. Bowel sounds are present. EXTREMITIES: There is no pedal edema. Peripheral pulses are present. Neurological examination: Patient's neurological examination is unchanged from yesterday. - Labs CBC & Chem 7: 03/04/18 06:58 03/04/18 06:58 Labs: Abnormal Lab Results - Last 24 Hours (Table) 03/05/18 03/05/18 03/05/18 Range/Units 07:11 12:00 17:48 POC Glucose (mg/dL) 271 H 314 H 276 H (75-99) mg/dL 03/05/18 Range/Units 19:56 POC Glucose (mg/dL) 254 H (75-99) mg/dL Assessment and Plan (1) Frontotemporal dementia with behavioral disturbance Current Visit: Yes Status: Acute Code(s): G31.09 - OTHER FRONTOTEMPORAL DEMENTIA; F02.81 - DEMENTIA IN OTH DISEASES CLASSD ELSWHR W BEHAVIORAL DISTURB SNOMED Code(s): 128797609 (2) Acute metabolic encephalopathy Current Visit: Yes Status: Acute Code(s): G93.41 - METABOLIC ENCEPHALOPATHY SNOMED Code(s): 30278997 (3) Delirium due to general medical condition Current Visit: No Status: Acute Code(s): F05 - DELIRIUM DUE TO KNOWN PHYSIOLOGICAL CONDITION SNOMED Code(s): 1475826 (4) Chronic back pain Current Visit: Yes Status: Acute Code(s): M54.9 - DORSALGIA, UNSPECIFIED; G89.29 - OTHER CHRONIC PAIN SNOMED Code(s): 766690371 Plan: This patient is a 82-year-old right-handed white male who was admitted to the [facility] on 03/03/2018 with symptoms of worsening dementia and agitation at home. Apparently he has been residing at home with his and had developed symptoms of worsening dementia as well as agitation. apparently has been giving him his medications as he suffers from chronic low back pain. He is undergone at least 17 back surgeries over the years and suffers from chronic intractable back pain. He has been using MS Contin twice a day at home for treatment. thinks he may have been given an extra MS Contin accidentally which caused him to become very agitated. For this reason EMS was called to the home and he was brought into the hospital for further evaluation. He was seen in the emergency room and the [facility] by Dr. Beyer. He was noted to be very confused and disoriented in the ER. Neuro imaging was not performed in the ER by Dr. Beyer at this time. Apparently the patient had undergone a computed tomography scan on 02/17/2018 which revealed cerebral atrophy and chronic small vessel ischemia. No evidence of acute intra-cranial abnormality was noted. Review of his CAT scan films reveals evidence of significant frontotemporal atrophy. This raises the possibility of possible underlying behavioral variant for frontotemporal dementia. We would recommend a psychiatry consultation for this patient for their further assessment of this possibility for this patient. Apparently he is already taking Seroquel and should continue on the same. The patient does seem to be pleasantly cooperative today for his neurological exam. According to the nursing staff however he was out of control this morning. They really almost required restraints to hold him down in his room earlier this morning. We would recommend a MRI of the brain for this patient for further assessment as well. We will also obtain routine EEG. There is no specific treatment for frontotemporal dementia and we will need to wait to see how he does during this admission. We will get a physical therapy consultation for the patient as well as he has history of chronic low back pain and multiple back surgeries. Apparently he had been using Aricept in the past which has not been of much benefit in terms of his advancing dementia. His MRI of the brain was completed yesterday and fails to reveal any evidence of acute stroke. There has been noticeable improvement in his overall mental status and behavior. We reviewed the results of the MRI today with the patient. There is no evidence of acute stroke or hemorrhage. The patient was very happy and relieved that he had not suffered an acute stroke. We have recommended he should follow our stroke recommendation for prophylaxis. The patient was noted to be very agitated today when he was informed that he may be going to a subacute rehab or longterm. According to the nursing staff he became agitated and combative. We recommend the patient to have a psychiatry consultation for further evaluation and adjustment of his medications. We will await further recommendations from psychiatry and management of his behavioral problems. We will continue close neurological follow-up of this patient. We will await further recommendations from the social secretary for discharge planning. His overall prognosis at this time remains very guarded.
[2018-03-09] MEDS: amLODIPine 10 MG TAB PO SCH (08:31)
[2018-03-09] MEDS: INSULIN ASPART 100 UNIT/ML 1 ML 10 ML VIAL SQ SCH ×4 (08:31→21:05)
[2018-03-09] MEDS: LISINOPRIL 10 MG TAB PO SCH (08:33)
[2018-03-09 11:18] LABS: Glucose,Whole Blood 298 mg/dL (75-99)
--- NOTE | 2018-03-09 15:04 | P.DS ---
Providers Date of admission: 03/05/18 14:46 Attending physician: Liz Goddard Consults: 03/03/18 22:05 Consult Physician Urgent Consulting Provider: Monica Franco Consult Reason/Comments: Altered mental status Do you want consulting provider notified?: Yes 03/04/18 05:01 Consult Physician Urgent Consulting Provider: Nancy Giles Consult Reason/Comments: elevated trops Do you want consulting provider notified?: Yes Primary care physician: Alycia Cook Hospital Course: Patient is admitted as secondary to agitation episodes from toxic encephalopathy from opiates. Which were discontinued patient is having the diarrhea because of the long-term opiates that were discontinued. We will use the Imodium for that. Patient was evaluated by neurology. Patient has advancing dementia will require placement. We'll make him and patient today. Patient is much better awake alert oriented 1-2 today I had extensive at length discussion with the daughter and . And discussed that we have to avoid anticholinergics, opiates benzodiazepines, barbiturates and patient's frequency of agitation episodes are expected to worsen with worsening of his dementia and avoid any medication that make him more agitated like above- mentioned ones. We will use Seroquel on as-needed basis for agitation which is expected to get worse particularly at nighttime. 03/06/2018 sitting up in chair, visiting her family. Good diet intake, no nausea vomiting or diarrhea. Increased blood pressure during the night, received a single dose of Norvasc. Systolic blood pressures currently in the 150s. MRI of brain pending. Echo completed, results pending. Denies any lightheadedness dizziness or focal deficits. Denies chest pain, palpitations or increasing shortness of breath. Denies pain. 03/07/2018 EEG completed, Echo reporting normal LV function. Brain MRI reporting age-related changes of atrophy, chronic small vessel ischemia without evidence of acute stroke. Sitting up in chair, good diet intake with no nausea or vomiting. Denies chest pain, palpitations or increasing shortness of breath. Opioids discontinued, denies pain. Agitation controlled on Seroquel and prn Haldol. 03/08/2018 sitting up in chair, good breakfast intake, eager for discharge. Apparently patient does not recall that he would be goi 03/09/2018 Patient's confusion his baseline is awaiting disposition to subacute rehabilitation, awaiting approval from the insurance GENERAL: The patient is alert and oriented x1-2 which is baseline, no acute distress. Well developed, well nourished. HEENT: Pupils are round and equally reacting to light. EOMI. No scleral icterus. No conjunctival pallor. Normocephalic, atraumatic. CARDIOVASCULAR: S1 and S2 present. No murmurs, rubs, or gallops. PULMONARY: Chest is clear to auscultation, no wheezing or crackles. ABDOMEN: Soft, nontender, nondistended, normoactive bowel sounds. No palpable organomegaly. MUSCULOSKELETAL: No joint swelling or deformity. EXTREMITIES: No cyanosis, clubbing, or pedal edema. NEUROLOGICAL: Gross neurological examination did not reveal any focal deficits. Assessment and Plan Assessment: -Agitations: Secondary to toxic encephalopathy from excess opiate use in a patient with advancing dementia. -Dementia: Advanced, probably Alzheimer's or vascular dementia. Coronary artery disease with history of CABG. mildly elevated troponins; not suggestive of acute coronary syndrome as per cardiology evaluation. 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 Plan - Discharge Summary Discharge Rx Participant: No New Discharge Prescriptions: New Losartan [Cozaar] 100 mg PO DAILY #30 tab QUEtiapine [SEROquel] 25 mg PO HS PRN #30 tab PRN Reason: Agitation Continue Cetirizine HCl [Zyrtec] 10 mg PO DAILY Vit A/Vit C/Vit E/Zinc/Copper [ICAPS SOFTGEL] 1 cap PO BID Citalopram Hydrobromide [CeleXA] 20 mg PO HS Clopidogrel [Plavix] 75 mg PO DAILY Fenofibrate Nanocrystallized [Tricor] 145 mg PO AC-SUPPER Cholecalciferol [Vitamin D3] 1,000 unit PO DAILY Rosuvastatin [Crestor] 20 mg PO HS Aspirin EC [Ecotrin Low Dose] 81 mg PO AC-SUPPER Polyethylene Glycol 3350 [Miralax] 17 gm PO HS Carboxymethylcellulose Sodium [Refresh Tears] 1 drop BOTH EYES BID Pantoprazole [Protonix] 40 mg PO AC-SUPPER Tamsulosin [Flomax] 0.8 mg PO HS Insulin Detemir [Levemir] 25 unit SQ HS #1 syr INSULIN LISPRO (HumaLOG) [humaLOG] See Protocol SQ ACHS Donepezil [Aricept] 10 mg PO HS Discontinued Morphine Sulfate ER [Ms Contin] 15 mg PO BID@0900,2100 Losartan/Hydrochlorothiazide [Losartan-Hctz 100-25 mg Tab] 1 tab PO DAILY Discharge Medication List Cetirizine HCl [Zyrtec] 10 mg PO DAILY 06/14/14 [History] Citalopram Hydrobromide [CeleXA] 20 mg PO HS 06/14/14 [History] Clopidogrel [Plavix] 75 mg PO DAILY 06/14/14 [History] Fenofibrate Nanocrystallized [Tricor] 145 mg PO AC-SUPPER 06/14/14 [History] Vit A/Vit C/Vit E/Zinc/Copper [ICAPS SOFTGEL] 1 cap PO BID 06/14/14 [History] Cholecalciferol [Vitamin D3] 1,000 unit PO DAILY 10/06/14 [History] Aspirin EC [Ecotrin Low Dose] 81 mg PO AC-SUPPER 06/28/17 [History] Rosuvastatin [Crestor] 20 mg PO HS 06/28/17 [History] Carboxymethylcellulose Sodium [Refresh Tears] 1 drop BOTH EYES BID 07/23/17 [ History] Pantoprazole [Protonix] 40 mg PO AC-SUPPER 07/23/17 [History] Polyethylene Glycol 3350 [Miralax] 17 gm PO HS 07/23/17 [History] Tamsulosin [Flomax] 0.8 mg PO HS 10/21/17 [History] Insulin Detemir [Levemir] 25 unit SQ HS #1 syr 02/22/18 [Rx] Donepezil [Aricept] 10 mg PO HS 03/03/18 [History] INSULIN LISPRO (HumaLOG) [humaLOG] See Protocol SQ ACHS 03/03/18 [History] Losartan [Cozaar] 100 mg PO DAILY #30 tab 03/06/18 [Rx] QUEtiapine [SEROquel] 25 mg PO HS PRN #30 tab 03/06/18 [Rx] Follow up Appointment(s)/Referral(s): Psychiatry, [Other] - 1 Week (Please give available doctors, office phone numbers) Jose Franco MD [STAFF PHYSICIAN] - 2 Weeks Alycia Cook DO [Primary Care Provider] - 3 Days Activity/Diet/Wound Care/Special Instructions: MRI pending pending neurology clearance PT/OT evaluation Discharge Disposition: TRANSFER TO SNF/ECF
[2018-03-09 17:04] LABS: Glucose,Whole Blood 324 mg/dL (75-99)
[2018-03-09] MEDS: PANTOPRAZOLE 40 MG TABLET PO SCH (17:35)
[2018-03-09] MEDS: ASPIRIN 81 MG PO SCH (17:35)
[2018-03-09 20:58] LABS: Glucose,Whole Blood 206 mg/dL (75-99)
[2018-03-09] MEDS: POLYETHYLENE GLYCOL 3350 17 GM POWD.PACK PO SCH (21:00)
[2018-03-09] MEDS: CITALOPRAM HYDROBROMIDE 20 MG TAB PO SCH (21:04)
[2018-03-09] MEDS: DONEPEZIL 10 MG TAB PO SCH (21:04)
[2018-03-09] MEDS: TAMSULOSIN 0.4 MG CAP.ER.24H PO SCH (21:04)
[2018-03-09] MEDS: ATORVASTATIN 40 MG TAB PO SCH (21:05)
[2018-03-09] MEDS: QUEtiapine 25 MG TAB PO SCH (21:05)
[2018-03-10] MEDS: ACETAMINOPHEN TAB 500 MG TAB PO PRN ×2 (06:20→19:03)
[2018-03-10] MEDS: HALOPERIDOL 0.5 MG TAB PO PRN ×3 (06:22→19:04)
[2018-03-10 07:01] LABS: Glucose,Whole Blood 231 mg/dL (75-99)
[2018-03-10] MEDS: INSULIN ASPART 100 UNIT/ML 1 ML 10 ML VIAL SQ SCH ×4 (07:55→21:11)
[2018-03-10] MEDS: LISINOPRIL 10 MG TAB PO SCH (09:08)
[2018-03-10] MEDS: amLODIPine 10 MG TAB PO SCH (09:09)
[2018-03-10 11:14] LABS: Glucose,Whole Blood 186 mg/dL (75-99)
[2018-03-10 17:42] LABS: Glucose,Whole Blood 306 mg/dL (75-99)
[2018-03-10] MEDS: ASPIRIN 81 MG PO SCH (18:06)
[2018-03-10] MEDS: PANTOPRAZOLE 40 MG TABLET PO SCH (18:06)
[2018-03-10 20:26] LABS: Glucose,Whole Blood 235 mg/dL (75-99)
[2018-03-10] MEDS: POLYETHYLENE GLYCOL 3350 17 GM POWD.PACK PO SCH (21:04)
[2018-03-10] MEDS: SODIUM CHLORIDE 0.9% 1,000 ML IV SCH (21:04)
[2018-03-10] MEDS: DONEPEZIL 10 MG TAB PO SCH (21:10)
[2018-03-10] MEDS: ATORVASTATIN 40 MG TAB PO SCH (21:10)
[2018-03-10] MEDS: TAMSULOSIN 0.4 MG CAP.ER.24H PO SCH (21:10)
[2018-03-10] MEDS: QUEtiapine 25 MG TAB PO SCH (21:10)
[2018-03-10] MEDS: CITALOPRAM HYDROBROMIDE 20 MG TAB PO SCH (21:10)
[2018-03-11] MEDS: ACETAMINOPHEN TAB 500 MG TAB PO PRN ×3 (01:00→22:24)
[2018-03-11] MEDS: HALOPERIDOL 0.5 MG TAB PO PRN (01:00)
[2018-03-11] MEDS: amLODIPine 10 MG TAB PO SCH (07:09)
[2018-03-11] MEDS: LISINOPRIL 10 MG TAB PO SCH (07:09)
[2018-03-11 07:18] LABS: Glucose,Whole Blood 383 mg/dL (75-99)
[2018-03-11] MEDS: INSULIN ASPART 100 UNIT/ML 1 ML 10 ML VIAL SQ SCH ×4 (07:52→22:20)
[2018-03-11 11:29] LABS: Glucose,Whole Blood 266 mg/dL (75-99)
[2018-03-11 14:53] VITALS: BMI 26.3
--- NOTE | 2018-03-11 16:06 | P.PN ---
Subjective Progress Note Date: 03/10/18 Patient is admitted as secondary to agitation episodes from toxic encephalopathy from opiates. Which were discontinued patient is having the diarrhea because of the long-term opiates that were discontinued. We will use the Imodium for that. Patient was evaluated by neurology. Patient has advancing dementia will require placement. We'll make him and patient today. Patient is much better awake alert oriented 1-2 today I had extensive at length discussion with the daughter and . And discussed that we have to avoid anticholinergics, opiates benzodiazepines, barbiturates and patient's frequency of agitation episodes are expected to worsen with worsening of his dementia and avoid any medication that make him more agitated like above- mentioned ones. We will use Seroquel on as-needed basis for agitation which is expected to get worse particularly at nighttime. 03/06/2018 sitting up in chair, visiting her family. Good diet intake, no nausea vomiting or diarrhea. Increased blood pressure during the night, received a single dose of Norvasc. Systolic blood pressures currently in the 150s. MRI of brain pending. Echo completed, results pending. Denies any lightheadedness dizziness or focal deficits. Denies chest pain, palpitations or increasing shortness of breath. Denies pain. 03/07/2018 EEG completed, Echo reporting normal LV function. Brain MRI reporting age-related changes of atrophy, chronic small vessel ischemia without evidence of acute stroke. Sitting up in chair, good diet intake with no nausea or vomiting. Denies chest pain, palpitations or increasing shortness of breath. Opioids discontinued, denies pain. Agitation controlled on Seroquel and prn Haldol. 03/08/2018 sitting up in chair, good breakfast intake, eager for discharge. Apparently patient does not recall that he would be goi 03/09/2018 Patient's confusion his baseline is awaiting disposition to subacute rehabilitation, awaiting approval from the insurance 03/10/2018 Patient seems to be at his baseline; needs insurance approval for transfer to subacute rehabilitation; patient will need handwritten prescriptions at the time of discharge Objective - Vital Signs Vital signs: Vital Signs Temp 98.3 F 03/10/18 12:06 Pulse 97 03/10/18 12:06 Resp 18 03/10/18 12:06 BP 137/64 03/10/18 12:06 Pulse Ox 94 L 03/10/18 05:00 Intake & Output 03/09/18 03/10/18 03/10/18 18:59 06:59 18:59 Intake Total 1150 590 160 Output Total 2 Balance 1148 590 160 Intake: Intake, IV Titration 160 Amount Sodium Chloride 0.9% 1, 160 000 ml @ 20 mls/hr IV . Q24H [facility] Rx#:[id number] Oral 1150 590 Output: Stool 2 Other: Voiding Method Diaper Diaper Urinal Incontinent Incontinent Diaper Incontinent # Voids 3 3 2 # Bowel Movements 2 1 - Exam GENERAL: The patient is alert and oriented x1-2 which is baseline, no acute distress. Well developed, well nourished. HEENT: Pupils are round and equally reacting to light. EOMI. No scleral icterus. No conjunctival pallor. Normocephalic, atraumatic. CARDIOVASCULAR: S1 and S2 present. No murmurs, rubs, or gallops. PULMONARY: Chest is clear to auscultation, no wheezing or crackles. ABDOMEN: Soft, nontender, nondistended, normoactive bowel sounds. No palpable organomegaly. MUSCULOSKELETAL: No joint swelling or deformity. EXTREMITIES: No cyanosis, clubbing, or pedal edema. NEUROLOGICAL: Gross neurological examination did not reveal any focal deficits. - Labs CBC & Chem 7: 03/04/18 06:58 03/04/18 06:58 Labs: Abnormal Lab Results - Last 24 Hours (Table) 03/09/18 03/09/18 03/10/18 Range/Units 17:00 20:57 07:00 POC Glucose (mg/dL) 324 H 206 H 231 H (75-99) mg/dL 03/10/18 Range/Units 11:13 POC Glucose (mg/dL) 186 H (75-99) mg/dL Assessment and Plan Assessment: -Agitations: Secondary to toxic encephalopathy from excess opiate use in a patient with advancing dementia. -Dementia: Advanced, probably Alzheimer's or vascular dementia. Coronary artery disease with history of CABG. mildly elevated troponins; not suggestive of acute coronary syndrome as per cardiology evaluation. 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
--- NOTE | 2018-03-11 16:51 | P.PN ---
Subjective Progress Note Date: 03/11/18 Patient is admitted as secondary to agitation episodes from toxic encephalopathy from opiates. Which were discontinued patient is having the diarrhea because of the long-term opiates that were discontinued. We will use the Imodium for that. Patient was evaluated by neurology. Patient has advancing dementia will require placement. We'll make him and patient today. Patient is much better awake alert oriented 1-2 today I had extensive at length discussion with the daughter and . And discussed that we have to avoid anticholinergics, opiates benzodiazepines, barbiturates and patient's frequency of agitation episodes are expected to worsen with worsening of his dementia and avoid any medication that make him more agitated like above- mentioned ones. We will use Seroquel on as-needed basis for agitation which is expected to get worse particularly at nighttime. 03/06/2018 sitting up in chair, visiting her family. Good diet intake, no nausea vomiting or diarrhea. Increased blood pressure during the night, received a single dose of Norvasc. Systolic blood pressures currently in the 150s. MRI of brain pending. Echo completed, results pending. Denies any lightheadedness dizziness or focal deficits. Denies chest pain, palpitations or increasing shortness of breath. Denies pain. 03/07/2018 EEG completed, Echo reporting normal LV function. Brain MRI reporting age-related changes of atrophy, chronic small vessel ischemia without evidence of acute stroke. Sitting up in chair, good diet intake with no nausea or vomiting. Denies chest pain, palpitations or increasing shortness of breath. Opioids discontinued, denies pain. Agitation controlled on Seroquel and prn Haldol. 03/08/2018 sitting up in chair, good breakfast intake, eager for discharge. Apparently patient does not recall that he would be goi 03/09/2018 Patient's confusion his baseline is awaiting disposition to subacute rehabilitation, awaiting approval from the insurance 03/10/2018 Patient seems to be at his baseline; needs insurance approval for transfer to subacute rehabilitation; patient will need handwritten prescriptions at the time of discharge 03/11/2018 Patient is seen in room for follow-up; patient is admitted for toxic encephalopathy from opiates; patient does have advancing dementia and is not able to manage his medical care and has been recommended adult foster care; due to dementia patient is not able to make sound medical decisions and in my opinion he would benefit from an appointment guardian Objective - Vital Signs Vital signs: Vital Signs Temp 98.0 F 03/11/18 13:00 Pulse 96 03/11/18 15:45 Resp 16 03/11/18 15:45 BP 146/67 03/11/18 13:00 Pulse Ox 94 L 03/11/18 13:00 Intake & Output 03/10/18 03/11/18 03/11/18 18:59 06:59 18:59 Intake Total 160 800 Output Total 5 Balance 160 800 -5 Weight 78.5 kg Intake: Intake, IV Titration 160 Amount Sodium Chloride 0.9% 1, 160 000 ml @ 20 mls/hr IV . Q24H [facility] Rx#:[id number] Oral 800 Output: Stool 5 Other: Voiding Method Urinal Toilet Toilet Diaper Diaper Diaper Incontinent Incontinent Incontinent # Voids 2 1 3 # Bowel Movements 1 1 - Exam GENERAL: The patient is alert and oriented x1-2 which is baseline, no acute distress. Well developed, well nourished. HEENT: Pupils are round and equally reacting to light. EOMI. No scleral icterus. No conjunctival pallor. Normocephalic, atraumatic. CARDIOVASCULAR: S1 and S2 present. No murmurs, rubs, or gallops. PULMONARY: Chest is clear to auscultation, no wheezing or crackles. ABDOMEN: Soft, nontender, nondistended, normoactive bowel sounds. No palpable organomegaly. MUSCULOSKELETAL: No joint swelling or deformity. EXTREMITIES: No cyanosis, clubbing, or pedal edema. NEUROLOGICAL: Gross neurological examination did not reveal any focal deficits. - Labs CBC & Chem 7: 03/04/18 06:58 03/04/18 06:58 Labs: Abnormal Lab Results - Last 24 Hours (Table) 03/10/18 03/10/18 03/11/18 Range/Units 17:41 20:26 07:17 POC Glucose (mg/dL) 306 H 235 H 383 H (75-99) mg/dL 03/11/18 Range/Units 11:28 POC Glucose (mg/dL) 266 H (75-99) mg/dL Assessment and Plan Assessment: -Agitations: Secondary to toxic encephalopathy from excess opiate use in a patient with advancing dementia. -Dementia: Advanced, probably Alzheimer's or vascular dementia. - Continue with Aricept 10 mg daily at bedtime - We will continue to use Haldol 1 mg by mouth 4 times a day when necessary for agitation - Continue with Seroquel 25 mg daily at bedtime for anxiety, agitation and insomnia -Coronary artery disease with history of CABG. mildly elevated troponins; not suggestive of acute coronary syndrome as per cardiology evaluation. - Stable on aspirin, statins, lisinopril -Hypertension: Resumed his home medications Norvasc 10 mg by mouth daily along with lisinopril 10 mg daily -Hyperlipidemia; stable on Lipitor 40 mg by mouth daily at bedtime -diabetes mellitus; controlled with Levemir 10 mg subcu daily at bedtime along with insulin aspart according to sliding scale -History of CVA; in the past with some residual right leg weakness; continue with aspirin 81 mg daily along with Lipitor 40 mg daily at bedtime - Disposition; patient has been recommended transferred to an adult foster care ; patient hasn't been able to manage his opiate use and was admitted due to toxic encephalopathy due to excess use of opiates in the setting of advancing dementia; in my opinion patient is not able to make sound medical decisions and will benefit from an appointment guardian CODE STATUS; full code Time with Patient: Greater than 30
[2018-03-11 17:29] LABS: Glucose,Whole Blood 420 mg/dL (75-99)
[2018-03-11] MEDS: ASPIRIN 81 MG PO SCH (17:35)
[2018-03-11] MEDS: PANTOPRAZOLE 40 MG TABLET PO SCH (17:36)
[2018-03-11 20:01] LABS: Glucose,Whole Blood 258 mg/dL (75-99)
[2018-03-11] MEDS: POLYETHYLENE GLYCOL 3350 17 GM POWD.PACK PO SCH (21:21)
[2018-03-11] MEDS: ATORVASTATIN 40 MG TAB PO SCH (21:21)
[2018-03-11] MEDS: QUEtiapine 25 MG TAB PO SCH (21:21)
[2018-03-11] MEDS: CITALOPRAM HYDROBROMIDE 20 MG TAB PO SCH (21:21)
[2018-03-11] MEDS: TAMSULOSIN 0.4 MG CAP.ER.24H PO SCH (21:21)
[2018-03-11] MEDS: DONEPEZIL 10 MG TAB PO SCH (21:21)
[2018-03-11] MEDS: INSULIN DETEMIR 100 UNIT/ML 10 ML VIAL SQ SCH (22:43)
[2018-03-12] MEDS: SODIUM CHLORIDE 0.9% 1,000 ML IV SCH (05:02)
[2018-03-12 07:20] LABS: Glucose,Whole Blood 211 mg/dL (75-99)
[2018-03-12] MEDS: LISINOPRIL 10 MG TAB PO SCH (08:52)
[2018-03-12] MEDS: amLODIPine 10 MG TAB PO SCH (08:52)
[2018-03-12] MEDS: INSULIN ASPART 100 UNIT/ML 1 ML 10 ML VIAL SQ SCH ×4 (08:54→21:25)
--- NOTE | 2018-03-12 09:39 | P.CN ---
Psychiatric Consult - . Consult date: 03/12/18 Consult:: 03/12/18 09:36 Altered mental status Assessment and Plan Assessment: Identifying Information Patient was admitted to medicine with Altered mental status. Psychiatry was consulted to evaluate the patient . Chief complaint Patient does not know why he is in the hospital. History of presenting illness Patient was sitting comfortably in the chair next to his bed. He knows he is in [facility]. Patient was able to identify his daughter and his grandson who were in the room with him. Patient was unable to tell his age but was able to tell his date of as 31. He was unable to tell the date, month or the season. 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 He stated he likes watching foot [employer] game. Per patients daughter patient was very coherent and not confused a week ago when she visited him at home. Per patients daughter patient gets home health care and visits by a nurse and social work administrator but denies getting physically aggressive with her. He says he likes to do what he likes and she likes to do what she likes. Patients daughter says patient gets celexa and xanax from his primary care physician. Patient denies history of depression and denies current suicidal or homicidal ideation. He denies auditory or visual hallucinations. Per hospital staff patient hasnt been physically aggressive but does get verbally nasty at times. Per staff patient gets confused and incoherent at times and at other times he is more coherent and pleasant. Per medical records patients states that he has been confused and combative since coming home two weeks ago. Past psychiatric history Denies psychiatric hospitalizations. He gets celexa and xanax from primary care physician. Substance use history Patient denies use of illicit drugs. Legal problems Unknown Family psychiatric treatment history unknown Medical history Per medical records last month he was hospitalized with a UTI and subsequent sepsis. patient was discharged to a alf and has been home since two weeks. Coronary Artery Disease , CVA/TIA, Hyperlipidemia, Hypertension Mental status exam 82 year old male, dressed in hospital gown, appeared his stated age. The patient is alert and oriented to self and place only. Not in apparent distress. Speech is slow, low in volume and rate. He struggles to find words to explain. His thought process is delayed. No abnormal movements noted. Mood is "okay" and affect is reactive. Denies suicidal or homicidal ideations. 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 From a psychiatric standpoint is that we can do at this point thank you for the consult No psychiatric interventions required at this time. Thank you for allowing us to participate in the care of this interesting patient. (1) Altered mental status Current Visit: Yes Status: Acute Priority: High Code(s): R41.82 - ALTERED MENTAL STATUS, UNSPECIFIED SNOMED Code(s): 531558309 (2) Dementia Current Visit: No Status: Acute Priority: High Code(s): F03.90 - UNSPECIFIED DEMENTIA WITHOUT BEHAVIORAL DISTURBANCE SNOMED Code(s): 08787999 Time with Patient: Less than 30
[2018-03-12 11:33] LABS: Glucose,Whole Blood 248 mg/dL (75-99)
[2018-03-12] MEDS: ACETAMINOPHEN TAB 500 MG TAB PO PRN (11:50)
[2018-03-12 16:55] LABS: Glucose,Whole Blood 460 mg/dL (75-99)
[2018-03-12] MEDS: PANTOPRAZOLE 40 MG TABLET PO SCH (18:15)
[2018-03-12] MEDS: ASPIRIN 81 MG PO SCH (18:15)
[2018-03-12 20:41] LABS: Glucose,Whole Blood 286 mg/dL (75-99)
[2018-03-12] MEDS: CITALOPRAM HYDROBROMIDE 20 MG TAB PO SCH (21:24)
[2018-03-12] MEDS: TAMSULOSIN 0.4 MG CAP.ER.24H PO SCH (21:24)
[2018-03-12] MEDS: DONEPEZIL 10 MG TAB PO SCH (21:24)
[2018-03-12] MEDS: QUEtiapine 25 MG TAB PO SCH (21:24)
[2018-03-12] MEDS: ATORVASTATIN 40 MG TAB PO SCH (21:25)
[2018-03-12] MEDS: POLYETHYLENE GLYCOL 3350 17 GM POWD.PACK PO SCH (21:25)
[2018-03-12] MEDS: INSULIN DETEMIR 100 UNIT/ML 10 ML VIAL SQ SCH (21:26)
[2018-03-13] MEDS: SODIUM CHLORIDE 0.9% 1,000 ML IV SCH (00:34)
[2018-03-13] MEDS: ACETAMINOPHEN TAB 500 MG TAB PO PRN ×2 (00:56→10:26)
[2018-03-13 07:06] LABS: Glucose,Whole Blood 348 mg/dL (75-99)
[2018-03-13] MEDS: INSULIN ASPART 100 UNIT/ML 1 ML 10 ML VIAL SQ SCH ×2 (08:34→13:00)
[2018-03-13] MEDS: LISINOPRIL 10 MG TAB PO SCH (08:36)
[2018-03-13] MEDS: amLODIPine 10 MG TAB PO SCH (08:36)
[2018-03-13] MEDS: LOPERAMIDE 2 MG CAP PO PRN (10:26)
[2018-03-13 11:56] LABS: Glucose,Whole Blood 256 mg/dL (75-99)
[2018-03-13 13:08] VITALS: BP 139/63; PULSE 71; RESP 16; TEMP 98.4
--- NOTE | 2018-03-13 13:08 | P.PN ---
Subjective Progress Note Date: 03/12/18 Principal diagnosis: Altered mental status Patient is admitted as secondary to agitation episodes from toxic encephalopathy from opiates. Which were discontinued patient is having the diarrhea because of the long-term opiates that were discontinued. We will use the Imodium for that. Patient was evaluated by neurology. Patient has advancing dementia will require placement. We'll make him and patient today. Patient is much better awake alert oriented 1-2 today I had extensive at length discussion with the daughter and . And discussed that we have to avoid anticholinergics, opiates benzodiazepines, barbiturates and patient's frequency of agitation episodes are expected to worsen with worsening of his dementia and avoid any medication that make him more agitated like above- mentioned ones. We will use Seroquel on as-needed basis for agitation which is expected to get worse particularly at nighttime. 03/06/2018 sitting up in chair, visiting her family. Good diet intake, no nausea vomiting or diarrhea. Increased blood pressure during the night, received a single dose of Norvasc. Systolic blood pressures currently in the 150s. MRI of brain pending. Echo completed, results pending. Denies any lightheadedness dizziness or focal deficits. Denies chest pain, palpitations or increasing shortness of breath. Denies pain. 03/07/2018 EEG completed, Echo reporting normal LV function. Brain MRI reporting age-related changes of atrophy, chronic small vessel ischemia without evidence of acute stroke. Sitting up in chair, good diet intake with no nausea or vomiting. Denies chest pain, palpitations or increasing shortness of breath. Opioids discontinued, denies pain. Agitation controlled on Seroquel and prn Haldol. 03/08/2018 sitting up in chair, good breakfast intake, eager for discharge. Apparently patient does not recall that he would be goi 03/09/2018 Patient's confusion his baseline is awaiting disposition to subacute rehabilitation, awaiting approval from the insurance 03/10/2018 Patient seems to be at his baseline; needs insurance approval for transfer to subacute rehabilitation; patient will need handwritten prescriptions at the time of discharge 03/11/2018 Patient is seen in room for follow-up; patient is admitted for toxic encephalopathy from opiates; patient does have advancing dementia and is not able to manage his medical care and has been recommended adult foster care; due to dementia patient is not able to make sound medical decisions and in my opinion he would benefit from an appointment guardian 03/12/2018 Patient is seen for follow-up; patient has been evaluated by psych service; patient is diagnosed with dementia and no further psychiatric intervention or evaluation has been recommended at this point Await placement to adult foster care Objective - Vital Signs Vital signs: Vital Signs Temp 99.1 F 03/12/18 04:51 Pulse 59 L 03/12/18 08:25 Resp 16 03/12/18 08:25 BP 149/74 03/12/18 04:51 Pulse Ox 94 L 03/12/18 04:51 Intake & Output 03/11/18 03/12/18 03/12/18 18:59 06:59 18:59 Intake Total 240 Output Total 5 2 1 Balance -5 -2 239 Weight 78.5 kg 78.5 kg Intake: Oral 240 Output: Stool 5 2 1 Other: Voiding Method Toilet Toilet Toilet Diaper Diaper Diaper Incontinent Incontinent Incontinent # Voids 3 1 2 # Bowel Movements 1 - Exam GENERAL: The patient is alert and oriented x1-2 which is baseline, no acute distress. Well developed, well nourished. HEENT: Pupils are round and equally reacting to light. EOMI. No scleral icterus. No conjunctival pallor. Normocephalic, atraumatic. CARDIOVASCULAR: S1 and S2 present. No murmurs, rubs, or gallops. PULMONARY: Chest is clear to auscultation, no wheezing or crackles. ABDOMEN: Soft, nontender, nondistended, normoactive bowel sounds. No palpable organomegaly. MUSCULOSKELETAL: No joint swelling or deformity. EXTREMITIES: No cyanosis, clubbing, or pedal edema. NEUROLOGICAL: Gross neurological examination did not reveal any focal deficits. - Labs CBC & Chem 7: 03/04/18 06:58 03/04/18 06:58 Labs: Abnormal Lab Results - Last 24 Hours (Table) 03/11/18 03/11/18 03/12/18 Range/Units 17:27 20:00 07:19 POC Glucose (mg/dL) 420 H 258 H 211 H (75-99) mg/dL 03/12/18 Range/Units 11:32 POC Glucose (mg/dL) 248 H (75-99) mg/dL Assessment and Plan Assessment: -Agitations: Secondary to toxic encephalopathy from excess opiate use in a patient with advancing dementia. -Dementia: Advanced, probably Alzheimer's or vascular dementia. - Continue with Aricept 10 mg daily at bedtime - We will continue to use Haldol 1 mg by mouth 4 times a day when necessary for agitation - Continue with Seroquel 25 mg daily at bedtime for anxiety, agitation and insomnia -Coronary artery disease with history of CABG. mildly elevated troponins; not suggestive of acute coronary syndrome as per cardiology evaluation. - Stable on aspirin, statins, lisinopril -Hypertension: Resumed his home medications Norvasc 10 mg by mouth daily along with lisinopril 10 mg daily -Hyperlipidemia; stable on Lipitor 40 mg by mouth daily at bedtime -diabetes mellitus; controlled with Levemir 10 mg subcu daily at bedtime along with insulin aspart according to sliding scale -History of CVA; in the past with some residual right leg weakness; continue with aspirin 81 mg daily along with Lipitor 40 mg daily at bedtime - Disposition; patient has been recommended transferred to an adult foster care ; patient hasn't been able to manage his opiate use and was admitted due to toxic encephalopathy due to excess use of opiates in the setting of advancing dementia; in my opinion patient is not able to make sound medical decisions and will benefit from an appointment guardian CODE STATUS; full code Time with Patient: Greater than 30
--- NOTE | 2018-03-13 14:14 | P.DS ---
Providers Date of admission: 03/05/18 14:46 Expected date of discharge: 03/13/18 Attending physician: Liz Goddard Consults: 03/03/18 22:05 Consult Physician Urgent Consulting Provider: Monica Franco Consult Reason/Comments: Altered mental status Do you want consulting provider notified?: Yes 03/04/18 05:01 Consult Physician Urgent Consulting Provider: Nancy Giles Consult Reason/Comments: elevated trops Do you want consulting provider notified?: Yes 03/10/18 16:20 Consult Physician Urgent Consulting Provider: Gilberto Faustin Consult Reason/Comments: dementia Do you want consulting provider notified?: Yes Primary care physician: Alycia Cook Hospital Course: Patient is admitted as secondary to agitation episodes from toxic encephalopathy from opiates. Which were discontinued patient is having the diarrhea because of the long-term opiates that were discontinued. We will use the Imodium for that. Patient was evaluated by neurology. Patient has advancing dementia will require placement. We'll make him and patient today. Patient is much better awake alert oriented 1-2 today I had extensive at length discussion with the daughter and . And discussed that we have to avoid anticholinergics, opiates benzodiazepines, barbiturates and patient's frequency of agitation episodes are expected to worsen with worsening of his dementia and avoid any medication that make him more agitated like above- mentioned ones. We will use Seroquel on as-needed basis for agitation which is expected to get worse particularly at nighttime. 03/06/2018 sitting up in chair, visiting her family. Good diet intake, no nausea vomiting or diarrhea. Increased blood pressure during the night, received a single dose of Norvasc. Systolic blood pressures currently in the 150s. MRI of brain pending. Echo completed, results pending. Denies any lightheadedness dizziness or focal deficits. Denies chest pain, palpitations or increasing shortness of breath. Denies pain. 03/07/2018 EEG completed, Echo reporting normal LV function. Brain MRI reporting age-related changes of atrophy, chronic small vessel ischemia without evidence of acute stroke. Sitting up in chair, good diet intake with no nausea or vomiting. Denies chest pain, palpitations or increasing shortness of breath. Opioids discontinued, denies pain. Agitation controlled on Seroquel and prn Haldol. 03/08/2018 sitting up in chair, good breakfast intake, eager for discharge. Apparently patient does not recall that he would be goi 03/09/2018 Patient's confusion his baseline is awaiting disposition to subacute rehabilitation, awaiting approval from the insurance 03/10/2018 Patient seems to be at his baseline; needs insurance approval for transfer to subacute rehabilitation; patient will need handwritten prescriptions at the time of discharge 03/11/2018 Patient is seen in room for follow-up; patient is admitted for toxic encephalopathy from opiates; patient does have advancing dementia and is not able to manage his medical care and has been recommended adult foster care; due to dementia patient is not able to make sound medical decisions and in my opinion he would benefit from an appointment guardian 03/12/2018 Patient is seen for follow-up; patient has been evaluated by psych service; patient is diagnosed with dementia and no further psychiatric intervention or evaluation has been recommended at this point Await placement to adult foster care Patient was given following treatment while inpatient -Agitations: Secondary to toxic encephalopathy from excess opiate use in a patient with advancing dementia. -Dementia: Advanced, probably Alzheimer's or vascular dementia. - Continue with Aricept 10 mg daily at bedtime - We will continue to use Haldol 1 mg by mouth 4 times a day when necessary for agitation - Continue with Seroquel 25 mg daily at bedtime for anxiety, agitation and insomnia -Coronary artery disease with history of CABG. mildly elevated troponins; not suggestive of acute coronary syndrome as per cardiology evaluation. - Stable on aspirin, statins, lisinopril -Hypertension: Resumed his home medications Norvasc 10 mg by mouth daily along with lisinopril 10 mg daily -Hyperlipidemia; stable on Lipitor 40 mg by mouth daily at bedtime -diabetes mellitus; controlled with Levemir 10 mg subcu daily at bedtime along with insulin aspart according to sliding scale -History of CVA; in the past with some residual right leg weakness; continue with aspirin 81 mg daily along with Lipitor 40 mg daily at bedtime - Disposition; patient has been recommended transferred to an adult foster care ; patient hasn't been able to manage his opiate use and was admitted due to toxic encephalopathy due to excess use of opiates in the setting of advancing dementia; in my opinion patient is not able to make sound medical decisions and will benefit from an appointment guardian Plan - Discharge Summary Discharge Rx Participant: No New Discharge Prescriptions: New Losartan [Cozaar] 100 mg PO DAILY #30 tab QUEtiapine [SEROquel] 25 mg PO HS PRN #30 tab PRN Reason: Agitation amLODIPine [Norvasc] 10 mg PO DAILY #30 tab QUEtiapine [SEROquel] 25 mg PO HS #30 tab Continue Vit A/Vit C/Vit E/Zinc/Copper [ICAPS SOFTGEL] 1 cap PO BID Citalopram Hydrobromide [CeleXA] 20 mg PO HS Cholecalciferol [Vitamin D3] 1,000 unit PO DAILY Aspirin EC [Ecotrin Low Dose] 81 mg PO AC-SUPPER Polyethylene Glycol 3350 [Miralax] 17 gm PO HS Carboxymethylcellulose Sodium [Refresh Tears] 1 drop BOTH EYES BID Pantoprazole [Protonix] 40 mg PO AC-SUPPER INSULIN LISPRO (HumaLOG) [humaLOG] See Protocol SQ ACHS Cetirizine HCl [Zyrtec] 10 mg PO DAILY #30 tablet Clopidogrel [Plavix] 75 mg PO DAILY #30 tab Donepezil [Aricept] 10 mg PO HS #30 tab Fenofibrate Nanocrystallized [Tricor] 145 mg PO AC-SUPPER #30 tablet Rosuvastatin [Crestor] 20 mg PO HS #30 tablet Tamsulosin [Flomax] 0.8 mg PO HS #30 cap.er.24h Insulin Detemir [Levemir] 25 unit SQ HS #1 syr Discontinued Morphine Sulfate ER [Ms Contin] 15 mg PO BID@0900,2100 Losartan/Hydrochlorothiazide [Losartan-Hctz 100-25 mg Tab] 1 tab PO DAILY Discharge Medication List Citalopram Hydrobromide [CeleXA] 20 mg PO HS 06/14/14 [History] Vit A/Vit C/Vit E/Zinc/Copper [ICAPS SOFTGEL] 1 cap PO BID 06/14/14 [History] Cholecalciferol [Vitamin D3] 1,000 unit PO DAILY 10/06/14 [History] Aspirin EC [Ecotrin Low Dose] 81 mg PO AC-SUPPER 06/28/17 [History] Carboxymethylcellulose Sodium [Refresh Tears] 1 drop BOTH EYES BID 07/23/17 [ History] Pantoprazole [Protonix] 40 mg PO AC-SUPPER 07/23/17 [History] Polyethylene Glycol 3350 [Miralax] 17 gm PO HS 07/23/17 [History] INSULIN LISPRO (HumaLOG) [humaLOG] See Protocol SQ ACHS 03/03/18 [History] Losartan [Cozaar] 100 mg PO DAILY #30 tab 03/06/18 [Rx] QUEtiapine [SEROquel] 25 mg PO HS PRN #30 tab 03/06/18 [Rx] Cetirizine HCl [Zyrtec] 10 mg PO DAILY #30 tablet 03/12/18 [Rx] Clopidogrel [Plavix] 75 mg PO DAILY #30 tab 03/12/18 [Rx] Donepezil [Aricept] 10 mg PO HS #30 tab 03/12/18 [Rx] Fenofibrate Nanocrystallized [Tricor] 145 mg PO AC-SUPPER #30 tablet 03/12/18 [ Rx] Rosuvastatin [Crestor] 20 mg PO HS #30 tablet 03/12/18 [Rx] Tamsulosin [Flomax] 0.8 mg PO HS #30 cap.er.24h 03/12/18 [Rx] Insulin Detemir [Levemir] 25 unit SQ HS #1 syr 03/13/18 [Rx] QUEtiapine [SEROquel] 25 mg PO HS #30 tab 03/13/18 [Rx] amLODIPine [Norvasc] 10 mg PO DAILY #30 tab 03/13/18 [Rx] Follow up Appointment(s)/Referral(s): Psychiatry, [Other] - 1 Week (Please give available doctors, office phone numbers) Jose Franco MD [STAFF PHYSICIAN] - 2 Weeks Alycia Cook DO [Primary Care Provider] - 3 Days Activity/Diet/Wound Care/Special Instructions: MRI pending pending neurology clearance PT/OT evaluation
== END 2018-03-13 17:10 | disposition home or self-care (01) | DRG 92 ==
LOC: EC 19:02 → 3NMEDONC 22:04 → OBSVTOIN 03-05 14:46
PROVIDERS: ADMIT Internal Medicine; ATTEND Internal Medicine
DX: G92 Toxic encephalopathy (principal); F02.81 Dementia in other diseases classified elsewhere, unspecified severity, with behavioral disturbance; F01.51 Vascular dementia, unspecified severity, with behavioral disturbance; I69.351 Hemiplegia and hemiparesis following cerebral infarction affecting right dominant side; F05 Delirium due to known physiological condition; E11.9 Type 2 diabetes mellitus without complications; G30.9 Alzheimer's disease, unspecified; G31.09 Other frontotemporal neurocognitive disorder; T40.2X5A Adverse effect of other opioids, initial encounter; F41.9 Anxiety disorder, unspecified; I10 Essential (primary) hypertension; E78.5 Hyperlipidemia, unspecified; G89.29 Other chronic pain; M54.5 Low back pain; R19.7 Diarrhea, unspecified; G47.00 Insomnia, unspecified; R26.2 Difficulty in walking, not elsewhere classified; I25.10 Atherosclerotic heart disease of native coronary artery without angina pectoris; R77.8 Other specified abnormalities of plasma proteins; Z78.1 Physical restraint status; Z79.82 Long term (current) use of aspirin; Z79.02 Long term (current) use of antithrombotics/antiplatelets; Z79.4 Long term (current) use of insulin; Z79.891 Long term (current) use of opiate analgesic; Z79.899 Other long term (current) drug therapy; Z95.1 Presence of aortocoronary bypass graft; Z88.1 Allergy status to other antibiotic agents; Z88.5 Allergy status to narcotic agent; Z88.2 Allergy status to sulfonamides; Z88.8 Allergy status to other drugs, medicaments and biological substances; Z82.49 Family history of ischemic heart disease and other diseases of the circulatory system
CPT/HCPCS: 36415; 70551; 71046; 80053; 81003; 82550; 82553; 83036; 84484; 85025; 85027; 87324; 93005; 93306; 95816; 96374; 99285